=== PATIENT | male | born 1950 | race Caucasian/White ===

== ENCOUNTER 2023-01-31 15:19 | Outpatient (OUT) | payer MEDICARE, SELFPAY ==
--- NOTE | 2023-01-31 15:58 | XR_ITS ---
The [address] [address] Patient Name: AMEE LANCE MRN: [id number] date: 1950 Sex: M Assigned Patient Location: [facility] Current Patient Location: [facility] Accession/Order Number: [id number] Exam Date: 01/31/2023 15:44 Report Date: 01/31/2023 19:09 At the request of: RIK MURRAY Procedure: XR ankle RT min 3V EXAM: XR ankle RT min 3V, XR foot RT min 3V, XR femur LT 2V HISTORY: Contusion bilateral legs Right foot COMPARISON: None. TECHNIQUE/FINDINGS: Right ankle and right foot: There is soft tissue swelling at the ankle near circumferentially, worst at the lateral aspect. There is deformity of the distal fibula diaphysis. There appears to be an osteochondroma arising from the medial aspect of the distal fibular shaft. No acute fracture or subluxation is seen. There is moderate joint space narrowing with marginal spurring at the interphalangeal joints of the toes, tibiotalar joint and the tarsometatarsal joints. Well-defined bony ossicle distal to the tip of the medial malleolus may be related to old fracture/secondary ossification center. Bilateral knees: AP, oblique and lateral views of the bilateral knees were obtained. There is moderate bilateral medial compartment joint space narrowing. There is marginal tricompartmental spurring along with spurring of the tibial spines. Left femur: There is moderate joint space narrowing with marginal spurring at the left hip joint. There is a well-corticated sclerotic lesion at the proximal lateral left femur which has appearance of a bone island. XR/XR ankle RT min 3V IMPRESSION: RIGHT ANKLE AND RIGHT FOOT: 1. No acute fracture or subluxation. 2. Soft tissue swelling at the ankle extending to the dorsal aspect of the midfoot. 3. Polyarticular osteoarthritis. 4. Pedunculated bony outgrowth arising from the medial margin of the distal fibula suspicious for osteochondroma. BILATERAL KNEES AND LEFT FEMUR: 1. Moderate bilateral knee joint osteoarthritis. 2. Moderate left hip joint osteoarthritis. 3. No radiographic evidence of acute fracture or subluxation. Electronically authenticated by: GLENYS ANGELO Date: 01/31/2023 19:09
--- NOTE | 2023-01-31 15:58 | XR_ITS ---
The [address] [address] Patient Name: AMEE LANCE MRN: [id number] date: 1950 Sex: M Assigned Patient Location: [facility] Current Patient Location: [facility] Accession/Order Number: [id number] Exam Date: 01/31/2023 15:44 Report Date: 01/31/2023 19:09 At the request of: RIK MURRAY Procedure: XR foot RT min 3V EXAM: XR ankle RT min 3V, XR foot RT min 3V, XR femur LT 2V HISTORY: Contusion bilateral legs Right foot COMPARISON: None. TECHNIQUE/FINDINGS: Right ankle and right foot: There is soft tissue swelling at the ankle near circumferentially, worst at the lateral aspect. There is deformity of the distal fibula diaphysis. There appears to be an osteochondroma arising from the medial aspect of the distal fibular shaft. No acute fracture or subluxation is seen. There is moderate joint space narrowing with marginal spurring at the interphalangeal joints of the toes, tibiotalar joint and the tarsometatarsal joints. Well-defined bony ossicle distal to the tip of the medial malleolus may be related to old fracture/secondary ossification center. Bilateral knees: AP, oblique and lateral views of the bilateral knees were obtained. There is moderate bilateral medial compartment joint space narrowing. There is marginal tricompartmental spurring along with spurring of the tibial spines. Left femur: There is moderate joint space narrowing with marginal spurring at the left hip joint. There is a well-corticated sclerotic lesion at the proximal lateral left femur which has appearance of a bone island. XR/XR foot RT min 3V IMPRESSION: RIGHT ANKLE AND RIGHT FOOT: 1. No acute fracture or subluxation. 2. Soft tissue swelling at the ankle extending to the dorsal aspect of the midfoot. 3. Polyarticular osteoarthritis. 4. Pedunculated bony outgrowth arising from the medial margin of the distal fibula suspicious for osteochondroma. BILATERAL KNEES AND LEFT FEMUR: 1. Moderate bilateral knee joint osteoarthritis. 2. Moderate left hip joint osteoarthritis. 3. No radiographic evidence of acute fracture or subluxation. Electronically authenticated by: GLENYS ANGELO Date: 01/31/2023 19:09
--- NOTE | 2023-01-31 15:58 | XR_ITS ---
The [address] [address] Patient Name: AMEE LANCE MRN: [id number] date: 1950 Sex: M Assigned Patient Location: [facility] Current Patient Location: [facility] Accession/Order Number: [id number] Exam Date: 01/31/2023 15:44 Report Date: 01/31/2023 19:09 At the request of: RIK MURRAY Procedure: XR femur LT 2V EXAM: XR ankle RT min 3V, XR foot RT min 3V, XR femur LT 2V HISTORY: Contusion bilateral legs Right foot COMPARISON: None. TECHNIQUE/FINDINGS: Right ankle and right foot: There is soft tissue swelling at the ankle near circumferentially, worst at the lateral aspect. There is deformity of the distal fibula diaphysis. There appears to be an osteochondroma arising from the medial aspect of the distal fibular shaft. No acute fracture or subluxation is seen. There is moderate joint space narrowing with marginal spurring at the interphalangeal joints of the toes, tibiotalar joint and the tarsometatarsal joints. Well-defined bony ossicle distal to the tip of the medial malleolus may be related to old fracture/secondary ossification center. Bilateral knees: AP, oblique and lateral views of the bilateral knees were obtained. There is moderate bilateral medial compartment joint space narrowing. There is marginal tricompartmental spurring along with spurring of the tibial spines. Left femur: There is moderate joint space narrowing with marginal spurring at the left hip joint. There is a well-corticated sclerotic lesion at the proximal lateral left femur which has appearance of a bone island. XR/XR femur LT 2V IMPRESSION: RIGHT ANKLE AND RIGHT FOOT: 1. No acute fracture or subluxation. 2. Soft tissue swelling at the ankle extending to the dorsal aspect of the midfoot. 3. Polyarticular osteoarthritis. 4. Pedunculated bony outgrowth arising from the medial margin of the distal fibula suspicious for osteochondroma. BILATERAL KNEES AND LEFT FEMUR: 1. Moderate bilateral knee joint osteoarthritis. 2. Moderate left hip joint osteoarthritis. 3. No radiographic evidence of acute fracture or subluxation. Electronically authenticated by: GLENYS ANGELO Date: 01/31/2023 19:09
--- NOTE | 2023-01-31 15:58 | XR_ITS ---
The [place] [id number] Patient Name: AMEE LANCE MRN: [id number] date: 1950 Sex: M Assigned Patient Location: [facility] Current Patient Location: [facility] Accession/Order Number: [id number] Exam Date: 01/31/2023 15:44 Report Date: 01/31/2023 17:21 At the request of: RIK MURRAY Procedure: XR knee ADAM 3V EXAM: XR knee ADAM 3V HISTORY: Contusion bilateral legs Right foot COMPARISON: None. TECHNIQUE: 3 views of the right knee and 3 views of the left knee were obtained. FINDINGS/IMPRESSION: 1. There is no acute fracture or subluxation. 2. Moderate bilateral medial and patellofemoral compartment osteoarthritis as demonstrated by joint space narrowing and marginal spurring. Electronically authenticated by: GLENYS ANGELO Date: 01/31/2023 17:21
== END 2023-01-31 15:20 | disposition home or self-care (01) ==
LOC: RAD 15:23
PROVIDERS: PCP Nurse Practitioner; Visit Provider Nurse Practitioner
DX: S90.31XA Contusion of right foot, initial encounter (principal); S80.12XA Contusion of left lower leg, initial encounter; S80.11XA Contusion of right lower leg, initial encounter
CPT/HCPCS: 73552; 73562; 73610; 73630

== ENCOUNTER 2023-04-21 09:52 | Outpatient (OUT) | payer MEDICARE, SELFPAY ==
[2023-04-21 10:14] LABS: Basophils Percent Auto 0.3 % (0.2-2.0); Eosinophils Absolute Auto 0.1 10^3/uL (0.0-0.7); Eosinophils Percent Auto 0.8 % (0.9-7.0); Hematocrit 37.6 % (42.0-54.0); Immature Granulocytes Abs Auto 0.02 10^3/uL (0.00-0.03); Immature Granulocytes Pct Auto 0.3 % (0.0-0.5); Lymphocytes Absolute Auto 1.1 10^3/uL (1.2-3.8); Lymphocytes Percent Auto 18.1 % (20.5-60.0); Mean Corpuscular HGB Conc 31.9 g/dL (29.9-35.2); Mean Corpuscular Hemoglobin 28.4 pg (25.9-34.0); Mean Corpuscular Volume 89.1 fL (80.0-94.0); Mean Platelet Volume 9.7 fL (9.5-13.5); Monocytes Absolute Auto 0.6 10^3/uL (0.3-0.8); Monocytes Percent Auto 9.4 % (1.7-12.0); Neutrophils Absolute Auto 4.3 10^3/uL (1.4-6.5); Neutrophils Percent Auto 71.1 % (43.0-75.0); Platelet Count 183 10^3/uL (150-450); Red Blood Count 4.22 10^6/uL (4.70-6.10); Red Cell Distribution Width 14.5 % (11.0-15.0); White Blood Count 6.1 10^3/uL (4.0-11.0)
[2023-04-21 10:14] LABS: Bilirubin Urine NEGATIVE (NEGATIVE); Blood Urine NEGATIVE (NEGATIVE); Clarity Urine CLEAR (CLEAR); Color Urine DK. YELLOW (YELLOW); Glucose Urine UA NEGATIVE (NEGATIVE); Ketones Urine NEGATIVE (NEGATIVE); Leukocyte Esterase Urine NEGATIVE (NEGATIVE); Nitrite Urine NEGATIVE (NEGATIVE); Protein Urine NEGATIVE (NEG/TRACE); Specific Gravity Urine 1.025 (1.005-1.025); Urobilinogen Urine 0.2 EU/dL (0.2-1.0); pH Urine 5.5 (5.0-9.0)
[2023-04-21 10:25] LABS: Bacteria Urine TRACE #/HPF (NONE SEEN); Cast Seen? NONE SEEN #/LPF (NONE SEEN); Crystals Seen? None Seen #/HPF (None Seen); Mucus Urine NONE SEEN (NONE SEEN); RBC Urine 0-2 #/HPF (0-2); Squamous Epithelial Cell Urine FEW #/LPF (NONE/RARE); WBC Urine 0-2 #/HPF (NONE SEEN)
[2023-04-21 11:41] LABS: Microalbumin Urine Random 4.1 mg/dL (<=30.0)
[2023-04-21 11:48] LABS: Alanine Aminotransferase 33 U/L (16-63); Albumin Globulin Ratio 1.5; Albumin Level 3.9 g/dL (3.4-5.0); Alkaline Phosphatase 80 U/L (46-116); Anion Gap 14.2; Aspartate Amino Transferase 14 U/L (15-37); BUN Creatinine Ratio 13.7; Calcium 8.4 mg/dL (8.5-10.1); Chloride 108 mmol/L (98-107); Chol HDL Ratio 2.3; Cholesterol 102 mg/dL (<=200); Estimated GFR (African America 51 (>=60); Estimated GFR (Non-African Ame 42 (>=60); Globulin 2.6 g/dL; Glucose 116 mg/dL (74-106); HDL Cholesterol 45 mg/dL (40-60); LDL Cholesterol Calculated 42.8 mg/dL; Phosphorus 3.9 mg/dL (2.6-4.7); Potassium 4.2 mmol/L (3.5-5.1); Sodium 144 mmol/L (136-145); Total Protein 6.5 g/dL (6.4-8.2); Triglycerides 71 mg/dL (<=150); VLDL CHOLESTEROL 14.2 mg/dL
[2023-04-22 13:09] LABS: PTH, Intact 52 pg/mL (15-65)
== END 2023-04-21 09:53 | disposition home or self-care (01) ==
LOC: LAB 09:53
PROVIDERS: PCP Nurse Practitioner
DX: I25.10 Atherosclerotic heart disease of native coronary artery without angina pectoris (principal); N18.30 Chronic kidney disease, stage 3 unspecified; R73.09 Other abnormal glucose; D64.9 Anemia, unspecified; E83.51 Hypocalcemia
CPT/HCPCS: 36415; 80053; 80061; 81001; 82043; 82306; 83970; 84100; 85025

== ENCOUNTER 2023-04-25 08:20 | Outpatient (OUT) | payer MEDICARE, SELFPAY ==
[2023-04-25 09:14] LABS: Estimated Average Glucose 105 mg/dL; Glycohemoglobin A1C 5.3 % (4.5-6.2)
== END 2023-04-25 08:21 | disposition home or self-care (01) ==
LOC: LAB 08:21
PROVIDERS: PCP Nurse Practitioner; Visit Provider Nurse Practitioner
DX: R07.9 Chest pain, unspecified (principal); R73.09 Other abnormal glucose; D64.9 Anemia, unspecified; E83.51 Hypocalcemia
CPT/HCPCS: 36415; 82306; 82607; 82728; 83036; 83540

== ENCOUNTER 2023-07-09 12:44 | Emergency (ER) | payer MEDICARE, SELFPAY ==
[2023-07-09] VITALS (9 sets, daily range): BP systolic 163; BP diastolic 81–85; PULSE 61–66; RESP 12–25; TEMP 36.6; O2SAT 94–97; BMI 32.5
--- NOTE | 2023-07-09 12:59 | XR_ITS ---
The [address] [address] Patient Name: AMEE LANCE MRN: [id number] date: 1950 Sex: M Assigned Patient Location: [facility] Current Patient Location: [facility] Accession/Order Number: [id number] Exam Date: 07/09/2023 14:05 Report Date: 07/09/2023 14:51 At the request of: MARYANN RG Procedure: XR chest 2V EXAM: XR chest 2V INDICATION: SOB. COMPARISON: Chest radiograph 02/16/2021. TECHNIQUE: Two views of the chest FINDINGS: Stable enlargement of the cardiac silhouette. Clear lungs. No pleural effusion or pneumothorax. No acute osseous abnormality. XR/XR chest 2V IMPRESSION: No acute cardiopulmonary process. Electronically authenticated by: ISAI PATEL Date: 07/09/2023 14:51
--- OUTSIDE RECORDS SUMMARY | 2023-07-09 13:03 | XMS_ITS | CCD ---
Author Name Unknown Address [address] [place] [id number] Organization [facility] Care Team Providers Care Varitype Operator Name Role Phone Roslyn Barrosnathan Unavailable Unavailable Angehlraiza Dru Unavailable Unavailable Roslyn Barrosnathan Unavailable Unavailable DANI KAILEY Unavailable Unavailable PHYSICIAN, DEFAULT Admitting Unavailable PHYSICIAN, DEFAULT Attending Unavailable PHYSICIAN, DEFAULT Admitting Unavailable PHYSICIAN, DEFAULT Attending Unavailable PHYSICIAN, DEFAULT Admitting Unavailable PHYSICIAN, DEFAULT Attending Unavailable Kailey Louise Unavailable Unavailable Unavailable KAUH, SUSAN Y Referring Unavailable SELF, SELF Referring Unavailable KAUH, SUSAN Y Attending Unavailable SELF, SELF Referring Unavailable KAUH, SUSAN Y Attending Unavailable SELF, SELF Referring Unavailable KAUH, SUSAN Y Admitting Unavailable KAUH, SUSAN Y Attending Unavailable SELF, SELF Referring Unavailable OHR, MPO JUSTINA Attending Unavailable OHR, MPO JUSTINA Referring Unavailable KAUH, SUSAN Y Attending Unavailable Unavailable Primary Care Provider Unavailabl e Kailey Louise CNP Primary Care Provider Harriett Devries Unavailable Kailey Louise Primary Care Provider DO Kary Dutta Attending Provider Kailey Louise CNP Primary Care Provider [phone] JOSE DUTTA Attending Unavailab Mrs. Kailey Ortiz Primary Care Unavailab le OSKAR LOUISE KAILEY Admitting Unavailable AICHHOLSidney INDUSTRIAL MAINTENANCE MANAGER KAILEY Primary Care Unavailable AICHHOLSidney INDUSTRIAL MAINTENANCE MANAGER KAILEY Attending Unavailable AICHHOLSidney INDUSTRIAL MAINTENANCE MANAGER KAILEY Admitting Unavailable AICHHOLZ, INDUSTRIAL MAINTENANCE MANAGER KAILEY Primary Care Unavailable AICHHOLSidney INDUSTRIAL MAINTENANCE MANAGER KAILEY Consulting Unavailable AICHHOLZ, INDUSTRIAL MAINTENANCE MANAGER KAILEY Attending Unavailable SUSANA, HARRIETT Admitting Unavailable SUSANA, HARRIETT Attending Unavailable AICHHOLZ, INDUSTRIAL MAINTENANCE MANAGER KAILEY Primary Care Unavailable DR GREG POLLARD V Consulting Unavailable SUSANA, HARRIETT Consulting Unavailable AICHHOLZ, INDUSTRIAL MAINTENANCE MANAGER KAILEY Attending Unavailable AICHHOLZ, INDUSTRIAL MAINTENANCE MANAGER KAILEY Admitting Unavailable AICHHOLZ, INDUSTRIAL MAINTENANCE MANAGER KAILEY Primary Care Unavailable AICHHOLZ, INDUSTRIAL MAINTENANCE MANAGER KAILEY Consulting Unavailable AICHHOLZ, INDUSTRIAL MAINTENANCE MANAGER KAILEY Admitting Unavailable AICHHOLZ, INDUSTRIAL MAINTENANCE MANAGER KAILEY Primary Care Unavailable AICHHOLZ, INDUSTRIAL MAINTENANCE MANAGER KAILEY Consulting Unavailable AICHHOLZ, INDUSTRIAL MAINTENANCE MANAGER KAILEY Attending Unavailable DR JASSI WITT Consulting Unavailable JUAN RAMON, GALILEO Consulting Unavailable JUAN RAMON, GALILEO Attending Unavailable AICHHOLZ, INDUSTRIAL MAINTENANCE MANAGER KAILEY Primary Care Unavailable JUAN RAMON, GALILEO Admitting Unavailable AICHHOLZ, INDUSTRIAL MAINTENANCE MANAGER KAILEY Attending Unavailable AICHHOLZ, INDUSTRIAL MAINTENANCE MANAGER KAILEY Admitting Unavailable AICHHOLZ, INDUSTRIAL MAINTENANCE MANAGER KAILEY Primary Care Unavailable ATUL, DR GREG Cartwright Consulting Unavailable AICHHOLZ, INDUSTRIAL MAINTENANCE MANAGER KAILEY Consulting Unavailable Aichholz, Kailey J Primary Care Provider DO Kary Dutta Attending Provider [phone] Erin Jordan Unavailable Unavailable MD ISAIAS CAVAZOS Attending Unav ailable MD ISAIAS CAVAZOS Referring Unav ailable Aichholz, . Kailey Roslyn Primary Care Unavailab Marce Williamson Attending Unavailable Marce Juárez Referring Unavailable Aichholz, . Kailey Roslyn Primary Care Unavailab lashae Dutta, Dr. Jose Verma Attending Milton Dutta, Dr. Jose Verma Referring Unava ilable Aichholz, Mrs. Kailey Roslyn Primary Care Unavailab lashae Dutta, Dr. Jose Verma Attending Milton Dutta, Dr. Jose Verma Referring Unava ilable Aichholz, Mrs. Kailey Roslyn Primary Care Unavailab lashae Dutta, Dr. Jose Verma Attending Milton Dutta, Dr. Jose Verma Referring Unava ilable Aichholz, Mrs. Kailey Roslyn Primary Care Unavailab le AICHHOLZ, KAILEY ROSLYN Primary Care Unavailable JUAN RAMON, GALILEO Referring Unavailable AICHHOLZ, KAILEY ROSLYN Primary Care Unavailable FRANCISCO CLAIRE Attending Unavailable AICHHOLZ, KAILEY ROSLYN Primary Care Unavailable KAILEY LOUISE Primary Care Unavailable GALILEO DELATORRE Referring Unavailable GALILEO DELATORRE Attending Unavailable KAILEY LOUISE Primary Care Unavailable GALILEO DELATORRE Referring Unavailable GALILEO DELATORRE Attending Unavailable Kailey Louise Primary Care Provider [phone] MD Galileo Delatorre Attending Provider [phone] Kailey Louise Primary Care Provider [phone] DO Kary Dutta Attending Provider Galileo Delatorre Attending Unavailable Galileo Delatorre Admitting Unavailable Kailey Louise Primary Care Unavailable Kary Dutta Admitting Unavailable Kailey Louise Primary Care Unavailable Kary Dutta Attending Unavailable Kary Dutta Admitting Unavailable Kailey Louise Primary Care Unavailable Kary Dutta Attending Unavailable No Pcp, No Pcp Primary Care Provider Unavailsandrita Louise [facility] ATTENDANTKailey HEMPHILL Primary Care Provider KAILEY LOUISE Primary Care Unavailable JOSE DUTTA Attending Unavailable KAILEY LOUISE Primary Care Unavailable Allergies Allergy Classification Reported Allergen(s) Allergy Type Date of Onset Reaction(s) Facility (1 source) No Known Medication Allergies; Translations: [No Known Medication Allergies] Propensity to adverse reactions (disorder) [facility] Repository (2 sources) amLODIPine; Translations: [AMLODIPINE] Drug Allergy 3 Other [facility] Medications Current Medications Medication Drug Class(es) Dates Sig (Normalized) Sig (Original) acetaminophen 300 mg / codeine phosphate 30 mg oral tablet (1 source) Opioid Agonist take 1 tablet by mouth every four hours as needed acetaminophen-codeine 300-30 MG per tablet Take 1 tablet by mouth every 4 hours as needed. 0 Active acetaminophen 325 mg / HYDROcodone bitartrate 5 mg oral tablet (20 sources) Opioid Agonist Start: 11-11-2020 take 1 tablet by mouth every four hours as needed hydroCODone-acetamino phen 5-325 MG tablet Indications: Ptosis of both upper eyelids , Dermatochalasis of both upper eyelids Take 1 tablet by mouth every 4 hours as needed for up to 3 days. 18 tablet 0 11/11/2020 Active take 1 tablet by andrea th every six hours as needed HYDROcodone-acetaminophen ([place]) 5-325 mg tablet Take 1 tablet by mouth every 6 hours if needed (pain). 0 Active Albuterol Sulfate (2.5 MG/ 3 ML) 2.5 MG/3ML 0.083% Nebulization Solution (5 sources) Albuterol Sulfat e (2.5 MG/ 3 ML) 2.5 MG/3ML 0.083% Nebulization Solution 3ml Inhalation 4 times a day Active amiodarone hydrochloride 200 mg oral tablet (20 sources) Antiarrhythmic Start: 07-05-2023 End: 01-01-2024 take 2 tablets by mouth once daily amiodarone (Pacerone) 200 mg tablet Indications: Persistent atrial fibrillation (CMS/HCC) Take 2 tablets (400 mg) by mouth once daily. 180 tablet 1 07/05/2023 01/01/2024 Active Start: 09-30-2021 End: 07-05-2023 take 1 tablet by mouth in the morning amiodarone (PACERONE) 100 mg tablet Take 1 tablet (100 mg total) by mouth in the morning. 0 03/17/2022 Active Start: 08-26-2021 take 0.5 tablet by m outh once daily Amiodarone HCl - 200 MG Oral Tablet TAKE 0.5 TABLET Daily Quantity: 45 Refills: 3 Ordered: 27-Aug-2021 Marce Silverman Start : 26-Aug-2021 Active Start: 06-24-2021 Amiodarone (Pa cerone) 200 mg tablet Active 100 MG PO Daily June 24, 2021 12:00am Start: 04-22-2021 take 1 tablet by andrea th once daily amiodarone (PACERONE) 200 mg tablet Take 200 mg by mouth once daily. 0 04/22/2021 Active Comment on above: Take 200 mg by mouth once daily. apixaban 5 mg oral tablet (20 sources) Factor Xa Inhibitor Start: 02-25-2021 ELIQUIS 5 mg tablet take 1 tablet by andrea th every twelve hours Eliquis 5 MG Oral Tablet TAKE 1 TABLET Every twelve hours Quantity: 0 Refills: 0 Ordered: 08-Mar-2021 DO Active aspirin 81 mg chewable tablet (20 sources) Platelet Aggregation Inhibitor, Nonsteroidal Anti-inflammatory Drug Start: 06-18-2019 take 81 mg by mouth once daily Aspirin Active 81 MG PO Daily 0 June 18, 2019 12:00am take 1 tablet by mouth in the mo rning aspirin 81 mg Take 1 tablet (81 mg total) by mouth in the morning. 0 Active 60 actuat budesonide 0.16 mg/actuat / formoterol fumarate 0.0045 mg/actuat metered dose inhaler (20 sources) Corticosteroid, beta2-Adrenergic Agonist Start: 03-26-2022 take 2 puff(s) by mouth twice daily SYMBICORT 160-4.5 mcg/actuation inhaler TAKE 2 PUFFS BY MOUTH TWICE A DAY RINSE MOUTH AFTER USE 0 03/26/2022 Active Start: 06-16-2019 take 2 puff(s) by mo [facility] twice daily Budesonide-Formoterol (Symbicort) 160-4.5 mcg/actuation HFA aerosol inhaler Active 2 PUFF INHALATION Twice daily June 16, 2019 1:00am TAKE 2 PUFFS BY MOUTH TWICE A DAY RINSE MOUTH AFTER USE Start: 06-16-2019 take 2 puff(s) by mo ut twice daily Budesonide-Formoterol (Symbicort) 160-4.5 mcg/actuation HFA aerosol inhaler Active 2 PUFF INHALATION Twice daily June 16, 2019 12:00am TAKE 2 PUFFS BY MOUTH TWICE A DAY RINSE MOUTH AFTER USE Start: 05-14-2018 SYMBICORT 160- 4.5 mcg/actuation inhaler TAKE 2 PUFFS BY MOUTH TWICE A DAY*RINSE MOUTH AFTER USE* 5 05/14/2018 Active Start: 04-30-2018 End: 06-16-2019 Budesonide-Formoterol Discon tinued April 30, 2018 12:00am June 16, 2019 10:13pm Start: 10-24-2017 End: 06-16-2019 Budesonide-Formoterol Discon tinued 2 INH INHALATION Twice daily October 23, 2017 11:00pm June 16, 2019 10:13pm Start: 02-15-2017 take 2 puff(s) by in halation twice daily Symbicort 160-4.5 MCG/ACT 2 puffs Inhalation Twice a day Feb, Active take 2 puff(s) by mo ut twice daily budesonide-formoteroL (Symbicort) 160-4.5 mcg/actuation inhaler Inhale 2 puffs 2 times a day. RINSE MOUTH AFTER USE. 0 Active take 2 puff(s) by mo [facility] twice daily Symbicort 160-4.5 MCG/ACT Inhalation Aerosol INHALE 2 PUFFS TWICE DAILY. RINSE MOUTH AFTER USE. Quantity: 0 Refills: 0 Ordered: 08-Mar-2021 DO Active take 2 puff(s) by in halation every twelve hours budesonide-formoterol 160-4.5 mcg/puff Aerosol inhaler Inhale 2 puffs every 12 hours. 0 Active Comment on above: TAKE 2 PUFFS BY MOUT H TWICE A DAY*RINSE MOUTH AFTER USE* 24 hr buPROPion hydrochloride 150 mg extended release oral tablet (20 sources) Aminoketone Start: 1 End: 3 take 1 tablet by mouth once daily Bupropion Hcl (Wellbutrin Xl) 150 mg tablet extended release 24 hr Active 150 MG PO Daily June 24, 2021 12:00am take 1 tablet by andrea every twelve hours buPROPion SR (WELLBUTRIN SR) 150 mg 12 h r tablet Take 1 tablet (150 mg total) by mouth. 0 Active Comment on above: Take 150 mg by mouth once daily. carbidopa 25 mg / levodopa 100 mg oral tablet (3 sources) Aromatic Amino Acid Decarboxylation Inhibitor, Aromatic Amino Acid Start: 01-12-2022 take 1 tablet by mouth once carbidopa-levod opa (SINEMET) 25-100 mg per tablet TAKE 1 TABLET BY MOUTH AT 7AM,11AM,AND 4PM FOR 90 DAYS 0 01/12/2022 Active Start: 01-12-2022 take 1 tablet by andrea twice daily carbidopa-levodopa (Sinemet) 25-100 mg tablet Take 1 tablet by mouth 2 times a day. 0 01/12/2022 Active clopidogrel 75 mg oral tablet (1 source) P2Y12 Platelet Inhibitor take 1 tablet by mouth once daily clopidogrel 75 MG tablet Take 75 mg by mouth daily. 0 Active erythromycin 0.005 mg/mg ophthalmic ointment (1 source) Macrolide, Macrolide Antimicrobial Start: 11-12-19 apply 3.5 g into the eye(s) three times daily erythromycin 5 MG/GM Ointment ophthalmic ointment Indications: Ptosis of both upper eyelids , Dermatochalasis of both upper eyelids Use 3 times a day until postop appointment 3.5 g 1 11/11/2020 Active ferrous sulfate 325 mg oral tablet (2 sources) Start: 06-06-19 End: 09-04-19 take 1 tablet by mouth once daily ferrous sulfate, 325 mg ferrous sulfate, tablet Take 1 tablet by mouth once daily. 0 06/06/2023 09/04/2023 Active fluticasone propionate 0.05 mg/actuat metered dose nasal spray (2 sources) Corticosteroid take 1 spray(s) nasal route once daily Fluticasone Propionate 50 MCG/ACT 1 spray in each nostril Nasally Once a day Active take 1 spray(s) nasal route once daily Fluticasone Propionate 50 MCG/ACT 1 spray in each nostril Nasally Once a day Active 120 actuat fluticasone propionate 0.115 mg/actuat / salmeterol 0.021 mg/actuat metered dose inhaler (1 source) Corticosteroid, beta2-Adrenergic Agonist Start: 06-19-2023 take 2 puff(s) by inhalation twice daily Advair HFA 115-21 MCG/ACT 2 puffs Inhalation Twice a day for 90 days Symbicort not covered . Need Advair for the new year. Did not send yet due to supply of Symbicort at home. Jun, Active gabapentin 300 mg oral capsule (20 sources) Anti-epileptic Agent Start: 10-24-2017 take 1 capsule by mouth at bedtime Gabapentin (Neurontin) 300 mg capsule Active 300 MG PO Bedtime October 23, 2017 11:00pm take 1 capsule by [facility] three times daily gabapentin (NEURONTIN) 300 mg capsule Ta ke 1 capsule (300 mg total) by mouth 3 (three) times a day. 0 Active GABAPENTIN ORAL Take by mouth. 0 Active Comment on above: Take by mouth. hydroCHLOROthiazide 12.5 mg oral capsule (10 sources) Thiazide Diuretic Start: 2023 take 1 capsule by mouth once daily hydroCHLOROthiazide (Microzide) 12.5 mg capsule Indications: Essential hypertension, benign TAKE 1 CAPSULE BY MOUTH EVERY DAY 90 capsule 1 07/04/2023 Active Start: 10-24-2017 End: 06-24-2021 take 25 mg by mouth once daily Hydrochlorothiazide Discontinued 25 MG PO Daily October 23, 2017 11:00pm June 24, 2021 3:10am End: 07-05-2023 take 1 tablet by mouth once daily hydroCHLOROthiazide (HYDRODiuril) 12.5 mg tablet Take 1 tablet (12.5 mg) by mouth once daily. 0 07/05/2023 Discontinued (Duplicate order) 24 hr isosorbide mononitrate 30 mg extended release oral tablet (20 sources) Nitrate Vasodilator Start: 03-12-2022 take 1 tablet by mouth once daily isosorbide mononitrate (IMDUR) 30 mg 24 hr tablet Take 1 tablet (30 mg total) by mouth daily. 0 03/12/2022 Active Start: 06-25-2021 isosorbide mon onitrate ER (IMDUR) 60 mg 24 hr tablet Start: 06-25-2021 take 60 mg by mouth once daily Isosorbide Mononitrate Active 60 MG PO Daily June 25, 2021 12:00am Start: 06-23-2021 End: 06-25-2021 take 1 tablet by mouth once daily isosorbide mononitrate (IMDUR) 30 mg 24 hr tablet Take 1 tablet (30 mg total) by mouth daily. 0 03/12/2022 Active loratadine 10 mg oral tablet (18 sources) Start: 07-13-2021 take 1 tablet by mouth in the morning loratadine (CLARITIN) 10 mg tablet Take 1 tablet (10 mg total) by mouth in the morning. 0 07/13/2021 Active Comment on above: Take 10 mg by mouth once daily. 24 hr loratadine 10 mg / pseudoephedrine sulfate 240 mg extended release oral tablet (20 sources) alpha-Adrenerg ic Agonist take 1 tablet by mouth every twenty-four hours as needed loratadine-pseudo ephedrine (Claritin-D 24-hour) 10-240 mg 24 hr tablet Take 1 tablet by mouth once daily as needed. 0 Active take 10-240 mg by mo [facility] every twenty-four hours as needed Allergy Relief D 10-240 MG Oral Tablet Extended Release 24 Hour TAKE 1 TABLET DAILY NEEDED. Quantity: 0 Refills: 0 Ordered: 08-Mar-2021 DO Active take 10-240 mg by mo [facility] every twenty-four hours as needed Allergy Relief D 10-240 MG Oral Tablet Extended Release 24 Hour TAKE 1 TABLET DAILY NEEDED. Quantity: 0 Refills: 0 Ordered: 08-Mar-2021 DO Active Multiple Vitamin (multivitamin) capsule (1 source) take 1 capsule by mouth once daily Multiple Vitamin (multivitamin) capsule Take 1 capsule by mouth daily. 0 Active nitroglycerin 0.4 mg sublingual tablet (20 sources) Nitrate Vasodilator Start: 04-28-20 nitroglycerin (Nitrostat) 0.[address] under the tongue. PLACE 1 TABLET UNDER TONGUE EVRY 5 MINS X3 DOSES NEEDED FOR CHEST PAIN *CALL 911 IF PAIN PERSISTS 0 04/28/2021 Active Start: 09-23-2019 End: 03-31-2021 apply 0.4 mg transdermal route every hour, then apply 1 dose transdermal route every twenty-four hours Nitroglycerin (Nitro-Dur) 0.4 mg/hr patch 24 hour Discontinued 1 PATCH TRANSDERML Daily September 22, 2019 11:00pm March 31, 2021 8:46am allow nitrate-free interval of approx. 10-12 hrs per 24-hour period Start: 06-18-2019 nitroglycerin sublingual (NITROQUICK) 0.4 mg SL tablet Start: 06-18-2019 End: 09-23-2019 Nitroglycerin Active 0.4 MG SUBLINGUAL Every 5 minutes x 3 doses September 23, 2019 2:01pm nitroglycerin (N ITROSTAT) 0.[address] 1 tablet (0.3 mg total) under the tongue every 5 (five) minutes as needed. 0 Active polyethylene glycol 400 4 mg/ml / propylene glycol 3 mg/ml ophthalmic solution (1 source) Polyethyl Glycol -Propyl Glycol (Systane) 0.4-0.3 % Solution ophthalmic solution prednisoLONE acetate 10 mg/ml ophthalmic suspension (20 sources) Corticosteroid Start: 03-03-2023 End: 03-02-2024 prednisoLONE acetate (PRED FORTE) 1 % ophthalmic suspension Indications: Hypertensive retinopathy of both eyes Administer 1 drop to both eyes in the morning and 1 drop at noon and 1 drop in the evening and 1 drop before bedtime. 15 mL 3 03/03/2023 03/02/2024 Active Start: 09-27-2019 End: 06-24-2021 take 1 drop(s) into the eye(s) four times daily Prednisolone Acetate Discontinued 1 DROPS EYE-LEFT Four times daily September 26, 2019 11:00pm June 24, 2021 3:13am take 1 drop(s) into the eye(s) four times daily prednisoLONE Acetate 1 % Ophthalmic Suspension INSTILL 1 DROP INTO AFFECTED EYE(S) 4 TIMES DAILY. Quantity: 0 Refills: 0 Ordered: 08-Mar-2021 DO Active prednisoLONE lilliam lim 0.12 % Suspension 1 drop 4 times daily. 0 Active [id number] PO (1 source) PSEUDOEPH-BROMPH EN-COD PO Take by mouth. 0 Active roflumilast 0.5 mg oral tablet (20 sources) Phosphodiesterase 4 Inhibitor Sta rt: take 1 tablet by mouth in the morning DALIRESP 500 mcg tablet Take 1 tablet (500 mcg total) by mouth in the morning. 0 03/15/2022 Active Start: 04-30-2018 End: 06-16-2019 take 1 tablet by mouth once daily Roflumilast (Daliresp) 500 mcg tablet Active 500 MCG PO Daily June 16, 2019 12:00am TAKE 1 TABLET BY MOUTH EVERY DAY take 1 tablet by andrea th once daily Daliresp 500 MCG TAKE 1 TABLET BY MOUTH EVERY DAY Oral Active Comment on above: Take 500 mcg by mout h once daily. spironolactone 25 mg oral tablet (20 sources) Aldosterone Antagonist Start: 05-25-2021 End: 06-25-2021 spironolactone (ALDACTONE) 25 mg tablet Take by mouth daily. 0 05/25/2021 Active Start: 05-25-2021 spironolactone (ALDACTONE) 25 mg tablet Take by mouth q 24 HR. 0 05/25/2021 Active Comment on above: Take by mouth q 24 H R. valsartan 160 mg oral tablet (20 sources) Angiotensin 2 Receptor Fadumo Start: 10-24-2017 take 1 tablet by mouth in the morning, then take 1 tablet by mouth at bedtime valsartan (DIOVAN) 160 mg tablet Take 1 tablet (160 mg total) by mouth in the morning and 1 tablet (160 mg total) before bedtime. 0 12/15/2021 Active take 1 tablet by andrea th every twenty-four hours Valsartan 160 MG 1 tablet Orally Once a day Active Comment on above: Take 160 mg by mouth twice daily. Completed/Discontinued Medications Medication Drug Class(es) Dates Sig (Normalized) Sig (Original) acetaminophen 325 mg / oxyCODONE hydrochloride 5 mg oral tablet (15 sources) Opioid Agonist Start: 04-30-2018 End: 06-24-2021 take 5 mg by mouth every four hours Oxycodone-Acetamin ophen Discontinued 5 MG PO Q4H April 30, 2018 12:00am June 24, 2021 3:11am Comment on above: Acetaminophen / oxyC ODONE Oxycodone-Acetaminophen Active 5 MG Oral Q4H April 30, 2018 3:31pm 04-30-[address] [facility] ([id number]) albuterol 0.21 mg/ml inhalation solution (16 sources) beta2-Adrenergic Agonist Start: 10-24-2017 End: 06-18-2019 take 0.63 mg by inhalation every four hours Albuterol Sulfate Discontinued 0.63 MG INHALATION Q4H October 23, 2017 11:00pm June 18, 2019 11:21am albuterol 2.5 mg /3 mL (0.083 %) nebulizer solution 3 mL 4 times a day as needed. 0 Active take 2.5 mg by inhal ation every four hours as needed albuterol (PROVENTIL) 2.5 mg /3 mL (0.08 3 %) nebulizer solution Use 2.5 mg via nebulizer every 4 hours as needed. 0 Active Comment on above: Use 2.5 mg via nebul izer every 4 hours as needed. 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 0 06/18/2019 Active Comment on above: 81 mg. atorvastatin 40 mg oral tablet (20 sources) HMG-CoA Reductase Inhibitor Start: End: take 2 tablets by mouth once daily Atorvastatin (Lipitor) 40 mg tablet Discontinued 80 MG PO Daily June 24, 2021 2:57am June 24, 2021 10:50am Start: 06-30-2019 take 1 tablet by andrea th once daily Atorvastatin (Lipitor) 80 mg tablet Active 80 MG PO Daily June 24, 2021 12:00am Start: 06-30-2019 End: 06-24-2021 take 1 tablet by mouth once daily Atorvastatin (Lipitor) 40 mg tablet Discontinued 40 MG PO Daily June 30, 2019 12:00am June 24, 2021 2:57am Comment on above: 80 mg. baclofen 10 mg oral tablet (8 sources) gamma-Aminobutyric Acid-ergic Agonist Start: 10-25-19 End: 07-26-19 take 10 mg by mouth once daily at bedtime Baclofen Discontinued 10 MG PO Daily at bedtime October 23, 2017 11:00pm September 27, 2019 10:45am Comment on above: 10 mg. bromfenac 0.7 mg/ml ophthalmic solution (13 sources) Nonsteroidal Anti-inflammatory Drug Prolensa 0.07 % Ophthalmic Solution as directed Quantity: 0 Refills: 0 Ordered: 08-Mar-2021 DO Active carvedilol 6.25 mg oral tablet (11 sources) alpha-Adrenergic Fadumo, beta-Adrenergic Fadumo Start: 09-23-19 End: 06-24-19 take 6.25 mg by mouth twice daily at mealtime Carvedilol Discontinued 6.25 MG PO Twice daily with meals 60 September 22, 2019 11:00pm June 24, 2021 3:10am cephalexin 500 mg oral tablet (7 sources) Cephalosporin Antibacterial Start: 05-25-20 take 1 tablet by mouth every eight hours Cephalexin 500 MG Oral Tablet TAKE 1 TABLET EVERY 8 HOURS UNTIL ALL TAKEN. Quantity: 21 Refills: 0 Ordered: 25-May-2021 Marce Silverman Start : 25-May-2021 Active cetirizine hydrochloride 10 mg oral tablet (4 sources) Histamine-1 Receptor Antagonist Start: 10-25-19 End: 05-22-20 18 Cetirizine Discontinued TABLET October 23, 2017 11:00pm October 24, 2017 7:40pm furosemide 20 mg oral tablet (7 sources) Loop Diuretic Start: 06-24-19 End: 06-25-19 take 1 tablet by mouth once daily Furosemide (Lasix) 20 mg tablet Discontinued 20 MG PO Daily June 24, 2021 12:00am June 25, 2021 1:01pm Start: 04-22-2021 take 1 tablet by andrea th once daily Furosemide 20 MG Oral Tablet TAKE 1 TABLET DAILY DIRECTED. 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 0 06/18/2019 Active Start: 06-18-2019 take 1 tablet by andrea th every twelve hours Guaifenesin Active 1200 MG PO Q12H 0 June 18, 2019 11:20am TAKE 1 TABLET BY MOUTH EVERY 12 HOURS Start: 10-24-2017 End: 06-18-2019 take 1200 mg by mouth every twelve hours Guaifenesin Discontinued 1200 MG PO Q12H October 23, 2017 11:00pm June 18, 2019 11:21am Start: 02-28-2017 take 1 tablet by andrea th once daily guaiFENesin ER 1200 MG 1 tab daily Orally daily Feb, Active Start: 02-28-2017 take 1 tablet by andrea th once daily guaiFENesin ER 1200 MG 1 tab daily Orally daily Feb, Active take 1 tablet by andrea th every twelve hours guaiFENesin (MUCINEX) 600 mg tablet extended release 12hr Take 1 tablet (600 mg total) by mouth. 0 Active take 1 tablet by andera th twice daily, then take 1 tablet by mouth every twelve hours guaiFENesin (Mucinex) 600 MG Tab SR 12 HR tablet SR Take 600 mg by mouth 2 times daily. 0 Active Comment on above: 1,200 mg. ipratropium bromide 0.2 mg/ml inhalation solution (4 sources) Anticholinergic Start : 10-24 End: 10-24 Ipratropium [place] Discontinued SOLUTION October 23, 2017 11:00pm October 24, 2017 7:40pm levoFLOXacin 750 mg oral tablet (4 sources) Quinolone Antimicrobial Start : 10-25 End: 11-01 take 750 mg by mouth once daily Levofloxacin Discontinued 750 MG PO Daily 7 October 24, 2017 11:00pm October 31, 2017 11:01pm start tonight methylPREDNISolone 32 mg oral tablet (4 sources) Corticosteroid Start : 10-25 End: 06-18 take 1 tablet by mouth once daily Methylprednisolone (Medrol) 32 mg tablet Discontinued 32 MG PO Daily October 24, 2017 11:00pm June 18, 2019 11:21am montelukast 10 mg oral tablet (4 sources) Leukotriene Receptor Antagonist Start : 10-24 End: 06-16 take 10 mg by mouth once daily Montelukast Discontinued 10 MG PO Daily October 23, 2017 11:00pm June 16, 2019 10:19pm potassium chloride 10 meq extended release oral capsule (20 sources) Start : 04-22 take 3 capsules by mouth once daily Potassium Chloride ER 10 MEQ Oral Capsule Extended Release TAKE THREE CAPSULES DAILY Quantity: 90 Refills: 3 Ordered: 22-Apr-2021 Jose Dutta DO Start : 22-Apr-2021 Active note correction this is the correct dosing. Start: 09-27-2019 End: 06-24-2021 Potassium Chloride (Klor-Con M20) 20 mEq tablet,ER particles/crystals Discontinued 20 MEQ PO Daily September 27, 2019 10:45am June 24, 2021 3:11am Start: 06-18-2019 End: 09-23-2019 take 10 mEq by mouth once daily at mealtime Potassium Chloride Discontinued 10 MEQ PO Daily June 18, 2019 11:20am September 23, 2019 5:40pm give with food (meal/snack) Start: 10-25-2017 End: 06-18-2019 take 20 mEq by mouth once daily at mealtime Potassium Chloride Discontinued 20 MEQ PO Daily October 24, 2017 11:00pm June 18, 2019 11:21am give with food (meal/snack) Potassium Chlori de 10 MEQ TBCR TAKE 3 TABLET Daily Quantity: 0 Refills: 0 Ordered: 08-Mar-2021 DO Active POTASSIUM CHLORI DE ER PO Take 30 mEq by mouth. 0 Active Potassium Chloride (Klor-Con M20) 20 mEq Tablet,Er Particles/Crystals (4 sources) Start: 09-23-2019 End: 09-27-2019 Potassium Chloride (Klor-Con M20) 20 mEq Tablet,Er Particles/Crystals Discontinued 40 MEQ PO Daily 60 30 September 23, 2019 12:00am September 27, 2019 11:45am Start: 09-23-2019 End: 09-27-2019 Potassium Chloride (Klor-Con M20) 20 mEq Tablet,Er Particles/Crystals Discontinued 40 MEQ PO Daily 60 30 September 22, 2019 11:00pm September 27, 2019 10:45am sildenafil 100 mg oral tablet (20 sources) Phosphodiesterase 5 Inhibitor Start: 09-27-2019 End: 03-31-2021 take 100 mg by mouth once daily Sildenafil Discontinued 100 MG PO Daily September 26, 2019 11:00pm September 27, 2019 10:56am Sildenafil Citra te 100 MG Oral Tablet TAKE DIRECTED. Quantity: 0 Refills: 0 Ordered: 08-Mar-2021 DO Active tamsulosin hydrochloride 0.4 mg oral capsule (4 sources) alpha-Adrenergic Fadumo Start: 10-24-2017 End: 06-16-2019 take 0.4 mg by mouth every twelve hours Tamsulosin Discontinued 0.4 MG PO Q12H October 23, 2017 11:00pm June 16, 2019 10:18pm ticagrelor 90 mg oral tablet (4 sources) Start: 06-18-2019 End: 03-31-2021 take 1 tablet by mouth twice daily Ticagrelor (Brilinta) 90 mg Tablet Discontinued 90 MG PO Twice daily 180 90 June 18, 2019 12:00am March 31, 2021 8:45am torsemide 20 mg oral tablet (20 sources) Loop Diuretic Start: 06-21-2022 take 2 tablets by mouth two times weekly Torsemide 20 MG Oral Tablet Take 2 tablets twice weekly Quantity: 45 Refills: 3 Ordered: 17-Nov-2022 Jose Dutta DO Start : 21-Jun-2022 Active Start: 06-25-2021 take 40 mg by mouth once daily Torsemide Active 40 MG PO DAILY@0800 30 June 25, 2021 12:00am Start: 05-25-2021 End: 06-25-2021 torsemide (DEMADEX) 20 mg ta blet Take by mouth daily. 0 05/25/2021 Active Start: 05-25-2021 torsemide (DEM ADEX) 20 mg tablet Take by mouth q 24 HR. 0 05/25/2021 Active take 1 tablet by andrea th every twenty-four hours Torsemide 5 MG 1 tablet Orally Once a day Active Torsemide 20 MG Oral Tablet Quantity: 0 Refills: 0 Ordered: 29-Dec-2022 DO Active take 1 tablet by andrea th twice daily Torsemide 20 MG Oral Tablet 1 tablet twice daily Quantity: 0 Refills: 0 Ordered: 26-Aug-2021 DO Active Comment on above: Take by mouth q 24 H R. Problems Active Problems Problem Classification Problem Date Documented Date Episodic/Chronic Abdominal pain (1 source) Unspecified abdominal pain; Translations: [UNSPECIFIED ABDOMINAL PAIN] Onset: 07-22-2022 Episodic Acute bronchitis (2 sources) Acute bronchitis; Translations: [Acute bronchitis, unspecified] Episodic Acute cerebrovascular disease (20 sources) Cerebrovascular accident; Translations: [Cerebral artery occlusion, unspecified with cerebral infarction] Onset: 07-22-2022 Chronic Acute myocardial infarction (4 sources) Myocardial infarction; Translations: [Non-ST elevation (NSTEMI) myocardial infarction] 06-16-2019 Chronic Cancer of prostate (17 sources) Malignant tumor of prostate; Translations: [Malignant neoplasm of prostate] Onset: 06-25-2018 07-30-2018 Chronic Cardiac dysrhythmias (20 sources) Atrial fibrillation; Translations: [Atrial fibrillation] Onset: 03-30-2023 06-24-2021 Chronic Cardiac dysrhythmias (10 sources) Bradycardia; Translations: [Other specified cardiac dysrhythmias] Episodic Chronic kidney disease (4 sources) Chronic kidney disease, unspecified; Translations: [CHRONIC KIDNEY DISEASE UNSPECIFIED] Onset: 12-13-2021 Chronic Chronic obstructive pulmonary disease and bronchiectasis (20 sources) Chronic obstructive lung disease; Translations: [Chronic airway obstruction, not elsewhere classified] Onset: 11-18-2021 Resolved: 11-18-2021 Chronic Congestive heart failure; nonhypertensive (20 sources) Acute diastolic heart failure; Translations: [Acute diastolic heart failure] Resolved: 08-26-2021 06-24-2021 Chronic Coronary atherosclerosis and other heart disease (20 sources) History of myocardial infarction; Translations: [Old myocardial infarction] Onset: 03-30-2023 06-24-2021 Chronic Coronary atherosclerosis and other heart disease (6 sources) Past history of procedure; Translations: [Coronary angioplasty status] Onset: 03-30-2023 06-24-2021 Episodic Disorders of lipid metabolism (20 sources) Hyperlipidemia; Translations: [Other and unspecified hyperlipidemia] Onset: 03-30-2023 07-05-2023 Chronic Essential hypertension (20 sources) Benign essential hypertension; Translations: [Benign essential hypertension] Onset: 03-30-2023 06-24-2021 Chronic Fluid and electrolyte disorders (4 sources) Hypokalemia; Translations: [Hypokalemia] 06-24-2021 Episodic Genitourinary symptoms and ill-defined conditions (2 sources) Urinary incontinence; Translations: [Unspecified urinary incontinence] Onset: 02-01-2023 01-09-2023 Chronic Genitourinary symptoms and ill-defined conditions (4 sources) Decreased urine output; Translations: [Anuria and oliguria] 09-22-2019 Episodic Nonspecific chest pain (10 sources) Chest pain; Translations: [Chest pain, unspecified] 06-30-2019 Episodic Nutritional deficiencies (11 sources) Undernutrition; Translations: [Mild protein-calorie malnutrition] Onset: 07-27-2018 07-30-2018 Chronic Occlusion or stenosis of precerebral arteries (13 sources) Right carotid artery stenosis; Translations: [Occlusion and stenosis of carotid artery without mention of cerebral infarction] Chronic Other aftercare (20 sources) Drug therapy finding; Translations: [Long-term (current) use of anticoagulants] Episodic Other aftercare (2 sources) Taking high risk medication; Translations: [Other terminal gauger (current) drug therapy] Onset: 07-05-2023 07-05-2023 Episodic Other aftercare (2 sources) Other half-way (current) drug therapy; Translations: [Other terminal gauger (current) drug therapy] Onset: 07-05-2023 Episodic Other circulatory disease (20 sources) History of cerebrovascular accident; Translations: [Personal history of transient ischemic attack (TIA), and cerebral infarction without residual deficits] Episodic Other circulatory disease (1 source) Personal history of transient ischemic attack (TIA), and cerebral infarction without residual deficits; Translations: [Prsnl hx of TIA (TIA), and cereb infrc w/o resid deficits] Onset: 08-09-2022 Episodic Other eye disorders (2 sources) Ischemic optic neuropathy of right eye; Translations: [Ischemic optic neuropathy, right eye] 07-04-2023 Chronic Other injuries and conditions due to external causes (18 sources) Traumatic injury of right optic nerve; Translations: [Optic nerve injury] Episodic Other injuries and conditions due to external causes (1 source) Injury of optic nerve, right eye, initial encounter; Translations: [Injury of optic nerve, right eye, initial encounter] Onset: 08-09-2022 Episodic Other lower respiratory disease (5 sources) Solitary nodule of lung; Translations: [Solitary pulmonary nodule] Episodic Other lower respiratory disease (7 sources) Solitary pulmonary nodule; Translations: [SOLITARY PULMONARY NODULE] Onset: 11-18-2021 Resolved: 11-18-2021 Episodic Other lower respiratory disease (4 sources) Dyspnea on exertion; Translations: [Other forms of dyspnea] 06-24-2021 Episodic Other lower respiratory disease (4 sources) Nodule of lung; Translations: [Solitary pulmonary nodule] 06-16-2019 Episodic Other nutritional; endocrine; and metabolic disorders (20 sources) Obesity; Translations: [Obesity, unspecified] Chronic Other nutritional; endocrine; and metabolic disorders (7 sources) Severe obesity; Translations: [Morbid obesity] Chronic Other nutritional; endocrine; and metabolic disorders (1 source) Obese class I; Translations: [Obesity, unspecified] Onset: 11-17-2020 11-17-2020 Chronic Other nutritional; endocrine; and metabolic disorders (4 sources) Overweight in adulthood with body mass index of 25 or more but less than 30; Translations: [Overweight] Episodic Other upper respiratory disease (5 sources) Seasonal allergy; Translations: [Other seasonal allergic rhinitis] Chronic Other upper respiratory disease (4 sources) Other seasonal allergic rhinitis Onset: 11-18-2021 Resolved: 11-18-2021 Chronic Other upper respiratory infections (2 sources) Chronic sinusitis; Translations: [Chronic sinusitis, unspecified] Chronic Pneumonia (except that caused by tuberculosis or sexually transmitted disease) (2 sources) Pneumonia; Translations: [Pneumonia, unspecified organism] Episodic Residual codes; unclassified (2 sources) Sleep apnea; Translations: [Sleep apnea, unspecified] Chronic Residual codes; unclassified (4 sources) Obstructive sleep apnea (adult) (pediatric); Translations: [OBSTRUCTIVE SLEEP APNEA] Onset: 07-25-2022 Chronic Residual codes; unclassified (1 source) Obstructive sleep apnea syndrome; Translations: [Obstructive sleep apnea (adult) (pediatric)] 02-24-2023 Chronic Residual codes; unclassified (4 sources) Body mass index 20-24 - normal; Translations: [Body Mass Index between 19-24, adult] Episodic Retinal detachments; defects; vascular occlusion; and retinopathy (4 sources) Epiretinal membrane of left eye; Translations: [Puckering of macula, left eye] 07-04-2023 Chronic Retinal detachments; defects; vascular occlusion; and retinopathy (8 sources) Retinal detachment of left eye due to retinal tear of left eye; Translations: [Unspecified retinal detachment with retinal break, left eye] 06-16-2019 Episodic Screening and history of mental health and substance abuse codes (20 sources) Ex-smoker; Translations: [Personal history of tobacco use] Onset: 07-05-2023 07-05-2023 Episodic Comment on above: QUIT 1987 2PPD; Unclassified (3 sources) Other persistent atrial fibrillation; Translations: [Other persistent atrial fibrillation] Onset: 08-09-2022 Unclassified (1 source) Other persistent atrial fibrillation; Translations: [Other persistent atrial fibrillation] Onset: 11-07-2022 Past or Other Problems Problem Classification Problem Date Documented Date Episodic/Chronic Mood disorders (1 source) Mood disorders Onset: 12-29-2022 03-05-2023 Neoplasms of unspecified nature or uncertain behavior (11 sources) Neoplastic disease; Translations: [Neoplasm of unspecified behavior of unspecified site] Onset: 06-25-2018 07-30-2018 Episodic Other aftercare (1 source) Postoperative visit; Translations: [Encounter for other specified surgical aftercare] Episodic Other eye disorders (1 source) Bilateral ptosis of upper eyelids; Translations: [Unspecified ptosis of bilateral eyelids] Onset: 10-06-2020 10-06-2020 Episodic Other eye disorders (1 source) Excess skin of eyelid; Translations: [Dermatochalasis of right upper eyelid] Onset: 10-06-2020 10-06-2020 Episodic Other lower respiratory disease (20 sources) Dyspnea; Translations: [Other respiratory abnormalities] Onset: 03-30-2023 03-30-2023 Episodic Residual codes; unclassified (20 sources) Edema of lower extremity; Translations: [Edema] Onset: 03-30-2023 06-24-2021 Episodic Residual codes; unclassified (20 sources) History of bradycardia; Translations: [Personal history of other diseases of circulatory system] Resolved: 08-26-2021 Episodic Residual codes; unclassified (20 sources) History of chest pain; Translations: [Personal history of other specified diseases] Resolved: 08-26-2021 Episodic Results Test Name Value Interpretation Reference Range Facility ECG 12 Leadon 07-05-2023 Atrial flutter with 3-1 to 4-1 ventricular conduction [facility] Work Phone: No Panel Informationon 07-04 [facility] Aspartate Amino Transferaseo n 06-13-2023 AST [Catalytic activity/Vol] 13 U/L Normal [facility] Comment on above: Performed By: #### B CONSTANZA TSH3, AST #### [facility] [address] Aspartate aminotransferase [ Enzymatic activity/volume] in Serum or PlasmaOrdered By: Kary Dutta on 06-13-2023 AST [Catalytic activity/Vol] 13 U/L [address] Basic Metabolic Panelon Anion gap [Moles/Vol] 10.6 mmol/L Normal 6.0-15.0 [facility] Comment on above: Performed By: #### B CONSTANZA TSH3, AST #### [facility] [address] [place] [address] [place] Calcium [Mass/Vol] 8.9 mg/dL Normal 8.6-10.3 [facility] Comment on above: Performed By: #### B CONSTANZA TSH3, AST #### [facility] [address] [place] [address] [place] Chloride [Moles/Vol] 110 mmol/L High 98-107 [facility] Comment on above: Performed By: #### B CONSTANZA TSH3, AST #### [facility] [address] [place] [address] [place] CO2 [Moles/Vol] 25.9 mmol/L Normal 21.0-31.0 [facility] Comment on above: Performed By: #### B DAYNA APODACA3, AST #### [facility] [address] [place] [address] [place] Creatinine [Mass/Vol] 1.52 mg/dL High 0.70-1.30 [facility] Comment on above: Performed By: #### B DAYNA APODACA3, AST #### [facility] [address] [place] [address] [place] GFR/1.73 sq M.predicted MDRD (S/P/Bld) [Vol rate/Area] 48.084 mL/min/{1.73_m2} Normal [facility] Comment on above: Performed By: #### B DAYNA APODACA3, AST #### [place] [address] [place] Glucose [Mass/Vol] 102 mg/dL High 70-100 [facility] Comment on above: Result Comment: [facility] Glucose Reference Range is dependent on time and content of last meal. Glucose of more than 200 mg/dL in a nonstressed, ambulatory subject supports the diagnosis of Diabetes Mellitus. ADA recommended reference range Performed By: #### B DAYNA APODACA3, AST #### [place] [address] [place] Potassium [Moles/Vol] 4.5 mmol/L Normal 3.5-5.1 [facility] Comment on above: Performed By: #### B DAYNA APODACA3, AST #### [facility] [address] [place] [address] [place] Sodium [Moles/Vol] 142 mmol/L Normal 136-145 [facility] Comment on above: Performed By: #### B DAYNA APODACA3, AST #### [facility] [address] [place] [address] [place] Urea nitrogen [Mass/Vol] 17 mg/dL Normal 7-25 [facility] Comment on above: Performed By: #### B CONSTANZA TSH3, AST #### [facility] [address] [place] [id number] [facility] Calcium [Mass/volume] in Ser um or PlasmaOrdered By: Kary Dutta on 06-13-2023 Calcium [Mass/Vol] 8.9 mg/dL 8.6-10.3 [facility] Carbon dioxide, total [Moles /volume] in Serum or PlasmaOrdered By: Kary Dutta on 06-13-2023 CO2 [Moles/Vol] 25.9 mmol/L 21.0-31.0 [facility] Chloride [Moles/volume] in S tomas or PlasmaOrdered By: Kary Dutta on 06-13-2023 Chloride [Moles/Vol] 110 mmol/L 98-107 [facility] Creatinine [Mass/volume] in Serum or PlasmaOrdered By: Kary Dutta on 06-13-2023 Creatinine [Mass/Vol] 1.52 mg/dL 0.70-1.30 [facility] Glucose [Mass/volume] in Ser um or PlasmaOrdered By: Kary Dutta on 06-13-2023 Glucose [Mass/Vol] 102 mg/dL 70-100 [facility] Comment on above: ADA recommended refe rence rangeRandom Glucose Reference Range is dependent on time and content of last meal. Glucose of more than 200 mg/dL in a nonstressed, ambulatory subject supports the diagnosis of Diabetes Mellitus. No Panel InformationOrdered By: Kary Dutta on 06-13-2023 Estimated GFR (CKD-EPI) 48.084 mL/Min [facility] Creatinine Clearance (Chem N/A [facility] Potassium [Moles/volume] in Serum or PlasmaOrdered By: Kary Dutta on 06-13-2023 Potassium [Moles/Vol] 4.5 mmol/L 3.5-5.1 [facility] Serum or plasma anion gap de terminationOrdered By: Kary Dutta on 06-13-2023 Anion gap [Moles/Vol] 10.6 mmol/L 6.0-15.0 [facility] Sodium [Moles/volume] in Ser um or PlasmaOrdered By: Kary Dutta on 06-13-2023 Sodium [Moles/Vol] 142 mmol/L 136-145 [facility] Thyroid Stimulating Hormoneo n 06-13-2023 TSH Qn 1.02 m[IU]/L Normal 0.45-5.33 [facility] Comment on above: Result Comment: PERF ORMED BY: [place] [address] PATHOLOGIST HEALTH TE[employer]ER PRAVIN WILKERSON M.D. Performed By: #### B MP, TSH3, AST #### [address] Thyrotropin [Units/volume] i n Serum or PlasmaOrdered By: Kary Dutta on 06-13-2023 TSH Qn 1.02 m[IU]/L 0.45-5.33 [facility] Urea nitrogen [Mass/volume] in Serum or PlasmaOrdered By: Kary Dutta on 06-13-2023 Urea nitrogen [Mass/Vol] 17 mg/dL 7 [facility] XR chest 2V*on 06-13-2023 XR chest 2V* [facility] [place] [address] [place] [address] XRay Report Signed Patient: Amee Juárez MR#: [id number] [birth year] : 1950 Acct:[id number] Age/Sex: 72 / M ADM Date: 06/13/23 Loc: RT Room: Type: [facility] Attending Dr: Kary Dutta DO Copies to: Kary Dutta DO Ordering Provider: Kary Dutta DO Date of Service: 06/13/23 XR/XR chest 2V*: I48.92, I48.19 Z79.899 Chest 2 views CLINICAL HISTORY: High risk medication use for A. fib. Shortness of breath. COMPARISON: Chest 11/07/2022 FINDINGS: Cardiomegaly is unchanged. No consolidation pneumothorax pleural effusion or free air. XR/XR chest 2V* IMPRESSION: NO ACUTE CARDIOPULMONARY ABNORMALITY. Impression dictated by: Anthony Castelan Jr., D.O.06/13/2023 2:58 PM Dictation Location: [place] [address] Transcribed By: [facility] 06/13/23 1458 Dictated By: Anthony Castelan Jr, DO 06/13/23 1457 Signed By: 06/13/[address] [facility] CNOVon 02-24-2023 CNOV Office Visit (OTOLMN ) -- AMEE JUÁREZ ([id number]) 1950 M Date Time Provider Department 02/24/23 11:15 AM FRANCISCO CLAIRE OTOLMN During your visit today, we recorded the following information about you: Weight Height 111.3 kg 1.829 m Ravindraregineblas Lisa 02/24/2023 11:25 AM Signed Tobacco Use: Types: Cigarettes Was smoking cessation packet given? N/A - Patient is a non-smoker or quit >1 year ago. Was a referral initiated?N/A Patient is a non-smoker Francisco Claire MD 02/24/2023 11:15 AM Signed Francisco Claire MD 02/24/2023 11:25 AM Signed This note is formatted with the impression and plan first and the history and physical to follow. IMPRESSION Obstructive sleep apnea RECOMMENDATION/PLAN The patient notes that he has mild obstructive sleep apnea with an apnea-hypopnea index of 13. He was interested in finding out more about hypoglossal nerve stimulation. The patient was informed that he is in the mild range and is below the lower cut off for eligibility for hypoglossal nerve stimulation. We did discuss the possibility of using a dental device given his mild apnea. I have given him the name of a dentist in his home area who fabricates sleep devices. I will see him back as needed Chief Complaint Obstructive sleep apnea History of Present Illness Amee Juárez is a 72 year old gentleman who has been diagnosed with obstructive sleep apnea. He notes that he had difficulty with the sleep study and only slept 4 hours during the night. He was told he has a mild case of obstructive sleep apnea with an apnea-hypopnea index of 13. He cannot tolerate CPAP and is wondering whether he is a candidate for hypoglossal nerve stimulation PAST MEDICAL HISTORY Diagnosis Date Abnormal EKG COPD (chronic obstructive pulmonary disease) (HCC) Heart attack (HCC) 06/2019 Hypertension Pneumonia Prostate cancer (HCC) Retinal detachment, left 03/2019 PAST SURGICAL HISTORY Procedure Laterality Date CHOLECYSTECTOMY 1979's HIATAL HERNIA REPAIR HX 1980s INGUINAL HERNIA REPAIR HX 1960s LIPOMA (LARGE) PAST SURGICAL HISTORY OF 2019 REMOVAL CATARACT (PEM) PICC LINE INSERT/CONSULT 07/27/2018 PROSTATE BIOPSY PROSTATECTOMY FIRST STAGE 2018 PRQ CARDIAC STENT W/ANGIO 1 VSL 06/2019 SHX AORTIC STENT 2019 FAMILY HISTORY Problem Relation Age of Onset Cancer Mother Cancer Sister CURRENT OUTPATIENT MEDICATIONS Current Outpatient Medications on File Prior to Visit Medication Sig amiodarone (PACERONE) 200 mg tablet Take 200 mg by mouth once daily. isosorbide mononitrate ER (IMDUR) 60 mg 24 hr tablet loratadine (CLARITIN) 10 mg tablet Take 10 mg by mouth once daily. spironolactone (ALDACTONE) 25 mg tablet Take by mouth q 24 HR. torsemide (DEMADEX) 20 mg tablet Take by mouth q 24 HR. ELIQUIS 5 mg tab(s) aspirin-calcium carbonate 81 mg-300 mg calcium(777 mg) tab 81 mg. atorvastatin (LIPITOR) 80 mg tablet 80 mg. guaiFENesin 1,200 mg Ta12 1,200 mg. nitroglycerin sublingual (NITROQUICK) 0.4 mg SL tablet oxyCODONE-acetaminophen (PERCOCET) 5-325 mg tablet Acetaminophen / oxyCODONE Oxycodone-Acetaminophen Active 5 MG Oral Q4H April 30, 2018 3:31pm 04-30-[address] [facility] ([id number]) albuterol (PROVENTIL) 2.5 mg /3 mL (0.083 %) nebulizer solution Use 2.5 mg via nebulizer every 4 hours as needed. SYMBICORT 160-4.5 mcg/actuation inhaler TAKE 2 PUFFS BY MOUTH TWICE A DAY*RINSE MOUTH AFTER USE* FLUZONE HIGH-DOSE 2017-, PF, 180 mcg/0.5 mL injection TO BE ADMINISTERED BY PHARMACIST FOR IMMUNIZATION PREVNAR 13, PF, 0.5 mL syrg TO BE ADMINISTERED BY PHARMACIST FOR IMMUNIZATION DALIRESP 500 mcg tab Take 500 mcg by mouth once daily. valsartan (DIOVAN) 160 mg tablet Take 160 mg by mouth twice daily. GABAPENTIN ORAL Take by mouth. No current facility-administered medications on file prior to visit. ALLERGIES ALLERGIES No Known Allergies PHYSICAL EXAMINATION Appearance: General examination of the patient's external face, head and neck reveals no abnormalities. The patient is not retrognathic The patient's voice is strong and clear and they communicate easily. Ears: Exam of the ears revealed normal appearing external auditory canals, tympanic membranes, and middle ears. No signs of infection or fluid were seen. Nose: Anterior rhinoscopy revealed a left deviated septum. The turbinates were mildly congested. The mucosa was pink and moist without signs of infection. The airway was adequate. Throat: There were no lesions to visualization or palpation of the lips, cheeks, gums, floor of mouth, tongue, hard and soft palate, tonsillar pillars or posterior pharyngeal wall. The patient is a [place] Tongue Position 3 and has grade 1 tonsils. Neck: Palpation of the neck revealed no adenopathy, salivary gland masses or asymmetry, or thyroid masses or enlargement. Luis Fernando Martinez (more content not included)... Normal [facility] Office Visit (Cardiology)on 01-30-2023 Follow-up visit Diagnoses/Problems Assessed Essential hypertension, benign (401.1) (I10) Class 1 obesity with body mass index (BMI) of 33.0 to 33.9 in adult (278.00,V85.33) (E66.9,Z68.33) Orders Class 1 obesity with body mass index (BMI) of 33.0 to 33.9 in adult Healthy Weight Tips; Status:Complete; Done: [id number] Lower extremity edema Renew: Torsemide 20 MG Oral Tablet; take one tablet as needed daily Patient Instructions Please bring all medicines, vitamins, and herbal supplements with you when you come to the office. Prescriptions will not be filled unless you are compliant with your follow up appointments or have a follow up appointment scheduled as per instruction of your physician. Refills should be requested at the time of your visit. FALL PREVENTION EDUCATION GIVEN PLAN: Through informed decision making process incorporating patients unique circumstances, the following treatment plan will be initiated: 1. Prescription drug management of cardiovascular medication for efficacy, adherence to treatment, side effect assessment and polypharmacy. Current treatment clinically warranted and to continue without modifications. 2. Return for follow-up; in the interim, contact the office if new symptoms arise. 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 Patient presents to the office ambulatory. Last evaluated in clinic by Dr. Dutta December 2022. At that time blood pressure was slightly elevated and presents today for repeat blood pressure check. Unfortunately, patient presents today with significant sciatica pain and injury that occurred approximately 4 days ago. Apparently he attempted to move a table and it collapsed on his left thigh and right foot. He has a very small hematoma at the site of the injury of the left thigh with ecchymosis but no pain, pallor or significant edema. The right ankle and foot are swollen and bruised, remain painful -he will be contacting PCP when he leaves the facility today. He has remained compliant with anticoagulation. Does not report that ecchymosis is worsening and it does appear to be resolving. In the interim, we will continue anticoagulation. Otherwise I have reviewed concomitant medications. He is not taking torsemide. Also is not using sildenafil due to concomitant isosorbide. Continues to maintain sinus rhythm on low-dose amiodarone. Adhering to 2017 AHA/ACC Guideline for the Prevention, Detection, Evaluation, and Management of High Blood Pressure in Adults: - Encouraged primary lifestyle modifications including consumption of healthy diet, reduced sodium intake, moderation in alcohol intake, weight loss and increased physical activity. Elevated blood pressure in the office today is likely being driven by injury and significant discomfort. He has not followed his blood pressure at home. He will be seeking medical attention from his primary care physician due to injuries. I will have him return to the office in 1 month to reassess blood pressure. Otherwise, no palpitations or exertional chest pain/dyspnea on exertion or nitroglycerin usage. History of Present Illness The patient presents for follow-up of essential hypertension. The patient states he has been stable with his blood pressure control since the last visit. Comorbid Illnesses: a stroke and coronary artery disease. Symptoms: stable impaired vision, denies dyspnea, denies chest pain, denies intermittent leg claudication and denies lower extremity edema. Associated symptoms include no headache. Home monitoring: The patient is not checking blood pressure at home. Medications: the patient is adherent with his medication regimen. He denies medication side effects. Surgical History Problems History of Cardiac catheterization with stent placement History of Cataract surgery History of Cholecystectomy History of Complete colonoscopy History of Hernia repair History of Prostate surgery History of Retinal detachment repair History of Skin lesion excision Past Medical History Problems History of Acute diastolic congestive heart failure (428.31,428.0) (I50.31) Resolved Date: 26 Aug 2021 History of bradycardia (V12.59) (Z87.898) Resolved Date: 26 Aug 2021 History of chest pain (V13.89) (Z87.898) Resolved Date: 26 Aug 2021 Current Meds Medication NameInstruction Allergy Relief D 10-240 MG Oral Tablet Extended Release 24 HourTAKE 1 TABLET DAILY NEEDED. Amiodarone HCl - 100 MG Oral TabletTake 1 tablet daily Aspirin 81 MG Oral Tablet Delayed ReleaseTAKE 1 TABLET BY MOUTH DAILY Daliresp 500 MCG Oral TabletTAKE 1 TABLET DAILY. Diovan 160 MG Oral TabletTAKE 1 TABLET TWICE DAILY FOR BLOOD PRESSURE. HYDROcodone-Acetaminophen 5-325 MG Oral TabletTAKE 1 TABLET EVERY 6 HOURS NEEDED FOR PAIN. Isosorbide Mononitrate ER 30 MG Oral Tablet Extended Release 24 HourTake 1 tablet daily Lipitor 80 MG Oral TabletTAKE 1 TABLET AT BEDTIM (more content not included)... Normal [employer] Tobacco Screening.on 023 Adult depression screening assessment No [facility] [employer] 600 DO Work Phone: Fall risk assessment b) One or more fall s in the last year [facility] [employer] 600 DO Work Phone: Tobacco use status CP b) No [facility] [employer] DO Work Phone: CNPNasima 01-24-20[facility] -- AMEE JUÁREZ ([id number]) 1950 M Date Time Provider Department 01/24/23 ERIN VERMA During your visit today, we recorded the following information about you: Erin Verma LSW 01/24/2023 11:04 AM Signed SOCIAL WORK FOLLOW UP NOTE: [facility]CER CENTER Date of service:01/24/23 TOPICS ADDRESSED: community resources PLAN: Continue follow up as needed Assigned SW listed in Care Team tab: Yes SW received a call from Kailey at [facility] stating that the Patient's insurance is not accepted at their location ([facility] locations: [employer] AND [place]). RHONDA asked if the Patient can go to the [facility] for services and was told no . Patient must receive services within the critical access hospital that he resides. Kailey suggested that this SW refer the Patient to [facility]. RHONDA called [facility] and left a VM that a referral was being sent over for this Patient for counseling and Psychiatry. RHONDA will remain available and will follow up as appropriate. RABIA Donis-S Allergies As of Date: 01/24/2023 (No Known Allergies) Date Reviewed: 01/09/2023 Reviewed by: Riky Cope LPN - Fully Assessed Reason for Visit: Social Work Services [507] Prescriptions as of 01/24/2023 - amiodarone (PACERONE) 200 mg tablet Take 200 mg by mouth once daily. - isosorbide mononitrate ER (IMDUR) 60 mg 24 hr tablet - loratadine (CLARITIN) 10 mg tablet Take 10 mg by mouth once daily. - spironolactone (ALDACTONE) 25 mg tablet Take by mouth q 24 HR. - torsemide (DEMADEX) 20 mg tablet Take by mouth q 24 HR. - ELIQUIS 5 mg tab(s) - aspirin-calcium carbonate 81 mg-300 mg calcium(777 mg) tab 81 mg. - atorvastatin (LIPITOR) 80 mg tablet 80 mg. - guaiFENesin 1,200 mg Ta12 1,200 mg. - nitroglycerin sublingual (NITROQUICK) 0.4 mg SL tablet - oxyCODONE-acetaminophen (PERCOCET) 5-325 mg tablet Acetaminophen / oxyCODONE Oxycodone-Acetaminophen Active 5 MG Oral Q4H April 30, 2018 3:31pm 04-30-[address] [facility] ([id number]) - albuterol (PROVENTIL) 2.5 mg /3 mL (0.083 %) nebulizer solution Use 2.5 mg via nebulizer every 4 hours as needed. - SYMBICORT 160-4.5 mcg/actuation inhaler TAKE 2 PUFFS BY MOUTH TWICE A DAY*RINSE MOUTH AFTER USE* - FLUZONE HIGH-DOSE 2018-, PF, 180 mcg/0.5 mL injection TO BE ADMINISTERED BY PHARMACIST FOR IMMUNIZATION - PREVNAR 13, PF, 0.5 mL syrg TO BE ADMINISTERED BY PHARMACIST FOR IMMUNIZATION - DALIRESP 500 mcg tab Take 500 mcg by mouth once daily. - valsartan (DIOVAN) 160 mg tablet Take 160 mg by mouth twice daily. - GABAPENTIN ORAL Take by mouth. Problem List As Of Date 01/24/2023 Noted Resolved Prostate cancer (HCC) [C61] 06/25/2018 Neoplasm [D49.9] 06/25/2018 Malnutrition of mild degree (HCC) [E44.1] 07/27/2018 Encounter Status:Closed by ERIN VER[facility] Social Work (HEMASA) -- AMEE JUÁREZ ([id number]) 1950 M Date Time Provider Department 01/10/23 ERIN VERMA During your visit today, we recorded the following information about you: Erin Verma LSW 01/11/2023 9:06 AM Signed SOCIAL WORK FOLLOW UP NOTE: CANCER CENTER Date of service:01/10/23 TOPICS ADDRESSED: mental health needs, community resources, and referral to [facility] for Psychiatry and Behavioral Health needs. PLAN: Continue follow up as needed Assigned SW listed in Care Team tab: Yes SW faxed over a referral to [facility] for Psychiatry and Behavioral Health services. [facility] will reach out to this Patient to discuss services and to set up an appointment. RABIA Donis-S Allergies As of Date: 01/10/2023 (No Known Allergies) Date Reviewed: 01/09/2023 Reviewed by: Riky Cope LPN - Fully Assessed Prescriptions as of 01/11/2023 - amiodarone (PACERONE) 200 mg tablet Take 200 mg by mouth once daily. - isosorbide mononitrate ER (IMDUR) 60 mg 24 hr tablet - loratadine (CLARITIN) 10 mg tablet Take 10 mg by mouth once daily. - spironolactone (ALDACTONE) 25 mg tablet Take by mouth q 24 HR. - torsemide (DEMADEX) 20 mg tablet Take by mouth q 24 HR. - ELIQUIS 5 mg tab(s) - aspirin-calcium carbonate 81 mg-300 mg calcium(777 mg) tab 81 mg. - atorvastatin (LIPITOR) 80 mg tablet 80 mg. - guaiFENesin 1,200 mg Ta12 1,200 mg. - nitroglycerin sublingual (NITROQUICK) 0.4 mg SL tablet - oxyCODONE-acetaminophen (PERCOCET) 5-325 mg tablet Acetaminophen / oxyCODONE Oxycodone-Acetaminophen Active 5 MG Oral Q4H April 30, 2018 3:31pm 04-30-[address] [facility] ([id number]) - albuterol (PROVENTIL) 2.5 mg /3 mL (0.083 %) nebulizer solution Use 2.5 mg via nebulizer every 4 hours as needed. - SYMBICORT 160-4.5 mcg/actuation inhaler TAKE 2 PUFFS BY MOUTH TWICE A DAY*RINSE MOUTH AFTER USE* - FLUZONE HIGH-DOSE 2017-, PF, 180 mcg/0.5 mL injection TO BE ADMINISTERED BY PHARMACIST FOR IMMUNIZATION - PREVNAR 13, PF, 0.5 mL syrg TO BE ADMINISTERED BY PHARMACIST FOR IMMUNIZATION - DALIRESP 500 mcg tab Take 500 mcg by mouth once daily. - valsartan (DIOVAN) 160 mg tablet Take 160 mg by mouth twice daily. - GABAPENTIN ORAL Take by mouth. Problem List As Of Date 01/10/2023 Noted Resolved Prostate cancer (HCC) [C61] 06/25/2018 Neoplasm [D49.9] 06/25/2018 Malnutrition of mild degree (HCC) [E44.1] 07/27/2018 Encounter Status:Closed by ERIN VERMA on 01/11/23 [facility] CNOVon 01-09-2023 CNOV Office Visit (RADTSA ) -- MAEE JUÁREZ ([id number]) 1950 M Date Time Provider Department 01/09/23 10:00 AM GALILEO DELATORRE RADTSA During your visit today, we recorded the following information about you: Temperature Pulse Respiration Blood pressure 97.5 degrees 69/minute 18/minute 154/76 Weight 111.6 kg Galileo Delatorre MD 01/10/2023 1:59 PM Signed Radiation Oncology - Follow Up Note PATIENT NAME: Amee Juárez PATIENT DIAGNOSIS/PATIENT IDENTIFICATION: Mr. 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 He is s/p prostatectomy on 07/20/2018, with final pathology revealing Vira 4 + 4 = 8 (grade group 4), pathologic stage T3a N0 Mx III, margins negative, EPE present , SVI absent, 0 LNs positive out of 10 LNs removed, post-op PSA initially detectable (PSA 0.03) and currently detectable (PSA 0.13). He has met in consultation with my colleague Dr. Vu at [facility] on 07/30/2020 for consideration of salvage. His DECIPHER genomic risk assessment returned high risk and he received a 6 month Lupron shot on 10/30/2020 for concomitant ADT and completed a course of salvage radiation therapy to the prostate bed and pelvic lymph nodes on 01/14/2021 (7020 cGy in 39 fractions). INTERVAL HISTORY/ROS: Mr. Juárez returns to clinic today for routine follow-up approximately two years after the completion of his radiation treatments and six months since his last visit on 07/11/2022. In the interim, he reports new onset of urinary incontinence/leakage overnight in the past month. He does not experience this during the day but does note a sense of incomplete emptying. He denies any new medications in this timeframe and is not doing his pelvic floor therapy routinely. He reports some burning/discomfort with urination or hematuria. He reports regular bowel movements with occasional nausea with fatigue which he feels has worsened as well as occasional mild hot flashes. He endorses good appetite with stable weight and hydration. He does consume alcohol daily as well as soda with caffeine. His IPSS score today is 21/35 with QOL 5 ('unhappy') and ABHI score of NA/25. His surveillance PSA drawn today continues to remain undetectable at <0.02 ng/mL. 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 He does have difficulty with gait/balance on occasion and has sciatica. Screening questions from today's visit indicated that the patient was experiencing feelings of depression/worthlessness and spoke to our social service coordinator/counselor today about exploring further options to help address this. He denies any desire to harm himself or others. He otherwise denies any recent fevers, chills, difficulty with speech/swallowing, abdominal pain, nausea, vomiting, change in bowel habits, recent falls, etc. The remainder of the review of systems was performed and was otherwise noncontributory. ALLERGIES ALLERGIES No Known Allergies MEDICATIONS: Current Outpatient Medications: amiodarone (PACERONE) 200 mg tablet isosorbide mononitrate ER (IMDUR) 60 mg 24 hr tablet loratadine (CLARITIN) 10 mg tablet spironolactone (ALDACTONE) 25 mg tablet torsemide (DEMADEX) 20 mg tablet ELIQUIS 5 mg tab(s) aspirin-calcium carbonate 81 mg-300 mg calcium(777 mg) tab atorvastatin (LIPITOR) 80 mg tablet guaiFENesin 1,200 mg Ta12 nitroglycerin sublingual (NITROQUICK) 0.4 mg SL tablet oxyCODONE-acetaminophen (PERCOCET) 5-325 mg tablet albuterol (PROVENTIL) 2.5 mg /3 mL (0.083 %) nebulizer solution SYMBICORT 160-4.5 mcg/actuation inhaler FLUZONE HIGH-DOSE 2017-, PF, 180 mcg/0.5 mL injection PREVNAR 13, PF, 0.5 mL syrg DALIRESP 500 mcg tab valsartan (DIOVAN) 160 mg tablet GABAPENTIN ORAL PHYSICAL EXAM: GENERAL: elderly gentleman sitting in chair in no acute distress. VITALS: There were no vitals taken for this visit. KPS: 90 HEENT: NC/AT, anicteric sclera HEART: S1S2 LUNGS: non-labored breathing ABDOMEN: soft MUSCULOSKELETAL: no peripheral edema, moves all extremities. NEURO: no focal deficit; AANDO X3. ASSESSMENT AND PLAN: Mr. Juárez is a 72-year old gentleman with history of intermediate risk prostate adenocarcinoma in 2017 on with subsequent biopsy reve (more content not included)... Normal [facility] [place] 01-09-2023 [facility] Telephone (NCCAP) -- JUÁREZAMEE Lewis ([id number]) 1950 M Date Time Provider Department 01/09/23 GALILEO DELATORRE During your visit today, we recorded the following information about you: Clyde Mcmullen 01/09/2023 11:11 AM Signed [facility] to call patient to schedule PT. Allergies As of Date: 01/09/2023 (No Known Allergies) Date Reviewed: 01/09/2023 Reviewed by: Riky Cope LPN - Fully Assessed Reason for Visit: Appointment Confirmation [[id number]] Prescriptions as of 01/09/2023 - amiodarone (PACERONE) 200 mg tablet Take 200 mg by mouth once daily. - isosorbide mononitrate ER (IMDUR) 60 mg 24 hr tablet - loratadine (CLARITIN) 10 mg tablet Take 10 mg by mouth once daily. - spironolactone (ALDACTONE) 25 mg tablet Take by mouth q 24 HR. - torsemide (DEMADEX) 20 mg tablet Take by mouth q 24 HR. - ELIQUIS 5 mg tab(s) - aspirin-calcium carbonate 81 mg-300 mg calcium(777 mg) tab 81 mg. - atorvastatin (LIPITOR) 80 mg tablet 80 mg. - guaiFENesin 1,200 mg Ta12 1,200 mg. - nitroglycerin sublingual (NITROQUICK) 0.4 mg SL tablet - oxyCODONE-acetaminophen (PERCOCET) 5-325 mg tablet Acetaminophen / oxyCODONE Oxycodone-Acetaminophen Active 5 MG Oral Q4H April 30, 2018 3:31pm 04-30-[address] [facility] ([id number]) - albuterol (PROVENTIL) 2.5 mg /3 mL (0.083 %) nebulizer solution Use 2.5 mg via nebulizer every 4 hours as needed. - SYMBICORT 160-4.5 mcg/actuation inhaler TAKE 2 PUFFS BY MOUTH TWICE A DAY*RINSE MOUTH AFTER USE* - FLUZONE HIGH-DOSE 2017-, PF, 180 mcg/0.5 mL injection TO BE ADMINISTERED BY PHARMACIST FOR IMMUNIZATION - PREVNAR 13, PF, 0.5 mL syrg TO BE ADMINISTERED BY PHARMACIST FOR IMMUNIZATION - DALIRESP 500 mcg tab Take 500 mcg by mouth once daily. - valsartan (DIOVAN) 160 mg tablet Take 160 mg by mouth twice daily. - GABAPENTIN ORAL Take by mouth. Problem List As Of Date 01/09/2023 Noted Resolved Prostate cancer (HCC) [C61] 06/25/2018 Neoplasm [D49.9] 06/25/2018 Malnutrition of mild degree (HCC) [E44.1] 07/27/2018 Encounter Status:Closed by CLYDE MCMULLEN on 01/09/23 [facility] CNSWon 01-09-2023 [facility] Social Work (HEMASA) -- AMEE JUÁREZ ([id number]) 1950 M Date Time Provider Department 01/09/23 ERIN VERMA During your visit today, we recorded the following information about you: Erin Verma LSW 01/09/2023 1:50 PM Signed Assessment Completed SOCIAL WORK DISTRESS ASSESSMENT Referral made due to:High distress and Suicidal Ideation Contact was made: [place] Problems Addressed: Practical: Transportation and Treatment decisions/concerns Family: N/A Emotional: Depression Spiritual Concerns: N/A Physical Problems: Breathing and Sleep Exercising: No Stress Management: Yes Is the patient's distress related to a change in quality of life? Yes Patient with current Suicidal Ideation: No MENTAL HEALTH HISTORY: No Substance Use and Treatment History: denied History of Abuse: denied History of combat/trauma: No INTERVENTION/PLAN: Provide emotional support to patient/family Referral to community resource Provided education on distress and screening process Continue follow up as needed Resources and Referrals: Internal: NA External: Other Melony RN pended orders psychiatry and [facility]. Follow up appointment with RHONDA in: PRN Assigned SW listed in Care Team tab: Yes Patient appears on the [employer] SW Report for a PHQ-9 score of 18 with a positive response to question #9 (thoughts that you would be better off or of harming yourself in some way). SW met with Patient in exam room 12. SW reviewed the results of the PHQ-9 questionnaire. Patient shared that he is not suicidal nor homicidal. Patient talked about how his medical history and current symptoms are overwhelming to him. Patient feels depressed about his declining health. Patient has a limited support system (a daughter and grandchildren). Patient's eye sight is compromised which complicates matters. Patient is agreeable to a referral to a Psychiatrist and Behavioral Health Counselor (orders are pended). Patient prefers to seek mental health services RHONDA Jaeger offered to meet with Patient for a supportive session. Patient will let this SW know if he is interested. SW will remain available and will ffollow up as appropriate. RABIA Donis-S Allergies As of Date: 01/09/2023 (No Known Allergies) Date Reviewed: 01/09/2023 Reviewed by: Riky Cope LPN - Fully Assessed Prescriptions as of 01/09/2023 - amiodarone (PACERONE) 200 mg tablet Take 200 mg by mouth once daily. - isosorbide mononitrate ER (IMDUR) 60 mg 24 hr tablet - loratadine (CLARITIN) 10 mg tablet Take 10 mg by mouth once daily. - spironolactone (ALDACTONE) 25 mg tablet Take by mouth q 24 HR. - torsemide (DEMADEX) 20 mg tablet Take by mouth q 24 HR. - ELIQUIS 5 mg tab(s) - aspirin-calcium carbonate 81 mg-300 mg calcium(777 mg) tab 81 mg. - atorvastatin (LIPITOR) 80 mg tablet 80 mg. - guaiFENesin 1,200 mg Ta12 1,200 mg. - nitroglycerin sublingual (NITROQUICK) 0.4 mg SL tablet - oxyCODONE-acetaminophen (PERCOCET) 5-325 mg tablet Acetaminophen / oxyCODONE Oxycodone-Acetaminophen Active 5 MG Oral Q4H April 30, 2018 3:31pm 04-30-[address] [facility] ([id number]) - albuterol (PROVENTIL) 2.5 mg /3 mL (0.083 %) nebulizer solution Use 2.5 mg via nebulizer every 4 hours as needed. - SYMBICORT 160-4.5 mcg/actuation inhaler TAKE 2 PUFFS BY MOUTH TWICE A DAY*RINSE MOUTH AFTER USE* - FLUZONE HIGH-DOSE 2017-, PF, 180 mcg/0.5 mL injection TO BE ADMINISTERED BY PHARMACIST FOR IMMUNIZATION - PREVNAR 13, PF, 0.5 mL syrg TO BE ADMINISTERED BY PHARMACIST FOR IMMUNIZATION - DALIRESP 500 mcg tab Take 500 mcg by mouth once daily. - valsartan (DIOVAN) 160 mg tablet Take 160 mg by mouth twice daily. - GABAPENTIN ORAL Take by mouth. Problem List As Of Date 01/09/2023 Noted Resolved Prostate cancer (HCC) [C61] 06/25/2018 Neoplasm [D49.9] 06/25/2018 Malnutrition of mild degree (HCC) [E44.1] 07/27/2018 Encounter Status:Closed by ERIN VERMA on 01/09/23 Normal [facility] PSA SerPl-mCncon 01-09-2023 Prostate specific Ag [Mass/Vol] ng/mL Normal <2.60 [facility] Comment on above: Order Comment: Speci men Type: BLOOD SPECIMENOrdering Facility: [facility] Address: [address] [place] [address] Result Comment: Tota ivan PSA test methodology used is the Electrochemiluminescence Immunoassay by [employer]. Total PSA values by differing methodologies cannot be interchanged. Performed By: #### 2 [id number] ####[facility] LABCLIA [id number] [address] OF [facility] CNPNasima 01-06-2023 CNP[facility] Telephone (RADTSA) -- AMEE JUÁREZ ([id number]) 1950 M Date Time Provider Department 01/06/23 Chris URENA During your visit today, we recorded the following information about you: Riky Cope LPN 01/06/2023 11:35 AM Signed I left a message reminding Lenard that he needs to have a PSA drawn prior to his office visit on 01/09/23. Riky Cope LPN Allergies As of Date: 01/06/2023 (No Known Allergies) Date Reviewed: 01/10/2022 Reviewed by: Monse Robertson, RN - Fully Assessed Reason for Visit: Appointment [186] Prescriptions as of 01/09/2023 - amiodarone (PACERONE) 200 mg tablet Take 200 mg by mouth once daily. - isosorbide mononitrate ER (IMDUR) 60 mg 24 hr tablet - loratadine (CLARITIN) 10 mg tablet Take 10 mg by mouth once daily. - spironolactone (ALDACTONE) 25 mg tablet Take by mouth q 24 HR. - torsemide (DEMADEX) 20 mg tablet Take by mouth q 24 HR. - ELIQUIS 5 mg tab(s) - aspirin-calcium carbonate 81 mg-300 mg calcium(777 mg) tab 81 mg. - atorvastatin (LIPITOR) 80 mg tablet 80 mg. - guaiFENesin 1,200 mg Ta12 1,200 mg. - nitroglycerin sublingual (NITROQUICK) 0.4 mg SL tablet - oxyCODONE-acetaminophen (PERCOCET) 5-325 mg tablet Acetaminophen / oxyCODONE Oxycodone-Acetaminophen Active 5 MG Oral Q4H April 30, 2018 3:31pm 04-30-[address] [facility] ([id number]) - albuterol (PROVENTIL) 2.5 mg /3 mL (0.083 %) nebulizer solution Use 2.5 mg via nebulizer every 4 hours as needed. - SYMBICORT 160-4.5 mcg/actuation inhaler TAKE 2 PUFFS BY MOUTH TWICE A DAY*RINSE MOUTH AFTER USE* - FLUZONE HIGH-DOSE 2017-, PF, 180 mcg/0.5 mL injection TO BE ADMINISTERED BY PHARMACIST FOR IMMUNIZATION - PREVNAR 13, PF, 0.5 mL syrg TO BE ADMINISTERED BY PHARMACIST FOR IMMUNIZATION - DALIRESP 500 mcg tab Take 500 mcg by mouth once daily. - valsartan (DIOVAN) 160 mg tablet Take 160 mg by mouth twice daily. - GABAPENTIN ORAL Take by mouth. Problem List As Of Date 01/06/2023 Noted Resolved Prostate cancer (HCC) [C61] 06/25/2018 Neoplasm [D49.9] 06/25/2018 Malnutrition of mild degree (HCC) [E44.1] 07/27/2018 Encounter Status:Closed by RIKY COPE on 01/09/23 Normal [facility] Office Visit (Cardiology)on 12-29-2022 Follow-up visit Diagnoses/Problems Assessed ASHD (arteriosclerotic heart disease) (414.00) (I25.10) CVA (cerebral vascular accident) (434.91) (I63.9) Essential hypertension, benign (401.1) (I10) Hyperlipidemia (272.4) (E78.5) Paroxysmal atrial fibrillation (427.31) (I48.0) High risk medications (not anticoagulants) long-term use (V58.69) (Z79.899) Body mass index (BMI) of 21.0 to 21.9 in adult (V85.1) (Z68.21) Former smoker (V15.82) (Z87.891) QUIT 1986 2PPD Overweight with body mass index (BMI) of 28 to 28.9 in adult (278.02,V85.24) (E66.3,Z68.28) Orders ASHD (arteriosclerotic heart disease) Changed: From Aspirin EC 81 MG TBEC TAKE 1 TABLET DAILY To Aspirin 81 MG Oral Tablet Delayed Release TAKE 1 TABLET BY MOUTH DAILY Overweight with body mass index (BMI) of 28 to 28.9 in adult Healthy Weight Tips; Status:Complete - Retrospective Authorization; Done: [id number] Some eating tips that can help you lose weight.; Status:Complete - Retrospective Authorization; Done: [id number] Patient Instructions Please bring all medicines, vitamins, and herbal supplements with you when you come to the office. Prescriptions will not be filled unless you are compliant with your follow up appointments or have a follow up appointment scheduled as per instruction of your physician. Refills should be requested at the time of your visit. 4 week b/p o/v dks 6 month with wss Chief Complaint AMEE JUÁREZ is being seen for a 6 month follow-up of. 72-year-old gentleman returns for follow-up, he is doing well denies any cardiovascular events or recurrent neuro events. 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 He has a history of paroxysmal atrial fibrillation with cardioversion in 2021 and remains in sinus rhythm, as noted on today's ECG with a heart rate of 65 a QT corrected interval 443 ms maintained on amiodarone. He has a history of ASHD with remote two-vessel PCI's in 2019 involving the LAD and RCA with normal left ventricular function. 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 Left ventricular echocardiogram revealed normal left ventricular function, left atrial mild enlargement, mild diastolic dysfunction, and no reported evidence of atrial septal abnormalities by bubble echo imaging. He is somewhat hypertensive today and came down nicely at 146/80 on my exam Recommendations continue current therapies, reassess blood pressure in 6 weeks, follow-up in 8 months Surgical History Problems History of Cardiac catheterization with stent placement History of Cataract surgery History of Cholecystectomy History of Complete colonoscopy History of Hernia repair History of Prostate surgery History of Retinal detachment repair History of Skin lesion excision Past Medical History Problems History of Acute diastolic congestive heart failure (428.31,428.0) (I50.31) Resolved Date: 26 Aug 2021 History of bradycardia (V12.59) (Z87.898) Resolved Date: 26 Aug 2021 History of chest pain (V13.89) (Z87.898) Resolved Date: 26 Aug 2021 Current Meds Medication NameInstruction Allergy Relief D 10-240 MG Oral Tablet Extended Release 24 HourTAKE 1 TABLET DAILY NEEDED. Amiodarone HCl - 100 MG Oral TabletTake 1 tablet daily Aspirin EC 81 MG TBECTAKE 1 TABLET DAILY. Daliresp 500 MCG Oral TabletTAKE 1 TABLET DAILY. Diovan 160 MG Oral TabletTAKE 1 TABLET TWICE DAILY FOR BLOOD PRESSURE. Eliquis 5 MG Oral Tablettake 1 tablet by mouth twice a day HYDROcodone-Acetaminophen 5-325 MG Oral TabletTAKE 1 TABLET EVERY 6 HOURS NEEDED FOR PAIN. Isosorbide Mononitrate ER 30 MG Oral Tablet Extended Release 24 HourTake 1 tablet daily Lipitor 80 MG Oral TabletTAKE 1 TABLET AT BEDTIME. Nitroglycerin 0.4 MG Sublingual Tablet SublingualPLACE 1 TABLET UNDER TONGUE EVRY 5 MINS X3 DOSES NEEDED FOR CHEST PAIN *CALL 911 IF PAIN PERSISTS Sildenafil Citrate 100 MG Oral TabletTAKE DIRECTED. Spironolactone 25 MG Oral TabletTAKE 1 TABLET BY MOUTH EVERY DAY Symbicort 160-4.5 MCG/ACT Inhalation AerosolINHALE 2 PUFFS TWICE DAILY. RINSE MOUTH AFTER USE. Torsemide 20 MG Oral Tablet Allergies Medication No Known Drug Allergies Recorded By: Maame Arguelles; 03/08/2021 2:58:10 PM Social History Problems Consumes 1 to 2 servings of caffeine per day (V49.89) (Z78.9) Consumes alcohol (V49.89) (Z78.9) 2-3 DRINKS FIVE TIMES WEEKLY MAYBE MORE ON MONDAY Former smoker (V15.82) (Z87.891) QUIT 1986 2PPD No illicit drug use Review of Systems Constitutional: not feeling tired. Cardiovascular: chest pain, but no intermittent leg claudication and as noted in HPI. Respiratory: shortness of breath during exertion, but no cough and no shortness of breath. Gastrointestinal: no change (more content not included)... Normal [employer] Tobacco Screening.on 023 Adult depression screening assessment Yes inB[facility] [employer] 320 DO Work Phone: Adult depression screening assessment Moderately Severe (15-19) M [facility] [employer] a 320 DO Work Phone: Fall risk assessment a) No falls within the last year [facility] [employer] a 320 DO Work Phone: Tobacco use status CP b) No [facility] [employer] a 320 DO Work Phone: Tobacco Screening. 3-Nearly every day [facility] [employer] 320 DO Work Phone: Tobacco Screening. 0-Not at all [facility] [employer] a 320 DO Work Phone: Tobacco Screening. Somewhat Difficult [facility] [employer] a 320 DO Work Phone: Aspartate Amino Transferaseo n 11-07-2022 AST [Catalytic activity/Vol] 14 U/L Normal 13-39 [facility] Comment on above: Order Comment: PT NO T FASTING Performed By: #### A ST, BMP, TSH3 #### [address] Aspartate aminotransferase [ Enzymatic activity/volume] in Serum or PlasmaOrdered By: Kary Dutta on 11-07-2022 AST [Catalytic activity/Vol] 14 U/L 13-39 [facility] Basic Metabolic Panelon 06-0 Anion gap [Moles/Vol] 11.6 mmol/L Normal 6.0-15.0 [facility] Comment on above: Order Comment: PT NO T FASTING Performed By: #### A STBENJA, TSH3 #### [facility] [address] [place] [address] [place] Calcium [Mass/Vol] 8.9 mg/dL Normal 8.6-10.3 [facility] Comment on above: Order Comment: PT NO T FASTING Performed By: #### A STBENJA, TSH3 #### [facility] [address] [place] [address] [place] Chloride [Moles/Vol] 109 mmol/L High 98-107 [facility] Comment on above: Order Comment: PT NO T FASTING Performed By: #### A BENJA KONG, TSH3 #### [facility] [address] [place] [address] [place] CO2 [Moles/Vol] 26.3 mmol/L Normal 21.0-31.0 [facility] Comment on above: Order Comment: PT NO T FASTING Performed By: #### A BENJA KONG, TSH3 #### [facility] [address] [place] [id number] [place] Creatinine [Mass/Vol] 1.43 mg/dL High 0.70-1.30 [facility] Comment on above: Order Comment: PT NO T FASTING Performed By: #### A STBENJA, TSH3 #### [facility] [address] [place] [id number] [place] GFR/1.73 sq M.predicted MDRD (S/P/Bld) [Vol rate/Area] 51.737 mL/min/{1.73_m2} Normal [facility] Comment on above: Order Comment: PT NO T FASTING Performed By: #### A ST BMP, TSH3 #### [facility] [address] [place] [id number] [place] Glucose [Mass/Vol] 118 mg/dL High 70-100 [facility] Comment on above: Order Comment: PT NO T FASTING Result Comment: [place] Glucose Reference Range is dependent on time and content of last meal. Glucose of more than 200 mg/dL in a nonstressed, ambulatory subject supports the diagnosis of Diabetes Mellitus. ADA recommended reference range Performed By: #### A ST, BMP, TSH3 #### [facility] [address] [place] [id number] [facility] Potassium [Moles/Vol] 3.9 mmol/L Normal 3.5-5.1 [facility] Comment on above: Order Comment: PT NO T FASTING Performed By: #### A ST, BMP, TSH3 #### [facility] [address] [place] [id number] [place] Sodium [Moles/Vol] 143 mmol/L Normal 136-145 [facility] Comment on above: Order Comment: PT NO T FASTING Performed By: #### A ST, BMP, TSH3 #### [facility] [address] [place] [id number] [place] Urea nitrogen [Mass/Vol] 19 mg/dL Normal 7-25 [facility] Comment on above: Order Comment: PT NO T FASTING Performed By: #### A ST, BMP, TSH3 #### [facility] [address] [place] [id number] [place] Calcium [Mass/volume] in Ser um or PlasmaOrdered By: Kary Dutta on 11-07-2022 Calcium [Mass/Vol] 8.9 mg/dL 8.6-10.3 [facility] Carbon dioxide, total [Moles /volume] in Serum or PlasmaOrdered By: Kary Dutta on 11-07-2022 CO2 [Moles/Vol] 26.3 mmol/L 21.0-31.0 [facility] Chloride [Moles/volume] in S tomas or PlasmaOrdered By: Kary Dutta on 11-07-2022 Chloride [Moles/Vol] 109 mmol/L 98-107 [facility] Creatinine [Mass/volume] in Serum or PlasmaOrdered By: Kary Dutta on 11-07-2022 Creatinine [Mass/Vol] 1.43 mg/dL 0.70-1.30 [facility] Glucose [Mass/volume] in Ser um or PlasmaOrdered By: Kary Dutta on 11-07-2022 Glucose [Mass/Vol] 118 mg/dL 70-100 [facility] Comment on above: ADA recommended refe rence rangeRandom Glucose Reference Range is dependent on time and content of last meal. Glucose of more than 200 mg/dL in a nonstressed, ambulatory subject supports the diagnosis of Diabetes Mellitus. No Panel InformationOrdered By: Kary Dutta on 11-07-2022 Estimated GFR (CKD-EPI) 51.737 mL/Min [facility] Creatinine Clearance (Chem N/A [facility] No Panel Informationon 11-07 51.737\S\51.[address] [facility] [employer] 250 DO Work Phone: 11.6\S\11.6 Normal 6.0-15.0 [facility] [employer] 250 DO Work Phone: 8.9\S\8.9 Normal 8.6-10.3 [facility] [employer] 250 DO Work Phone: 26.3\S\26.3 Normal 21.0-31.0 [facility] [employer] 250 DO Work Phone: 109\S\109 above high threshold 98-107 [facility] [employer] 250 DO Work Phone: 3.9\S\3.9 Normal 3.5-5.1 [facility] [employer] 250 DO Work Phone: [phone] 143\S\143 Normal 136-145 [facility] [employer] 250 DO Work Phone: 1.43\S\1.43 above high threshold 0.70-1.30 -[facility] [employer] 250 DO Work Phone: 19\S\19 Normal 7-25 -[facility] [employer] 250 DO Work Phone: 118\S\118 above high threshold 70-100 [facility] [employer] 250 DO Work Phone: Comment on above: Random Glucose Refer ence Range is dependent on time and content of last meal. Glucose of more than 200 mg/dL in a nonstressed, ambulatory subject supports the diagnosis of Diabetes Mellitus. ADA recommended reference range 14\S\14 Normal 13-39 [facility] 250 DO Work Phone: 0.87\S\0.87 Normal 0.45-5.33 [facility] 250 DO Work Phone: Comment on above: PERFORMED BY:[facility] [place] [place], [place] [phone] MEDICAL DIRECTORPRAVIN WILKERSON M.D. Potassium [Moles/volume] in Serum or PlasmaOrdered By: Kary Dutta on 11-07-2022 Potassium [Moles/Vol] 3.9 mmol/L 3.5-5.1 [facility] Radiologyon 11-07-2022 XR Chest 2 Views Normal [facility] 250 DO Work Phone: Serum or plasma anion gap de terminationOrdered By: Kary Dutta on 11-07-2022 Anion gap [Moles/Vol] 11.6 mmol/L 6.0-15.0 [facility] Sodium [Moles/volume] in Ser um or PlasmaOrdered By: Kary Dutta on 11-07-2022 Sodium [Moles/Vol] 143 mmol/L 136-145 [facility] Thyroid Stimulating Hormoneo n 11-07-2022 TSH Qn 0.87 m[IU]/L Normal 0.45-5.33 [facility] Comment on above: Order Comment: PT NO T FASTING Result Comment: PERF ORMED BY: [facility] [address] [place] [address] PATHOLOGIST HEALTH TEACHER PRAVIN WILKERSON M.D. Performed By: #### A ST, BMP, TSH3 #### [facility] [address] [place] [address] [facility] Thyrotropin [Units/volume] i n Serum or PlasmaOrdered By: Kary Dutta on 11-07-2022 TSH Qn 0.87 m[IU]/L 0.45-5.33 [facility] Urea nitrogen [Mass/volume] in Serum or PlasmaOrdered By: Kary Dutta on 11-07-2022 Urea nitrogen [Mass/Vol] 19 mg/dL 7-25 [facility] XR chest 2V*on 11-07-2022 XR chest 2V* [facility] [place] [address] XRay Report Signed Patient: Amee Juárez MR#: [id number] [birth year] : 1950 Acct:[id number] Age/Sex: 72 / M ADM Date: 11/07/22 Loc: RT Room: Type: [facility] Attending Dr: Kary Dutta DO Copies to: Kary Dutta DO Ordering Provider: Kary Dutta DO Date of Service: 11/07/22 XR/XR chest 2V*: Z79.899 PA AND LATERAL CHEST: CLINICAL HISTORY: High risk medication for atrial fibrillation COMPARISON: 04/22/2022 There is slight hyperinflation. There is no developing consolidation, effusion or pneumothorax. The heart is borderline prominent. The hilar and mediastinal silhouettes are within normal limits. There is no vascular congestion. The visualized bony thorax is intact. End plate spurring is seen at the spine. XR/XR chest 2V* IMPRESSION: NO ACUTE CARDIOPULMONARY ABNORMALITY. Impression dictated by: Ashley Rick M.D.11/07/2022 9:42 AM Dictation Location: [place] [address] Transcribed By: [facility] 11/07/2242 Dictated By: Ashley Rick MD 11/07/22 0941 Signed By: 11/07/[address] [facility] Cardiovasc Arrhythmia Result son 08-09-2022 Cardiovasc Arrhythmia Results Reason For Visit Reason for Visit: Holter Monitor: AMEE is here for the application of a 48 hour Holter monitor. Ordering Physician: Dr. Jose Dutta DO Diagnosis: persistent atrial fibrillation Monitor number [id number] applied. Holter monitor returned and downloaded. Holter monitor printed and placed on Dr. Jose Dutta DO desk to dictate. Procedure Holter monitor printed and placed on Dr. Cavazos desk to dictate for Dr. Dutta. 1?the rhythm was sinus throughout the recording with an average heart rate of 67 bpm. The minimum heart rate was 34 bpm at 3:44 AM which was an event of 2-1 AV block while patient is asleep and the fastest heart rate was 115 bpm sinus tachycardia at 7:42 PM while patient was active 2?infrequent mostly isolated premature ventricular complexes, there was 473 beats in 48 hours with 6 events of ventricular couplets. No complex ventricular arrhythmias were seen 3?frequent premature atrial complexes were seen. There was 2446 beats in total representing 1.4% of total QRS complexes. Included was 46 events of atrial couplets. 3?no atrial fibrillation or flutter 4?events of Wenckebach type second-degree AV block and 2-1 AV conduction while patient was asleep indicating enhanced vagal tone 5?no pauses exceeding 2 seconds were seen 6?no symptoms on the patient's diary. Conclusion: 48-hour Holter monitor that demonstrated sinus rhythm mechanism throughout with an average heart rate of 67 bpm. Infrequent but mostly isolated PVCs were seen with rare ventricular couplets, frequent mostly isolated PACs were noted with a total number of 2646 beats in 48 hours including occasional couplets. No pauses exceeding 2 seconds were seen. Occasional events of 2-1 AV conduction and Wenckebach type second-degree atrioventricular block while patient was asleep indicating enhanced vagal tone. No atrial fibrillation or flutter was noted Diagnosis/Problems Assessed Persistent atrial fibrillation (427.31) (I48.19) Future Appointments Date/TimeProviderSpecialty Site 12/29/2022 10:00 Jose Trent DOCardiology703 [facility] [address] 250 DO Signatures Electronically signed by : Ivan Ricci.P.NRod; Aug 09 2022 10:36AM EST (Author) Electronically signed by : Nikki Kincaid L.P.N.; Aug 12 2022 1:10PM EST (Author) Electronically signed by : Jose Dutta DO; Aug 19 2022 5:02PM EST Electronically signed by : Isaias Cavazos MD; Mar 18 2023 6:03PM EST (Author) Normal [facility] Echocardiogramon 08-09-2022 [facility] [address], [address], [place] [address] TRANSTHORACIC ECHOCARDIOGRAM REPORT Patient Name: AMEE JUÁREZ Sherie Physician: [id number] Isaias Cavazos MD, [facility] Study Date: 08/09/2022 Referring JOSE DUTTA Physician: MRN/PID: [id number] PCP: Kailey Louise Accession/Order#: [id number] Department [facility] Location: Date of : 1950 Fellow: Gender: M Nurse: Sarah Burnette RN Admit Date: History Teacher: Lupe Vazquez [facility], T Height: 182.88 cm CC Report to: Weight: 110.22 kg Study Type: Echocardiogram BSA: 2.31 m2 Blood Pressure: 136 /70 mmHg Diagnosis/ICD: Z86.73-Personal history of transient ischemic attack (TIA), and cerebral infarction without residual deficits Indication: Atrial Fibrillation-s/p Cardioversion 09/2021, CAD, PTCA-2019, COPD, HTN, Hyperlipidemia, Former Smoker, Obesity, Right Eye Optic Nerve Trauma, Ischemic Right ICA CVA, Frequent ETOH Use Procedure/CPT: Echo Complete w Full Doppler-42871 Study Detail: The following Echo studies were performed: 2D, M-Mode, Doppler and color flow. Optison used as a contrast agent for endocardial border definition and agitated saline used as a contrast agent for intraseptal flow evaluation. Total contrast used for this procedure was 0.7 mL via IV push. PHYSICIAN INTERPRETATION: Left Ventricle: Left ventricular systolic function is normal, with an estimated ejection fraction of 65-70%. There are no regional wall motion abnormalities. The left ventricular cavity size is normal. Spectral Doppler shows a pseudonormal pattern of left ventricular diastolic filling. There is an elevated mean left atrial pressure. Mild concentric left ventricular hypertrophy. Left Atrium: The left atrium is mildly dilated. Right Ventricle: The right ventricle is normal in size. There is normal right ventricular global systolic function. Right Atrium: The right atrium is normal in size. Aortic Valve: The aortic valve appears structurally normal. There is trivial aortic valve regurgitation. The peak instantaneous gradient of the aortic valve is 6.9 mmHg. The mean gradient of the aortic valve is 4.0 mmHg. Mitral Valve: The mitral valve is normal in structure. There is no evidence of mitral valve regurgitation. Tricuspid Valve: The tricuspid valve is structurally normal. No evidence of tricuspid regurgitation. Pulmonic Valve: The pulmonic valve is structurally normal. There is no indication of pulmonic valve regurgitation. Pericardium: There is no pericardial effusion noted. Aorta: The aortic root is normal. Systemic Veins: The inferior vena cava appears to be of normal size. CONCLUSIONS: 1. Left ventricular systolic function is normal with a 65-70% estimated ejection fraction. 2. Mild concentric left ventricular hypertrophy. 3. Spectral Doppler shows a pseudonormal pattern of left ventricular diastolic filling. 4. There is an elevated mean left atrial pressure. QUANTITATIVE DATA SUMMARY: 2D MEASUREMENTS: Normal Ranges: Ao Root d: 3.30 cm (2.0-3.7cm) LAs: 4.50 cm (2.7-4.0cm) RVIDd: 2.90 cm (0.9-3.6cm) IVSd: 1.60 cm (0.6-1.1cm) LVPWd: 1.20 cm (0.6-1.1cm) LVIDd: 4.60 cm (3.9-5.9cm) LVIDs: 3.50 cm LV Mass Index: 110.9 g/m2 LV % FS 23.9 % LV SYSTOLIC FUNCTION BY 2D PLANIMETRY (MOD): Normal Ranges: EF-A4C View: 71.3 % (>=55%) LV DIASTOLIC FUNCTION: Normal Ranges: MV Peak E: 0.87 m/s (0.7-1.2 m/s) MV Peak A: 0.62 m/s (0.42-0.7 m/s) E/A Ratio: 1.40 (1.0-2.2) MV lateral e' 0.05 m/s MV medial e' 0.05 m/s E/e' Ratio: 17.40 (<8.0) MITRAL VALVE: Normal Ranges: MV Vmax: 1.13 m/s (<=1.3m/s) MV peak P.1 mmHg (<5mmHg) MV mean P.0 mmHg (<48mmHg) AORTIC VALVE: Normal Ranges: AoV Vmax: 1.31 m/s (<=1.7m/s) AoV Peak P.9 mmHg (<20mmHg) AoV Mean P.0 mmHg (1.7-11.5mmHg) LVOT Max Lorri: 1.11 m/s (<=1.1m/s) AoV VTI: 30.30 cm (18-25cm) LVOT VTI: 24.80 cm LVOT Diameter: 2.30 cm (1.8-2.4cm) AoV Area, VTI: 3.40 cm2 (2.5-5.5cm2) AoV Area,Vmax: 3.52 cm2 (2.5-4.5cm2) AoV Dimensionless Index: 0.82 AORTIC INSUFFICIENCY: AI Vmax: 2.20 m/s AI Half-time: 451 msec AI Decel Rate: 143.00 cm/s2 PULMONIC VALVE: Normal Ranges: PV Max Lorri: 0.8 m/s (0.6-0.9m/s) PV Max P.6 mmHg [id number] Isaias Cavazos MD, [facility] Electronically signed on 08/09/2022 at 6:33:14 PM Final Normal [facility] LAB Carotid Artery Dupl ex Ultrasounon 08-09-2022 [facility] Carotid Artery Duplex Ultrasoun [address], [address] [place] [address] Vascular Lab Report Carotid Artery Duplex Ultrasound Patient Name: AMEE Rehman Physician: [id number] Isaias Cavazos MD, [facility] Study Date: 08/09/2022 Referring JOSE DUTTA Physician: MRN/PID: [id number] PCP: Kailey Louise Accession/Order#: [id number] CC Report to: Date of : 1950 Technologist: Lupe Vazquez RDCS, RVT Gender: M Technologist 2: Admission Status: Outpatient Location Performed: [facility] Diagnosis/ICD: I63.9-Cerebral infarction, unspecified 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, Atrial Fibrillation-s/p Cardioversion 09/2019, HTN, Hyperlipidemia, Former Smoker, COPD, CAD, PTCA-2019, Obesity, Frequent ETOH Procedure/CPT: 65247 Cerebrovascular Carotid Duplex scan complete-[id number] CONCLUSIONS: Right Carotid: Findings are consistent with 50 to 69% stenosis of the right proximal ICA. Laminar flow seen by color Doppler. Right external carotid artery appears patent with no evidence of stenosis. No evidence of hemodynamically significant stenosis of the right common carotid artery. The right vertebral artery is patent with antegrade flow. Left Carotid: Findings are consistent with less than 50% stenosis of the left proximal ICA. Laminar flow seen by color Doppler. Left external carotid artery appears patent with no evidence of stenosis. No evidence of hemodynamically significant stenosis of the left common carotid artery. The left vertebral artery is patent with antegrade flow. Imaging AND Doppler Findings: Right Plaque Morph: The distal right common carotid artery demonstrates irregular and heterogenous plaque. Left Plaque Morph: The distal left common carotid artery demonstrates irregular and heterogenous plaque. Right Left PSV EDV PSV EDV 130 cm/s 13 cm/s CCA P 183 cm/s 16 cm/s 70 cm/s 12 cm/s CCA M 89 cm/s 16 cm/s 51 cm/s 12 cm/s CCA D 62 cm/s 13 cm/s 52 cm/s 14 cm/s ICA P 70 cm/s 21 cm/s 58 cm/s 17 cm/s ICA M 75 cm/s 27 cm/s 144 cm/s 35 cm/s ICA D 73 cm/s 23 cm/s 81 cm/s ECA 88 cm/s 24 cm/s Vertebral 37 cm/s Right Left ICA/CCA Ratio 1.0 1.1 [id number] Isaias Cavazos MD, FACC Final Normal [facility] LAB Carotid Artery Dupl ex Ultrasoundon 08-09-2022 US.doppler Carotid arteries -[facility] [employer] 250 DO Work Phone: MRI BRAIN WO CONon MRI BRAIN WO CON EXAMINATION: MRI BRA IN WO CON, 07/22/2022 9:22 AM EST HISTORY: Cerebral infarction , chronic headache COMPARISON: None. TECHNIQUE: MRI of the brain was performed without IV contrast. FINDINGS: CEREBRUM: No edema, hemorrhage, mass, acute infarction, or inappropriate atrophy. CEREBELLUM: No edema, hemorrhage, mass, acute infarction, or inappropriate atrophy. BRAINSTEM: No edema, hemorrhage, mass, acute infarction, or inappropriate atrophy. CSF SPACES: Ventricles, cisterns, and sulci are appropriate for age. No hydrocephalus, subarachnoid hemorrhage, or mass. SKULL: No mass or other significant visible lesion. SINUSES: Limited views demonstrate no significant mucosal thickening or fluid. ORBITS: Limited views are unremarkable. OTHER: Negative. IMPRESSION: 1. No acute or suspicious findings. 2. Mild age consistent chronic changes. Electronically authenticated by: JASSI WITT Date: 2022-07-22 15:19 [facility] US ABD AORTA SCREENINGon ABD AORTA SCREENING EXAMINATION: US A BD AORTA SCREENING HISTORY: Abdominal aortic aneurysm screening COMPARISON: No relevant comparison available. TECHNIQUE: Ultrasound examination of the retroperitoneal area was performed, with a focused evaluation of the abdominal aorta. FINDINGS: Proximal aorta: 2.3 x 2.3 cm Mid aorta: 1.8 x 2.1 cm Distal aorta: 1.8 x 2.1 cm Right common iliac artery: 1.6 x 1.6 cm Left common iliac artery: 1.5 x 2.0 cm Moderate diffuse atherosclerotic plaque. Normal color Doppler flow IMPRESSION: No abdominal aortic aneurysm observed Moderate atherosclerosis Electronically authenticated by: GERG POLLARD Date: 2022-07-18 16:13 [facility] (HEMASA) -- AMEE JUÁREZ ([id number]) 1950 M Date Time Provider Department 07/15/22 ERIN VERMA During your visit today, we recorded the following information about you: SLOANE Donis 07/15/2022 4:02 PM Signed Unable To Reach Patient Second attempt to reach Patient to follow up on the [employer] RHONDA Report. SW will remain available and will follow up as appropriate. RABIA Donis-Douglas Allergies As of Date: 07/15/2022 (No Known Allergies) Date Reviewed: 01/10/2022 Reviewed by: Monse Robertson RN - Fully Assessed Reason for Visit: Social Work Services [507] Prescriptions as of 07/15/2022 - amiodarone (PACERONE) 200 mg tablet Take 200 mg by mouth once daily. - isosorbide mononitrate ER (IMDUR) 60 mg 24 hr tablet - loratadine (CLARITIN) 10 mg tablet Take 10 mg by mouth once daily. - spironolactone (ALDACTONE) 25 mg tablet Take by mouth q 24 HR. - torsemide (DEMADEX) 20 mg tablet Take by mouth q 24 HR. - ELIQUIS 5 mg tab(s) - buPROPion XL (WELLBUTRIN XL) 150 mg 24 hr tablet Take 150 mg by mouth once daily. - aspirin-calcium carbonate 81 mg-300 mg calcium(777 mg) tab 81 mg. - atorvastatin (LIPITOR) 80 mg tablet 80 mg. - baclofen (LIORESAL) 10 mg tablet 10 mg. - guaiFENesin 1,200 mg Ta12 1,200 mg. - nitroglycerin sublingual (NITROQUICK) 0.4 mg SL tablet - oxyCODONE-acetaminophen (PERCOCET) 5-325 mg tablet Acetaminophen / oxyCODONE Oxycodone-Acetaminophen Active 5 MG Oral Q4H April 30, 2018 3:31pm 04-30-2018 [facility] ([id number]) - albuterol (PROVENTIL) 2.5 mg /3 mL (0.083 %) nebulizer solution Use 2.5 mg via nebulizer every 4 hours as needed. - SYMBICORT 160-4.5 mcg/actuation inhaler TAKE 2 PUFFS BY MOUTH TWICE A DAY*RINSE MOUTH AFTER USE* - FLUZONE HIGH-DOSE 2017-19, PF, 180 mcg/0.5 mL injection TO BE ADMINISTERED BY PHARMACIST FOR IMMUNIZATION - PREVNAR 13, PF, 0.5 mL syrg TO BE ADMINISTERED BY PHARMACIST FOR IMMUNIZATION - DALIRESP 500 mcg tab Take 500 mcg by mouth once daily. - valsartan (DIOVAN) 160 mg tablet Take 160 mg by mouth twice daily. - GABAPENTIN ORAL Take by mouth. Problem List As Of Date 07/15/2022 Noted Resolved Prostate cancer (HCC) [C61] 06/25/2018 Neoplasm [D49.9] 06/25/2018 Malnutrition of mild degree (HCC) [E44.1] 07/27/2018 Encounter Status:Closed by ERIN VERMA on 07/15/22 Normal [facility] CNPNasima 07-13-2022 CNPN Telephone (HEMASA) -- AMEE JUÁREZ ([id number]) 1950 M Date Time Provider Department 07/13/22 ERIN VERMA During your visit today, we recorded the following information about you: SLOANE Donis 07/13/2022 3:29 PM Signed Unable To Reach Patient SOCIAL WORK FOLLOW UP NOTE: [facility] Date of service:07/13/22 PLAN: Continue follow up as needed Assigned SW listed in Care Team tab: No Patient appears on the [employer] RHONDA report for a NCCN score of 9 and a PHQ-9 score of 19 with a positive response to question #9 (thoughts that you would be better off , or of hurting yourself in some way. Sw called Patient and left a VM asking for a return call. Patient Data Patient Health Questionnaire (PHQ-9) PHQ-9 04/13/2021 04/13/2021 07/08/2022 Score 8 8 19 (0-4) minimal depression, (5-9) mild depression, (10-14) moderate depression, (15-19) moderately severe depression, (20-27) severe depression RABIA Donis-Douglas Allergies As of Date: 07/13/2022 (No Known Allergies) Date Reviewed: 01/10/2022 Reviewed by: Monse Robertson RN - Fully Assessed Reason for Visit: Social Work Services [507] Cmt: PRO Glenn ELLIS Report follow up. Prescriptions as of 07/13/2022 - amiodarone (PACERONE) 200 mg tablet Take 200 mg by mouth once daily. - isosorbide mononitrate ER (IMDUR) 60 mg 24 hr tablet - loratadine (CLARITIN) 10 mg tablet Take 10 mg by mouth once daily. - spironolactone (ALDACTONE) 25 mg tablet Take by mouth q 24 HR. - torsemide (DEMADEX) 20 mg tablet Take by mouth q 24 HR. - ELIQUIS 5 mg tab(s) - buPROPion XL (WELLBUTRIN XL) 150 mg 24 hr tablet Take 150 mg by mouth once daily. - aspirin-calcium carbonate 81 mg-300 mg calcium(777 mg) tab 81 mg. - atorvastatin (LIPITOR) 80 mg tablet 80 mg. - baclofen (LIORESAL) 10 mg tablet 10 mg. - guaiFENesin 1,200 mg Ta12 1,200 mg. - nitroglycerin sublingual (NITROQUICK) 0.4 mg SL tablet - oxyCODONE-acetaminophen (PERCOCET) 5-325 mg tablet Acetaminophen / oxyCODONE Oxycodone-Acetaminophen Active 5 MG Oral Q4H April 30, 2018 3:31pm 04-30-[address] [facility] ([id number]) - albuterol (PROVENTIL) 2.5 mg /3 mL (0.083 %) nebulizer solution Use 2.5 mg via nebulizer every 4 hours as needed. - SYMBICORT 160-4.5 mcg/actuation inhaler TAKE 2 PUFFS BY MOUTH TWICE A DAY*RINSE MOUTH AFTER USE* - FLUZONE HIGH-DOSE , PF, 180 mcg/0.5 mL injection TO BE ADMINISTERED BY PHARMACIST FOR IMMUNIZATION - PREVNAR 13, PF, 0.5 mL syrg TO BE ADMINISTERED BY PHARMACIST FOR IMMUNIZATION - DALIRESP 500 mcg tab Take 500 mcg by mouth once daily. - valsartan (DIOVAN) 160 mg tablet Take 160 mg by mouth twice daily. - GABAPENTIN ORAL Take by mouth. Problem List As Of Date 07/13/2022 Noted Resolved Prostate cancer (HCC) [C61] 06/25/2018 Neoplasm [D49.9] 06/25/2018 Malnutrition of mild degree (HCC) [E44.1] 07/27/2018 Encounter Status:Closed by ERIN VERMA on 07/13/22 [facility] CNOVon 07-11-2022 CNOV Office Visit (RADTSA ) -- AMEE JUÁREZ ([id number]) 1950 M Date Time Provider Department 07/11/22 10:00 AM GALILEO DELATORRE During your visit today, we recorded the following information about you: Temperature Pulse Respiration Blood pressure 97.8 degrees 71/minute 18/minute 174/93 Weight 112 kg Galileo Delatorre MD 07/27/2022 3:50 AM Addendum Radiation Oncology - Follow Up Note PATIENT NAME: Amee Juárez PATIENT DIAGNOSIS/PATIENT IDENTIFICATION: Mr. 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 He is s/p prostatectomy on 07/20/2018, with final pathology revealing Vira 4 + 4 = 8 (grade group 4), pathologic stage T3a N0 Mx III, margins negative, EPE present , SVI absent, 0 LNs positive out of 10 LNs removed, post-op PSA initially detectable (PSA 0.03) and currently detectable (PSA 0.13). He has met in consultation with my colleague Dr. Vu at [facility] on 07/30/2020 for consideration of salvage. His DECIPHER genomic risk assessment returned high risk and he received a 6 month Leupron shot on 10/30/2020 for concomitant ADT and completed a course of salvage radiation therapy to the prostate bed and pelvic lymph nodes on 01/14/2021 (7020 cGy in 39 fractions). INTERVAL HISTORY/ROS: Mr. Juárez returns to clinic today for routine follow-up approximately a year and a half after the completion of his radiation treatments and 6 months since his last visit on 01/10/2022. In the interim, he does note increased urinary frequency without burning or discomfort with urination and nocturia 0-1 times and no change in incontinence/leakage issues. He reports regular bowel movements without diarrhea or pain or blood in his stool and denies any nausea and has very rare hot flashes. 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 This has affected his activity day-to-day and has led to some depression. His IPSS score today is 18/35 with QOL 3 ('mixed') and ABHI score of 1/25. His repeat PSA from 07/04/2022 continues to remain undetectable at <0.02 ng/mL. Date PSA (ng/mL) 11/16/2016 4.16 01/17/2017 Bx (GS 3+4) 05/05/2017 4.58 10/04/2017 3.9 05/18/2018 Bx (GS 4+5) 07/20/2018 RP (GS 4+4,T3a,-SM,-SVI,+EPE) 08/30/2018 0.04 12/26/2018 0.03 08/15/2019 0.05 07/13/2020 0.13 10/30/2020 0.22; testosterone 341 01/14/2021 Completed salvage XRT 04/08/2021 <0.03; testosterone <7 07/09/2021 <0.02; testosterone 11 01/10/2022 <0.02; testosterone 251 07/04/2022 <0.02; testosterone 315 In addition to the vision issues mentioned above, he also notes occasional shortness of breath as well as palpitations but otherwise denies any recent fevers, chills, headaches, difficulty with speech/swallowing, abdominal pain, nausea, vomiting, change in bowel/urinary habits, difficulty with gait/balance, recent falls, etc. The remainder of the review of systems was performed and was otherwise noncontributory. ALLERGIES ALLERGIES No Known Allergies MEDICATIONS: Current Outpatient Medications: amiodarone (PACERONE) 200 mg tablet isosorbide mononitrate ER (IMDUR) 60 mg 24 hr tablet loratadine (CLARITIN) 10 mg tablet spironolactone (ALDACTONE) 25 mg tablet torsemide (DEMADEX) 20 mg tablet ELIQUIS 5 mg tab(s) aspirin-calcium carbonate 81 mg-300 mg calcium(777 mg) tab atorvastatin (LIPITOR) 80 mg tablet guaiFENesin 1,200 mg Ta12 nitroglycerin sublingual (NITROQUICK) 0.4 mg SL tablet oxyCODONE-acetaminophen (PERCOCET) 5-325 mg tablet albuterol (PROVENTIL) 2.5 mg /3 mL (0.083 %) nebulizer solution SYMBICORT 160-4.5 mcg/actuation inhaler FLUZONE HIGH-DOSE 2018-, PF, 180 mcg/0.5 mL injection PREVNAR 13, PF, 0.5 mL syrg DALIRESP 500 mcg tab valsartan (DIOVAN) 160 mg tablet GABAPENTIN ORAL PHYSICAL EXAM: GENERAL: middle-aged gentleman sitting in chair in no acute distress. VITALS: BP 174/93 Pulse 71 Temp 97.8 Resp 18 Wt 247 lb (112.0kg) SpO2 96% KPS: 90 HEENT: NC/AT, anicteric sclera HEART: S1S2 LUNGS: non-labored breathing ABDOMEN: soft MUSCULOSKELETAL: no peripheral edema, moves all extremities. NEURO: no focal deficit; AANDO X3. ASSESSMENT AND PLAN: Mr. 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 He is s/p prostatectomy on 07/20/2018, with final pathology revealing Vira 4 + 4 = 8 (grade group 4), pathologic stage T3a N0 Mx III, margins negative, EPE present , SVI absent, 0 LNs positive out of 10 LNs removed, post-op PSA initially detectable (PSA 0.03) and currently detectable (PSA 0.13). He has met in consultation with my colleag (more content not included)... Normal [facility] Prostate specific Ag [Mass/Vol] ng/mL Normal <2.60 [facility] Comment on above: Order Comment: Speci men Type: BLOOD SPECIMENOrdering Facility: [facility] Address: [address] [place] [id number] Result Comment: Aron love PSA test methodology used is the Electrochemiluminescence Immunoassay by [employer]. Total PSA values by differing methodologies cannot be interchanged. Performed By: #### 2 857-1 ####[facility] LABCLIA [id number] [place] [address] [place] TESTOSTERONE, FREE AND TOTAL on 07-04-2022 TESTOSTERONE, FREE, S 8.09 ng/dL Normal 3.28-12.2 [facility] Comment on above: Order Comment: Speci men Type: BLOOD SPECIMENOrdering Facility: [facility] Address: [place] [address] Result Comment: ADDITIONAL INFORMATION This test was developed and its performance characteristics determined by [facility] in a manner consistent with CLIA requirements. This test has not been cleared or approved by the U.S. Food and Drug Administration. Performed By: #### T FTEST ####[facility] REFERENCE LABCLIA [id number] [place] [address] TESTOSTERONE, TOTAL, S 315 ng/dL Normal 240-950 [facility] Comment on above: Order Comment: Speci men Type: BLOOD SPECIMENOrdering Facility: [facility] Address: [place] [address] Result Comment: ADDITIONAL INFORMATION Testing performed by Liquid Chromatography-Tandem Mass Spectrometry (LC-MS/MS). This test was developed and its performance characteristics determined by [facility] in a manner consistent with CLIA requirements. This test has not been cleared or approved by the U.S. Food and Drug Administration. Test Performed by: [address] [address] Clothing Supervisor: Jose Horton M.D. Ph.D.; CLIA# [id number] Performed By: #### T FTEST ####[facility] LABCLIA [id number] [place] [address] Office Visit (Cardiology)on 06-21-2022 Follow-up visit Diagnoses/Problems Assessed Persistent atrial fibrillation (427.31) (I48.19) High risk medications (not anticoagulants) long-term use (V58.69) (Z79.899) History of PTCA (V45.82) (Z98.61) Class 1 obesity with body mass index (BMI) of 32.0 to 32.9 in adult (278.00,V85.32) (E66.9,Z68.32) Hyperlipidemia (272.4) (E78.5) Essential hypertension, benign (401.1) (I10) COPD (chronic obstructive pulmonary disease) (496) (J44.9) Former smoker (V15.82) (Z87.891) QUIT 1986 2PPD 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) CVA (cerebral vascular accident) (434.91) (I63.9) Orders Acute ischemic right ICA stroke [facility]ASC LAB TCD Bubble Study; Status:Hold For - Scheduling,Retrospective Authorization; Requested for:21Jun2022; Laterality : Bilateral Class 1 obesity with body mass index (BMI) of 32.0 to 32.9 in adult Healthy Weight Tips; Status:Complete - Retrospective Authorization; Done: 21Jun2022 Some eating tips that can help you lose weight.; Status:Complete - Retrospective Authorization; Done: 21Jun2022 Optic nerve trauma of right eye, Persistent atrial fibrillation, Stroke Ultrasound Duplex Carotid Bilateral; Status:Hold For - Scheduling,Retrospective Authorization; Requested for:21Jun2022; Radiologist to Determine Optimal Study : Y What are the patient's signs and symptoms? : stroke optic nerve Persistent atrial fibrillation Start: Torsemide 20 MG Oral Tablet; take 2 tablet twice weekly IO EKG Electrocardiogram- 12 Lead; Status:Complete; Done: 21Jun2022 IO Holter Monitor up to 48 Hrs; Status:Active - Perform Order,Retrospective Authorization; Requested for:21Jun2022; SocHx: Former smoker Tobacco Use Screening; Status:Complete; Done: 21Jun2022 Patient Instructions Please bring all medicines, vitamins, and herbal supplements with you when you come to the office. Prescriptions will not be filled unless you are compliant with your follow up appointments or have a follow up appointment scheduled as per instruction of your physician. Refills should be requested at the time of your visit. Amiodarone follow up as directed patient to take torsemide 20 mg twice weekly. Follow up in 6 months Chief Complaint AMEE JUÁREZ is being seen for a 6 month follow-up of. 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 He has a history of paroxysmal A. fib this past year in 2021 with successful cardioversion and remains in sinus rhythm as noted on today's ECG with a QT corrected interval 451 ms and a sinus rate of 73. He has no chest discomfort. He has known coronary disease but is stable, with remote two-vessel PCI's in 2019 Involving the LAD and RCA with normal left ventricular function. Last year he was hospitalized for shortness of breath new onset atrial fibrillation, underwent successful cardioversion on September 03, 2021. He otherwise has underlying hypertension that is well controlled on current therapies remains on high risk medical therapies Is already seen neurology and neuro-ophthalmology. Confirmed his right optic nerve stroke. They have subsequently sent him back to me for further testing and evaluation Recommendations: Proceed with carotid duplex imaging, echocardiogram with bubble study, Holter monitoring x48 hours, continue with current appropriate therapies otherwise we will follow-up in 6 months Surgical History Problems History of Cardiac catheterization with stent placement History of Cataract surgery History of Cholecystectomy History of Complete colonoscopy History of Hernia repair History of Prostate surgery History of Retinal detachment repair History of Skin lesion excision Past Medical History Problems History of Acute diastolic congestive heart failure (428.31,428.0) (I50.31) Resolved Date: 26 Aug 2021 History of bradycardia (V12.59) (Z87.898) Resolved Date: 26 Aug 2021 History of chest pain (V13.89) (Z87.898) Resolved Date: 26 Aug 2021 Current Meds Medication NameInstruction Allergy Relief D 10-240 MG Oral Tablet Extended Release 24 HourTAKE 1 TABLET DAILY NEEDED. Amiodarone HCl - 100 MG Oral TabletTAKE 1 TABLET BY MOUTH EVERY DAY Aspirin EC 81 MG Oral Tablet Delayed ReleaseTAKE 1 TABLET DAILY. Daliresp 500 MCG Oral TabletTAKE 1 TABLET DAILY. Diovan 160 MG Oral TabletTAKE 1 TABLET TWICE DAILY FOR BLOOD PRESSURE. Eliquis 5 MG Oral Tablettake 1 tablet by mouth twice a day Gabapentin 300 MG Oral CapsuleTAKE 1 CAPSULE AT BEDTIME. HYDROcodone-Acetaminophen 5-325 MG Oral TabletTAKE 1 TABLET EVERY 6 HOURS NEEDED FOR PAIN. Isosorbide Mononitrate ER 30 MG Oral Tablet Extended Release 24 HourTAKE 1 TABLET DAILY. Lipitor 80 MG Oral TabletTAKE 1 TABLET AT BEDTIME. Nitroglycerin 0.4 MG Sublingual Tablet SublingualPLACE 1 TABLET UNDER TONGUE EVRY 5 MINS X3 DOSES NEEDED FOR CHEST PAIN *CALL 911 IF PAIN PERSISTS Sildenafil Citrate 100 MG Oral TabletTAKE D (more content not included)... Normal [employer] Tobacco Screening.on 023 Adult depression screening assessment Yes -[facility] [place] [employer] holger 250 DO Work Phone: Adult depression screening assessment Moderate (10-14) -[facility] [employer] holger 250 DO Work Phone: Fall risk assessment a) No falls within the last year inB[facility]Sam[facility] Medigram-BannerView.comy 250 DO Work Phone: Tobacco use status [facility] b) No Unified Color-[facility]-Hemoteq holger 250 DO Work Phone: Tobacco Screening. 3-Nearly every day [facility] Medigram-Electro-LuminX 250 DO Work Phone: Tobacco Screening. 0-Not at all [facility]Sandu hogler 250 DO Work Phone: Tobacco Screening. 1-Several days -[facility] Medigram-[employer]anner[employer].comy 250 DO Work Phone: Tobacco Screening. Very Difficult inB[facility]Sam[facility] Medigram-BannerView.comy 250 DO Work Phone: Creatinine and Glomerular fi ltration rate.predicted panel (S/P/Bld)Ordered By: Kary Dutta on 04-22-2022 Creatinine [Mass/Vol] 1.34 mg/dL 0.64-1.27 [facility] Estimated glomerular filtrat ion rate (GFR) non- AmericanOrdered By: Kary Dutta on 04-22-2022 GFR/1.73 sq M.predicted among non-blacks MDRD (S/P/Bld) [Vol rate/Area] 52 mL/Min [facility] No Panel InformationOrdered By: Kary Dutta on 04-22-2022 Estimated GFR () > 60 mL/Min [facility] Comment on above: GFR estimated refere nce range: According to KDOQI guidelines, <60 ml/min/1.73m2 is sufficient to diagnose a patient with chronic kidney disease. Pharmacy Creatinine Clearance (Chem N/A [facility] No Panel Informationon 04-22 11.3\S\11.3 Normal 6.0-15.0 [facility] [employer] SoftwareCamille holger 250 DO Work Phone: 9.0\S\9.0 Normal 8.2-10.2 [facility] [employer] SoftwareCamille holger 250 DO Work Phone: 27.6\S\27.6 Normal 22.0-30.0 [facility] [employer] SoftwareCamille holger 250 DO Work Phone: 109\S\109 Normal 95-114 [facility] [employer] SoftwareCamille holger 250 DO Work Phone: 3.9\S\3.9 Normal 3.5-5.1 [facility] [employer]Camille holger 250 DO Work Phone: 144\S\144 Normal 136-146 [facility] [employer] SoftwareCamille holger 250 DO Work Phone: > [address] [facility] [employer] SoftwareCamille hajiy 250 DO Work Phone: Comment on above: GFR estimated refere nce range: According to KDOQI guidelines, <60 ml/min/1.73m2 is sufficient to diagnose a patient with chronic kidney disease. 52\S\[address] [facility] [employer] SoftwareCamille holger 250 DO Work Phone: 1.34\S\1.34 above high threshold 0.64-1.27 [facility] [employer]Camille holger 250 DO Work Phone: 12\S\12 Normal 9-23 [facility] [employer]ille holger 250 DO Work Phone: 97\S\97 Normal 70-100 [facility] [employer]Camille holger 250 DO Work Phone: Comment on above: Random Glucose Refer ence Range is dependent on time and content of last meal. Glucose of more than 200 mg/dL in a nonstressed, ambulatory subject supports the diagnosis of Diabetes Mellitus. ADA recommended reference range 19\S\19 Normal 10-42 [facility]Sandu holger 250 DO Work Phone: 0.92\S\0.92 Normal 0.45-5.33 [facility]u holger 250 DO Work Phone: Comment on above: PERFORMED BY:[facility] [place], [place] [id number] MEDICAL DIRECTORPRAVIN WILKERSON M.D. Radiologyon 04-22-2022 XR Chest 2 Views Normal [facility]-Sand holger 250 DO Work Phone: Serum or plasma anion gap de terminationOrdered By: Kary Dutta on 04-22-2022 Anion gap [Moles/Vol] 11.3 mmol/L 6.0-15.0 [facility] Serum or plasma aspartate am inotransferase measurement (enzymatic activity/volume)Ordered By: Kary Dutta on 04-22-2022 AST [Catalytic activity/Vol] 19 U/L 10-42 [facility] Serum or plasma calcium levon urement (mass/volume)Ordered By: Kary Dutta on 04-22-2022 Calcium [Mass/Vol] 9.0 mg/dL 8.2-10.2 [facility] Serum or plasma chloride kathleen surement (moles/volume)Ordered By: Kary Dutta on 04-22-2022 Chloride [Moles/Vol] 109 mmol/L 95-114 [facility] Serum or plasma glucose levon urement (mass/volume)Ordered By: Kary Dutta on 04-22-2022 Glucose [Mass/Vol] 97 mg/dL 70-100 [facility] Comment on above: ADA recommended refe rence rangeRandom Glucose Reference Range is dependent on time and content of last meal. Glucose of more than 200 mg/dL in a nonstressed, ambulatory subject supports the diagnosis of Diabetes Mellitus. Serum or plasma potassium me asurement (moles/volume)Ordered By: Kary Dutta on 04-22-2022 Potassium [Moles/Vol] 3.9 mmol/L 3.5-5.1 [facility] Serum or plasma sodium measu rement (moles/volume)Ordered By: Kary Dutta on 04-22-2022 Sodium [Moles/Vol] 144 mmol/L 136-146 [facility] Serum or plasma total carbon dioxide measurement (moles/volume)Ordered By: Kary Dutta on 04-22-2022 CO2 [Moles/Vol] 27.6 mmol/L 22.0-30.0 [facility] Serum or plasma urea nitroge n measurement (mass/volume)Ordered By: Kary Dutta on 04-22-2022 Urea nitrogen [Mass/Vol] 12 mg/dL 9- [facility] TSH DL <= 0.005 mIU/L QnOrde red By: Kary Dutta on 04-22-2022 TSH Qn 0.92 m[IU]/L 0.45-5.33 [facility] CT CHEST WO CONon 12-17-2021 CT CHEST WO CON EXAMINATION: CT CHES T WO CON HISTORY: Solitary nodule of lung COMPARISON: 02/18/2019 TECHNIQUE: Multi-planar CT images were created with IV contrast. Axial, Coronal, and Sagittal images. Dose reduction techniques were achieved by using automated exposure control and/or adjustment of mA and/or kV according to patient size and/or use of iterative reconstruction technique. FINDINGS: LUNGS: Soft tissue posterior trachea, retained mucus. Mild peribronchial thickening. Stable scattered pulmonary nodules the largest is semisolid smooth nodule in the anterior basilar segment of the right lower lobe measuring 6 mm in diameter, axial image #87. No new pulmonary nodule or mass PLEURA: No mass, effusion, or pneumothorax. VASCULATURE: No abnormality. REYES: No mass or adenopathy. MEDIASTINUM: No mass or adenopathy. CARDIAC: No enlargement. Pericardial effusion measuring up to 1.8 cm, stable. Heavy coronary atherosclerosis. AORTA: No aneurysm or dissection. CHEST WALL: No mass or axillary adenopathy. BONES: No bone lesion or fracture. LIMITED ABDOMEN: Scattered lymph nodes. OTHER: Negative. IMPRESSION: Stable scattered pulmonary nodules measuring up to 6 mm Stable pericardial effusion Electronically authenticated by: GREG POLLARD Date: 2021-12-17 07:58 Normal [facility] No Panel Informationon 12-16 9.4\S\9.4 Normal 8.2-10.2 [facility]-Sandu holger 250 DO Work Phone: 26.1\S\26.1 Normal 22.0-30.0 [facility] Vinicius wren 250 DO Work Phone: 108\S\108 Normal 95-114 [facility] Vinicius wren 250 DO Work Phone: 3.8\S\3.8 Normal 3.5-5.1 [facility] Vinicius wren 250 DO Work Phone: 143\S\143 Normal 136-146 [facility] Vinicius wren 250 DO Work Phone: 55\S\[address] [facility] Vinicius wren 250 DO Work Phone: [phone] Comment on above: GFR estimated refere nce range: According to KDOQI guidelines, <60 ml/min/1.73m2 is sufficient to diagnose a patient with chronic kidney disease. 46\S\[address] [facility] Vinicius wren 250 DO Work Phone: 1.51\S\1.51 above high threshold 0.64-1.27 [facility] Vinicius wren 250 DO Work Phone: [phone] 19\S\19 Normal 9-23 [facility] Vinicius wren 250 DO Work Phone: 126\S\126 above high threshold 70-100 [facility] Vinicius wren 250 DO Work Phone: Comment on above: Random Glucose Refer ence Range is dependent on time and content of last meal. Glucose of more than 200 mg/dL in a nonstressed, ambulatory subject supports the diagnosis of Diabetes Mellitus. ADA recommended reference range 21\S\21 Normal 10-42 [facility] Vinicius wren 250 DO Work Phone: 1.04\S\1.04 Normal 0.45-5.33 [facility] Vinicius wren 250 DO Work Phone: Comment on above: PERFORMED BY:[facility] [place], [place] [id number] MEDICAL DIRECTORPRAVIN WILKERSON M.D. Radiologyon 12-16-2021 XR Chest 2 Views Normal -[facility]Sandu holger 250 DO Work Phone: PTH INTACTon 12-14-2021 PTH, Intact 23 pg/mL Normal 15-65 [facility] Comment on above: Performed By: #### P THINT #### [facility] [address] [place] [address] Dr. Enedelia Uriostegui CBC AUTO DIFFon 12-13-2021 BASO # 0.0 103/ul Normal 0.0-0.1 [facility] Comment on above: Performed By: #### C BC #### [facility] [address] [place] [address] Dr. Enedelia Uriostegui Basophils/100 WBC (Bld) 0.2 % Normal 0.2-2.0 [facility] Comment on above: Performed By: #### C BC #### [facility] [address] [place] [address] Dr. Enedelia Uriostegui EO # 0.1 103/ul Normal 0.0-0.7 [facility] Comment on above: Performed By: #### C BC #### [facility] [address] [place] [address] Dr. Enedelia Uriostegui Eosinophils/100 WBC (Bld) 1.8 % Normal 0.9-7.0 [facility] Comment on above: Performed By: #### C BC #### [facility] [address] [place] [address] Dr. Enedelia Uriostegui Erythrocyte distribution width (RBC) [Ratio] 14.6 % Normal 11.0-15.0 [facility] Comment on above: Performed By: #### C BC #### [facility] [address] [place] [address] Dr. Enedelia Uriostegui Hematocrit (Bld) [Volume fraction] 34.9 % Critically low 42.0-54.0 [facility] Comment on above: Performed By: #### C BC #### [facility] [address] [address] [address] Enedelia Uriostegui Hemoglobin (Bld) [Mass/Vol] 13.1 g/dL Critically low 14.0-18.0 [facility] Comment on above: Performed By: #### C BC #### [facility] [address] [address] [address] Enedelia Uriostegui IG # 0.00 10e3/ul Normal 0.00-0.03 [facility] Comment on above: Performed By: #### C BC #### [facility] [address] [place] [address] Dr. Enedelia Uriostegui IG % 0.0 % Normal 0.0-0.5 [facility] Comment on above: Performed By: #### C BC #### [facility] [address] [place] [address] Dr. Enedelia Uriostegui LYMPH # 0.7 103/ul Critically low 1.2-3.8 [facility] Comment on above: Performed By: #### C BC #### [facility] [address] [place] [address] Dr. Enedelia Uriostegui Lymphocytes/100 WBC (Bld) 14.3 % Critically low 20.5-60.0 [facility] Comment on above: Performed By: #### C BC #### [facility] [address] [place] [address] Dr. Enedelia Uriostegui MANUAL DIFF REQ NO Normal [facility] Comment on above: Performed By: #### C BC #### [facility] [address] [place] [address] Dr. Enedelia Uriostegui MCH (RBC) [Entitic mass] 35.1 pg Critically high 25.9-34.0 [facility] Comment on above: Performed By: #### C BC #### [facility] [address] [place] [address] Dr. Enedelia Uriostegui MCHC (RBC) [Mass/Vol] 37.5 g/dL Critically high 29.9-35.2 [facility] Comment on above: Performed By: #### C BC #### [facility] [address] [place] [address] Dr. Enedelia Uriostegui MCV (RBC) [Entitic vol] 93.6 fL Normal 80.0-94.0 [facility] Comment on above: Performed By: #### C BC #### [facility] [address] [place] [address] Dr. Enedelia Uriostegui MONO # 0.4 103/ul Normal 0.3-0.8 [facility] Comment on above: Performed By: #### C BC #### [facility] [address] [place] [address] Dr. Enedelia Uriostegui Monocytes/100 WBC (Bld) 7.3 % Normal 1.7-12.0 [facility] Comment on above: Performed By: #### C BC #### [facility] [address] [place] [address] Dr. Enedelia Uriostegui NEUT # 3.8 103/ul Normal 1.4-6.5 [facility] Comment on above: Performed By: #### C BC #### [facility] [address] [place] [address] Dr. Enedelia Uriostegui Neutrophils/100 WBC (Bld) 76.4 % Critically high 43.0-75.0 [facility] Comment on above: Performed By: #### C BC #### [facility] [address] [place] [address] Dr. Enedelia Uriostegui Platelet mean volume (Bld) [Entitic vol] 10.1 fL Normal 9.5-13.5 [facility] Comment on above: Performed By: #### C BC #### [facility] [address] [place] [address] Dr. Enedelia Uriostegui PLT 154 103/ul Normal 150-450 [facility] Comment on above: Performed By: #### C BC #### [facility] [address] [place] [address] Dr. Enedelia Uriostegui RBC 3.73 106/ul Critically low 4.70-6.10 [facility] Comment on above: Performed By: #### C BC #### [facility] [address] [place] [address] Dr. Enedelia Uriostegui WBC 5.0 103/ul Normal 4.0-11.0 [facility] Comment on above: Performed By: #### C BC #### [facility] [address] [place] [address] Dr. Enedelia Uriostegui PHOSPHORUSon 12-13-2021 Phosphate [Mass/Vol] 3.3 mg/dL Normal 2.6-4.7 [facility] Comment on above: Performed By: #### B MP, PHOS #### [facility] [address] [place] [address] Dr. Enedelia Uriostegui PROF CHEM 8 (BAS METB)on Anion gap [Moles/Vol] 11.6 mmol/L Normal [facility] Comment on above: Performed By: #### B MP, PHOS #### [facility] [address] [place] [address] Dr. Enedelia Uriostegui Calcium [Mass/Vol] 8.6 mg/dL Normal 8.5-10.1 [facility] Comment on above: Performed By: #### B MP, PHOS #### [facility] [address] [place] [address] Dr. Enedelia Uriostegui Chloride [Moles/Vol] 109 mmol/L Critically high 98-107 [facility] Comment on above: Performed By: #### B MP, PHOS #### [facility] [address] [place] [address] Dr. Enedelia Uriostegui CO2 [Moles/Vol] 28.0 mmol/L Normal 21.0-32.0 [facility] Comment on above: Performed By: #### B MP, PHOS #### [facility] [address] [place] [address] Dr. Enedelia Uriostegui Creatinine [Mass/Vol] 1.60 mg/dL Critically high 0.70-1.30 [facility] Comment on above: Performed By: #### B MP, PHOS #### [facility] [address] [place] [address] Dr. Enedelia Uriostegui EGFR-AF GREENLANDIC 52 mL/min/1.73m2 Critically low >=60 [facility] Comment on above: Performed By: #### B MP, PHOS #### [facility] [address] [address] [address] Enedelia Uriostegui EGFR-NON AF GREENLANDIC 43 mL/min/1.73m2 Critically low >=60 [facility] Comment on above: Performed By: #### B MP, PHOS #### [facility] [address] [address] [address] Enedelia Uriostegui Glucose [Mass/Vol] 130 mg/dL Critically high 74-106 [facility] Comment on above: Performed By: #### B MP, PHOS #### [facility] [address] [address] [address] Enedelia Uriostegui Potassium [Moles/Vol] 3.6 mmol/L Normal 3.5-5.1 [facility] Comment on above: Performed By: #### B CONSTANZA, PHOS #### [facility] [address] [address] [address] Enedelia Uriostegui Sodium [Moles/Vol] 145 mmol/L Normal 136-145 [facility] Comment on above: Performed By: #### B MP, PHOS #### [facility] [address] [address] [address] Enedelia Uriostegui Urea nitrogen [Mass/Vol] 18.0 mg/dL Normal 7.0-18.0 [facility] Comment on above: Performed By: #### B CONSTANZA, PHOS #### [facility] [address] [place] [address] Dr. Enedelia Uriostegui Urea nitrogen/Creatinine [Mass ratio] 11.2 mg/mg Normal [facility] Comment on above: Performed By: #### B MP, PHOS #### [facility] [address] [place] [address] Dr. Enedelia Uriostegui UA RANDOM W/MICROSCOPICon BACTERIA NONE SEEN Normal NONE SEEN [facility] Comment on above: Performed By: #### U AMIC #### [facility] [address] [address] [address] Enedelia Uriostegui Bilirubin Ql (U) Negative Normal NEGATIVE [facility] Comment on above: Performed By: #### U AMIC #### [facility] [address] [address] [address] Enedelia Uriostegui CAST NONE SEEN Normal NONE SEEN [facility] Comment on above: Performed By: #### U AMIC #### [facility] [address] [address] [address] Enedelia Uriostegui Clarity (U) CLEAR Normal CLEAR [facility] Comment on above: Performed By: #### U AMIC #### [facility] [address] [address] [address] Enedelia Uriostegui Color (U) LT. YELLOW Normal YELLOW [facility] Comment on above: Performed By: #### U AMIC #### [facility] [address] [place] [address] Dr. Enedelia Uriostegui Crystals LM Nom (Urine sed) NONE SEEN Normal NONE SEEN [facility] Comment on above: Performed By: #### U AMIC #### [facility] [address] [place] [address] Dr. Enedelia Uriostegui Epithelial cells LM Ql (Urine sed) NONE SEEN Normal NONE SEEN /RARE [facility] Comment on above: Performed By: #### U AMIC #### [facility] [address] [place] [address] Dr. Enedelia Uriostegui Glucose Ql (U) Negative Normal NEGATIVE [facility] Comment on above: Performed By: #### U AMIC #### [facility] [address] [place] [address] Dr. Enedelia Uriostegui Hemoglobin Ql (U) Negative Normal NEGATIVE [facility] Comment on above: Performed By: #### U AMIC #### [facility] [address] [place] [address] Dr. Enedelia Uriostegui Ketones Ql (U) Negative Normal NEGATIVE [facility] Comment on above: Performed By: #### U AMIC #### [facility] [address] [place] [address] Dr. Enedelia Uriostegui LEUKOCYTES Negative Normal NEGATIVE [facility] Comment on above: Performed By: #### U AMIC #### [facility] [address] [place] [address] Dr. Enedelia Uriostegui MUCOUS NONE SEEN Normal NONE SEEN [facility] Comment on above: Performed By: #### U AMIC #### [facility] [address] [address] [address] Enedelia Uriostegui Nitrite Ql (U) Negative Normal NEGATIVE [facility] Comment on above: Performed By: #### U AMIC #### [facility] [address] [address] [address] Enedelia Uriostegui pH (U) 5.5 [pH] Normal 5-9 [facility] Comment on above: Performed By: #### U AMIC #### [facility] [address] [address] [address] Enedelia Uriostegui RBC 0-2 Normal 0-2 [facility] Comment on above: Performed By: #### U AMIC #### [facility] [address] [place] [address] Dr. Enedelia Uriostegui SPEC GRAVITY 1.010 Normal 1.005-<=1. 025 [facility] Comment on above: Performed By: #### U AMIC #### [facility] [address] [place] [address] Dr. Enedelia Uriostegui UA PROTEIN Negative Normal NEGATIVE/ TRACE [facility] Comment on above: Performed By: #### U AMIC #### [facility] [address] [place] [address] Dr. Enedelia Uriostegui Urobilinogen Qn (U) 0.2 {Albert'U}/dL Normal 0.2 - 1. 0 [facility] Comment on above: Performed By: #### U AMIC #### [facility] [address] [place] [address] Dr. Enedelia Uriostegui WBC NONE SEEN Normal NONE SEEN [facility] Comment on above: Performed By: #### U AMIC #### [facility] [address] [place] [address] Dr. Enedelia Uriostegui Tobacco Screening.on 022 Adult depression screening assessment No [facility] holger 250 DO Work Phone: Fall risk assessment a) No falls within the last year [facility]Catyu holger 250 DO Work Phone: Tobacco use status CP b) No -[facility] holger 250 DO Work Phone: [phone] Falls Risk Screeningon 09-20 Fall risk assessment a) No falls within the last year -[facility] holger 250 DO Work Phone: [phone] Tobacco use status CP b) No -[facility] holger 250 DO Work Phone: [phone] No Panel Informationon 09-14 9.9\S\9.9 Normal 8.2-10.2 -[facility]Cat[facility] holger 250 DO Work Phone: [phone] 25.3\S\25.3 Normal 22.0-30.0 -[facility]Cat[facility] holger 250 DO Work Phone: 106\S\106 Normal 95-114 -[facility]Cam[facility] hajiy 250 DO Work Phone: 4.1\S\4.1 Normal 3.5-5.1 -[facility] hajiy 250 DO Work Phone: 142\S\142 Normal 136-146 -[facility]Cat[facility] holger 250 DO Work Phone: 55\S\[address] [facility] hajiy 250 DO Work Phone: Comment on above: GFR estimated refere nce range: According to KDOQI guidelines, <60 ml/min/1.73m2 is sufficient to diagnose a patient with chronic kidney disease. 45\S\45 Normal [facility] 250 DO Work Phone: [phone] 1.53\S\1.53 above high threshold 0.64-1.27 -[facility] holger 250 DO Work Phone: [phone] 20\S\20 Normal 9-23 -[facility]Cat[facility] holger 250 DO Work Phone: [phone] 101\S\101 above high threshold 70-100 [facility] 250 DO Work Phone: Comment on above: Random Glucose Refer ence Range is dependent on time and content of last meal. Glucose of more than 200 mg/dL in a nonstressed, ambulatory subject supports the diagnosis of Diabetes Mellitus. ADA recommended reference range 35\S\35 Normal 10-42 [facility] 250 DO Work Phone: 0.80\S\0.80 Normal 0.45-5.33 [facility] 250 DO Work Phone: Comment on above: PERFORMED BY:[address] [address] [address] [place], [place] [id number] MEDICAL DIRECTORPRAVIN WILKERSON M.D. Radiologyon 09-14-2021 XR Chest 2 Views Normal [address] [address] DO Work Phone: No Panel Informationon 09-03 24.6\S\24.6 Normal 22.0-30.0 [address] [address] DO Work Phone: Comment on above: PERFORMED BY:[address] [address] [place] [place], [place] [id number] MEDICAL DIRECTORPRAVIN WILKERSON M.D. 108\S\108 Normal 95-114 [facility] 250 DO Work Phone: 3.5\S\3.5 Normal 3.5-5.1 [facility] 250 DO Work Phone: 142\S\142 Normal 136-146 [facility] 250 DO Work Phone: Laboratory - Microbiology an d Antimicrobial susceptibilityon 09-01-2021 SARS-CoV-2 (COVID-19) RNA CORNELIO+probe Ql (Unsp spec) [facility] 250 DO Work Phone: No Panel Informationon 09-[address] [facility] holger 250 DO Work Phone: Comment on above: This is a duplicate Jessi SARS Antigen (LITTLE) result to be used for statistical tracking purpose only.PERFORMED BY:[facility] [place], [place] [id number] MEDICAL DIRECTORPRAVIN WILKEROSN M.D. Tobacco Screening.on 022 Adult depression screening assessment Yes -[facility] holger 250 DO Work Phone: Fall risk assessment a) No falls within the last year [facility] hajiy 250 DO Work Phone: Tobacco use status CPHS b) No -[facility]Cat[facility] holger 250 DO Work Phone: Tobacco Screening. 3-Nearly every day [facility] hajiy 250 DO Work Phone: Tobacco Screening. 2-More than half the days [facility] hajiy 250 DO Work Phone: Tobacco Screening. 0-Not at all [facility]Sandu holger 250 DO Work Phone: Tobacco Screening. Somewhat Difficult [facility] holger 250 DO Work Phone: No Panel Informationon 07-[address] [facility] hajiy 250 DO Work Phone: Tobacco Screening.on 021 Fall risk assessment a) No falls within the last year [facility] hloger 250 DO Work Phone: [phone] Tobacco use status CPHS b) No [facility]Cat[facility] holger 250 DO Work Phone: No Panel Informationon 05-06 9.1\S\9.1 Normal 8.2-10.2 [facility] holger 250 DO Work Phone: Comment on above: PERFORMED BY:[facility] [place], [place] [id number] MEDICAL DIRECTORPRAVIN WILKERSON M.D. 24.0\S\24.0 Normal 22.0-30.0 [facility] [employer] SoftwareCamille holger 250 DO Work Phone: 111\S\111 Normal 95-114 [facility] MedigramRene wren 250 DO Work Phone: 3.7\S\3.7 Normal 3.5-5.1 [facility] MedigramRene holger 250 DO Work Phone: 145\S\145 Normal 136-146 [facility] MedigramRene wren 250 DO Work Phone: > [address] [facility] Vinicius wren 250 DO Work Phone: Comment on above: GFR estimated refere nce range: According to KDOQI guidelines, <60 ml/min/1.73m2 is sufficient to diagnose a patient with chronic kidney disease. 59\S\[address] [facility] Vinicius wren Reverbeo DO Work Phone: 1.21\S\1.21 Normal 0.64-1.27 [facility] MedigramRene wren 250 DO Work Phone: 13\S\13 Normal 9-23 [facility] MedigramRene [address] DO Work Phone: 98\S\98 Normal 70-100 [facility] MedigramRene wren 250 DO Work Phone: Comment on above: Random Glucose Refer ence Range is dependent on time and content of last meal. Glucose of more than 200 mg/dL in a nonstressed, ambulatory subject supports the diagnosis of Diabetes Mellitus. ADA recommended reference range Tobacco Screening.on Fall risk assessment a) No falls within the last year [facility] [employer]Camille [employer] DO Work Phone: Tobacco use status CPHS b) No [facility] [employer] SoftwareCamille holger 250 DO Work Phone: No Panel Informationon 03-31 24.4\S\24.4 Normal 22.0-30.0 [facility] [address] [place] Work Phone: Comment on above: PERFORMED BY:[facility] [place] [id number] MEDICAL DIRECTORPRAVIN WILKERSON M.D. 108\S\108 Normal 95-114 [facility] [address] [place] Work Phone: 3.3\S\3.3 below low threshold 3.5-5.1 [facility] [address] [place] Work Phone: 144\S\144 Normal 136-146 [facility] [address] [place] Work Phone: [facility] [address] [place] Work Phone: GOLDMANN - OUon 10-06-2020 GOLDMANN - OU STUDIES: Ptosis visu al sauceda demonstrated improvement of the superior visual field of the right eye from 12 degrees to 40 degrees with upper lid taping and improvement of the left eye from 19 to 39 degrees with upper lid taping. Normal [facility] Operative Reporton 9 Operative Report Date of Surgery: 05/22/2018SURGEON: Dru Barros D.O.PREOPERATIVE DIAGNOSES:1. Nuclear sclerotic cataract, left eye2. Intraoperative floppy iris syndrome, left eyePOSTOPERATIVE DIAGNOSIS:1. Nuclear sclerotic cataract, left eye2. Intraoperative floppy iris syndrome, left eyeOPERATION: Complex cataract extraction with intraocular lens placement forthe left eyeANESTHESIA: TopicalESTIMATED BLOOD LOSS: ZeroCOMPLICATIONS: NonePROCEDURE: The patient was brought to the Operating Room in the supineposition. After proper identification, the left eye was prepped and drapedin a sterile ophthalmic fashion. A paracentesis was created at the 5oclock position. Approximately 0.1 cc of unpreserved Xylocaine wasinjected into the anterior chamber followed by Amvisc Plus. Using a 2.6 mmkeratome blade, a clear corneal incision was created at the 3 oclocklimbus. Healon 5 was injected under the iris plane to the 9, 6 and 12o'clock location. A Malyugin ring measuring 7.0 mm was then insertedthrough the temporal wound with an telegraph repeater installer engaging the islets of the ringwith the iris at the 9, 6 and 12 o'clock location. The trailing islet wasengaged with the iris at the 3 o'clock location with the assistance of amanipulating hook. Healon 5 was then injected over the iris Malyugin ringcomplex to push it posteriorly and stabilize it. A cystotome was thenfashioned out of a 25 gauge needle and a curvilinear capsulorrhexis wasbegun and continued for 360 degrees with Utrata forceps. Balanced saltsolution on a 26 gauge cannula was injected beneath the anterior capsule tohydrodissect as well as hydrodelineate the lens. After ensuring mobility,phacoemulsificati on was performed in a conquer and divide type fashion.After all nuclear material had been removed from the eye, IA was introducedand all residual cortical material was cleaned up. Additional Amvisc Pluswas injected into the posterior bag and a lens Model MX60 16.5 diopters wasinjected and dialed into position. After ensuring centration, a secondhandpiece instrument was utilized to disengage the islets of the Malyuginring at the 3 and 9 o'clock location. This was then removed from the eyewithout difficulty with the Malyugin ring telegraph repeater installer. IA was reintroducedinto the anterior chamber and all residual Amvisc Plus and Healon 5 wasremoved from the eye without difficulty. Balanced salt solution on a 30gauge cannula was then injected into the stroma of both the clear cornealincision as well as the paracentesis to hydrate the wounds. Additionalbalanced salt solution was injected into the anterior chamber to pressurizethe eye to approximately 20-22 mmHg by finger tension. 0.3 cc ofantibiotic was injected into the anterior chamber and Weck-Sandrine sponges wereused to check the wounds to be watertight. One drop of Iopidine, one dropof prednisolone acetate, one drop of Ocuflox were placed into the eye and ashield was placed overtop. The patient was sent to the Postoperative Areain satisfactory condition to follow up the following day for postoperativecare.Drunakita Barros D.O.glsDictated: 05/22/2018 #[id number]: 05/23/2018 #[id number]: Dru Barros D.O. Normal [facility] Comment on above: Result Comment: Elec tronically Signed By: Dru Barros DO\.br\Date and Time Signed: 06/08/18 11:28 EST Coding Summary.on 05-23-2018 Coding Summary. 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 I10 Essential (primary) hypertension J44.9 Chronic obstructive pulmonary disease, unspecified Z85.828 Personal history of other malignant neoplasm of skin PYMT PROC APC STAT DESCRIPTION DOCTOR NAME DATE [id number] J1 Extracapsular cataract Dru Barros DO 05/22/2018 removal with insertion of intraocular lens prosthesis (1-stage procedure), manual or mechanical technique (eg, irrigation and aspiration or phacoemulsification), complex, requiring devices or techniques not generally used in routine LT Left side (used to identify procedures performed on the left side of the body) NOTE: The code number assigned matches the documented diagnosis and / or procedure in the patient's chart. However, the narrative phrase printed from the coding software may appear abbreviated, or result in slightly different terminology. Coded By: Amanda Potts Date Saved: 05/23/2018 11:27 am Normal [facility] History and Physicalon 05-22 History and Physical HOSPITAL REGULATION S: ALL Positive Important Negative Findings Shall BeRecordedDATE ADMITTED: 05/22/2018The patient is a 67 year old white male presenting complaining of steadydecline of visual acuity of his left eye. The onset of this has beengradual over the last year. He states it has been constant and worseningover that time frame. Notably, he states having difficulty watchingtelevision and is bothered by glare at nighttime because of oncomingheadlights creating halos.PAST OCULAR HISTORY:1. Status post cataract extraction with intraocular lens placement for theright eye.2. Branch vein occlusion, left eye.PAST MEDICAL HISTORY:1. Melanoma on the right arm in 2015. Hiatal hernia and gallbladder removedat same time.2. Hernia repair.3. Hypercholesterolemia.4. RLS.5. Hypertension.6. Chronic obstructive pulmonary disease.PSYCHOSOCIAL HISTORY: Drinks occasionally. Denies recreational drug abuseor tobacco.SYSTEMIC MEDICATIONS:1. Albuterol.2. Amlodipine.3. Prevnar.4. Fluzone.5. Klor-Con.6. Tamsulosin.7. Daliresp.8. Hydrochlorothiazide.9. Valsartan.10. Gabapentin.11. Montelukast.ALLERGIES: Denies.REVIEW OF SYSTEMS: No pertinent positives.PHYSICAL EXAMINATION:VITAL SIGNS: Blood pressure measured at 149/92 with a respiration rate of12 and pulse of 71.GENERAL: He is awake, alert and oriented x3, well developed, wellnourished. No acute distress.HEART: Regular rate and rhythm.LUNGS: Clear bilaterally.ABDOMEN: Soft, nontender, nondistended.EXTREMITIES: No pitting edema.EYES: Ophthalmic examination revealed a visual acuity of 20/50 in theright that glared to 20/100 and 20/30 in the left that glared to 20/80.Pupils, motility, muscle balance, confrontation to visual sauceda are withinnormal limits bilaterally. Pressures are measured at 15 and 17 right andleft eye respectively. Slit-lamp examination revealed blepharitis with asevere decrease in tear film bilaterally. Conjunctivae, cornea, anteriorchamber and iris are within normal limits bilaterally. Lens statusdemonstrated 2+ nuclear sclerosis with multiple vacuoles in the right eyeand 2+ nuclear sclerosis with 1+ PSC centrally in the left eye. Fundusexamination revealed a good view with good dilation bilaterally. Opticdiscs, macula, vessels, periphery and vitreous were within normal limitsbilaterally.ASSESSME NT AND PLAN: Visually significant cataract, left eye. After risks,benefits, alternatives as well as expectations were delivered to thepatient he elected to go forward with cataract removal. He understandsthose risks include but are not limited to infection, bleeding, loss ofvision or loss of the eye itself. Secondly, he understands thatpostoperatively he will likely require spectacle correction for best visualacuity. He has a history of Tamsulosin usage and that this can instigate afloppy iris syndrome during the procedure. Steps will be taken to avoidthis, however, increase the complexity of the case. Finally, completeophthalmic examination is performed and there is not determined any othersource of vision decline other than that of the cataract. Afterunderstanding all risks as well as expectations he elected to go forwardwith the procedure as listed above and will be doing so in the near future.Dru Barros D.O.lkrDictated: 05/21/2018 #[id number] 05/22/2018 #[id number]: Dru Barros D.O. [facility] Comment on above: Result Comment: Elec tronically Signed By: Dru Barros DO\.br\Date and Time Signed: 05/22/18 12:05 EST Inpatient Patient Summaryon 05-22-2018 [facility] InstructionsPERSON INFORMATION Name: AMEE JUÁREZ PHYSICIANS Admitting Physician: Dru Barros DOAttending Physician: Dru Barros DO PCP: KAILEY LOUISE CNP Diagnosis: Cataract; Floppy iris syndrome Comment: PATIENT EDUCATION INFORMATIONInstructions:Me dication Leaflets:Follow up:With: Address: When: Dru Barros [facility], [address] [id number] Business (1) Within 1 to 2 days MEDICATION LISTComment: [facility] Main OR Intraoperative Recor don 05-22-2018 Main OR Intraoperative Record IntraOp Document Type FT Summary Primary Physician: Dru Barros DO Finalized Date/Time: 05/22/18 15:01:11 Pt. Name: AMEE JUÁREZ D.O.B./Sex: 1950 Male Med Rec #: [id number] Physician: Dru Barros DO Financial #: [id number] Pt. Type: A Room/Bed: AS Admit/Disch: 05/22/18 08:54:41 - Institution: Case Times FT Entry 1 Patient Times In Room 05/22/18 11:16:00 Out Room 05/22/18 11:36:00 Procedure Times Start 05/22/18 11:21:00 Stop 05/22/18 11:35:00 Anesthesia Times Last Modified By: Siva MCKEON, Nikki Lewis 05/22/18 11:36:31 Case Attendance FT Entry 1 Entry 2 Entry 3 Case Attendee Papo WAGNER, Dru Dong RN, Pillo Paniagua RN, Nikki Lewis Role Performed Surgeon - Primary Shroudman - Primary Shroudman - Primary Time In 05/22/18 11:16:00 05/22/18 11:16:00 05/22/18 11:16:00 Time Out 05/22/18 11:36:00 05/22/18 11:36:00 05/22/18 11:36:00 Procedure CATARACT EXTRACTION W/ CATARACT EXTRACTION W/ CATARACT EXTRACTION W/ INTRAOCULAR LENS(Left) INTRAOCULAR LENS(Left) INTRAOCULAR LENS(Left) Comments Last Modified By: Siva RN, Nikki Paniagua RN, Nikki Paniagua RN, Nikki Lewis 05/22/18 11:36:33 05/22/18 11:36:33 05/22/18 11:36:33 Entry 4 Entry 5 Case Attendee Ac ANIMAL HUSBANDRY MANAGER, Yary Colón ANIMAL HUSBANDRY MANAGER, Lyndsay Hernandez Role Performed Scrub - Primary Scrub - Other Time In 05/22/18 11:16:00 05/22/18 11:16:00 Time Out 05/22/18 11:36:00 05/22/18 11:36:00 Procedure CATARACT EXTRACTION W/ CATARACT EXTRACTION W/ INTRAOCULAR LENS(Left) INTRAOCULAR LENS(Left) Comments Last Modified By: Siva RN, Nikki Paniagua RN, Nikki Lewis 05/22/18 11:36:33 05/22/18 11:36:33 Perioperative Protocols FT Pre-Care Text: Implements protective measures prior to operative or invasive procedure, confirms identity before the operative or invasive procedure, verifies operative procedure, surgical site, and laterality Entry 1 Procedure(s) CATARACT EXTRACTION W/ Patient Identity Birthday, ID Band INTRAOCULAR LENS(Left) Verified (select at Check, Patient least 2): Participation Consents / H and P HandP, Surgery/Procedure Operative Site Present Verified Consent Marking Verified Surgical Site Yes Laterality Verified Yes Verified Procedure Verified Yes Correct Patient Yes Position Verified Availability Equipment, Implant, Prep Dry n/a Verified (If Medication Applicable) PreOp Antibiotic No Time Out Dru Barros DO, Given Participants Iker MCKEON, Pillo Love, Siva MCKEON, Nikki Lewis, Ac ANIMAL HUSBANDRY MANAGER, Katarzyna Pringle ANIMAL HUSBANDRY MANAGER, Lyndsay Hernandez Time Out Complete 05/22/18 11:18:00 Outcomes Met? Yes Last Modified By: Nikki Paniagua RN 05/22/18 11:19:29 Post-Care Text: The patient is free from signs and symptoms of injury caused by extraneous objects Allergy Information FT Pre-Care Text: Verifies allergies Entry 1 Allergies Reviewed? Yes Allergies Reviewed Self/Patient With Outcomes Met? Yes Last Modified By: Nikki Paniagua RN 05/22/18 11:05:12 Post-Care Text: The patient received appropriate medication(s) safely administered during the perioperative period Surgical Procedures FT Entry 1 Procedure Description Procedure CATARACT EXTRACTION W/ Modifiers Left INTRAOCULAR LENS IMPLANTATION Surgeon Description COMPLEX CATARACT EXTRACTION LEFT EYE WITH INTRAOCULAR LENS IMPLANT Primary Procedure Yes Primary Surgeon Dru Barros DO Start 05/22/18 11:21:00 Stop 05/22/18 11:35:00 Anesthesia Type Local Surgical Service Ophthalmology Wound Class 1 - Clean Last Modified By: Nikki Paniagua RN 05/22/18 11:36:36 General Case Data FT Pre-Care Text: Classifies surgical wound, implements aseptic technique, initiates traffic control Entry 1 Case Information OR OR 3 FT Case Level Level 2 Wound Class 1 - Clean Specialty Ophthalmology Preop Diagnosis CATARACT LEFT EYE Postop Same As Preop Yes Postop Diagnosis CATARACT LEFT EYE Outcomes Met? Yes Last Modified By: Nikki Paniagua RN 05/22/18 11:31:01 Post-Care Text: The patient is free from signs and symptoms of infection Skin Assessment (Pre Procedure) FT Pre-Care Text: Implements protective measures to prevent skin/ tissue injury due to thermal or mechanical sources Evaluates for signs and symptoms of physical injury to skin and tissue Entry 1 Skin Integrity Other/See Comments Skin Abnormality No Outcomes Met? Yes Last Modified By: Nikki Paniagua RN 05/22/18 11:20:03 Post-Care Text: The patient is free from signs and symptoms of injury caused by extraneous objects General Comments: UNABLE TO ASSESS SKIN INTEGRITY DUE TO CLOTHING. MIKE RAUSCH Patient Positioning FT Pre-Care Text: Identifies physical alterations that require additional precautions for procedure-specific positioning, verifies presence of prosthetics or corrective devices, positions the patient, evaluates the patient for signs and symptoms of injury as a result of positioning Entry 1 Procedure CATARACT EXTRACTION W/ Additional folded towel under head INTRAOCULAR LENS(Left) Information Body Position Supine Feet Uncrossed? Yes Left Arm Position Resting at Side Right Arm Position Resting at Side Left Leg Position Extended Right Leg Position Extended Press Points Checked Yes By Nikki Paniagua RN Outcomes Met? Yes Last Modified By: Nikki Paniagua RN 05/22/18 11:20:19 Post-Care Text: The patient is free from signs and symptoms of injury related to positioning Patient Care Devices FT Pre-Care Text: Implements protective measures to prevent skin/ tissue injury due to thermal or mechanical sources Entry 1 Entry 2 Entry 3 Equipment Type MICROSCOPE EYE[F] MONITOR CHARGE SURGERY PHACO UNIT[F] [F] Equipment Number Equipment Setting Outcomes Met? Yes Yes Yes Last Modified By: Nikki Paniagua RN, RN, Amy J Crosby RN, Amy J 05/22/18 11:05:47 05/22/18 11:05:47 05/22/18 11:05:47 Post-Care Text: The patient is free from signs and symptoms of injury caused by extraneous objects Transport To OR FT Pre-Care Text: Transports according to individual needs. Evaluates for signs and symptoms of skin and tissue injury as a result of transfer or transport Entry 1 Via Cart By Nikki Paniagua RN Safety Precautions Side Rails Up Outcomes Met? Yes Last Modified By: Nikki Paniagua RN 05/22/18 11:20:27 Post-Care Text: The patient is free from signs and symptoms of injury related to transfer/transport Counts Verification FT Pre-Care Text: Performs required counts Entry 1 Entry 2 Procedure(s) CATARACT EXTRACTION W/ CATARACT EXTRACTION W/ INTRAOCULAR LENS(Left) INTRAOCULAR LENS(Left) Type Initial Final Items Instruments Instruments Status Correct Correct Time By Shen ANIMAL HUSBANDRY MANAGER, Yary Shen ANIMAL HUSBANDRY MANAGER, Yary Outcomes Met? Yes Yes Last Modified By: Nikki Paniagua RN, RN, Amy J 05/22/18 11:20:48 05/22/18 11:33:29 Post-Care Text: The patient is free from signs and symptoms of injury caused by extraneous objects Skin Prep FT Pre-Care Text: Performs skin preparations Entry 1 Procedure CATARACT EXTRACTION W/ Prep Area operative site LEFT EYE INTRAOCULAR LENS(Left) Prep Agents Saline Rinse, Betadine Scrub and Solution Hair Removal Methods Not Indicated By Pillo Dong RN Outcomes Met? Yes Last Modified By: Nikki Paniagua RN 05/22/18 11:21:01 Post-Care Text: The patient is free from signs and symptoms of infection Departure From OR FT Pre-Care Text: Transports according to individual needs. Evaluates for signs and symptoms of skin and tissue injury as a result of transfer or transport. Entry 1 Via Cart Safety Precautions Side Rails Up PostOp Destination Pre Surgery/ASU Transported By Nikki Paniagua RN Patient Status Stable Skin. Condition Other/See Comments Description UNABLE TO FULLY ASSESS DUE TO CLOTHING Airway Maintenance Oxygen in Use? No Outcomes Met? Yes Last Modified By: Nikki Paniagua RN 05/22/18 11:21:45 Post-Care Text: The patient is free from signs and symptoms of injury related to transfer/transport General Comments: PATIENT TAKEN BACK TO [facility] VIA TRANSPORTER FOR DISCHARGE. MIKE RAUSCH Dressing/Packing FT Pre-Care Text: Administers care to wound sites Entry 1 Type Dressing Site and Details EYE SHIELD AND PAPER TAPE TO LEFT EYE Outcomes Met? Yes Last Modified By: Nikki Paniagua RN 05/22/18 11:22:02 Post-Care Text: The patient is free from signs and symptoms of infection Medication Administration FT Pre-Care Text: Verifies allergies, administers prescribed medications and solutions, administers prescribed antibiotic therapy and immunizing agents as ordered, evaluates response to medications Administers prescribed medications and solutions Entry 1 Route of Admin Field Outcomes Met? Yes Last Modified By: Nikki Paniagua RN 05/22/18 11:22:10 Post-Care Text: The patient received appropriate medication(s) safely administered during the perioperative period For Reese-Catrachito please see scanned medication reconcilliation form for medications used at the field during the procedure. Implant Log FT Pre-Care Text: Records devices implanted during the operative or invasive procedure Entry 1 Implant/Explant Implant Implant Identification Description AMADO [id number] 12.50MM Serial Number [id number] 16.50 [[id number]] Lot Number [id number] [employer] Catalog ?# [id number] [F] Size 16.5 Expiration Date 05/04/20 Usage Data Implant Site LEFT EYE Quantity 1 Outcomes Met? Yes Last Modified By: Nikki Paniagua RN 05/22/18 11:23:01 Post-Care Text: The patient is free from signs and symptoms of injury caused by extraneous objects Case Comments Finalized By: Madelin Delvalle CST Document Signatures Signed By: Nikki Paniagua RN 05/22/18 11:36 Madelin Delvalle CST 05/22/18 15:01 Normal [facility] Main OR PACU II Recordon Main OR PACU II Record PACU Phase II Doc ument Type FT Summary Primary Physician: Dru Barros DO Finalized Date/Time: 05/22/18 14:52:44 Pt. Name: AMEE JUÁREZ/Sex: 1950 Male Med Rec #: [id number] Physician: Dru Barros DO Financial #: [id number] Pt. Type: A Room/Bed: [facility]/ Admit/Disch: 05/22/18 08:54:41 - Institution: Case Times PACU II FT Pre-Care Text: Identifies barriers to communication and implements measures to provide psychological support and determines knowledge level Develops individualized plan of care, and ensures continuity of care Maintains patient's dignity and privacy, and maintains patient confidentiality Identifies and reports philosophical, cultural, and spiritual beliefs and values Identifies individual values and wishes concerning care administers prescribed antibiotic therapy and immunizing agents as ordered, Evaluates postoperative tissue perfusion Implements thermoregulation measures, and monitors body temperature Evaluates postoperative respiratory status Evaluates postoperative cardiac status Evaluates postoperative neurological status Assesses pain control, collaborated in initiating patient-controlled analgesia and implements alternative methods of pain control Verifies allergies, administers prescribed medications and solutions, evaluates response to medications Entry 1 In PACU II 05/22/18 11:40:00 Discharge from PACU 05/22/18 12:10:00 II Outcomes Met? Yes Last Modified By: Poornima Hdez RN 05/22/18 14:52:42 Post-Care Text: The patient demonstrates knowledge of the expected response to the operative or invasive procedure The patient's care is consistent with the individualized perioperative plan of care The patient's right to privacy is maintained The patient's value system, lifestyle, ethnicity, and culture are considered, respected, and incorporated into the perioperative plan of care The patient participates in decisions affecting his or her perioperative plan of care. The patient is free from signs and symptoms of infection The patient has wound/tissue perfusion consistent with or improved from baseline levels established preoperatively The patient is at or returning to normothermia at the conclusion of the immediate postoperative period The patient's respiratory function is consistent with or improved from baseline levels established preoperatively The patient's cardiovascular status is consistent with or improved from baseline levels established preoperatively The patient's neurological status is consistent with or improved from baseline levels established preoperatively The patient demonstrates and/or reports adequate pain control throughout the perioperative period The patient received appropriate medication(s), safely administered during the perioperative period Finalized By: Poornima Hdez RN Document Signatures Signed By: Poornima Hdez RN 05/22/18 14:52 Normal [facility] Main OR Preoperative Recordo n 05-22-2018 Main OR Preoperative Record PreOp Document Type FT Summary Primary Physician: Dru Barros DO Finalized Date/Time: 05/22/18 11:24:14 Pt. Name: AMEE JUÁREZ/Sex: 1950 Male Med Rec #: [id number] Physician: Dru Barros DO Financial #: [id number] Pt. Type: A Room/Bed: [place] [address] Admit/Disch: 05/22/18 08:54:41 - Institution: Case Times PreOp FT Pre-Care Text: Verifies consent for planned procedure, identifies individual values and wishes concerning care, includes family members in perioperative teaching Entry 1 Patient Times. In Pre Surgery 05/22/18 09:00:00 Out Pre Surgery 05/22/18 11:14:00 Outcomes Met? Yes Last Modified By: Nikki Paniagua RN 05/22/18 11:24:12 Post-Care Text: The patient participates in decisions affecting his or her perioperative plan of care Finalized By: Nikki Paniagua RN Document Signatures Signed By: Nikki Paniagua RN 05/22/18 11:24 Normal [facility] Main OR Preoperative Record Holding Area Document Type FT Summary Primary Physician: Dru Barros DO Finalized Date/Time: 05/22/18 09:21:39 Pt. Name: AMEE JUÁREZ /Sex: 1950 Male Med Rec #: [id number] Physician: Dru Barros DO Financial #: [id number] Pt. Type: A Room/Bed: [place] [address] Admit/Disch: 05/22/18 08:54:41 - Institution: Case Times Holding FT Pre-Care Text: Verifies consent for planned procedure, identifies individual values and wishes concerning care, includes family members in perioperative teaching Secures patient's records' belongings, and valuables, maintains patient's dignity and privacy, and maintains patient confidentiality Entry 1 In Holding 05/22/18 09:00:00 Outcomes Met? Yes Last Modified By: Poornima Hdez RN 05/22/18 09:19:42 Post-Care Text: The patient participates in decisions affecting his or her perioperative plan of care The patient's right to privacy is maintained Surgery Checklist FT Entry 1 Patient Birthday, ID Band Procedure Surgical Consent, With Identification: Check, Patient Verification: Patient Participation NPO after Midnight: No Date/Time: 05/22/18 07:45:00 Personal Items: Cataract Lens Implant Personal Items right cataract Comment: Complaints of Pain: Yes Pain Comment: has neck pain Operative Site Yes Marked By: sgray Marking: Location: left eye Does Patient Smoke No Patient states No Comment - Adult family readily available postop adult Supervision supervision available Case Cancelled in No Holding Area see comments below for reason Last Modified By: Poornima Hdez RN 05/22/18 09:21:36 Finalized By: Poornima Hdez RN Document Signatures Signed By: Poornima Hdez RN 05/22/18 09:21 Normal [facility] Patient Education - Texton 1 07-23-2017 Patient Education - Text Normal [facility] Progress Note-Physicianon Protein mass conc Patient: FLACO JUÁREZ Age: 67 years Sex: Male : 1950 Associated Diagnoses: None Author: Dru Barros DO Postoperative Information Date/ Time: 05/22/18 11:35:00 Preoperative Diagnosis: Senile Cataract - OS. Postoperative Diagnosis: same . Procedure: Cataract Extraction with IOL placement - OS. Anesthesia Method: Local. Performed by: Dru Barros DO. Specimens Removed: none . Estimated Blood Loss: 0 ml. Complications: None. Normal [facility] Comment on above: Result Comment: Elec tronically Signed By: Dru Barros DO\.br\Date and Time Signed: 05/22/18 11:36 EST Vital Signs Date Time Vital Sign Value Performing Clinician Facility 07-05-2023 10:39-0500 Diastolic blood pressure 84 mm[Hg] Jose Dutta DO Work Phone: [facility] 07-05-2023 10:39-0500 Heart rate 60 /min Jose Dutta DO Work Phone: [facility] 07-05-2023 10:39-0500 Systolic blood pressure 144 mm[Hg] Jose Dutta DO Work Phone: [facility] 07-05-2023 10:35-0500 Body height 182.9 cm Jose Dutta DO Work Phone: [facility] 07-05-2023 10:35-0500 Body mass index (BMI) [Ratio] 33.09 kg/m2 Jose Dutta DO Work Phone: [facility] 07-05-2023 10:35-0500 Body weight 110.68 kg Jose Dutta DO Work Phone: [facility] 06-19-2023 11:30-0500 Body height 185.42 cm Harriett Susana Other [employer] Other 06-19-2023 11:30-0500 Body mass index (BMI) [Ratio] 32.32 kg/m2 Harriett Susana Other [facility] Other 06-19-2023 11:30-0500 Body weight 111.13 kg Harriett Susana Other [facility] Other 06-19-2023 11:30-0500 Diastolic blood pressure 78 mm[Hg] Harriett Susana Other [facility] Other 06-19-2023 11:30-0500 Respiratory rate 20 /min Harriett Susana Other [facility] Other 06-19-2023 11:30-0500 SaO2% (BldA) [Mass fraction] 97 % Harriett Susana Other [facility] Other 06-19-2023 11:30-0500 Systolic blood pressure 146 mm[Hg] Harriett Susana Other [employer] Other 02-24-2023 10:35-0400 Body height 182.9 cm Francisco Claire MD Work Phone: [facility] 02-24-2023 10:35-0400 Body weight 111.27 kg Francisco Claire MD Work Phone: [facility] 01-30-2023 08:23-0400 Diastolic blood pressure 80 mm[Hg] Kailey Louise Work Phone: [facility] [employer] 600 DO Work Phone: 01-30-2023 08:23-0400 Systolic blood pressure 176 mm[Hg] Kailey Louise Work Phone: [employer] [facility] [employer] 600 DO Work Phone: 01-30-2023 08:18-0400 Body height 182.88 cm Kailey Louise Work Phone: [facility] [employer] 600 DO Work Phone: 01-30-2023 08:18-0400 Body mass index (BMI) [Ratio] 33.77 kg/m2 Kailey Nolascoholsidney Work Phone: [facility] [employer] 600 DO Work Phone: 01-30-2023 08:18-0400 Body surface area Derived from formula 2.34 m2 Kailey Louise Work Phone: [facility] [employer] 600 DO Work Phone: 01-30-2023 08:18-0400 Body weight 112.95 kg Kailey Louise Work Phone: [facility] [employer] 600 DO Work Phone: 01-30-2023 08:18-0400 Diastolic blood pressure 86 mm[Hg] Kailey Louise Work Phone: [facility] [facility] 600 DO Work Phone: 01-30-2023 08:18-0400 Heart rate 60 /min Kailey Louise Work Phone: [facility] [employer] 600 DO Work Phone: 01-30-2023 08:18-0400 Systolic blood pressure 182 mm[Hg] Kailey Nolascobrynisdney Work Phone: [facility] [employer] 600 DO Work Phone: 01-09-2023 10:04-0400 Body temperature 97.5 [degF] Galielo Delatorre MD Work Phone: [facility] 01-09-2023 10:04-0400 Body weight 111.58 kg Galileo Delatorre MD Work Phone: [facility] 01-09-2023 10:04-0400 Diastolic blood pressure 76 mm[Hg] Galileo Delatorre MD Work Phone: [facility] 01-09-2023 10:04-0400 Heart rate 69 /min Galileo Delatorre MD Work Phone: [facility] 01-09-2023 10:04-0400 Respiratory rate 18 /min Galileo Delatorre MD Work Phone: [facility] 01-09-2023 10:04-0400 SaO2% (BldA) [Mass fraction] 97 % Galileo Delatorre MD Work Phone: [facility] 01-09-2023 10:04-0400 Systolic blood pressure 154 mm[Hg] Galileo Delatorre MD Work Phone: [facility] 12-29-2022 10:41-0400 Body height 195.58 cm Kailey Roslyn Antonyhholz Work Phone: [facility] 320 DO Work Phone: 12-29-2022 10:41-0400 Body mass index (BMI) [Ratio] 28.84 kg/m2 Kailey Roslyn Antonyhholz Work Phone: [facility] 320 DO Work Phone: 12-29-2022 10:41-0400 Body surface area Derived from formula 2.43 m2 Kailey Roslyn Antonyhholz Work Phone: [facility] 320 DO Work Phone: 12-29-2022 10:41-0400 Diastolic blood pressure 80 mm[Hg] Kailey Roslyn Antonyhholz Work Phone: [facility] 320 DO Work Phone: 12-29-2022 10:41-0400 Systolic blood pressure 146 mm[Hg] Kailey Roslyn Aichholz Work Phone: [facility] 320 DO Work Phone: 12-29-2022 10:16-0400 Body height 226.06 cm Kailey oRslyn Antonyhholz Work Phone: [facility] 320 DO Work Phone: 12-29-2022 10:16-0400 Body mass index (BMI) [Ratio] 21.59 kg/m2 Kailey Antonyhholz Work Phone: [facility] 320 DO Work Phone: 12-29-2022 10:16-0400 Body surface area Derived from formula 2.7 m2 Kailey Antonyhholz Work Phone: [facility] 320 DO Work Phone: 12-29-2022 10:16-0400 Body weight 110.32 kg Kailey Antonyhholz Work Phone: [facility] 320 DO Work Phone: 12-29-2022 10:16-0400 Diastolic blood pressure 94 mm[Hg] Kailey Antonyhholz Work Phone: [facility] 320 DO Work Phone: 12-29-2022 10:16-0400 Heart rate 65 /min Kailey Antonyhholz Work Phone: [facility] 320 DO Work Phone: 12-29-2022 10:16-0400 Systolic blood pressure 152 mm[Hg] Kailey Antonyhholz Work Phone: [facility] 320 DO Work Phone: 12-29-2022 10:16-0400 18 1 Kailey Mcgowan Aichholz Work Phone: [facility] 320 DO Work Phone: Comment on above: PHQ-9 TS 12-01-2022 08:30-0400 Body height 185.42 cm Harriett Susana Other [employer] Other 12-01-2022 08:30-0400 Body mass index (BMI) [Ratio] 32.06 kg/m2 Harriett Susana Other [employer] Other 12-01-2022 08:30-0400 Body temperature 97.6 [degF] Harriett Susana Other [employer] Other 12-01-2022 08:30-0400 Body weight 110.22 kg Harriett Susana Other [employer] Other 12-01-2022 08:30-0400 Diastolic blood pressure 82 mm[Hg] Harriett Susana Other [employer] Other 12-01-2022 08:30-0400 Respiratory rate 20 /min Harriett Susana Other [employer] Other 12-01-2022 08:30-0400 SaO2% (BldA) [Mass fraction] 96 % Harriett Susana Other [employer] Other 12-01-2022 08:30-0400 Systolic blood pressure 160 mm[Hg] Harriett Susana Other [employer] Other 08-09-2022 07:45-0500 70 1 Kailey Louise Work Phone: [facility] [address] [place] Work Phone: Comment on above: [id number] 07-11-2022 09:52-0500 Body temperature 97.81 [degF] Galileo Delatorre MD Work Phone: [facility] 07-11-2022 09:52-0500 Body weight 112.04 kg Galileo Delatorre MD Work Phone: [facility] 07-11-2022 09:52-0500 Diastolic blood pressure 93 mm[Hg] Galileo Delatorre MD Work Phone: [facility] 07-11-2022 09:52-0500 Heart rate 71 /min Galileo Delatorre MD Work Phone: [facility] 07-11-2022 09:52-0500 Respiratory rate 18 /min Galileo Delatorre MD Work Phone: [facility] 07-11-2022 09:52-0500 SaO2% (BldA) [Mass fraction] 96 % Galileo Delatorre MD Work Phone: [facility] 07-11-2022 09:52-0500 Systolic blood pressure 174 mm[Hg] Galileo Delatorre MD Work Phone: [facility] 06-21-2022 11:29-0500 Body height 182.88 cm Kailey Mcgowan Arpanjanetjuan Work Phone: [facility] 250 DO Work Phone: 06-21-2022 11:29-0500 Body mass index (BMI) [Ratio] 32.96 kg/m2 Kailey Mcgowan Arpanjanetholz Work Phone: [facility] 250 DO Work Phone: 06-21-2022 11:29-0500 Body surface area Derived from formula 2.31 m2 Kailey Mcgowan Arpanjanetholsidney Work Phone: [facility] 250 DO Work Phone: 06-21-2022 11:29-0500 Body weight 110.22 kg Kailey Mcgowan Arpanjanetholsidney Work Phone: [facility] 250 DO Work Phone: 06-21-2022 11:29-0500 Diastolic blood pressure 74 mm[Hg] Kailey Roslyn Antonyhholsidney Work Phone: [facility] 250 DO Work Phone: 06-21-2022 11:29-0500 Heart rate 73 /min Kailey Roslyn Dani Work Phone: [facility] [employer] 250 DO Work Phone: 06-21-2022 11:29-0500 Systolic blood pressure 132 mm[Hg] Kailey Louise Work Phone: [facility] 250 DO Work Phone: 06-21-2022 11:29-0500 13 1 Kailey Louise Work Phone: [facility] [employer] 250 DO Work Phone: Comment on above: PHQ-9 TS 05-19-2022 09:30-0500 Body height 185.42 cm Harriett Susana Other [employer] Other 05-19-2022 09:30-0500 Body mass index (BMI) [Ratio] 32.45 kg/m2 Harriett Susana Other [employer] Other 05-19-2022 09:30-0500 Body temperature 96.6 [degF] Harriett Susana Other [employer] Other 05-19-2022 09:30-0500 Body weight 111.59 kg Harriett Susana Other [employer] Other 05-19-2022 09:30-0500 Diastolic blood pressure 79 mm[Hg] Harriett Susana Other [employer] Other 05-19-2022 09:30-0500 Respiratory rate 20 /min Harriett Susana Other [employer] Other 05-19-2022 09:30-0500 SaO2% (BldA) [Mass fraction] 97 % Harriett Susana Other [employer] Other 05-19-2022 09:30-0500 Systolic blood pressure 145 mm[Hg] Harriett Susana Other [employer] Other 11-18-2021 09:30-0400 Body height 185.42 cm Harriett Susana Other [employer] Other 11-18-2021 09:30-0400 Body mass index (BMI) [Ratio] 31.92 kg/m2 Harriett Susana Other [employer] Other 11-18-2021 09:30-0400 Body temperature 96.4 [degF] Harriett Susana Other [employer] Other 11-18-2021 09:30-0400 Body weight 109.77 kg Harriett Susana Other [employer] Other 11-18-2021 09:30-0400 Diastolic blood pressure 79 mm[Hg] Harriett Susana Other [employer] Other 11-18-2021 09:30-0400 Respiratory rate 20 /min Harriett Susana Other [employer] Other 11-18-2021 09:30-0400 SaO2% (BldA) [Mass fraction] 97 % Harriett Susana Other [employer] Other 11-18-2021 09:30-0400 Systolic blood pressure 145 mm[Hg] Harriett Susana Other [employer] Other 11-11-2021 13:54-0400 Body height 182.88 cm Kailey Antonybryn Work Phone: [place] [address] DO Work Phone: 11-11-2021 13:54-0400 Body mass index (BMI) [Ratio] 32.82 kg/m2 Kailey Nolascoholsidney Work Phone: [facility] 250 DO Work Phone: 11-11-2021 13:54-0400 Body surface area Derived from formula 2.31 m2 Kailey Nolascoholz Work Phone: [facility] 250 DO Work Phone: 11-11-2021 13:54-0400 Body weight 109.77 kg Kailey Nolascoholz Work Phone: [facility] 250 DO Work Phone: 11-11-2021 13:54-0400 Diastolic blood pressure 80 mm[Hg] Kailey Nolascoholz Work Phone: [facility] 250 DO Work Phone: 11-11-2021 13:54-0400 Heart rate 64 /min Kailey Nolascoholsidney Work Phone: [facility] 250 DO Work Phone: 11-11-2021 13:54-0400 Systolic blood pressure 150 mm[Hg] Kailey Nolascoholsidney Work Phone: [facility] 250 DO Work Phone: 09-20-2021 10:11-0400 Body height 182.88 cm Kailey Nolascoholz Work Phone: [facility] 250 DO Work Phone: 09-20-2021 10:11-0400 Body mass index (BMI) [Ratio] 32.82 kg/m2 Kailey Nolascoholz Work Phone: [facility] 250 DO Work Phone: 09-20-2021 10:11-0400 Body surface area Derived from formula 2.31 m2 Kailey Nolascoholz Work Phone: [facility] 250 DO Work Phone: 09-20-2021 10:11-0400 Body weight 109.77 kg Kailey Nolascoholz Work Phone: [facility] 250 DO Work Phone: 09-20-2021 10:11-0400 Diastolic blood pressure 80 mm[Hg] Kailey Nolascoholz Work Phone: [facility] 250 DO Work Phone: 09-20-2021 10:11-0400 Heart rate 68 /min Kailey Nolascoholz Work Phone: [facility] 250 DO Work Phone: 09-20-2021 10:11-0400 Systolic blood pressure 132 mm[Hg] Kailey Nolascoholz Work Phone: [facility] 250 DO Work Phone: 08-26-2021 11:00-0400 Body height 182.88 cm Kailey Nolascoholz Work Phone: [facility] 250 DO Work Phone: 08-26-2021 11:00-0400 Body mass index (BMI) [Ratio] 33.77 kg/m2 Kailey Antonyhholz Work Phone: [facility] 250 DO Work Phone: 08-26-2021 11:00-0400 Body surface area Derived from formula 2.34 m2 Kailey Antonyhholz Work Phone: [facility] 250 DO Work Phone: 08-26-2021 11:00-0400 Body weight 112.95 kg Kailey Mcgowan Aichholz Work Phone: [facility] 250 DO Work Phone: 08-26-2021 11:00-0400 Diastolic blood pressure 94 mm[Hg] Kailey Mcgowan Aichholz Work Phone: [facility] 250 DO Work Phone: 08-26-2021 11:00-0400 Heart rate 60 /min Kailey Mcgowan Aichholz Work Phone: [facility] 250 DO Work Phone: 08-26-2021 11:00-0400 Systolic blood pressure 152 mm[Hg] Kailey Mcgowan Aichholz Work Phone: [facility] 250 DO Work Phone: 08-26-2021 11:00-0400 14 1 Kailey Mcgowan Aichholz Work Phone: [facility] 250 DO Work Phone: Comment on above: PHQ-9 07-27-2021 12:30-0500 69 1 Kailey Mcgowan Aichholz Work Phone: [facility] 250 DO Work Phone: Comment on above: [id number] 06-15-2021 14:30-0500 65 1 Kailey Mcgowan Aichholz Work Phone: [facility] [address] [place] Work Phone: Comment on above: [id number] 05-25-2021 09:06-0500 Body height 182.88 cm Kailey Mcgowan Aichholz Work Phone: [facility] 250 DO Work Phone: 05-25-2021 09:06-0500 Body mass index (BMI) [Ratio] 35.53 kg/m2 Kailey Mcgowan Aichholz Work Phone: [facility] 250 DO Work Phone: 05-25-2021 09:06-0500 Body surface area Derived from formula 2.39 m2 Kailey Mcgowan Aichholz Work Phone: [facility] 250 DO Work Phone: 05-25-2021 09:06-0500 Body weight 118.84 kg Kailey Mcgowan Aichholz Work Phone: [facility] 250 DO Work Phone: 05-25-2021 09:06-0500 Diastolic blood pressure 82 mm[Hg] Kailey Mcgowan Aichholz Work Phone: [facility] 250 DO Work Phone: 05-25-2021 09:06-0500 Heart rate 60 /min Kailey Mcgowan Aichholz Work Phone: [facility] 250 DO Work Phone: 05-25-2021 09:06-0500 Systolic blood pressure 160 mm[Hg] Kailey Mcgowan Aichholz Work Phone: [facility] 250 DO Work Phone: 04-22-2021 12:08-0500 Body height 182.88 cm Kailey Mcgowan Aichholz Work Phone: [facility] 250 DO Work Phone: 04-22-2021 12:08-0500 Body mass index (BMI) [Ratio] 33.91 kg/m2 Kailey Mcgowan Aichholz Work Phone: [facility] 250 DO Work Phone: 04-22-2021 12:08-0500 Body surface area Derived from formula 2.34 m2 Kailey Nolascoholsidney Work Phone: [facility] 250 DO Work Phone: 04-22-2021 12:08-0500 Body weight 113.4 kg Kailey Nolascoholsidney Work Phone: [facility] 250 DO Work Phone: 04-22-2021 12:08-0500 Diastolic blood pressure 70 mm[Hg] Kailey Nolascoholsidney Work Phone: [facility] 250 DO Work Phone: 04-22-2021 12:08-0500 Heart rate 56 /min Kailey Nolascoholsidney Work Phone: [facility] 250 DO Work Phone: 04-22-2021 12:08-0500 Systolic blood pressure 142 mm[Hg] Kailey Nolascoholsidney Work Phone: [facility] 250 DO Work Phone: Encounters Encounter Date Encounter Type Care Provider Facility Start: 07-05-2023 End: 07-05-2023 ambulatory [facility] Ambulatory Start: 07-05-2023 End: 07-05-2023 Office outpatient visit 40 minutes [facility] DO Work Phone: [facility] Comment on above: ASHD (arteriosclerot ic heart disease); History of PTCA; Persistent atrial fibrillation (CMS/HCC); Essential hypertension, benign; History of myocardial infarction; Hyperlipidemia, unspecified hyperlipidemia type; Former smoker; High risk medication use Start: 07-04-2023 End: 07-04-2023 ambulatory [facility] Comment on above: 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 Start: 06-13-2023 End: 06-13-2023 ambulatory Kailey Louise Work Phone: [facility] Work Phone: Start: 06-13-2023 End: 06-13-2023 Patient encounter procedure Kailey Louise Work Phone: [facility]-Respiratory Therapy Work Phone: Start: 03-31-2023 End: 03-31-2023 ambulatory [facility] Start: 02-24-2023 End: 02-24-2023 ambulatory [facility] Facility:[facility] Start: 02-24-2023 End: 02-24-2023 Patient encounter procedure Francisco Claire MD Work Phone: Otolaryngology Comment on above: SHUKRI (obstructive sle ep apnea) (Primary Dx) Start: 02-01-2023 End: 02-01-2023 ambulatory Galileo Delatorre Facility:[facility] Start: 02-01-2023 End: 02-01-2023 ambulatory Kailey Louise Work Phone: [facility] Work Phone: Start: 02-01-2023 End: 02-01-2023 Discharged Recurring Kailey Louise Work Phone: [facility]-Physical Therapy [facility] Start: 01-30-2023 ambulatory Marce Juárez Facility:[id number] Start: 01-30-2023 Office outpatient vi sit 15 minutes Kailey Roslyn Louise Work Phone: [facility] 250 DO Work Phone: Start: 01-30-2023 Patient encounter procedure Kailey Roslyn Manriquezz Work Phone: [facility] 600 DO Work Phone: Start: 01-24-2023 Telephone encounter Erin ANTON H ematology/Oncology Comment on above: Social Work Services Start: 01-10-2023 Social Work Erin ANTON Hematolo gy/Oncology Start: 01-09-2023 Telephone encounter Galileo Delatorre MD Work Phone: [facility] Comment on above: Appointment Confirma tion Start: 01-09-2023 End: 01-09-2023 ambulatory KAILEY LOUISE Facility:[facility] Start: 01-09-2023 End: 01-09-2023 Patient encounter procedure Galileo Delatorre MD Work Phone: Radiation Oncology Comment on above: Prostate cancer (HCC ) (Primary Dx); Urinary incontinence, unspecified type Start: 01-06-2023 Telephone encounter Chris Urena MD Work Phone: Radiation Oncology Comment on above: Appointment Start: 12-29-2022 Office outpatient vi sit 25 minutes Kialey Roslyn Louise Work Phone: [facility] 320 DO Work Phone: Start: 12-29-[address] Jose Dutta Facility: Start: 12-14-2022 Rx Renewal Kailey Roslyn Briggs lz Work Phone: [facility] 250 DO Work Phone: Start: 12-01-2022 End: 12-01-2022 ambulatory Harriett Devries Other [employer] [facility] [employer] Other Start: 12-01-2022 Office outpatient vi sit 25 minutes Harriett Susana [facility] Start: 11-17-2022 Chart Update Kailey Roslyn Antonyhho lz Work Phone: [facility] 250 DO Work Phone: Start: 11-09-2022 Rx Renewal Kailey Roslyn Antonyhho lz Work Phone: [facility] 250 DO Work Phone: Start: 11-07-2022 End: 11-07-2022 ambulatory Kary Dutta Facility:[facility] Start: 11-07-2022 End: 11-07-2022 ambulatory Kailey Louise Work Phone: [facility] Work Phone: Start: 11-07-2022 End: 11-07-2022 Patient encounter procedure Kailey Louise Work Phone: [facility]-Respiratory Therapy Work Phone: Start: 09-12-2022 Rx Renewal Kailey Roslyn Antonyhho lz Work Phone: [facility] 250 DO Work Phone: Start: 09-09-2022 Rx Renewal Kailey Roslyn Antonyhho lz Work Phone: [facility] 250 DO Work Phone: Start: 08-31-2022 Patient encounter procedure Kailey Roslyn Antonyhholsidney Work Phone: [facility] 250 DO Work Phone: Start: 08-24-2022 End: 09-19-2022 ambulatory OSKAR LOUISE Facility: Start: 08-20-2022 ambulatory MD ISAIAS FRANK MMAD CAVAZOS Facility: Start: 08-16-2022 Chart Update Kailey Antonyhho lz Work Phone: [facility] 250 DO Work Phone: Start: 08-09-2022 Patient encounter procedure Kailey Mcgowan Declanz Work Phone: [facility] 250 DO Work Phone: Start: 08-09-[address] Jose Dutta Facility:[id number] Start: 08-09-2022 Patient encounter procedure Kailey Roslyn Manriquezz Work Phone: [facility] [address] [place] Work Phone: Start: 08-09-2022 ambulatory JOSE DUTTA Facility:[id number] Start: 07-25-2022 End: 07-26-2022 ambulatory OSKAR NAMA DANI Facility:[facility] Start: 07-22-2022 End: 07-23-2022 ambulatory OSKAR LOUISE Facility:[facility] Start: 07-18-2022 End: 07-19-2022 ambulatory GALILEO DELATORRE Facility:[facility] Start: 07-15-2022 Telephone encounter Erin REYNOLDSW H ematology/Oncology Comment on above: Social Work Services Start: 07-13-2022 Telephone encounter Erin REYNOLDSW Janet ematology/Oncology Comment on above: Social Work Services ([employer] SW Report follow up.) Start: 07-11-2022 End: 07-11-2022 ambulatory KAILEY LOUISE Facility:[facility] Start: 07-11-2022 End: 07-11-2022 Patient encounter procedure Galileo Delatorre MD Work Phone: Radiation Oncology Comment on above: Prostate cancer (HCC ) (Primary Dx) Start: 07-06-2022 AUDIT Kailey Briggs lz Work Phone: [facility] 250 DO Work Phone: Start: 07-04-2022 End: 07-04-2022 ambulatory KAILEY LOUISE Facility:[facility] Start: 06-21-2022 Office outpatient vi sit 40 minutes Kailey Louise Work Phone: [facility] 250 DO Work Phone: Start: 06-21-[address] Jose Dutta Facility: Start: 06-13-2022 Rx Renewal Kailey Antonyhho lz Work Phone: [facility] 250 DO Work Phone: Start: 05-19-2022 End: 05-19-2022 ambulatory Harriett Susana Other [facility] [employer] Other Start: 05-19-2022 Office outpatient vi sit 25 minutes Harriett Susana [facility] Start: 04-25-2022 Chart Update Kailey calixto Work Phone: [facility] 250 DO Work Phone: Start: 04-22-2022 End: 04-22-2022 ambulatory Kailey Louise Work Phone: [facility] Work Phone: Start: 04-22-2022 End: 04-22-2022 Patient encounter procedure Kailey Louise Work Phone: [facility]-Respiratory Therapy Start: 03-08-2022 Rx Renewal Kailey Roslyn Aichho lz Work Phone: [facility] 250 DO Work Phone: Start: 03-04-2022 Rx Renewal Kailey Roslyn Arpanhho lz Work Phone: [facility] 250 DO Work Phone: Start: 12-16-2021 End: 12-17-2021 ambulatory HARRIETT SUSANA Facility: Start: 12-16-2021 Chart Update Kailey Antonyhho lz Work Phone: [facility] 250 DO Work Phone: Start: 12-13-2021 End: 12-14-2021 ambulatory [employer]TE[employer] MANA[employer] KAILEY AICHHOLZ Facility:[facility]1 Start: 11-24-2021 End: 11-24-2021 ambulatory Harriett Susana Other [employer] [facility] [employer] Other Start: 11-24-2021 Telephone encounter Harriett Susana [facility] Start: 11-19-2021 Patient encounter procedure Kailey Mcgowan Arpanjanetjuan Work Phone: [facility] 250 DO Work Phone: Start: 11-18-2021 End: 11-18-2021 ambulatory Harriett Susana Other [facility] [employer] Other Start: 11-18-2021 Office outpatient vi sit 25 minutes Harriett Susana [facility] Start: 11-11-2021 Patient encounter procedure Kailey Mcgowan Arpanjanetjuan Work Phone: [facility] 250 DO Work Phone: Start: 10-18-2021 Telephone encounter No Pcp (Historic al) Referring Physician Comment on above: External Referrals/r esources (CAD) Start: 09-30-2021 Rx Renewal Kailey Briggs durga Work Phone: [facility] 250 DO Work Phone: Start: 09-15-2021 Chart Update Kailey Roslyn Chester lz Work Phone: [facility] 250 DO Work Phone: Start: 09-14-2021 Chart Update Kailey Briggs lz Work Phone: [facility] 250 DO Work Phone: Start: 09-08-2021 Chart Update Kailey Roslyn Antonydestiney lz Work Phone: [facility] 250 DO Work Phone: Start: 09-03-2021 [facility], Provider: Jose Simmons, Status: Pen, Time: 9:00 AM Kailey Mcgowan Arpanhholz Work Phone: [facility] 250 DO Work Phone: Start: 09-01-2021 Chart Update Kailey Mcgowan Arpanjanetho lz Work Phone: [facility] 250 DO Work Phone: Start: 08-26-2021 Office outpatient vi sit 25 minutes Kailey Mcgowan Arpanhholz Work Phone: -[facility] 250 DO Work Phone: Start: 07-28-2021 Telephone encounter Kailey Mcgowan Rhoda chholz Work Phone: [facility] 250 DO Work Phone: Start: 07-14-2021 Telephone encounter Kailey Mcgowan Rhoda pinedaholz Work Phone: [facility] 250 DO Work Phone: Start: 06-24-2021 [facility], Provider: Jose Dutta, Status: Handy, Time: 10:10 AM Kailey Roslyn Antonyhholsidney Work Phone: -[facility] 250 DO Work Phone: Start: 06-23-2021 Telephone encounter Kailey Roslyn Duong chholsidney Work Phone: [facility] DO Work Phone: Start: 06-15-2021 Patient encounter procedure Kailey Roslyn Antonyhholsidney Work Phone: [facility] [facility] [address] [place] Work Phone: Start: 05-31-2021 Patient encounter procedure Kailey Roslyn Antonyhholz Work Phone: [facility] 250 DO Work Phone: Start: 05-25-2021 Office outpatient vi sit 25 minutes Kailey Nolascoholz Work Phone: [facility] 250 DO Work Phone: Start: 05-07-2021 Chart Update Kailey Briggs lz Work Phone: [facility] 250 DO Work Phone: Start: 04-28-2021 Rx Renewal Kailey Nolascoho lz Work Phone: [facility] 250 DO Work Phone: Start: 04-22-2021 Office outpatient vi sit 40 minutes Kailey Nolascoholz Work Phone: [facility] 250 DO Work Phone: Start: 04-03-2021 Chart Update Kailey Briggs lz Work Phone: [facility] [address] [place] Work Phone: Start: 04-01-2021 Chart Update Kailey Briggs lz Work Phone: [facility] [address] [place] Work Phone: Start: 03-08-2021 Patient encounter procedure Kailey Nolascoholz Work Phone: [facility] 250 DO Work Phone: Start: 01-19-2021 ambulatory SELF SELF Facility:[facility] Start: 01-19-2021 End: 01-19-2021 Postop follow up visit related to original px Susan Espitia MD Work Phone: [facility] [place] Comment on above: Postoperative visit (Primary Dx) Start: 11-17-2020 ambulatory SELF SELF Facility:[facility] Start: 11-11-2020 End: 11-11-2020 ambulatory SELF SELF Facility:[facility] Start: 10-20-2020 ambulatory SUSAN ESPITIA Facilit y:[facility] Start: 10-06-2020 ambulatory MPO JUSTINA OHR Facilit y:[facility] Start: 08-28-2020 ambulatory SELF SELF Facility:[facility] Start: 10-04-2018 End: 10-05-2018 Patient encounter procedure DEFAULT PHYSICIAN Facility:[facility] Start: 09-13-2018 End: 09-14-2018 Patient encounter procedure DEFAULT PHYSICIAN Facility:[facility] Start: 05-22-2018 End: 05-22-2018 Patient encounter procedure Dru Cassidyjustinaraiza Facility:[facility] Start: 01-11-2018 End: 01-12-2018 Patient encounter procedure DEFAULT PHYSICIAN Facility:[facility] Echocardiogram normal Kailey Roslyn cronin Work Phone: [facility] 250 DO Work Phone: Procedures Date Procedure Procedure Detail Performing Clinician Start: 07-05-2023 ECG 12-LEAD KAILEY VASQUEZ Start: 07-05-2023 Ecg routine ecg w/le ast 12 lds w/i&r Jose Dutta DO Work Phone: Start: 07-04-2023 Computerized ophthal robin imaging retina Jesus Greenfield MD Work Phone: Start: 06-13-2023 Plain chest X-ray Kailey Louise Work Phone: Start: 03-30-2023 History of percutane ous transluminal coronary angioplasty History of PTCA Jose Dutta DO Work Phone: Start: 11-07-2022 Plain chest X-ray Kailey Louise Work Phone: Start: 08-09-2022 Echocardiography Kailey Louise Work Phone: Start: 07-18-2022 PSA screening 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 Enedelia Uriostegui Start: 04-22-2022 Plain chest X-ray Kailey Louise Work Phone: Start: 06-15-2021 Echocardiography Kailey J o Aichholz Work Phone: Start: 04-13-2021 Adult depression screening assessment No (Historical) Start: 06-05-1999 Total colonoscopy Kailey Mcgowan Aicholz Work Phone: Cardiac catheterization Kailey Mcgowan Aichholz Work Phone: Cataract surgery Kailey Mcgowan Aic hholz Work Phone: Cholecystectomy Kailey Mcgowan Aic juan Work Phone: Excision of lesion o f skin Kailey Mcgowan Aichholz Work Phone: History of cholecystectomy History of cholecystectomy Kailey Aichholz Work Phone: History of percutane ous transluminal coronary angioplasty History of PTCA Kailey Mcgowan Aichholz Work Phone: History of percutane ous transluminal coronary angioplasty History of PTCA Jose Dutta DO Work Phone: Procedure on prostate Kailey Antonyhholz Work Phone: Repair of retina for retinal detachment Kailey Antonyhholz Work Phone: Plan of Treatment Date Care Activity Detail Author Start: 07-04-2024 Tobacco Screening Tobacco Screening [facility] Start: 03-03-2024 Tobacco Screening Tobacco Screening [facility] Start: 10-19-2023 End: 10-19-2023 Patient encounter procedure 10/19/2023 10:00 AM EDT Office Visit [facility] [address] [place] [address] Jesus Greenfield MD [address] [place], [place] [id number] [facility] Start: 08-10-2023 Echocardiography Echocardiogram [facility] Start: 07-19-2023 End: 07-05-2025 Cardioversion External Cardioversion External Cardiac Services Routine Persistent atrial fibrillation (CMS/HCC) Expected: 07/19/2023 (Approximate), Expires: 07/05/2025 [facility] Service Area Work Phone: Comment on above: Expected: 07/19/2023 (Approximate), Expires: 07/05/2025 Start: 07-12-2023 End: 09-11-2023 Prostate specific Ag [Mass/volume] in Serum or Plasma PSA/PROSTSPECAG DIAG Lab Routine Prostate cancer (HCC) Expected: 07/12/2023, Expires: 09/11/2023 [facility] Work Phone: Comment on above: Expected: 07/12/2023 , Expires: 09/11/2023 Start: 07-05-2023 FUV, Provider: Jose Dutta, Status: Pen, Time: 10:10 AM FUV, Provider: Jose Dutta, Status: Pen, Time: 10:[address] [facility] 320 DO Work Phone: Start: 03-11-2023 Adult BMI Screening Adult BMI Screen ing [facility] Start: 03-01-2023 FUV, Provider: Marce Yeh, Status: Pen, Time: 8:30 AM FUV, Provider: Marce Yeh, Status: Pen, Time: 8:[address] [facility] 600 DO Work Phone: Start: 02-03-2023 COVID-19 Vaccine ( season) COVID-19 Vaccine ( season) [facility] Start: 02-03-2023 Influenza vaccination C [facility] Start: 01-30-2023 FUV, Provider: Marce Yeh, Status: Pen, Time: 8:00 AM FUV, Provider: Marce Yeh, Status: Pen, Time: 8:00 AM [facility] 320 DO Work Phone: Start: 01-08-2023 End: 03-10-2023 Prostate specific Ag [Mass/volume] in Serum or Plasma PSA/PROSTSPECAG DIAG Lab Routine Prostate cancer (HCC) Expected: 01/08/2023, Expires: 03/10/2023 [facility] Work Phone: Comment on above: Expected: 01/08/2023 , Expires: 03/10/2023 Start: 12-29-2022 FUV, Provider: Jose Dutta, Status: Pen, Time: 10:00 AM FUV, Provider: Jose Dutta, Status: Pen, Time: 10:00 AM -[facility] 250 DO Work Phone: Start: 09-22-2022 COVID-19 VACCINE (5 - Pfizer series) COVID-19 VACCINE (5 - Pfizer series) [facility] Start: 08-09-2022 HOLTER 48, Provider: LEANNE PARK CRIMINAL INVESTIGATOR 1,[id number], Status: Pen, Time: 9:30 AM HOLTER 48, Provider: LEANNE PARK CRIMINAL INVESTIGATOR 1,[id number], Status: Pen, Time: 9:30 AM -[facility] 250 DO Work Phone: Start: 08-09-2022 CAROTID, Provider: [place] [facility] ULTRASOUND 01,[id number], Status: Pen, Time: 8:45 AM CAROTID, Provider: [place] [facility] ULTRASOUND 01,[id number], Status: Pen, Time: 8:45 AM -[facility] 250 DO Work Phone: Start: 08-09-2022 ECHO, Provider: CATY LOMELI [facility] ULTRASOUND 01,[id number], Status: Pen, Time: 7:45 AM ECHO, Provider: [place] [facility] ULTRASOUND 01,[id number], Status: Pen, Time: 7:45 AM -[facility] 250 DO Work Phone: Start: 06-21-2022 FUV, Provider: Jose Dutta, Status: Pen, Time: 11:10 AM FUV, Provider: Jose Dutta, Status: Pen, Time: 11:10 AM -[facility] 250 DO Work Phone: Start: 06-05-2022 ADVANCE DIRECTIVE DISCUSSION ADVANCE DIRECTIVE DISCUSSION [facility] Start: 06-05-2022 DEPRESSION ASSESSMENT DEPRESSION ASS ESSMENT [facility] Start: 04-13-2022 Adult depression scr eening assessment DEPRESSION SCREENING [facility] Start: 03-15-2022 FUV, Provider: Jose Dutta, Status: Pen, Time: 10:10 AM FUV, Provider: Jose Dutta, Status: Pen, Time: 10:10 AM [facility] 250 DO Work Phone: Start: 02-03-2022 Influenza vaccination INFLUENZA (#1) [facility] Start: 09-20-2021 FUV, Provider: Marce Yeh, Status: Pen, Time: 10:00 AM FUV, Provider: Marce Yeh, Status: Pen, Time: 10:00 AM -[facility] 250 DO Work Phone: Start: 09-03-2021 SURGNONUH, Provider: Jose Simmons, Status: Pen, Time: 9:00 AM SURGNONUH, Provider: Jose Simmons, Status: Pen, Time: 9:00 AM [facility] 250 DO Work Phone: Start: 08-26-2021 FUV, Provider: Jose Dutta, Status: Pen, Time: 10:20 AM FUV, Provider: Jose Dutta, Status: Pen, Time: 10:20 AM -[facility] 250 DO Work Phone: Start: 07-31-2021 COVID-19 VACCINE (4 - Booster for Pfizer series) COVID-19 VACCINE (4 - Booster for Pfizer series) [facility] Start: 07-30-2021 DIABETES SCREEN DIABETES SCREEN [facility] Start: 07-30-2021 Diabetes Screening Diabetes Screenin g [facility] Start: 07-27-2021 REST ONLY, Provider: [place] BASURTOI NUCLEAR 01,[id number], Status: Pen, Time: 12:30 PM REST ONLY, Provider: [place] BASURTOI NUCLEAR 01,[id number], Status: Pen, Time: 12:30 PM -[facility] 250 DO Work Phone: Start: 07-26-2021 STRESSNUC2, Provider : [place] [facility] NUCLEAR 01,[id number], Status: Pen, Time: 10:00 AM STRESSNUC2, Provider: [place] [facility] NUCLEAR 01,[id number], Status: Pen, Time: 10:00 AM [facility] 250 DO Work Phone: Start: 07-21-2021 FUV, Provider: Jose Dutta, Status: Pen, Time: 9:40 AM FUV, Provider: Jose Dutta, Status: Pen, Time: 9:40 AM [facility] 250 DO Work Phone: Start: 07-02-2021 FUV, Provider: Marce Yeh, Status: Pen, Time: 9:00 AM FUV, Provider: Marce Yeh, Status: Pen, Time: 9:00 AM [facility] Work Phone: Start: 06-15-2021 ECHO, Provider: CATY BENÍTEZKY [facility] ULTRASOUND 01,[id number], Status: Pen, Time: 2:30 PM ECHO, Provider: [place] [facility] ULTRASOUND 01,[id number], Status: Pen, Time: 2:30 PM [facility] Work Phone: Start: 06-15-2021 FUV, Provider: Marce Yeh, Status: Pen, Time: 9:30 AM FUV, Provider: Marce Yeh, Status: Pen, Time: 9:30 AM [facility] 250 DO Work Phone: Start: 06-10-2021 ECHO, Provider: CATY LOMELI [facility] ULTR[facility]OUND 01,[id number], Status: Pen, Time: 9:45 AM ECHO, Provider: [place] [facility] ULTRASOUND 01,[id number], Status: Pen, Time: 9:45 AM [facility] 250 DO Work Phone: Start: 06-05-2021 ADVANCE DIRECTIVE DISCUSSION ADVANCE DIRECTIVE DISCUSSION [facility] Start: 05-25-2021 FUV, Provider: Marce Yeh, Status: Pen, Time: 9:00 AM FUV, Provider: Marce Yeh, Status: Pen, Time: 9:[address] [facility] 250 DO Work Phone: Start: 05-13-2021 FUV, Provider: Jose Dutta, Status: Pen, Time: 10:00 AM FUV, Provider: Jose Dutta, Status: Pen, Time: 10:[address] [facility] 250 DO Work Phone: Start: 03-31-2021 SURGNONUH, Provider: Alice Pascual, Status: Pen, Time: 10:00 AM SURGNONUH, Provider: Alice Pascual, Status: Pen, Time: 10:00 AM -[facility] 250 DO Work Phone: Start: 02-03-2021 Influenza vaccination INFLUENZA VACC INE (#1) [facility] Start: 06-07-2020 Administration of varicella zoster vaccine Zoster (Shingles) Vaccine (2 of 2) [facility] Start: 06-07-2020 Zoster Vaccines (2 of 2) Zoste r Vaccines (2 of 2) [facility] Start: 03-19-2019 Pneumococcal Vaccine : 65+ (2 - PPSV23 or PCV20) Pneumococcal Vaccine: 65+ (2 - PPSV23 or PCV20) [facility] Start: 03-19-2019 PNEUMOCOCCAL: 65+ (2 - PPSV23 if available, else PCV20) PNEUMOCOCCAL: 65+ (2 - PPSV23 if available, else PCV20) [facility] Start: 03-19-2019 PNEUMOCOCCAL: 65+ (2 - PPSV23 or PCV20) PNEUMOCOCCAL: 65+ (2 - PPSV23 or PCV20) [facility] Start: 2014 Abdominal aortic ane urysm screening [facility] Start: 2014 Fall Risk Screening Fall Risk Screen [facility] Start: 2014 Pneumococcal vaccination PNEUM OCOCCAL VACCINE SERIES (1 of 2 - PCV13) [facility] Start: 2014 PNEUMOVAX AGE 65 AND OVER WITH 5YR LOOKBACK (#1) PNEUMOVAX AGE 65 AND OVER WITH 5YR LOOKBACK (#1) [facility] Start: 10-14-1999 Prostate specific an tigen measurement PROSTATE CANCER SCREENING DISCUSSION [facility] Start: 10-14-1999 SHINGRIX VACCINE (1 of 2) BUENO GRIX VACCINE (1 of 2) [facility] Start: 10-14-1999 Zoster vaccine hzv l shannon for subcutaneous use ZOSTER (SHINGLES) VACCINE (1 of 2) [facility] Start: 1994 COLOGUARD (FIT-DNA) COLOGUARD (FIT-D NA) [facility] Start: 1994 Colonoscopy [facility] Start: 1994 COLORECTAL CANCER SCREENING COLORECTAL CANCER SCREENING [facility] Start: [address] COLONOGRAPHY [facility] Start: 1994 FECAL OCCULT BLOOD FECAL OCCULT BLOO D [facility] Start: [address] [facility] Start: 1989 Fasting lipid profile LIPID SCREENIN G [facility] Start: 1984 Lipid 1996 panel - S tomas or Plasma Lipid Screening [facility] Start: 1984 LIPID SCREEN LIPID SCREEN [facility] Start: 10-14-1971 DTaP/Tdap/Td Vaccine s (1 - Tdap) DTaP/Tdap/Td Vaccines (1 - Tdap) [facility] Start: 1968 DTaP,Tdap and Td Vac cines (1 - Tdap) DTaP,Tdap and Td Vaccines (1 - Tdap) [facility] Start: 1968 Third diphtheria, te tanus and acellular pertussis (DTaP) vaccination TDAP (ADULT) [facility] Start: 1968 Urine microalbumin profile [facility] Start: 10-14-1967 Diabetes mellitus screening Diabetes Screening [facility] Start: 10-14-1967 HEPATITIS C SCREENING HEPATITIS C [facility] Start: 10-14-1967 Hepatitis C screening Hepatitis C [facility] Start: 10-14-1967 Tetanus vaccination TETANUS [facility] Start: 1961 Depression Screening Depression Scre ening [facility] Start: 1949 ABDOMINAL AORTIC ANE URYSM SCREENING ABDOMINAL AORTIC ANEURYSM SCREENING [facility] Start: 1949 Creatinine measurement Creatinine Le lorri [facility] Start: 1949 Hepatitis C antibody , confirmatory test HEPATITIS C VIRUS SCREENING [facility] Start: 1949 Lipid panel Lipid Panel [facility] Start: 1949 Medicare Annual Well ness Visit [facility] Start: 1949 Potassium [Moles/vol ume] in Serum or Plasma POTASSIUM [facility] Start: 1949 Potassium measurement Potassium Leve l [facility] Start: 1949 Screening for malign ant neoplasm of colon [facility] Start: 1949 Thyroid stimulating hormone measurement TSH Level [facility] [place] [facility] Immunizations Immunization Date Immunization Notes Care Provider Uche mcdonald 05-24-2022 Pfizer COVID-19 Vac Bivalent 30 MCG/0.3ML Intramuscular Suspension Kailey Louise Work Phone: [facility] 250 DO Work Phone: 03-30-2021 Flu Vaccine - Adult Kailey solares Work Phone: [facility] 03-30-2021 Fluad Quadrivalent 0 .5 ML Intramuscular Prefilled Syringe Kailey Louise Work Phone: [facility] 250 DO Work Phone: 03-30-2021 influenza, seasonal, injectable Kailey Louise Work Phone: [facility] 03-30-2021 Pfizer-BioNTech COVI D-19 Vacc 30 MCG/0.3ML Intramuscular Suspension Kailey Louise Work Phone: [facility] 03-30-2021 influenza virus vacc ine, unspecified formulation Francisco Claire MD Work Phone: [facility] 07-31-2020 SARS-COV-2 (COVID-19 ), Mrna, Lnp-s, Pf, 30 Mcg/0.3 Ml Dose MAXIMO Espitia MD Work Phone: [facility] 07-10-2020 SARS-COV-2 (COVID-19 ), Mrna, Lnp-s, Pf, 30 Mcg/0.3 Ml Dose MAXIMO Espitia MD Work Phone: [facility] 04-12-2020 zoster vaccine recombinant Kailey Roslyn AntonyWidow Gamessidney Work Phone: [facility] 250 DO Work Phone: 04-12-2020 zoster vaccine, unspecified formulation Jesus Greenfield MD Work Phone: [facility] 03-05-2020 influenza, seasonal, injectable Kailey Roslyn AntonyThe [address] Floor Work Phone: [facility] 250 DO Work Phone: 03-26-2019 influenza, high dose seasonal, preservative-free Kailey Rsolyn [employer] Work Phone: [facility] 250 DO Work Phone: 03-26-2019 pneumococcal polysaccharide vaccine, 23 valent Kailey Roslyn [employer] Work Phone: [facility] 250 DO Work Phone: 03-05-2019 pneumococcal conjuga te vaccine, 13 valent Kailey Jo [employer] Work Phone: [facility] 250 DO Work Phone: 03-19-2018 influenza, high dose seasonal, preservative-free Kailey Roslyn Anton[employer] Work Phone: [facility] 03-19-2018 pneumococcal conjuga te vaccine, 13 valent Kailey Roslyn AntonyWidow [employer] Work Phone: [facility] 03-19-2018 pneumococcal vaccine , unspecified formulation No (Historical) [facility] Comment on above: TO BE ADMINISTERED B Y PHARMACIST FOR IMMUNIZATION 03-19-2018 FLUZONE HIGH-DOSE 2017-19, PF, 180 mcg/0.5 mL injection No (Historical) [facility] Comment on above: TO BE ADMINISTERED B Y PHARMACIST FOR IMMUNIZATION 10-25-2017 pneumococcal conjuga te vaccine, 13 valent Kailey Louise Work Phone: [facility] Payers Date Payer Category Payer Self-pay [id number] 2019 Private Health Insurance [id number] 2019 Unknown [id number] 2018 Medicare [id number] 2018 Unknown [id number] 2014 Medicare [id number] 2014 Medicare [id number] 1959 Medicare [id number] 1959 Private Health Insurance CLI [id number] 1949 Unknown [id number] 2.16.84 0.1.147580.3.579.2.727 1949 Unknown [id number] 2.16.8 40.1.044847.3.579.2.647 1949 Unknown [id number] 2.16.8 40.1.533087.3.579.2.647 1949 Unknown [id number] 2.16.8 40.1.568500.3.579.2.647 1949 Unknown [id number] 2.16. 840.1.672914.3.579.2.594 1949 Unknown [id number] 2.16. 840.1.461506.3.579.2.594 1949 Unknown [id number] 2.16. 840.1.141811.3.579.2.594 1949 Unknown [id number] 2.16. 840.1.161752.3.579.2.594 1949 Unknown [id number] 2.16. 840.1.778128.3.579.2.594 1949 Unknown [id number] 2.16. 840.1.858223.3.579.2.594 1949 Unknown [id number] 2.16.8 40.1.934341.3.579.2.1068 1949 Unknown [id number] 2.16.84 0.1.188160.3.579.2.593 1949 Unknown [id number] 2.16.84 0.1.668233.3.579.2.593 1949 Unknown [id number] 2.16.84 0.1.491171.3.579.2.593 1949 Unknown [id number] 2.16.84 0.1.094846.3.579.2.593 1949 Unknown [id number] 2.16.84 0.1.789442.3.579.2.593 1949 Unknown [id number] 2.16.84 0.1.742896.3.579.2.593 1949 Unknown [id number] 2.16.84 0.1.968536.3.579.2.593 1949 Unknown [id number] 2.16. 840.1.837338.3.579.2.356 1949 Unknown [id number] 2.16. 840.1.607155.3.579.2.356 1949 Unknown [id number] 2.16. 840.1.675357.3.579.2.356 1949 Unknown [id number] 2.16. 840.1.018356.3.579.2.356 1949 Unknown [id number] 2.16. 840.1.542667.3.579.2.356 1949 Unknown [id number] 2.16.8 40.1.752216.3.579.2.1244 1949 Unknown [id number] 2.16.8 40.1.559108.3.579.2.1244 Unknown Unknown [id number] 2.16.8 40.1.009631.3.579.2.531 Unknown [id number] 2.16.8 40.1.148178.3.579.2.531 Unknown [id number] 2.16.8 40.1.584473.3.579.2.531 Social History Date Type Detail Facility Start: 01-09-2023 End: 07-04-2023 Consumes alcohol Consumes alcohol [facility] Comment on above: 2-3 DRINKS FIVE TIME S WEEKLY MAYBE MORE ON MONDAY; QUIT 1986 2PPD; Start: 07-17-2020 End: 07-05-2023 Tobacco smoking status NHIS Former smoker [facility] Start: 06-05-1974 End: 06-05-1992 History of tobacco use Current smoker [facility] Start: 07-17-2020 End: 03-21-2022 Tobacco use and exposure Never used [facility] Start: 01-19-2021 End: 07-04-2023 Alcohol intake Current drinker of alcohol (finding) [facility] Start: 07-17-2020 Alcohol Comment 2-10 beers weekly [facility] Start: 1950 Sex Assigned At Not on file [facility] Start: 06-25-2023 End: 07-05-2023 Exposure to SARS-CoV-2 (event) Not sure [facility] End: 06-05-1992 History of tobacco use Cigarette Smoker [facility] Start: 06-19-2018 End: 01-09-2023 Tobacco Comment stopped 30 years ago [facility] Start: 1950 Sex Assigned At Male [facility] Start: 01-09-2023 End: 07-04-2023 Sex Assigned At [facility] Start: 06-24-2021 End: 06-24-2021 Tobacco smoking status NHIS Current some day smoker [facility] Adult Depression Screening Assessment 6 [facility] Start: 10-18-2020 Gender identity Identifies as male gender (finding) [facility] Start: 10-18-2020 Sexual orientation Heterosexual (anaya de jesus) [facility] Start: 03-21-2022 Tobacco smoking stat us NHIS Never smoked tobacco [employer] Equipment Procedure Code Equipment Code Equipment Original Text Equipment Identifier Dates [id number] FDA Start: 06-17-2019 Drug-eluting cor onary artery stent, tee-onmmsdmkahisc-ibsof er-coated ()[id number] FDA Start: 06-17-2019 Drug-eluting cor onary artery stent, kdv-fryxymrwyszmg-dseuk er-coated ()[id number] FDA Start: 06-17-2019 Drug-eluting cor onary artery stent, xfy-klselqpjybsae-hkwje er-coated ()[id number] FDA Start: 09-27-2019 Drug-eluting cor onary artery stent, hvf-qspkzynglossh-hmlsy er-coated ()[id number]( [id number] FDA Start: 09-27-2019 [id number] FDA Start: 06-17-2019 [id number] FDA Start: 06-17-2019 [id number] FDA Start: 06-17-2019 Functional Status Date Assessment Result Facility 08-26-2021 PHQ-9 [id number] Moderate (10-14) -[facility] 250 DO Work Phone: Clinical Notes 07-17-2020 to 07-05-2023 Jose Dutta DO - 07/05/2023 10:10 AM ESTPatient Jake Greenfield MD - 07/04/2023 10:00 AM EST Note Date & Type Note Facility 07-05-2023 History of Present illness Narrative Subjective Amee Juárez is a 72 y.o. male Chief Complaint Follow-up 72-year-old gentleman returns for follow-up he is doing well other than 6 weeks episode of significant shortness of breath with 1 visit to the emergency room without any admissions or cardiovascular events. His shortness of breath is otherwise resolved. Today ECG reveals atrial flutter at a controlled ventricular response at a rate of 60 with a QT corrected interval 468 ms, with variable a-V conduction between 3-1 to 4-1. 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 He has a history of paroxysmal atrial fibrillation with cardioversion in 2021 and as of today has recurrence of atrial flutter. He has a history of ASHD with remote two-vessel PCI's in 2019 involving the LAD and RCA with normal left ventricular function. 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 At this time we will escalate his amiodarone to 400 daily, proceed with cardioversion in the next 2 weeks and follow-up thereafterwards if in fact cardioversion does not work or fails to work in the future with recurrent A-fib/flutter then we will consider referral for ablation. Review of Systems Constitutional: Positive for malaise/fatigue. Cardiovascular: Positive for chest pain. Respiratory: Positive for shortness of breath. Neurological: Positive for dizziness and light-headedness. Visit Vitals BP 144/84 (BP Location: Left arm, Patient Position: Standing) Pulse 60 Ht 1.829 m (6') Wt 111 kg (244 lb) BMI 33.09 kg/m Smoking Status Former BSA 2.37 m EKG done in office today Objective Physical Exam Constitutional: Appearance: Normal appearance. He is normal weight. HENT: Nose: Nose normal. Neck: Vascular: No carotid bruit. Cardiovascular: Rate and Rhythm: Normal rate. Rhythm irregular. Pulses: Normal pulses. Heart sounds: Normal heart sounds. Pulmonary: Effort: Pulmonary effort is normal. Abdominal: General: Bowel sounds are normal. Palpations: Abdomen is soft. Genitourinary: Rectum: Normal. Musculoskeletal: General: Normal range of motion. Cervical back: Normal range of motion. Right lower leg: No edema. Left lower leg: No edema. Skin: General: Skin is warm and dry. Neurological: General: No focal deficit present. Mental Status: He is alert. Psychiatric: Mood and Affect: Mood normal. Behavior: Behavior normal. Thought Content: Thought content normal. Judgment: Judgment normal. Current Medications Current Outpatient Medications: albuterol 2.5 mg /3 mL (0.083 %) nebulizer solution, 3 mL 4 times a day as needed., Disp: , Rfl: apixaban (Eliquis) 5 mg tablet, Take 1 tablet (5 mg) by mouth 2 times a day., Disp: , Rfl: aspirin 81 mg EC tablet, Take 1 tablet (81 mg) by mouth once daily., Disp: , Rfl: atorvastatin (Lipitor) 80 mg tablet, Take 1 tablet (80 mg) by mouth once daily at bedtime., Disp: , Rfl: budesonide-formoteroL (Symbicort) 160-4.5 mcg/actuation inhaler, Inhale 2 puffs 2 times a day. RINSE MOUTH AFTER USE., Disp: , Rfl: buPROPion SR (Wellbutrin SR) 150 mg 12 hr tablet, Take 1 tablet (150 mg) by mouth if needed., Disp: , Rfl: carbidopa-levodopa (Sinemet) 25-100 mg tablet, Take 1 tablet by mouth 2 times a day., Disp: , Rfl: carvedilol (Coreg) 6.25 mg tablet, Take 1 tablet (6.25 mg) by mouth 2 times a day., Disp: , Rfl: ferrous sulfate, 325 mg ferrous sulfate, tablet, Take 1 tablet by mouth once daily., Disp: , Rfl: hydroCHLOROthiazide (Microzide) 12.5 mg capsule, TAKE 1 CAPSULE BY MOUTH EVERY DAY, Disp: 90 capsule, Rfl: 1 HYDROcodone-acetaminophen ([place]vine) 5-325 mg tablet, Take 1 tablet by mouth every 6 hours if needed (pain)., Disp: , Rfl: isosorbide mononitrate ER (Imdur) 30 mg 24 hr tablet, Take 1 tablet (30 mg) by mouth once daily., Disp: , Rfl: loratadine-pseudoephedrine (Claritin-D 24-hour) 10-240 mg 24 hr tablet, Take 1 tablet by mouth once daily as needed., Disp: , Rfl: nitroglycerin (Nitrostat) 0.4 mg SL tablet, Place under the tongue. PLACE 1 TABLET UNDER TONGUE EVRY 5 MINS X3 DOSES NEEDED FOR CHEST PAIN *CALL 911 IF PAIN PERSISTS, Disp: , Rfl: roflumilast (Daliresp) 500 mcg tablet, Take 1 tablet (500 mcg) by mouth once daily., Disp: , Rfl: sildenafil (Viagra) 100 mg tablet, TAKE DIRECTED., Disp: , Rfl: spironolactone (Aldactone) 25 mg tablet, Take 1 tablet (25 mg) by mouth once daily., Disp: , Rfl: valsartan (Diovan) 160 mg tablet, Take 1 tablet (160 mg) by mouth twice a day. FOR BLOOD PRESSURE., Disp: , Rfl: Assessment/Plan 1. ASHD (arteriosclerotic heart disease) 2. History of PTCA 3. Persistent atrial fibrillation (CMS/HCC) 4. Essential hypertension, benign 5. History of myocardial infarction 6. Hyperlipidemia, unspecified hyperlipidemia type 7. Former smoker 8. High risk medication use Scribe Attestation By signing my name below, I, Conchis Hernandez LPN , Scribe attest that this documentation has been prepared under the direction and in the presence of Jose Dutta DO. b documented in this encounter [facility] Work Phone: 07-05-2023 Instructions Conchis Sanders LPN - 07/05/2023 10:10 AM EST Please bring all medicines, vitamins, and herbal supplements with you when you come to the office. Prescriptions will not be filled unless you are compliant with your follow up appointments or have a follow up appointment scheduled as per instruction of your physician. Refills should be requested at the time of your visit. Amiodarone follow up per routine documented in this encounter [facility] Work Phone: 07-04-2023 Note Right Eye Quality was good. Scan locations included subfoveal. Progression has worsened. Findings include abnormal foveal contour, cystoid macular edema, epiretinal membrane, intraretinal fluid, macular pucker, perifoveal thickening. Plan: Reviewed testing with the patient. Did not discuss intraocular antivegf. Discussed intraocular steroid implant. Follow up actions include continue present management. Left Eye Quality was good. Scan locations included subfoveal. Progression has worsened. Findings include abnormal foveal contour, cystoid macular edema, epiretinal membrane, intraretinal fluid, perifoveal thinning. Plan: Observe & monitor, Reviewed testing with the patient. Did not discuss intraocular antivegf. Discussed intraocular steroid implant. Follow up actions include continue present management. MANUALLY TRANSCRIBED RESULTS 07-04-2023 Note Right Eye Quality was good. Scan locations included subfoveal. Progression has worsened. Findings include abnormal foveal contour, cystoid macular edema, epiretinal membrane, intraretinal fluid, macular pucker, perifoveal thickening. Plan: Reviewed testing with the patient. Did not discuss intraocular antivegf. Discussed intraocular steroid implant. Follow up actions include continue present management. Left Eye Quality was good. Scan locations included subfoveal. Progression has worsened. Findings include abnormal foveal contour, cystoid macular edema, epiretinal membrane, intraretinal fluid, perifoveal thinning. Plan: Observe & monitor, Reviewed testing with the patient. Did not discuss intraocular antivegf. Discussed intraocular steroid implant. Follow up actions include continue present management. MANUALLY TRANSCRIBED RESULTS 07-04-2023 History of Present illness Narrative Chronic Cystoid Macular Edema BOTH EYES - diffuse CME - chronic in nature - components of AION in the right eye and CRVO in the LEFT EYE - has had STK OS - with little improvement - - d/w patient at length options to treat with STK or topical steroids - wishes to continue with topical steroids in BOTH EYES 03/03/23 - improved VA and edema - continue treatment with topical drops - PF OU QID - poorly compliant with drops - stressed improtance of drops - will try to be more compliant with medication Anterior Ischemic Optic Neuropathy RIGHT EYE - had normal CRP and ESR(seen by Dr. Infante on 06/09/22) - was seen by Neuro-ophthalmology (Dr. Trinidad) - risk mitigation - recommend follow-up with cardiology s/p Vitrectomy for RRD - Macula OFF - Retina attached - worsening CME Increase PF QID OD - follow-up 1 month 2. Macula-Off Rhegmatogenous Retinal Detachment Left Eye - s/[place]EL[place]AFx/C3F8 [place]04[place]02/2019[place] [facility] [place] [facility] - s/p PPV/MP (04/21/2019[place] [facility] [place] History of Branch Retinal Vein Occlusion - (08/07/2019-appointment at [facility] with Dr Tere Samuels MD) OCT shows attached retina, but chronic changes, EZ disruption and IRF; Notes has been receiving STK injections; discussed guarded prognosis and reasonable to continue STK injections for persistent edema - Had been receiving STK injections [place] [facility]last treatment was 2 years ago) - Discussed findings with patient and guarded visual prognosis with patient, consider complicated course - (07/17/2020) Observe Left Eye, Retina attached; Discussed OCT shows edema, Could consider Anti-VEGF treatment however appears chronic and cannot guarantee he will gain any improvement, He notes no changes when he received STK. He is currently taking PF Four times a day. Also has Posterior Capsular Opacity Left Eye and could consider Yag Left Eye. - (08/28/2020) Observe Left Eye, Retina attached, OCT overall stable, With visually significant Posterior Capsular Opacity, recommended proceeding with Yag with Dr Deondre Barlow MD. 3. 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 Epiretinal Membrane both eyes -Discussed with the patient the criteria for surgical intervention including decreased visual acuity, membrane size and growth rate; and noticed visual change. -Patient is not noticing any activity limitations. -Patient is instructed to contact the office and return sooner if any visual change is noted. OD>>>OS - options for TPPV/MP - wishes to monitor for now 5. PCIOL BOTH EYES - stable, s/p recent yag Cap OD Posterior Vitreous Detachment RIGHT EYE and Syneresis BOTH EYES The patient has a PVD in the right eye - no holes or tears noted. Patient instructed to return sooner if any visual changes are noted. The patient was made aware of visual changes such as flashes, floaters, or a dark curtain/veil draping over vision. The floaters are stable. The patient was cautioned to call immediately if they experience a substantial change in their symptoms such as an increase in floaters, persistent flashes, or a shadow or curtain, or decrease in visual acuity as these may indicate a retinal tear or detachment. 8. Ptosis - s/p Ptosis repair with Dr. Carreon Follow-up 3-4 months DFE/OCT OU PF OU 4x/day MDM - Complex vision threatening issues that can cause irreversible and permanent vision loss Emergent Surgery requiring emergent surgery Letter to Dr. Marina 11/22/22 Scribe for and in the presence of Jesus Greenfield MD by Kailey Hawthorne 07/04/23 I, Jesus Greenfield MD, personally performed the services described in the documentation, as scribed by BOBBI Carter in my presence, and it is both accurate and complete. 07/04/23 documented in this encounter [facility] 06-19-2023 Evaluation note Encounter Date Diagnosis Assessment Notes Jun, Asthma with COPD (ICD-10 - J44.9) Call office when you are on your last symbicort...W ill send script in for Advair at that time. Jun, Seasonal allergies (ICD-10 - J30.2) [facility] Other 09-22-2023 NoteHNO ID: [id number] Author: Francisco Claire MD Service: ? Author Type: Physician Type: Progress Notes Filed: 02/24/2023 11:25 AM Note Text: This note is formatted with the impression and plan first and the history and physical to follow. IMPRESSION Obstructive sleep apnea RECOMMENDATION/PLAN The patient notes that he has mild obstructive sleep apnea with an apnea-hypopnea index of 13. He was interested in finding out more about hypoglossal nerve stimulation. The patient was informed that he is in the mild range and is below the lower cut off for eligibility for hypoglossal nerve stimulation. We did discuss the possibility of using a dental device given his mild apnea. I have given him the name of a dentist in his home area who fabricates sleep devices. I will see him back as needed Chief Complaint Obstructive sleep apnea History of Present Illness Amee Juárez is a 72 year old gentleman who has been diagnosed with obstructive sleep apnea. He notes that he had difficulty with the sleep study and only slept 4 hours during the night. He was told he has a mild case of obstructive sleep apnea with an apnea-hypopnea index of 13. He cannot tolerate CPAP and is wondering whether he is a candidate for hypoglossal nerve stimulation PAST MEDICAL HISTORY Diagnosis Date Abnormal EKG COPD (chronic obstructive pulmonary disease) (HCC) Heart attack (HCC) 06/2019 Hypertension Pneumonia Prostate cancer (HCC) Retinal detachment, left 03/2019 PAST SURGICAL HISTORY Procedure Laterality Date CHOLECYSTECTOMY 1979's HIATAL HERNIA REPAIR HX 1980s INGUINAL HERNIA REPAIR HX 1960s LIPOMA (LARGE) PAST SURGICAL HISTORY OF 2019 REMOVAL CATARACT (PEM) PICC LINE INSERT/CONSULT 07/27/2018 PROSTATE BIOPSY PROSTATECTOMY FIRST STAGE 2018 PRQ CARDIAC STENT W/ANGIO 1 VSL 06/2019 SHX AORTIC STENT 2019 FAMILY HISTORY Problem Relation Age of Onset Cancer Mother Cancer Sister CURRENT OUTPATIENT MEDICATIONS Current Outpatient Medications on File Prior to Visit Medication Sig amiodarone (PACERONE) 200 mg tablet Take 200 mg by mouth once daily. isosorbide mononitrate ER (IMDUR) 60 mg 24 hr tablet loratadine (CLARITIN) 10 mg tablet Take 10 mg by mouth once daily. spironolactone (ALDACTONE) 25 mg tablet Take by mouth q 24 HR. torsemide (DEMADEX) 20 mg tablet Take by mouth q 24 HR. ELIQUIS 5 mg tab(s) aspirin-calcium carbonate 81 mg-300 mg calcium(777 mg) tab 81 mg. atorvastatin (LIPITOR) 80 mg tablet 80 mg. guaiFENesin 1,200 mg Ta12 1,200 mg. nitroglycerin sublingual (NITROQUICK) 0.4 mg SL tablet oxyCODONE-acetaminophen (PERCOCET) 5-325 mg tablet Acetaminophen / oxyCODONE Oxycodone-Acetaminophen Active 5 MG Oral Q4H April 30, 2018 3:31pm 04-30-[address] [facility] ([id number]) albuterol (PROVENTIL) 2.5 mg /3 mL (0.083 %) nebulizer solution Use 2.5 mg via nebulizer every 4 hours as needed. SYMBICORT 160-4.5 mcg/actuation inhaler TAKE 2 PUFFS BY MOUTH TWICE A DAY*RINSE MOUTH AFTER USE* FLUZONE HIGH-DOSE 2017-, PF, 180 mcg/0.5 mL injection TO BE ADMINISTERED BY PHARMACIST FOR IMMUNIZATION PREVNAR 13, PF, 0.5 mL syrg TO BE ADMINISTERED BY PHARMACIST FOR IMMUNIZATION DALIRESP 500 mcg tab Take 500 mcg by mouth once daily. valsartan (DIOVAN) 160 mg tablet Take 160 mg by mouth twice daily. GABAPENTIN ORAL Take by mouth. No current facility-administered medications on file prior to visit. ALLERGIES ALLERGIES No Known Allergies PHYSICAL EXAMINATION Appearance: General examination of the patient's external face, head and neck reveals no abnormalities. The patient is not retrognathic The patient's voice is strong and clear and they communicate easily. Ears: Exam of the ears revealed normal appearing external auditory canals, tympanic membranes, and middle ears. No signs of infection or fluid were seen. Nose: Anterior rhinoscopy revealed a left deviated septum. The turbinates were mildly congested. The mucosa was pink and moist without signs of infection. The airway was adequate. Throat: There were no lesions to visualization or palpation of the lips, cheeks, gums, floor of mouth, tongue, hard and soft palate, tonsillar pillars or posterior pharyngeal wall. The patient is a Palmer Tongue Position 3 and has grade 1 tonsils. Neck: Palpation of the neck revealed no adenopathy, salivary gland masses or asymmetry, or thyroid masses or enlargement. Francisco Claire [facility]09-22-2023 NoteHNO ID: [id number] Author: Lisa Falcon Service: ? Author Type: ? Type: Progress Notes Filed: 02/24/2023 11:25 AM Note Text: Tobacco Use: Types: Cigarettes Was smoking cessation packet given? N/A - Patient is a non-smoker or quit >1 year ago. Was a referral initiated?N/A [facility] History of Present illness Narrative* Francisco Claire MD - 02/24/2023 11:21 AM EDT This note is formatted with the impression and plan first and the history and physical to follow. IMPRESSION Obstructive sleep apnea RECOMMENDATION/PLAN The patient notes that he has mild obstructive sleep apnea with an apnea- hypopnea index of 13. He was interested in finding out more about hypoglossal nerve stimulation. The patient was informed thathe is in the mild range and is below the lower cut off for eligibility for hypoglossal nerve stimulation. We did discuss the possibility of using a dental device given his mild apnea. I have given him the name of a dentist in his home area who fabricates sleep devices. I will see him back as needed Chief Complaint Obstructive sleep apnea History of Present Illness Amee Juárez is a 72 year old gentleman who has been diagnosed with obstructive sleep apnea. He notes that he had difficulty with the sleep study and only slept 4 hours during the night. He was told he has a mild case of obstructive sleep apnea with an apnea-hypopnea index of 13. He cannot tolerate CPAP and is wondering whether he is a candidate for hypoglossal nerve stimulation PAST MEDICAL HISTORY Diagnosis Date Abnormal EKG COPD (chronic obstructive pulmonary disease) (HCC) Heart attack (HCC) 06/2019 Hypertension Pneumonia Prostate cancer (HCC) Retinal detachment, left 03/2019 PAST SURGICAL HISTORY Procedure Laterality Date CHOLECYSTECTOMY HIATAL HERNIA REPAIR HX 1980s INGUINAL HERNIA REPAIR HX 1960s LIPOMA (LARGE) PAST SURGICAL HISTORY OF 2018 REMOVAL CATARACT (PEM) PICC LINE INSERT/CONSULT 07/27/2018 PROSTATE BIOPSY PROSTATECTOMY FIRST STAGE 2018 PRQ CARDIAC STENT W/ANGIO 1 VSL 06/2019 SHX AORTIC STENT 2019 FAMILY HISTORY Problem Relation Age of Onset Cancer Mother Cancer Sister CURRENT OUTPATIENT MEDICATIONS Current Outpatient Medications on File Prior to Visit Medication Sig amiodarone (PACERONE) 200 mg tablet Take 200 mg by mouth once daily. isosorbide mononitrate ER (IMDUR) 60 mg 24 hr tablet loratadine (CLARITIN) 10 mg tablet Take 10 mg by mouth once daily. spironolactone (ALDACTONE) 25 mg tablet Take by mouth q 24 HR. torsemide (DEMADEX) 20 mg tablet Take by mouth q 24 HR. ELIQUIS 5 mg tab(s) aspirin-calcium carbonate 81 mg-300 mg calcium(777 mg) tab 81 mg. atorvastatin (LIPITOR) 80 mg tablet 80 mg. guaiFENesin 1,200 mg Ta12 1,200 mg. nitroglycerin sublingual (NITROQUICK) 0.4 mg SL tablet oxyCODONE-acetaminophen (PERCOCET) 5-325 mg tablet Acetaminophen / oxyCODONE Oxycodone-Acetaminophen Active 5 MG Oral Q4H April 30, 2018 3:31pm 04-30-2018 [facility] ([id number]) albuterol (PROVENTIL) 2.5 mg /3 mL (0.083 %) nebulizer solution Use 2.5 mg via nebulizer every 4 hours as needed. SYMBICORT 160-4.5 mcg/actuation inhaler TAKE 2 PUFFS BY MOUTH TWICE A DAY*RINSE MOUTH AFTER USE* FLUZONE HIGH-DOSE 2018-19, PF, 180 mcg/0.5 mL injection TO BE ADMINISTERED BY PHARMACIST FOR IMMUNIZATION PREVNAR 13, PF, 0.5 mL syrg TO BE ADMINISTERED BY PHARMACIST FOR IMMUNIZATION DALIRESP 500 mcg tab Take 500 mcg by mouth once daily. valsartan (DIOVAN) 160 mg tablet Take 160 mg by mouth twice daily. GABAPENTIN ORAL Take by mouth. No current facility-administered medications on file prior to visit. ALLERGIES ALLERGIES No Known Allergies PHYSICAL EXAMINATION Appearance: General examination of the patient's external face, head and neck reveals no abnormalities. The patient is not retrognathic The patient's voice is strong and clear and they communicate easily. Ears: Exam of the ears revealed normal appearing external auditory canals, tympanic membranes, and middle ears. No signs of infection or fluid were seen. Nose: Anterior rhinoscopy revealed a left deviated septum. The turbinates were mildly congested. The mucosa was pink and moist without signs of infection. The airway was adequate. Throat: There were no lesions to visualization or palpation of the lips, cheeks, gums, floor of mouth, tongue, hard and soft palate, tonsillar pillars or posterior pharyngeal wall. The patient is a Palmer Tongue Position 3 and has grade 1 tonsils. Neck: Palpation of the neck revealed no adenopathy, salivary gland masses or asymmetry, or thyroid masses or enlargement. Francisco Claire MD * Lisa Falcon - 02/24/2023 10:34 AM EDT Tobacco Use: Types: Cigarettes Was smoking cessation packet given? N/A - Patient is a non-smoker or quit >1 year ago. Was a referral initiated?N/A Patient is a non-smoker [facility]* Patient Instructions* Francisco Claire MD - 02/24/2023 11:15 AM EDT Images from the original note were not included. documented [facility] Miscellaneous Notes* Telephone Encounter - Erin Verma LSW - 01/24/2023 10:18 AM EDT SOCIAL WORK FOLLOW UP NOTE: [facility] Date of service:01/24/23 TOPICS ADDRESSED: community resources PLAN: Continue follow up as needed Assigned SW listed in Care Team tab: Yes SW received a call from Kailey at [facility] stating that the Patient's insurance is not accepted at their location ([place] locations: [employer] [place]). SWasked if the Patient can go to the [facility] for services and was told no . Patient must receive services within the critical access hospital that he resides. Kailey suggested that this SW refer the Patient to [facility]. SW called [facility] and left a VM that a referralwas being sent over for this Patient for counseling and Psychiatry. SW will remain available and will follow up as appropriate. RABIA Donis-Douglas documented in [facility]-2023 NoteHNO ID: [id number] Author: Erin Verma LSW Service: ? Author Type: Boarding Kennel Or Cattery Operator Type: Progress Notes Filed: 01/11/2023 9:06 AM Note Text: SOCIAL WORK FOLLOW UP NOTE: [facility] Date of service:01/10/23 TOPICS ADDRESSED: mental health needs, community resources, and referral to [facility] for Psychiatry and Behavioral Health needs. PLAN: Continue follow up as needed Assigned SW listed in Care Team tab: Yes SW faxed over a referral to [facility] for Psychiatry and Behavioral Health services. [facility] will reach out to this Patient to discuss services and to set up an appointment. RABIA Donis-[facility]08-09-2023 History of Present illness Narrative* Erin Verma LSW - 01/11/2023 9:02 AM EDT SOCIAL WORK FOLLOW UP NOTE[facility] Date of service:01/10/23 TOPICS ADDRESSED: mental health needs, community resources, and referral to [facility] for Psychiatry and Behavioral Health needs. PLAN: Continue follow up as needed Assigned SW listed in Care Team tab: Yes SW faxed over a referral to [facility] for Psychiatry and Behavioral Health services. [facility] will reach out to this Patient to discuss services and to set up an appointment. VANESSA Donis documented in [facility]23 NoteHNO ID: [id number] Author: Erin Verma LSW Service: ? Author Type: Boarding Kennel Or Cattery Operator Type: Progress Notes Filed: 01/09/2023 1:50 PM Note Text: Assessment Completed SOCIAL WORK DISTRESS ASSESSMENT Referral made due to:High distress and Suicidal Ideation Contact was made: [id number] Problems Addressed: Practical: Transportation and Treatment decisions/concerns Family: N/A Emotional: Depression Spiritual Concerns: N/A Physical Problems: Breathing and Sleep Exercising: No Stress Management: Yes Is the patient's distress related to a change in quality of life? Yes Patient with current Suicidal Ideation: No MENTAL HEALTH HISTORY: No Substance Use and Treatment History: denied History of Abuse: denied History of combat/trauma: No INTERVENTION/PLAN: Provide emotional support to patient/family Referral to community resource Provided education on distress and screening process Continue follow up as needed Resources and Referrals: Internal: NA External: Other Melony, RN pended orders psychiatry and behavorial health. Follow up appointment with SW in: PRN Assigned SW listed in Care Team tab: Yes Patient appears on the [employer] [place] SW Report for a PHQ-9 score of 18 with a positive response to question #9 (thoughts that you would be better off or of harming yourself in some way). SW met with Patient in exam room 12. SW reviewed the results of the PHQ-9 questionnaire. Patient shared that he is not suicidal nor homicidal. Patient talked about how his medical history and current symptoms are overwhelming to him. Patient feels depressed about his declining health. Patient has a limited support system (a daughter and grandchildren). Patient's eye sight is compromised which complicates matters. Patient is agreeable to a referral to a Psychiatrist and Behavioral Health Counselor (orders are pended). Patient prefers to seek mental health services RHONDA Jaeger offered to meet with Patient for a supportive session. Patient will let this SW know if he is interested. SW will remain available and will ffollow up as appropriate. RABIA Donis-[facility]08-07-2023 History of Present illness Narrative* Erin Verma LSW - 01/09/2023 1:34 PM EDT Assessment Completed SOCIAL WORK DISTRESS ASSESSMENT Referral made due to:High distress and Suicidal Ideation Contact was made: [facility] Problems Addressed: Practical: Transportation and Treatment decisions/concerns Family: N/A Emotional: Depression Spiritual Concerns: N/A Physical Problems: Breathing and Sleep Exercising: No Stress Management: Yes Is the patient's distress related to a change in quality of life? Yes Patient with current Suicidal Ideation: No MENTAL HEALTH HISTORY: No Substance Use and Treatment History: denied History of Abuse: denied History of combat/trauma: No INTERVENTION/PLAN: Provide emotional support to patient/family Referral to community resource Provided education on distress and screening process Continue follow up as needed Resources and Referrals: Internal: NA External: Other MIKE Ty pended [facility] Follow up appointment with RHONDA in: PRN Assigned SW listed in Care Team tab: Yes Patient appears on the [facility] RHONDA Report for a PHQ-9 score of 18 with a positive response to question #9 (thoughts that you would be better off or of harming yourself in some way). RHONDA met with Patient in exam room 12. SW reviewed the results of the PHQ-9 questionnaire. Patient shared that he is not suicidal nor homicidal. Patient talked about how his medical history and current symptoms are overwhelming to him. Patient feels depressed about his declining health. Patient has a limited support system (a daughter and grandchildren). Patient's eye sight is compromised which complicates matters. Patient is agreeable to a referral to a Psychiatrist and Behavioral Health Counselor (ordersare pended). Patient prefers to seek mental health services RHONDA Jaeger offered to meet with Patient for a supportive session. Patient will let this SW know if he is interested. SW will remain available and will ffollow up as appropriate. VANESSA Donis documented in this encounterWvumed[facility]23 NoteHNO ID: [id number] Author: Galileo Delatorre MD Service: ? Author Type: Physician Type: Progress Notes Filed: 01/10/2023 1:59 PM Note Text: Radiation Oncology - Follow Up Note PATIENT NAME: Amee Juárez PATIENT DIAGNOSIS/PATIENT IDENTIFICATION: Mr. 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 He is s/p prostatectomy on 07/20/2018, with final pathology revealing Vira 4 + 4 = 8 (grade group 4), pathologic stage T3a N0 Mx III, margins negative, EPE present , SVI absent, 0 LNs positive out of 10 LNs removed, post-op PSA initially detectable (PSA 0.03) and currently detectable (PSA 0.13). He has met in consultation with my colleague Dr. Vu at [facility] on 07/30/2020 for consideration of salvage. His DECIPHER genomic risk assessment returned high risk and he received a 6 month Lupron shot on 10/30/2020 for concomitant ADT and completed a course of salvage radiation therapy to the prostate bed and pelvic lymph nodes on 01/14/2021 (7020 cGy in 39 fractions). INTERVAL HISTORY/ROS: Mr. Juárez returns to clinic today for routine follow-up approximately two years after the completion of his radiation treatments and six months since his last visit on 07/11/2022. In the interim, he reports new onset of urinary incontinence/leakage overnight in the past month. He does not experience this during the day but does note a sense of incomplete emptying. He denies any new medications in this timeframe and is not doing his pelvic floor therapy routinely. He reports some burning/discomfort with urination or hematuria. He reports regular bowel movements with occasional nausea with fatigue which he feels has worsened as well as occasional mild hot flashes. He endorses good appetite with stable weight and hydration. He does consume alcohol daily as well as soda with caffeine. His IPSS score today is 21/35 with QOL 5 ('unhappy') and ABHI score of NA/25. His surveillance PSA drawn today continues to remain undetectable at <0.02 ng/mL. 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 He does have difficulty with gait/balance on occasion and has sciatica. Screening questions from today's visit indicated that the patient was experiencing feelings of depression/worthlessness and spoke to our social service coordinator/counselor today about exploring further options to help address this. He denies any desire to harm himself or others. He otherwise denies any recent fevers, chills, difficulty with speech/swallowing, abdominal pain, nausea, vomiting, change in bowel habits, recent falls, etc. The remainder of the review of systems was performed and was otherwise noncontributory. ALLERGIES ALLERGIES No Known Allergies MEDICATIONS: Current Outpatient Medications: amiodarone (PACERONE) 200 mg tablet isosorbide mononitrate ER (IMDUR) 60 mg 24 hr tablet loratadine (CLARITIN) 10 mg tablet spironolactone (ALDACTONE) 25 mg tablet torsemide (DEMADEX) 20 mg tablet ELIQUIS 5 mg tab(s) aspirin-calcium carbonate 81 mg-300 mg calcium(777 mg) tab atorvastatin (LIPITOR) 80 mg tablet guaiFENesin 1,200 mg Ta12 nitroglycerin sublingual (NITROQUICK) 0.4 mg SL tablet oxyCODONE-acetaminophen (PERCOCET) 5-325 mg tablet albuterol (PROVENTIL) 2.5 mg /3 mL (0.083 %) nebulizer solution SYMBICORT 160-4.5 mcg/actuation inhaler FLUZONE HIGH-DOSE 2018-19, PF, 180 mcg/0.5 mL injection PREVNAR 13, PF, 0.5 mL syrg DALIRESP 500 mcg tab valsartan (DIOVAN) 160 mg tablet GABAPENTIN ORAL PHYSICAL EXAM: GENERAL: elderly gentleman sitting in chair in no acute distress. VITALS: There were no vitals taken for this visit. KPS: 90 HEENT: NC/AT, anicteric sclera HEART: S1S2 LUNGS: non-labored breathing ABDOMEN: soft MUSCULOSKELETAL: no peripheral edema, moves all extremities. NEURO: no focal deficit; AANDO X3. ASSESSMENT AND PLAN: Mr. 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 He is s/p prostatectomy on 07/20/2018, with final pathology revealing [place] 4 + 4 = 8 (grade group 4), pathologic stage T3a N0 Mx III, margins negative, EPE present , SVI absent, 0 LNs positive out of 10 LNs removed, post-op PSA in (more content not included)...[facility]08-07-2023 Miscellaneous Notes* Telephone Encounter - Clyde Mcmullen - 01/09/2023 11:11 AM EDT [facility] to call patient to schedule PT. documented in this encounterWvumed[facility]08-07-2023 History of Present illness Narrative* Galileo Delatorre MD - 01/09/2023 10:00 AM EDT Radiation Oncology - Follow Up Note PATIENT NAME: Amee Juárez PATIENT DIAGNOSIS/PATIENT IDENTIFICATION: Mr. Juárez is a 72-year old gentleman with history of intermediaterisk prostate adenocarcinoma in 2017 on with subsequent biopsy revealing GG5, +12/19 cores, 90% on repeat bx in 2018. He is s/p prostatectomy on 07/20/2018, with final pathology revealing Vira 4 + 4 = 8 (grade group 4), pathologic stage T3a N0 Mx III, margins negative, EPE present , SVI absent, 0 LNs positive out of 10 LNs removed, post-op PSA initially detectable (PSA 0.03) and currently detectable (PSA 0.13). He has met in consultation with my colleague Dr. Vu at [facility] on 07/30/2020 for consideration of salvage. His [employer] genomic risk assessment returned high risk and he received a 6 month Lupron shot on 10/30/2020 for concomitant ADT and completed a course of salvageradiation therapy to the prostate bed and pelvic lymph nodes on 01/14/2021 (7020 cGy in 39 fractions). INTERVAL HISTORY/ROS: Mr. Juárez returns to clinic today for routine follow-up approximately two years after the completion of his radiation treatments and six months since his last visit on 07/11/2022. In the interim, he reports new onset of urinary incontinence/leakage overnight in the past month.He does not experience this during the day but does note a sense of incomplete emptying. He denies any new medications in this timeframe and is not doing his pelvic floor therapy routinely. He reports some burning/discomfort with urination or hematuria. He reports regular bowel movements with occasional nausea with fatigue which he feels has worsened as well as occasional mild hot flashes. He endorses good appetite with stable weight and hydration. He does consume alcohol daily as well as soda with caffeine. His IPSS score today is 21/35 with QOL 5 ('unhappy') and ABHI score of NA/25. His surveillance PSA drawn today continues to remain undetectable at <0.02 ng/mL. 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 He does have difficulty with gait/balance on occasion and has sciatica. Screening questions from today's visit indicated that the patient was experiencing feelings of depression/worthlessness and spoke to our social service coordinator/counselor today about exploring further options to help address this. He denies any desire to harm himself or others. He otherwise denies any recent fevers, chills, difficulty with speech/swallowing, abdominal pain, nausea, vomiting, change in bowel habits, recent falls, etc. The remainder of the review of systems was performed and was otherwise noncontributory. ALLERGIES ALLERGIES No Known Allergies MEDICATIONS: Current Outpatient Medications: amiodarone (PACERONE) 200 mg tablet isosorbide mononitrate ER (IMDUR) 60 mg 24 hr tablet loratadine (CLARITIN) 10 mg tablet spironolactone (ALDACTONE) 25 mg tablet torsemide (DEMADEX) 20 mg tablet ELIQUIS 5 mg tab(s) aspirin-calcium carbonate 81 mg-300 mg calcium(777 mg) tab atorvastatin (LIPITOR) 80 mg tablet guaiFENesin 1,200 mg Ta12 nitroglycerin sublingual (NITROQUICK) 0.4 mg SL tablet oxyCODONE-acetaminophen (PERCOCET) 5-325 mg tablet albuterol (PROVENTIL) 2.5 mg /3 mL (0.083 %) nebulizer solution SYMBICORT 160-4.5 mcg/actuation inhaler FLUZONE HIGH-DOSE 2018-, PF, 180 mcg/0.5 mL injection PREVNAR 13, PF, 0.5 mL syrg DALIRESP 500 mcg tab valsartan (DIOVAN) 160 mg tablet GABAPENTIN ORAL PHYSICAL EXAM: GENERAL: elderly gentleman sitting in chair in no acute distress. VITALS: There were no vitals taken for this visit. KPS: 90 HEENT: NC/AT, anicteric sclera HEART: S1S2 LUNGS: non-labored breathing ABDOMEN: soft MUSCULOSKELETAL: no peripheral edema, moves all extremities. NEURO: no focal deficit; A&O X3. ASSESSMENT AND PLAN: Mr. 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 He is s/p prostatectomy on 07/20/2018, with final pathology revealing Vira 4 + 4 = 8 (grade group 4), pathologic stage T3a N0 Mx III, margins negative, EPE present , SVI absent, 0 LNs positive out of 10 LNs removed, post-op PSA initially detectable (PSA 0.03) and currently detectable (PSA 0.13). He has met in consultation with my colleague Dr. Vu at [facility] on 07/30/2020 for consideration of salvage. His DECIPHER genomic risk assessment returned high risk and he received a 6 month Lupron shot on 10/30/2020 for concomitant ADT and completed a course of salvage radiation therapy to the prostate bed and pelvic lymph nodes on 01/14/2021 (7020 cGy in 39 fractions). Mr. Juárez is now approximately two years out from the completion of his salvage radiation treatments to the prostate bed/pelvis and notes some recent worsening of his urinary function with incontinence/leakage specifically at night over the past month. He continues to show excellent biochemical control as his PSA drawn today remains undetectable at <0.02 ng/mL. We discussed conservative measures including reducing alcohol and caffeine intake to help with his incontinence/leakage and we we will also refer Mr. Juárez for formal pelvic floor therapy to help strengthen his urinary sphincter. I will plan to see him back in 1 year with repeat PSA. During the screening for today's visit, the patient was noted for symptoms of depression and feeling worthless which he confirmed during discussion today. He denied any intention to harm himself or others. He spoke in detail with our social service coordinator/counselor Erin and indicated interest in following up with additional resources to help address these issues. Signed by: Galileo Delatorre MD I spent a total of 20 minutes on the date of the service which included preparing to see the patient, [id number] patient care, and counseling and educating the patient/family/caregiver. This document has been created with the use of voice recognition technology. It may contain inaccuracies, misspellings, inaccurate syntax or inappropriate word context that are a result of the inadequacies/shortcomings of said technology/software. documented in this encounterWvumedicine [facility]08-04-2023 Miscellaneous Notes* Telephone Encounter - Riky Cope LPN - 01/06/2023 11:35 AM EDT I left a message reminding Lenard that he needs to have a PSA drawn prior to his office visit on 01/09/23. Riky Cope LPN documented in this encounterWvumedicine [facility]06-29-2023 Evaluation note* Encounter Date Diagnosis Assessment Notes Treatment Notes Treatment Clinical Notes Nov, Asthma with COPD (ICD-10 - J44.9) Nov, Seasonal allergies (ICD-10 - J30.2) Nov, Lung nodule < 6cm on CT (ICD-10 - R91.1) [facility] Other 02-10-2023 Miscellaneous Notes* Telephone Encounter - SLOANE Donis - 07/15/2022 4:00 PM EST Unable To Reach Patient Second attempt to reach Patient to follow up on the [facility] SW Report. SW will remain availableand will follow up as appropriate. VANESSA Donis documented in this encounterWvumedicine [facility] Hospital02-08-2023 Miscellaneous Notes* Telephone Encounter - SLOANE Donis - 07/13/2022 3:24 PM EST Unable To Reach Patient SOCIAL WORK FOLLOW UP NOTE: [facility] Date of service:07/13/22 PLAN: Continue follow up as needed Assigned SW listed in Care Team tab: No Patient appears on the [facility] SW report for a NCCN score of 9 and a PHQ-9 score of 19 with a positive response to question #9 (thoughts that you would be better off , or of hurting yourself in some way. Sw called Patient and left a VM asking for a return call. Patient Data Patient Health Questionnaire (PHQ-9) PHQ-9 04/13/2021 04/13/2021 07/08/2022 Score 8 8 19 (0-4) minimal depression, (5-9) mild depression, (10-14) moderate depression, (15-19) moderately severe depression, (20-27) severe depression VANESSA Donis documented in this encounterWvumedicine [facility]02-07-2023 NoteHNO ID: [id number] Author: Galileo Delatorre MD Service: ? Author Type: Physician Type: Progress Notes Filed: 07/27/2022 3:50 AM Note Text: Radiation Oncology - Follow Up Note PATIENT NAME: Amee Juárez PATIENT DIAGNOSIS/PATIENT IDENTIFICATION: Mr. 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 He is s/p prostatectomy on 07/20/2018, with final pathology revealing [place] 4 + 4 = 8 (grade group 4), pathologic stage T3a N0 Mx III, margins negative, EPE present , SVI absent, 0 LNs positive out of 10 LNs removed, post-op PSA initially detectable (PSA 0.03) and currently detectable (PSA 0.13). He has met in consultation with my colleague Dr. Vu at [facility] on 07/30/2020 for consideration of salvage. His DECIPHER genomic risk assessment returned high risk and he received a 6 month Leupron shot on 10/30/2020 for concomitant ADT and completed a course of salvage radiation therapy to the prostate bed and pelvic lymph nodes on 01/14/2021 (7020 cGy in 39 fractions). INTERVAL HISTORY/ROS: Mr. Juárez returns to clinic today for routine follow-up approximately a year and a half after the completion of his radiation treatments and 6 months since his last visit on 01/10/2022. In the interim, he does note increased urinary frequency without burning or discomfort with urination and nocturia 0-1 times and no change in incontinence/leakage issues. He reports regular bowel movements without diarrhea or pain or blood in his stool and denies any nausea and has very rare hot flashes. 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 This has affected his activity day-to-day and has led to some depression. His IPSS score today is 18/35 with QOL 3 ('mixed') and ABHI score of 1/25. His repeat PSA from 07/04/2022 continues to remain undetectable at <0.02 ng/mL. Date PSA (ng/mL) 11/16/2016 4.16 01/17/2017 Bx (GS 3+4) 05/05/2017 4.58 10/04/2017 3.9 05/18/2018 Bx (GS 4+5) 07/20/2018 RP (GS 4+4,T3a,-SM,-SVI,+EPE) 08/30/2018 0.04 12/26/2018 0.03 08/15/2019 0.05 07/13/2020 0.13 10/30/2020 0.22; testosterone 341 01/14/2021 Completed salvage XRT 04/08/2021 <0.03; testosterone <7 07/09/2021 <0.02; testosterone 11 01/10/2022 <0.02; testosterone 251 07/04/2022 <0.02; testosterone 315 In addition to the vision issues mentioned above, he also notes occasional shortness of breath as well as palpitations but otherwise denies any recent fevers, chills, headaches, difficulty with speech/swallowing, abdominal pain, nausea, vomiting, change in bowel/urinary habits, difficulty with gait/balance, recent falls, etc. The remainder of the review of systems was performed and was otherwise noncontributory. ALLERGIES ALLERGIES No Known Allergies MEDICATIONS: Current Outpatient Medications: amiodarone (PACERONE) 200 mg tablet isosorbide mononitrate ER (IMDUR) 60 mg 24 hr tablet loratadine (CLARITIN) 10 mg tablet spironolactone (ALDACTONE) 25 mg tablet torsemide (DEMADEX) 20 mg tablet ELIQUIS 5 mg tab(s) aspirin-calcium carbonate 81 mg-300 mg calcium(777 mg) tab atorvastatin (LIPITOR) 80 mg tablet guaiFENesin 1,200 mg Ta12 nitroglycerin sublingual (NITROQUICK) 0.4 mg SL tablet oxyCODONE-acetaminophen (PERCOCET) 5-325 mg tablet albuterol (PROVENTIL) 2.5 mg /3 mL (0.083 %) nebulizer solution SYMBICORT 160-4.5 mcg/actuation inhaler FLUZONE HIGH-DOSE 2018-19, PF, 180 mcg/0.5 mL injection PREVNAR 13, PF, 0.5 mL syrg DALIRESP 500 mcg tab valsartan (DIOVAN) 160 mg tablet GABAPENTIN ORAL PHYSICAL EXAM: GENERAL: middle-aged gentleman sitting in chair in no acute distress. VITALS: BP 174/93 Pulse 71 Temp 97.8 Resp 18 Wt 247 lb (112.0kg) SpO2 96% KPS: 90 HEENT: NC/AT, anicteric sclera HEART: S1S2 LUNGS: non-labored breathing ABDOMEN: soft MUSCULOSKELETAL: no peripheral edema, moves all extremities. NEURO: no focal deficit; AANDO X3. ASSESSMENT AND PLAN: Mr. 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 He is s/p prostatectomy on 07/20/2018, with final pathology revealing [place] 4 + 4 = 8 (grade group 4), pathologic stage T3a N0 Mx III, margins negative, EPE present , SVI absent, 0 LNs positive out of 10 LNs removed, post-op PSA initially detectable (PSA 0.03) and currently detectable (PSA 0.13). He has met in consultation with my colleague Dr. Vu at [facility] on 07/30/2020 for consideration of salvage. His DECIPHER genomic risk assessment returned high risk and he received a 6 month Leupron shot on 10/30/2020 for concomitant ADT and completed a course of salvage radiation therapy to the prostate bed and pelvic (more content not included)...[facility]02-06-2023 History of Present illness Narrative* Galileo Delatorre MD - 07/11/2022 11:24 PM EST Radiation Oncology - Follow Up Note PATIENT NAME: Amee Juárez PATIENT Signed by: Galileo Delatorre MD I spent a total of 20 minutes on the date of the service which included preparing to see the patient, [id number] patient care, and counseling and educating the patient/family/caregiver. This document has been created with the use of voice recognition technology. It may contain inaccuracies, misspellings, inaccurate syntax or inappropriate word context that are a result of the inadequacies/shortcomings of said technology/software. documented in this encounterWvumedicine [facility] Hospital12-15-2022 Evaluation note* Encounter Date Diagnosis Assessment Notes Treatment Notes Treatment Clinical Notes May, Asthma with COPD (ICD-10 - J44.9) May, Seasonal allergies (ICD-10 - J30.2) May, Lung nodule < 6cm on CT (ICD-10 - R91.1) RLL nodule has been stable since 2017. No further chest CT needed at this time. [facility] Other 06-16-2022 Evaluation note* Encounter Date Diagnosis Assessment Notes Treatment Notes Treatment Clinical Notes Nov, Asthma with COPD (ICD-10 - J44.9) Nov, Seasonal allergies (ICD-10 - J30.2) Nov, Lung nodule < 6cm on CT (ICD-10 - R91.1) [facility] Other 05-16-2022 Miscellaneous Notes* Telephone Encounter - Debby [facility] - 10/18/2021 11:03 AM EDT Patient: Amee Juárez Date of : 1950 Patient phone number: [phone] Referring Provider for the encounter: Kailey Louise CNP Requesting Provider: anyone Reason for requesting visit (RFV/signs and symptoms/diagnosis): CAD Person calling: self Return call to: self Medical Records/Insurance Card scanned into Epic: No Comments: documented in this encounterWvumedicine Harrison [facility] Hospital10-27-2021 [id number] [facility] [address] [place] Work Phone: 1(692) 465-979710-27-2021 [id number] ECG Post Procedure [facility] [address] [place] Work Phone: 1(949) 547-615510-27-2021 [id number] ECG Post Procedure [facility] [address] Work Phone: 1(351) 316-547110-25-2021 NoteMED[facility] COVID-19 FRMCNegative (Normal) Range:Negative Comments:Testing for SARS-CoV-2 by RT-PCR This test was developed and its performance characteristics determined by [employer] ([employer]) and validated at the [facility]. This test has not been FDA cleared or approved. This test has been authorized by FDA under an Emergency Use Authorization (EUA). This test has been validated in accordance with the FDA's Guidance Document (Policy for Diagnostics Testing in Laboratories Certified to Perform High Complexity Testing under CLIA prior to Emergency Use Authorization for Coronavirus Disease-2019 during the Public Health Emergency) issued on September 05, 2019. This test is only authorized for the duration of time the declaration that circumstances exist justifying the authorization of the emergency use of in vitro diagnostic tests for detection of SARS-CoV-2 virus and/or diagnosis of COVID-19 infection under section 564(b)(1) of the Act, 21 U.S.C. 360bbb-3(b)(1), unless the authorization is terminated or revoked sooner.PERFORMED BY:[facility] [place], [place] [phone] MEDICAL DIRECTORPRAVIN WILKERSON M.D. -[facility] [address] [place] Work Phone: Comment on above:Testing for SARS-CoV-2 by RT-PCR This test was developed and its performance characteristics determined by [employer] ([place]) and validated at the [facility]. This test has not been FDA cleared or approved. This test has been authorized by FDA under an Emergency Use Authorization (EUA). This test has been validated in accordance with the FDA's Guidance Document (Policy for Diagnostics Testing in Laboratories Certified to Perform High Complexity Testing under CLIA prior to Emergency Use Authorization for Coronavirus Disease-2019 during the Public Health Emergency) issued on September 05, 2019. This test is only authorized for the duration of time the declarationthat circumstances exist justifying the authorization of the emergency use of in vitro diagnostic tests for detection of SARS-CoV-2 virus and/or diagnosis of COVID-19 infection under section 564(b)(1) of the Act, 21 U.S.C. 360bbb-3(b)(1), unless the authorization is terminated or revoked sooner.PERFORMED BY:[facility] [address] [place], [place] [phone] MEDICAL DIRECTORPRAVIN WILKERSON M.D. 03-29-2021 NoteFR COVID-19 FRNegative (Normal)Range:Negative Comments:Testing for SARS-CoV-2 by RT-PCR This test was developed and its performance characteristics determined by [employer] ([place]) and validated at the [facility]. This test has not been FDA cleared or approved. This test has been authorized by FDA under an Emergency Use Authorization (EUA). This test has been validated in accordance with the FDA's Guidance Document (Policy for Diagnostics Testing in Laboratories Certified to Perform High Complexity Testing under CLIA prior to Emergency Use Authorization for Coronavirus Disease-2019 during the Public Health Emergency) issued on September 05, 2019. This test is only authorized for the duration of time the declaration that circumstances exist justifying the authorization of the emergency use of in vitro diagnostic tests for detection of SARS-CoV-2 virus and/or diagnosis of COVID-19 infection under section 564(b)(1) of the Act, 21 U.S.C. 360bbb-3(b)(1), unless the authorization is terminated or revoked sooner.PERFORMED BY:[facility] [address] [place] [id number] MEDICAL DIRECTORPRAVIN WILKERSON M.D. [facility] [place] DO Work Phone: Comment on above:Testing for SARS-CoV-2 by RT-PCR This test was developed and its performance characteristics determined by [employer] ([place]) and validated at the [facility]. This test has not been FDA cleared or approved. This test has been authorized by FDA under an Emergency Use Authorization (EUA). This test has been validated in accordance with the FDA's Guidance Document (Policy for Diagnostics Testing in Laboratories Certified to Perform High Complexity Testing under CLIA prior to Emergency Use Authorization for Coronavirus Disease-2019 during the Public Health Emergency) issued on September 05, 2019. This test is only authorized for the duration of time the declarationthat circumstances exist justifying the authorization of the emergency use of in vitro diagnostic tests for detection of SARS-CoV-2 virus and/or diagnosis of COVID-19 infection under section 564(b)(1) of the Act, 21 U.S.C. 360bbb-3(b)(1), unless the authorization is terminated or revoked sooner.PERFORMED BY:[address] [address] [place] [id number] MEDICAL DIRECTORPRAVIN WILKERSON M.D. 03-29-2021 NoteFR COVID-19 FRMCNegative (Normal)Range:Negative Comments:Testing for SARS-CoV-2 by RT-PCR This test was developed and its performance characteristics determined by [employer] ([place]) and validated at the [facility]. This test has not been FDA cleared or approved. This test has been authorized by FDA under an Emergency Use Authorization (EUA). This test has been validated in accordance with the FDA's Guidance Document (Policy for Diagnostics Testing in Laboratories Certified to Perform High Complexity Testing under CLIA prior to Emergency Use Authorization for Coronavirus Disease-2019 during the Public Health Emergency) issued on September 05, 2019. This test is only authorized for the duration of time the declaration that circumstances exist justifying the authorization of the emergency use of in vitro diagnostic tests for detection of SARS-CoV-2 virus and/or diagnosis of COVID-19 infection under section 564(b)(1) of the Act, 21 U.S.C. 360bbb-3(b)(1), unless the authorization is terminated or revoked sooner.PERFORMED BY:[address] [address] [place] [id number] MEDICAL DIRECTORPRAVIN WILKERSON M.D. -[facility] DO Work Phone: Comment on above:Testing for SARS-CoV-2 by RT-PCR This test was developed and its performance characteristics determined by [employer] ([employer]) and validated at the [facility]. This test has not been FDA cleared or approved. This test has been authorized by FDA under an Emergency Use Authorization (EUA). This test has been validated in accordance with the FDA's Guidance Document (Policy for Diagnostics Testing in Laboratories Certified to Perform High Complexity Testing under CLIA prior to Emergency Use Authorization for Coronavirus Disease-2019 during the Public Health Emergency) issued on September 05, 2019. This test is only authorized for the duration of time the declarationthat circumstances exist justifying the authorization of the emergency use of in vitro diagnostic tests for detection of SARS-CoV-2 virus and/or diagnosis of COVID-19 infection under section 564(b)(1) of the Act, 21 U.S.C. 360bbb-3(b)(1), unless the authorization is terminated or revoked sooner.PERFORMED BY:[address] [place], [place] [phone] MEDICAL DIRECTORPRAVIN WILKERSON M.D. 01-19-2021 History of Present illness Narrative* Wendy Bryant - 01/19/2021 9:15 AM EDT REASON FOR VISIT Amee Juárez presents to clinic today for a Post-Op Patient visit. HISTORY OF PRESENT ILLNESS HPI A 70 year old male presents for a 2-3 month post-op s/p 1. Bilateral upper eyelid blepharoplasty 2. Bilateral external levator repair The patient states that he currently has no complaints or issues. Occasionally, he feels as though the healing area becomes dry. He uses erythromycin sidra to help relieve the itching. The patient states that he only uses it when he needs to. Current gtts/sidra: Erythromycin sidra Last edited by Wendy Bryant on 01/19/2021 9:26 AM. (History) Allergies, medications & history reviewed & updated by Wendy Bryant REVIEW OF SYSTEMS Review of Systems 10 minutes of face to face time was spent with patient performing the chemical research technician work of this visit. Referring Physician: * Susan Espitia MD - 01/19/2021 9:15 AM EDT HISTORY: Amee Juárez returned to the [facility] in follow up status post the following surgery: 1. Bilateral upper eyelid blepharoplasty 2. Bilateral external levator repair. On 11/11/20 The patient states that he currently has no complaints or issues. Occasionally, he feels as though the healing area becomes dry. He uses erythromycin sidra to help relieve the itching. The patient states that he only uses it when he needs to. The nursing notes, vital signs, medications, and allergies were reviewed and documented in the electronic medical record. OBJECTIVE: GENERAL: On examination today, the patient was alert and oriented, in no acute distress. Uncorrected distance visual acuity was 20/50 -2 in the right eye and 20/400 in the left eye. Comments: Patient has a detatched retina OS. Slit lamp exam was benign bilaterally. LIDS: Margin reflex distance was 4 mm on the right and 3.5 mm on the left Incisions were well healed. Lagophthalmos 0 mm 0mm Small clogged oil gland adjacent to lash follicle on central ANSLEY with mild erythema Likely Seborrheic keratosis on RUL--unable to address intraop given proximity to incision ASSESSMENT In summary, Mr. Juárez has done well after the above surgery PLAN Final post-op photos today Patient defers further treatment of RUL benign appearing lesion. Will reach out if he opts to have it excised Follow-up in the [facility] will be on an as needed basis. Susan Espitia MD Cosmetic Counselor of Oculoplastic Surgery [facility] [place] . [facility] NoteProcedure date: 08/28/2020. Right Eye Quality was good. Findings include normal foveal contour. Interval change is same. Recommendation for management is to observe. Left Eye Quality was good. Findings include cystoid macular edema, epiretinal membrane, inner retinal layer disruption, outer retinal layer disruption. Interval change is same. Recommendation for management is to observe.[facility]03-26-2021 NoteProcedure date: 08/28/2020. Right Eye Garrison ring. Disc findings include normal observations. Vessel findings include normal. Macula findings include RPE mottling. Retinal Tear. Interval change is baseline. Recommendation for management is to schedule surgery. Left Eye Hazy. Disc findings include pallor. Vessel findings include sclerotic. Macula findings include atrophy. Laser. Interval change is baseline. Recommendation for management is to observe.[facility]02-13-2021 NoteProcedure date: 07/17/2020. Right Eye Garrison ring. Disc findings include normal observations. Vessel findings include normal. Macula findings include RPE mottling. Normal. Interval change is baseline. Recommendation for management is to schedule surgery. Left Eye Hazy. Disc findings include pallor. Vessel findings include normal. Macula findings include atrophy. Laser. Interval change is baseline. Recommendation for management is to observe.[facility]02-13-2021 NoteProcedure date: 07/17/2020. Right Eye Quality was good. Findings include normal observations. Interval change is baseline. Recommendation for management is to observe. Left Eye Quality was good. Findings include cystoid macular edema, epiretinal membrane, inner retinal layer disruption, outer retinal layer disruption. Interval change is baseline. Recommendation for management is to observe.[facility]02-12-2021 NoteRetinopexy Laser Right Eye (OD)- OPHTHALMOLOGY PROCEDURE NOTE PROCEDURE PERFORMED BY: Justina Marie MD/ Justina Alcazar MD PEST MANAGEMENT SUPERVISOR(S): None ATTENDING: Justina Marie MD PROCEDURE DATE: 07/17/2020 INDICATIONS: Prophylactic treatment of Retinal Tear Right Eye PROCEDURE GOALS: To prevent retinal detachment CONSENT: Informed consent was obtained prior to the procedure after discussion of the risks, benefits, and alternatives and expected outcomes were discussed with the patient; consent placed in chart. The possibilities of retinal detachment, failure of laser to improve vision, loss of vision, and the need for additional procedures was discussed with the patient. The patient concurred with the proposed plan, giving informed consent. DOES THIS PROCEDURE REQUIRE A UNIVERSAL PROTOCOL? Yes. [place] Protocol is required Preprocedure verification is complete patient verified and consents confirmed, procedure sites are identified and marked, timeout was called before the start of the procedure. ANESTHESIA: topical proparacaine/tetracaine, lidocaine pledget 4% and subconjunctival lidocaine 2% with epinephrine 1:200,000 PROCEDURE DETAILS: Right Eye was marked. Spot Size: 200 Time: 0.1 s Power: 200 444 spots The patient tolerated the procedure well, there were no complications. Justina Marie [facility]DC[facility]Evaluation [facility]* Diagnosis Postoperative visit- Primary [facility] InformationNort TXCOM Other Evaluation noteNo assessment information available [facility] Work Phone: Evaluation note* Diagnosis Prostate cancer (HCC)- Primary Malignant neoplasm of prostate [facility] Diagnosis Prostate cancer (HCC)- Primary Malignant neoplasm of prostate Urinary incontinence, unspecified type [facility]* Diagnosis SHUKRI (obstructive sleep apnea)- Primary Obstructive sleep apnea (adult) (pediatric) [facility]* Diagnosis 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 Epiretinal membrane (ERM) of left eye 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 Epiretinal membrane (ERM) of left eye 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 [facility]* Diagnosis ASHD (arteriosclerotic heart disease) Coronary atherosclerosis of unspecified type of vessel, [place] or graft History of PTCA Postsurgical percutaneous transluminal coronary angioplasty status Persistent atrial fibrillation (CMS/HCC) Atrial fibrillation Essential hypertension, benign History of myocardial infarction Hyperlipidemia, unspecified hyperlipidemia type Former smoker Personal history of tobacco use, presenting hazards to health High risk medication use documented in this encounter [facility] Work Phone: Evaluation note* Diagnosis 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 Epiretinal membrane (ERM) of left eye 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 [facility] Narrative - Reported* Type Description Date Medical History malignant melanoma (left arm) Medical History hypertension Medical History Asthma Medical History COPD Medical History Lung nodule Medical History Prostate cancer Medical History post op pneumonia 07/2018 post pr ostatectomy Medical History AR 06/2019 Medical History AR 09/2019 Medical History seasonal allergies Surgical History melanoma resection Surgical History cholecystectomy Surgical History inguinal hernia repair Surgical History prostatectomy at [facility] 07/20/2018 Surgical History Heart stents 06/2019 Surgical History heart conversions Hospitalization History see above Hospitalization History pneumonia [facility] 2017 Hospitalization History see above 2019 Hospitalization History [facility] 06/2019 Hospitalization History [facility] 09/2019 Hospitalization History AFIB couple times [facility] Other History general Narrative - Reported* Type Description Date Medical History malignant melanoma (left arm) Medical History hypertension Medical History Asthma Medical History COPD Medical History Lung nodule - RLL stable since 2 017 Medical History Prostate cancer Medical History post op pneumonia 07/2018 post pr ostatectomy Medical History AR 06/2019 Medical History AR 09/2019 Medical History seasonal allergies Medical History Detached retina rt eye Medical History Atrial fibrillation - Dr. Jt prajapati Surgical History melanoma resection Surgical History cholecystectomy Surgical History inguinal hernia repair Surgical History prostatectomy at [facility] 07/20/2018 Surgical History Heart stents 06/2019 Surgical History heart conversions Surgical History rt detached retina Hospitalization History see above Hospitalization History pneumonia [facility] 2018 Hospitalization History see above 2019 Hospitalization History [facility] 06/2019 Hospitalization History [facility] 09/2019 Hospitalization History AFIB couple times [facility] Other History of Present illness Narrative* The patient states he has been generally doing poorly since the last visit. Comorbid Illnesses: hypertension and hyperlipidemia. * Symptoms: denies chest pain at rest, denies exertional chest pain, worsened dyspnea, worsened fatigue, worsened exercise intolerance, denies palpitations, worsened edema, worsened orthopnea, denies claudication, denies dizziness and denies orthostatic dizziness. * Disease Monitoring: -[facility] [address] DO Work Phone: History of Present illness Narrative* The patient states he has been generally doing poorly since the last visit. Comorbid Illnesses: hypertension and hyperlipidemia. * Symptoms: denies chest pain at rest, denies exertional chest pain, worsened dyspnea, worsened fatigue, worsened exercise intolerance, denies palpitations, worsened edema, worsened orthopnea, denies claudication, denies dizziness and denies orthostatic dizziness. * Disease Monitoring: [facility] Work Phone: History of Present illness Narrative* The patient presents for follow-up of essential hypertension. The patient states he has been stablewith his blood pressure control since the last visit. Comorbid Illnesses: a stroke and coronary artery disease. * Symptoms: stable impaired vision, denies dyspnea, denies chest pain, denies intermittent leg claudication and denies lower extremity edema. Associated symptoms include no headache. * Home monitoring: The patient is not checking blood pressure at home. * Medications: the patient is adherent with his medication regimen. He denies medication side effects. [facility] [address] DO Work Phone: History of Present illness Narrative* The patient presents for follow-up of essential hypertension. The patient states he has been stablewith his blood pressure control since the last visit. Comorbid Illnesses: a stroke and coronary artery disease. * Symptoms: stable impaired vision, denies dyspnea, denies chest pain, denies intermittent leg claudication and denies lower extremity edema. Associated symptoms include no headache. * Home monitoring: The patient is not checking blood pressure at home. * Medications: the patient is adherent with his medication regimen. He denies medication side effects. [facility] [address] DO Work Phone: Instructions* Attachments The following attachments cannot be sent through Care Everywhere. * How to Care for Your Eyes (Yakut) [facility] this [facility] SystemInstructionsNot on file documented in this [facility] Summary Purpose Family History No Family History Records FoundUnknown Family Member Name Dates Details Family history of myocardial infarction: Father(V17.3, Z82.49) Status:Active Family history of malignant melanoma: Mother(V16.8, Z80.8) Status:Active Mesothelioma: Sister Status:Active Unknown Family Member Name Dates Details Family history of myocardial infarction: Father(V17.3, Z82.49) Status:Active Family history of malignant melanoma: Mother(V16.8, Z80.8) Status:Active Mesothelioma: Sister Status:Active Unknown Family Member Name Dates Details Family history of myocardial infarction: Father(V17.3, Z82.49) Status:Active Family history of malignant melanoma: Mother(V16.8, Z80.8) Status:Active Mesothelioma: Sister Status:Active Unknown Family Member Name Dates Details Family history of myocardial infarction: Father(V17.3, Z82.49) Status:Active Family history of malignant melanoma: Mother(V16.8, Z80.8) Status:Active Mesothelioma: Sister Status:Active Unknown Family Member Name Dates Details Family history of myocardial infarction: Father(V17.3, Z82.49) Status:Active Family history of malignant melanoma: Mother(V16.8, Z80.8) Status:Active Mesothelioma: Sister Status:Active Unknown Family Member Name Dates Details Family history of myocardial infarction: Father(V17.3, Z82.49) Status:Active Family history of malignant melanoma: Mother(V16.8, Z80.8) Status:Active Mesothelioma: Sister Status:Active Unknown Family Member Name Dates Details Family history of myocardial infarction: Father(V17.3, Z82.49) Status:Active Family history of malignant melanoma: Mother(V16.8, Z80.8) Status:Active Mesothelioma: Sister Status:Active Unknown Family Member Name Dates Details Family history of myocardial infarction: Father(V17.3, Z82.49) Status:Active Family history of malignant melanoma: Mother(V16.8, Z80.8) Status:Active Mesothelioma: Sister Status:Active Unknown Family Member Name Dates Details Family history of myocardial infarction: Father(V17.3, Z82.49) Status:Active Family history of malignant melanoma: Mother(V16.8, Z80.8) Status:Active Mesothelioma: Sister Status:Active Unknown Family Member Name Dates Details Family history of myocardial infarction: Father(V17.3, Z82.49) Status:Active Family history of malignant melanoma: Mother(V16.8, Z80.8) Status:Active Mesothelioma: Sister Status:Active Unknown Family Member Name Dates Details Mesothelioma: Sister Status:Active Family history of malignant melanoma: Mother(V16.8, Z80.8) Status:Active Family history of myocardial infarction: Father(V17.3, Z82.49) Status:Active Unknown Family Member Name Dates Details Mesothelioma: Sister Status:Active Family history of malignant melanoma: Mother(V16.8, Z80.8) Status:Active Family history of myocardial infarction: Father(V17.3, Z82.49) Status:Active Unknown Family Member Name Dates Details Family history of myocardial infarction: Father(V17.3, Z82.49) Status:Active Family history of malignant melanoma: Mother(V16.8, Z80.8) Status:Active Mesothelioma: Sister Status:Active Unknown Family Member Name Dates Details Family history of myocardial infarction: Father(V17.3, Z82.49) Status:Active Family history of malignant melanoma: Mother(V16.8, Z80.8) Status:Active Mesothelioma: Sister Status:Active Unknown Family Member Name Dates Details Family history of myocardial infarction: Father(V17.3, Z82.49) Status:Active Family history of malignant melanoma: Mother(V16.8, Z80.8) Status:Active Mesothelioma: Sister Status:Active Unknown Family Member Name Dates Details Mesothelioma: Sister Status:Active Family history of malignant melanoma: Mother(V16.8, Z80.8) Status:Active Family history of myocardial infarction: Father(V17.3, Z82.49) Status:Active Unknown Family Member Name Dates Details Family history of myocardial infarction: Father(V17.3, Z82.49) Status:Active Family history of malignant melanoma: Mother(V16.8, Z80.8) Status:Active Mesothelioma: Sister Status:Active Unknown Family Member Name Dates Details Family history of myocardial infarction: Father(V17.3, Z82.49) Status:Active Family history of malignant melanoma: Mother(V16.8, Z80.8) Status:Active Mesothelioma: Sister Status:Active Unknown Family Member Name Dates Details Mesothelioma: Sister Status:Active Family history of malignant melanoma: Mother(V16.8, Z80.8) Status:Active Family history of myocardial infarction: Father(V17.3, Z82.49) Status:Active Unknown Family Member Name Dates Details Family history of myocardial infarction: Father(V17.3, Z82.49) Status:Active Family history of malignant melanoma: Mother(V16.8, Z80.8) Status:Active Mesothelioma: Sister Status:Active Unknown Family Member Name Dates Details Family history of myocardial infarction: Father(V17.3, Z82.49) Status:Active Family history of malignant melanoma: Mother(V16.8, Z80.8) Status:Active Mesothelioma: Sister Status:Active Unknown Family Member Name Dates Details Family history of myocardial infarction: Father(V17.3, Z82.49) Status:Active Family history of malignant melanoma: Mother(V16.8, Z80.8) Status:Active Mesothelioma: Sister Status:Active Unknown Family Member Name Dates Details Family history of myocardial infarction: Father(V17.3, Z82.49) Status:Active Family history of malignant melanoma: Mother(V16.8, Z80.8) Status:Active Mesothelioma: Sister Status:Active Unknown Family Member Name Dates Details Mesothelioma: Sister Status:Active Family history of malignant melanoma: Mother(V16.8, Z80.8) Status:Active Family history of myocardial infarction: Father(V17.3, Z82.49) Status:Active Unknown Family Member Name Dates Details Family history of myocardial infarction: Father(V17.3, Z82.49) Status:Active Family history of malignant melanoma: Mother(V16.8, Z80.8) Status:Active Mesothelioma: Sister Status:Active Unknown Family Member Name Dates Details Family history of myocardial infarction: Father(V17.3, Z82.49) Status:Active Family history of malignant melanoma: Mother(V16.8, Z80.8) Status:Active Mesothelioma: Sister Status:Active Relationship Condition Age at Onset Recorded Date/T izabela sister Mesothelioma Unknown Not Specified Malignant melanoma Unknown Unknown Family Member Name Dates Details Family history of myocardial infarction: Father(V17.3, Z82.49) Status:Active Family history of malignant melanoma: Mother(V16.8, Z80.8) Status:Active Mesothelioma: Sister Status:Active Unknown Family Member Name Dates Details Family history of myocardial infarction: Father(V17.3, Z82.49) Status:Active Family history of malignant melanoma: Mother(V16.8, Z80.8) Status:Active Mesothelioma: Sister Status:Active Unknown Family Member Name Dates Details Family history of myocardial infarction: Father(V17.3, Z82.49) Status:Active Family history of malignant melanoma: Mother(V16.8, Z80.8) Status:Active Mesothelioma: Sister Status:Active Unknown Family Member Name Dates Details Family history of myocardial infarction: Father(V17.3, Z82.49) Status:Active Family history of malignant melanoma: Mother(V16.8, Z80.8) Status:Active Mesothelioma: Sister Status:Active Unknown Family Member Name Dates Details Family history of myocardial infarction: Father(V17.3, Z82.49) Status:Active Family history of malignant melanoma: Mother(V16.8, Z80.8) Status:Active Mesothelioma: Sister Status:Active Unknown Family Member Name Dates Details Family history of myocardial infarction: Father(V17.3, Z82.49) Status:Active Family history of malignant melanoma: Mother(V16.8, Z80.8) Status:Active Mesothelioma: Sister Status:Active Unknown Family Member Name Dates Details Family history of myocardial infarction: Father(V17.3, Z82.49) Status:Active Family history of malignant melanoma: Mother(V16.8, Z80.8) Status:Active Mesothelioma: Sister Status:Active Unknown Family Member Name Dates Details Mesothelioma: Sister Status:Active Family history of malignant melanoma: Mother(V16.8, Z80.8) Status:Active Family history of myocardial infarction: Father(V17.3, Z82.49) Status:Active Unknown Family Member Name Dates Details Family history of myocardial infarction: Father(V17.3, Z82.49) Status:Active Family history of malignant melanoma: Mother(V16.8, Z80.8) Status:Active Mesothelioma: Sister Status:Active Unknown Family Member Name Dates Details Family history of myocardial infarction: Father(V17.3, Z82.49) Status:Active Family history of malignant melanoma: Mother(V16.8, Z80.8) Status:Active Mesothelioma: Sister Status:Active Unknown Family Member Name Dates Details Family history of myocardial infarction: Father(V17.3, Z82.49) Status:Active Family history of malignant melanoma: Mother(V16.8, Z80.8) Status:Active Mesothelioma: Sister Status:Active Unknown Family Member Name Dates Details Family history of myocardial infarction: Father(V17.3, Z82.49) Status:Active Family history of malignant melanoma: Mother(V16.8, Z80.8) Status:Active Mesothelioma: Sister Status:Active Unknown Family Member Name Dates Details Family history of myocardial infarction: Father(V17.3, Z82.49) Status:Active Family history of malignant melanoma: Mother(V16.8, Z80.8) Status:Active Mesothelioma: Sister Status:Active Unknown Family Member Name Dates Details Family history of myocardial infarction: Father(V17.3, Z82.49) Status:Active Family history of malignant melanoma: Mother(V16.8, Z80.8) Status:Active Mesothelioma: Sister Status:Active Unknown Family Member Name Dates Details Family history of myocardial infarction: Father(V17.3, Z82.49) Status:Active Family history of malignant melanoma: Mother(V16.8, Z80.8) Status:Active Mesothelioma: Sister Status:Active Unknown Family Member Name Dates Details Family history of myocardial infarction: Father(V17.3, Z82.49) Status:Active Family history of malignant melanoma: Mother(V16.8, Z80.8) Status:Active Mesothelioma: Sister Status:Active Unknown Family Member Name Dates Details Family history of myocardial infarction: Father(V17.3, Z82.49) Status:Active Family history of malignant melanoma: Mother(V16.8, Z80.8) Status:Active Mesothelioma: Sister Status:Active Unknown Family Member Name Dates Details Family history of myocardial infarction: Father(V17.3, Z82.49) Status:Active Family history of malignant melanoma: Mother(V16.8, Z80.8) Status:Active Mesothelioma: Sister Status:Active Advance Directives No Advanced Directives Records FoundDocuments on File Type Date Recorded Patient Safe Expert Expl anation Advance Directive(s) 07/22/2018 8:38 PM Advance Directive(s) 07/09/2018 12:35 PM Advance Directive Response Recorded Date/ Time Advance Directives No October 24 9:12pm Advance Directive Response Recorded Date/ Time Advance Directives No October 24 10:12pm Chief Complaint * AMEE JUÁREZ is being seen for dyspnea. * 70-year-old gentleman returns following recent cardioversion with persistent exertional dyspnea andprofound fatigue. Today he has an irregular heart rhythm, ECG confirms rate controlled atrial flutter with variable AV block at a rate of 54 beats a minute. * He has 2-3+ lower extremity edema that is somewhat painful. Historically he has normal left ventricular function. * This past February we had seen him he was in A. fib and initiated appropriate antithrombotic therapies sent for cardioversion that was successful recently however now in atrial flutter that symptomatic up. He has rare episodes of angina. He has a history of 2 separate non-ST elevation AR events and September 2019 involving the LAD and RCA respectively with revascularization. * Recommendations: Initiate furosemide 20 potassium 10 mEq daily for edema and shortness of breath, discontinue carvedilol, initiate amiodarone 200 daily for his a flutter with repeat cardioversion within the next 4 weeks follow-up with nurse practitioner and then myself thereafterwards * I am doing lousy * AMEE JUÁREZ is being seen for a 4 week follow-up of atrial flutter and edema. * Patient is ambulatory with steady gait. * Last evaluated in clinic by Dr. Dutta Apr 22, 2021. * At that time started lasix (repeat K3.7 and cr 1.2). No benefit, has 12 pound weight gain. Increasing LE edema 'in misery * Progressive worsening WEBER over the last year * Getting weaker since prostate treatment * Difficulty with one flight of steps * Increasing adjustable bed due to orthopnea * Early satiety, loss of appetite * Compared to last cardiovascular evaluation, patient reports doing worse * Prior ACS 'happen sudden' * Amiodarone started Apr 22, 2021 * Apr 2020 LA moderate, mild MR Order sent to [facility] for testing due in May* I am doing lousy * AMEE JUÁREZ is being seen for a 4 week follow-up of atrial flutter and edema. * Patient is ambulatory with steady gait. * Last evaluated in clinic by Dr. Dutta Apr 22, 2021. * At that time started lasix (repeat K3.7 and cr 1.2). No benefit, has 12 pound weight gain. Increasing LE edema 'in misery * Progressive worsening WEBER over the last year * Getting weaker since prostate treatment * Difficulty with one flight of steps * Increasing adjustable bed due to orthopnea * Early satiety, loss of appetite * Compared to last cardiovascular evaluation, patient reports doing worse * Prior ACS 'happen sudden' * Amiodarone started Apr 22, 2021 * Apr 2020 LA moderate, mild MR * AMEE JUÁREZ is being seen for a 3 month follow-up of. * Patient is a 70-year-old gentleman who returns with continued resting and exertional shortness of breath. He was hospitalized both in June and July for the same. He was diagnosed with new onset A. fib in June he was initiated on amiodarone and Eliquis. Left ventricular function is normal, recent stress perfusion imaging is normal * He has a history of prior PCI's of the LAD and right coronary in June 2019 in August 2019 respectively. Today's ECG reveals atrial fibrillation at a rate of 60 with a QT corrected interval estimated at 478 ms. * As he has been on Eliquis since June now for over 8 weeks, with persistent dyspnea and remains in A. fib I recommend proceeding with cardioversion in attempt to restore sinus rhythm and normalize diastolic function and follow-up thereafterwards. Risk benefits alternatives of discussed with patient he is willing to proceed * Pt is here for an EKG as he called on 2021 stating that he feels out of rhythm. Per Marce Naranjo NP bring pt in for an EKG. Meds were reviewed and updated. Pt has complaints of SOB at times. Pt has no other cardiac complaints at time of visit. Pt also stated that his HR has gone as low as 48 at home and is feeling tired and fatigued. EKG discussed with Pancho Delacruz RN * To Dr. Jose Dutta DO for review * To Marce Naranjo NP for signature. Amiodarone Order sent to [facility] for testing due in December* AMEE JUÁREZ is being seen for a 6 month follow-up of. 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 He has a history of paroxysmal A. fib this past year in 2021 with successful cardioversion and remains in sinus rhythm as noted on today's ECG with a QT corrected interval 451 ms and a sinus rate of 73. He has no chest discomfort. He has known coronary disease but is stable, with remote two-vessel PCI's in 2019 Involving the LAD and RCA with normal left ventricular function. Last year he was hospitalized for shortness of breath new onset atrialfibrillation, underwent successful cardioversion on September 03, 2021. * He otherwise has underlying hypertension that is well controlled on current therapies remains on high risk medical therapies * Is already seen neurology and neuro-ophthalmology. Confirmed his right optic nerve stroke. * They have subsequently sent him back to me for further testing and evaluation * Recommendations: Proceed with carotid duplex imaging, echocardiogram with bubble study, Holter monitoring x48 hours, continue with current appropriate therapies otherwise we will follow-up in 6 months * AMEE JUÁREZ is being seen for a 6 month follow-up of. 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 He has a history of paroxysmal A. fib this past year in 2021 with successful cardioversion and remains in sinus rhythm as noted on today's ECG with a QT corrected interval 451 ms and a sinus rate of 73. He has no chest discomfort. He has known coronary disease but is stable, with remote two-vessel PCI's in 2019 Involving the LAD and RCA with normal left ventricular function. Last year he was hospitalized for shortness of breath new onset atrialfibrillation, underwent successful cardioversion on September 03, 2021. * He otherwise has underlying hypertension that is well controlled on current therapies remains on high risk medical therapies * Is already seen neurology and neuro-ophthalmology. Confirmed his right optic nerve stroke. * They have subsequently sent him back to me for further testing and evaluation * Recommendations: Proceed with carotid duplex imaging, echocardiogram with bubble study, Holter monitoring x48 hours, continue with current appropriate therapies otherwise we will follow-up in 6 months Amiodarone Order sent to [facility] for testing due in October* AMEE JUÁREZ is being seen for a 6 month follow-up of. * 72-year-old gentleman returns for follow-up, he is doing well denies any cardiovascular events or recurrent neuro events. 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 Hehas a history of paroxysmal atrial fibrillation with cardioversion in 2021 and remains in sinus rhythm, as noted on today's ECG with a heart rate of 65 a QT corrected interval 443 ms maintained on amiodarone. He has a history of ASHD with remote two-vessel PCI's in 2019 involving the LAD and RCA with normal left ventricular function. His right optic nerve stroke was June 2022 while on Eliquis therapy * Review of his carotid duplex ultrasound revealed mild to moderate right proximal ICA disease on theorder of 50 to 69% with peak distal ICA velocities of 144 over 35 cm/s, and less than 50% disease on the left carotid. Left ventricular echocardiogram revealed normal left ventricular function, left a trial mild enlargement, mild diastolic dysfunction, and no reported evidence of atrial septal abnormalities by bubble echo imaging. * He is somewhat hypertensive today and came down nicely at 146/80 on my exam * Recommendations continue current therapies, reassess blood pressure in 6 weeks, follow-up in 8 months * AMEE JUÁREZ is being seen for a 6 month follow-up of. * 72-year-old gentleman returns for follow-up, he is doing well denies any cardiovascular events or recurrent neuro events. 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 Hehas a history of paroxysmal atrial fibrillation with cardioversion in 2021 and remains in sinus rhythm, as noted on today's ECG with a heart rate of 65 a QT corrected interval 443 ms maintained on amiodarone. He has a history of ASHD with remote two-vessel PCI's in 2019 involving the LAD and RCA with normal left ventricular function. His right optic nerve stroke was June 2022 while on Eliquis therapy * Review of his carotid duplex ultrasound revealed mild to moderate right proximal ICA disease on theorder of 50 to 69% with peak distal ICA velocities of 144 over 35 cm/s, and less than 50% disease on the left carotid. Left ventricular echocardiogram revealed normal left ventricular function, left a trial mild enlargement, mild diastolic dysfunction, and no reported evidence of atrial septal abnormalities by bubble echo imaging. * He is somewhat hypertensive today and came down nicely at 146/80 on my exam * Recommendations continue current therapies, reassess blood pressure in 6 weeks, follow-up in 8 months * Blood pressure check: 'increased pain due to injury' * AMEE JUÁREZ is being seen for hypertension. * Blood pressure check: 'increased pain due to injury' * AMEE JUÁREZ is being seen for hypertension. * Patient presents to the office ambulatory. Last evaluated in clinic by Dr. Dutta December 2022. At that time blood pressure was slightly elevated and presents today for repeat blood pressure check. * Unfortunately, patient presents today with significant sciatica pain and injury that occurred approximately 4 days ago. Apparently he attempted to move a table and it collapsed on his left thigh and right foot. He has a very small hematoma at the site of the injury of the left thigh with ecchymosisbut no pain, pallor or significant edema. The right ankle and foot are swollen and bruised, remain painful -he will be contacting PCP when he leaves the facility today. He has remained compliant withanticoagulation. Does not report that ecchymosis is worsening and it does appear to be resolving. In the interim, we will continue anticoagulation. * Otherwise I have reviewed concomitant medications. He is not taking torsemide. Also is not using sildenafil due to concomitant isosorbide. * Continues to maintain sinus rhythm on low-dose amiodarone. * Adhering to 2017 AHA/ACC Guideline for the Prevention, Detection, Evaluation, and Management of High Blood Pressure in Adults: * - Encouraged primary lifestyle modifications including consumption of healthy diet, reduced sodium intake, moderation in alcohol intake, weight loss and increased physical activity. * Elevated blood pressure in the office today is likely being driven by injury and significant discomfort. He has not followed his blood pressure at home. He will be seeking medical attention from his primary care physician due to injuries. I will have him return to the office in 1 month to reassess blood pressure. * Otherwise, no palpitations or exertional chest pain/dyspnea on exertion or nitroglycerin usage. Chief Complaint and Reason for Visit Chief Complaint z79.899 i48.19 Chief Complaint pelvic floor therapy Reason for Referral Specialty Diagnoses / Procedures Referred By Contac t Referred To Contact Cardiology Diagnoses Persistent atrial fibrillation (CMS/HCC) Procedures Cardioversion External Jose Dutta DO [address] [place] [address] [address], [address] [address] Referral ID Status Reason Start Date Expiration Date V isits Requested Visits Authorized [id number] Pending Review 07/05/2023 07/04/2024 1 1 Specialty Diagnoses / Procedures Referred By Contac t Referred To Contact Diagnoses Persistent atrial fibrillation (CMS/HCC) Procedures ECG 12 Lead Jose Dutta DO [address] [facility] 2, [address] [place] [id number] Referral ID Status Reason Start Date Expiration Date V isits Requested Visits Authorized [id number] Authorized 07/05/2023 07/04/2024 1 1 Specialty Diagnoses / Procedures Referred By Contac t Referred To Contact Cardiology Diagnoses ASHD (arteriosclerotic heart disease) Procedures Follow Up In Cardiology Jose Dutta DO [address] [facility] 2, [address] [place] [address] Jose Dutta, DO [address] [facility] [address], [address] [address] Referral ID Status Reason Start Date Expiration Date V isits Requested Visits Authorized [id number] Authorized 07/05/2023 07/04/2024 1 1 Specialty Diagnoses / Procedures Referred By Contac t Referred To Contact [facility] Diagnoses Urinary incontinence, unspecified type Procedures CONSULT TO PHYSICAL THERAPY [facility] 45 MINS Galileo Delatorre MD [address] [place] [address] [place] [address] [facility] [place] [address] [place] [address] Referral ID Status Reason Start Date Expiration Date Visits Requested Visits Authorized [id number] Authorized PCP Requested Referral Auto-Generate d Referral 01/10/2023 01/09/2024 99 99 Specialty Diagnoses / Procedures Referred By Contac t Referred To Contact Diagnoses Prostate cancer (HCC) Procedures CONSULT [facility] Galileo Delatorre MD [address] [place] [address] [place] [address] Referral ID Status Reason Start Date Expiration Date Visits Requested Visits Authorized [id number] Ref Not Required PCP Requested Referral 01/10/2023 04/09/2023 1 1 Specialty Diagnoses / Procedures Referred By Contac t Referred To Contact Diagnoses Prostate cancer (HCC) Procedures CONSULT TO PSYCHIATRY OFFICE/OUTPATIENT [facility] MDM 60-74 MINUTES Galileo Delatorre MD [address] [place] [address] [place] [address] Referral ID Status Reason Start Date Expiration Date Visits Requested Visits Authorized [id number] Pending Review PCP Requested Referral 01/10/2023 01/09/2024 1 1 Additional Source Comments (unrecognized sect ion and content) No Status Records FoundNo Status Records FoundNo Status Records FoundNo Status Records FoundNo Status Records FoundNo Status Records FoundNo Status Records FoundNo Status Records FoundNo Status Records FoundNo Status Records Found INFORMATION SOURCE (unrecogn ized section and content) DATE CREATED AUTHOR 06/09/[address] [facility] DATE CREATED AUTHOR AUTHOR'S ORGANIZ ATION 10/12/2018 [facility] DATE CREATED AUTHOR AUTHOR'S ORGANIZ ATION 07/04/2021 [facility] DATE CREATED AUTHOR AUTHOR'S ORGANIZ ATION [facility]/2022 [facility] DATE CREATED AUTHOR AUTHOR'S ORGANIZ ATION 10/03/2022 [facility] DATE CREATED AUTHOR AUTHOR'S ORGANIZ ATION 02/01/2023 [facility] DATE CREATED AUTHOR AUTHOR'S ORGANIZ ATION 02/24/2023 [facility] DATE CREATED AUTHOR AUTHOR'S ORGANIZ ATION 02/26/2023 [facility] DATE CREATED AUTHOR AUTHOR'S ORGANIZ ATION 06/17/2023 [facility] DATE CREATED AUTHOR AUTHOR'S ORGANIZ ATION 07/09/2023 [facility] Ambulatory Reason for Visit (unrecogniz ed section and content) Reason Comments Post Op Visit Reason Comments External Referrals/resources CAD Reason Comments Social Work Services [facility] [employer] SW Repo rt follow up. Reason Comments Social Work Services Reason Comments Prostate Cancer Reason Comments Appointment Reason Comments Appointment Confirmation Reason Comments New Patient Pt states he like to know how does the inspire works and is there limited activity after the surgery for it. Reason Comments AION OD, CME OU and CRVO OS Reason Comments Follow-up 6 months Specialty Diagnoses / Procedures Referred By Contac t Referred To Contact Diagnoses Persistent atrial fibrillation (CMS/HCC) Procedures ECG 12 Lead Jose Dutta, [address] [facility] [address], [address] [place] [address] Referral ID Status Reason Start Date Expiration Date V isits Requested Visits Authorized [id number] Authorized 07/05/2023 07/04/2024 1 1 Source Comments (unrecognize d section and content) In the event this informatio n is protected by the Federal Confidentiality of Alcohol and Drug Abuse Patient Records regulations: The Federal rules restrict any use of the information to criminally investigate or prosecute any alcohol or drug abuse patient.[facility] the event this information is protected by the Federal Confidentiality of Alcohol and Drug Abuse Patient Records regulations: The Federal rules restrict any use of the information to criminally investigate or prosecute any alcohol or drug abuse patient.[facility] the event this information is protected by the Federal Confidentiality of Alcohol and Drug Abuse Patient Records regulations: The Federal rules restrict any use of the information to criminally investigate or prosecute any alcohol or drug abuse patient.[facility] the event this information is protected by the Federal Confidentiality of Alcohol and Drug Abuse Patient Records regulations: The Federal rules restrict any use of the information to criminally investigate or prosecute any alcohol or drug abuse patient.[facility] the event this information is protected by the Federal Confidentiality of Alcohol and Drug Abuse Patient Records regulations: The Federal rules restrict any use of the information to criminally investigate or prosecute any alcohol or drug abuse patient.[facility] the event this information is protected by the Federal Confidentiality of Alcohol and Drug Abuse Patient Records regulations: The Federal rules restrict any use of the information to criminally investigate or prosecute any alcohol or drug abuse patient.[facility] the event this information is protected by the Federal Confidentiality of Alcohol and Drug Abuse Patient Records regulations: The Federal rules restrict any use of the information to criminally investigate or prosecute any alcohol or drug abuse patient.[facility] the event this information is protected by the Federal Confidentiality of Alcohol and Drug Abuse Patient Records regulations: The Federal rules restrict any use of the information to criminally investigate or prosecute any alcohol or drug abuse patient.[facility] the event this information is protected by the Federal Confidentiality of Alcohol and Drug Abuse Patient Records regulations: The Federal rules restrict any use of the information to criminally investigate or prosecute any alcohol or drug abuse patient.[facility] the event this information is protected by the Federal Confidentiality of Alcohol and Drug Abuse Patient Records regulations: The Federal rules restrict any use of the information to criminally investigate or prosecute any alcohol or drug abuse patient.[facility] the event this information is protected by the Federal Confidentiality of Alcohol and Drug Abuse Patient Records regulations: The Federal rules restrict any use of the information to criminally investigate or prosecute any alcohol or drug abuse patient.[facility] Care Teams (unrecognized sec tion and content) Team Status: Active Member Role Status Dates Kailey Louise Primary Care Provider Active Team Status: Inactive Member Role Status Dates Kailey Louise Primary Care Provider Active W Bayron Dutta DO Attending Provider Active Varitype Operator Relationship Specialty Start Date End Date Kailey Louise, INDUSTRIAL MAINTENANCE MANAGER [address] [place] [address] PCP - General Family Practice 06/26/18 Varitype Operator Relationship Specialty Start Date End Date Kailey Louise, INDUSTRIAL MAINTENANCE MANAGER [address] [place] [address] PCP - General Family Medicine 06/26/18 Varitype Operator Relationship Specialty Start Date End Date Kailey Louise INDUSTRIAL MAINTENANCE MANAGER [address] [place] [address] PCP - General Family Medicine 06/26/18 Varitype Operator Relationship Specialty Start Date End Date Kailey Louise, INDUSTRIAL MAINTENANCE MANAGER [address] [place] [address] PCP - General Family Medicine 06/26/18 Erin Verma, DECK ENGINEER Boarding Kennel Or Cattery Operator 01/09/23 Varitype Operator Relationship Specialty Start Date End Date Kailey Louise CNP [address] [place] [address] PCP - General Family Medicine 06/26/18 Erin Verma LSW Boarding [employer] Cattery Operator 01/09/23 Varitype Operator Relationship Specialty Start Date End Date Kailey Louise CNP [address] [place] [address] PCP - General Family Medicine 06/26/18 Erin Verma, DECK ENGINEER Boarding [employer] Cattery Operator 01/09/23 Varitype Operator Relationship Specialty Start Date End Date Kailey Louise INDUSTRIAL MAINTENANCE MANAGER [address] [place] [address] PCP - General Family Medicine 06/26/18 Erin Verma, DECK ENGINEER Boarding Kennel [employer] Cattery Operator 01/09/23 Team Status: Inactive Member Role Status Dates Kailey Louise Primary Care Provider Active Galileo Delatorre MD Attending Provider Active Varitype Operator Relationship Specialty Start Date End Date No Pcp, [place] [address] PCP - General Family Medicine 08/18/22 Varitype Operator Relationship Specialty Start Date End Date Kailey Louise, [address] ATTENDANT-INDUSTRIAL MAINTENANCE MANAGER [address] [place] [address] PCP - General 09/25/19 Varitype Operator Relationship Specialty Start Date End Date No Pcp, [place] [address] PCP - General Family Medicine 08/18/22 Goals (unrecognized section and content) Goals may be documented in a n alternate section FOR RECORDS PERTAINING TO PATIENTS WHO ARE OR HAVE BEEN ENROLLED IN A CHEMICAL DEPENDENCY/SUBSTANCEABUSE PROGRAM, SOME INFORMATION MAY BE OMITTED. This clinical summary was aggregated from multiple sources. Caution should be exercised in using it in the provision of clinical care. This summary normalizes information from multiple sources, and as a consequence, information in this document may materially change the coding, format and clinical context of patient data. In addition, data may be omitted in some cases. CLINICAL DECISIONS SHOULD BE BASED ON THE PRIMARY CLINICAL RECORDS. [facility] [employer] [facility]. provides no warranty or guarantee of the accuracy or completeness of information in this document.
[2023-07-09 13:20] LABS: Influenza Virus A Antigen Negative; Influenza Virus B Antigen Negative; Internal Control Within Normal Limits; SARS-CoV-2 Ag NEGATIVE (NEGATIVE)
--- NOTE | 2023-07-09 15:08 | ED_ITS ---
HPI - URI/Sore Throat General Chief Complaint: Upper Respiratory Infection Stated Complaint: URTI Time Seen by Provider: 07/09/23 14:25 Source: patient Limitations: no limitations History of Present Illness HPI Narrative: 72-year-old male presents for a 2-week history of cough. He has been coughing up yellow phlegm. No hemoptysis or fever. He was worried he might have pneumonia which she has had previously. No vomiting or diarrhea. Related Data Previous Rx's Medication Instructions Recorded benzonatate 100 mg capsule 100 mg PO TID PRN cough #20 caps 07/09/23 doxycycline hyclate 100 mg capsule 100 mg PO BID 10 days #20 caps 07/09/23 Allergies Allergy/AdvReac Type Severity Reaction Status Date / Time No Known Drug Allergies Allergy Verified 07/09/23 12:49 Review of Systems ROS Narrative A ten point review of systems is negative except as noted above. PFSH PFSH Social History Smoking status: Former smoker Exam Narrative Exam Narrative: Nurses note and vital signs reviewed and patient is not hypoxic. General: The patient appears well and in no apparent distress. Patient is resting comfortably on cart. Skin: Warm, dry, no pallor noted. There is no rash noted. Head: Normocephalic, atraumatic Eye: Normal conjunctiva, no drainage Ears, Nose, Mouth, and Throat: oral mucosa is moist. Nares patent. Cardiovascular: Not tachycardic Respiratory: Patient is in no distress, no accessory muscle use, lungs are clear to auscultation, no wheezing, rales or rhonchi Back: non-tender GI: Soft and nontender Musculoskeletal: The patient has no evidence of calf tenderness, no pitting padilla ma, symmetrical pulses noted bilaterally Neurological: A&O, normal speech Psychiatric: Cooperative Constitutional Vital Signs, click to edit/add: Last Vital Signs Temp 98 F 07/09/23 12:49 Pulse 65 07/09/23 15:00 Resp 12 07/09/23 15:00 BP 163/85 H 07/09/23 15:00 Pulse Ox 95 07/09/23 15:00 O2 Del Method Room Air 07/09/23 14:19 Course Vital Signs Vital signs: Vital Signs Temperature 98 F 07/09/23 12:49 Pulse Rate 61 07/09/23 12:49 Respiratory Rate 18 07/09/23 12:49 Blood Pressure 163/81 H 07/09/23 12:49 Pulse Oximetry 97 07/09/23 12:49 Oxygen Delivery Method Room Air 07/09/23 12:49 Temperature 98 F 07/09/23 12:49 Pulse Rate 65 07/09/23 15:00 Respiratory Rate 12 07/09/23 15:00 Blood Pressure 163/85 H 07/09/23 15:00 Pulse Oximetry 95 07/09/23 15:00 Oxygen Delivery Method Room Air 07/09/23 14:19 MDM - URI/Sore Throat MDM Narrative Medical decision making narrative: Influenza and COVID testing is negative. Chest x-ray shows no infiltrate. Treatment diagnosis and follow-up were discussed with the patient. Differential Diagnosis Differential diagnosis: Likely upper respiratory infection, viral infection, bronchitis, influenza and other (COVID, pneumonia) Lab Data Attestation: I reviewed the patient's lab results. Labs: Lab Results 07/09/23 Range/Units 12:44 Influenza Type A Ag Negative Influenza Type B Ag Negative SARS-CoV-2 Ag (CV2AG) Negative (NEGATIVE) Imaging Data Chest x-ray: Radiologist's impression: ITS Impressions Chest X-Ray 07/09/23 12:59 IMPRESSION: No acute cardiopulmonary process. Electronically authenticated by: ISAI PATEL Date: 07/09/2023 14:51 ECG Data Attestation: I personally reviewed and interpreted this ECG as follows: (EKG on my interpretation shows what appears to be atrial fibrillation, rate is 65.) Discharge Plan Discharge Chief Complaint: Upper Respiratory Infection Clinical Impression: Upper respiratory infection Patient Disposition: Home, Self-Care Time of Disposition Decision: 15:07 Condition: Good Mode of Transportation: Private Vehicle Prescriptions / Home Meds: New doxycycline hyclate 100 mg capsule 100 mg PO BID 10 Days Qty: 20 0RF benzonatate 100 mg capsule 100 mg PO TID PRN (Reason: cough) Qty: 20 0RF Instructions: Upper Respiratory Infection (ED) Stand Alone Forms: Portal Instructions Referrals: Kailey Louise SEAMER PANTY HOSE [Primary Care Provider] - 1 week
--- NOTE | 2023-07-09 15:44 | ECG_ITS ---
The [facility] Test Date: 2023-07-09 Pat Name: AMEE LANCE Department: Room: - Gender: Male Alignment Technician: : 1950 Requested By: RIK MURRAY Order Number: [id number] Reading MD: LINUS MCNEILL Measurements Intervals [place] Rate: 65 P: -54479 MA: -92390 QRS: -28 QRSD: 94 T: 44 QT: 432 QTc: 444 Interpretive Statements 1210 Atrial fibrillation 7202 Moderate left axis deviation 9140 abnormal rhythm ECG Compared to ECG 02/03/2021 14:32:40 Left-axis deviation now present Electronically Signed On 07-13-2023 5:27:36 EST by LINUS MCNEILL
== END 2023-07-09 15:18 | disposition home or self-care (01) ==
PROVIDERS: Emergency Provider Emergency Medicine; PCP Nurse Practitioner
DX: J06.9 Acute upper respiratory infection, unspecified (principal); Z20.822 Contact with and (suspected) exposure to COVID-19; Z87.891 Personal history of nicotine dependence
CPT/HCPCS: 71046; 87804; 87811; 93005; 99285

== ENCOUNTER 2023-07-31 10:55 | Emergency (ER) | payer MEDICARE, SELFPAY ==
[2023-07-31 11:06] VITALS: BP 167/84; PULSE 61; RESP 18; TEMP 36.6; O2SAT 99; BMI 32.5
--- NOTE | 2023-07-31 11:14 | XR_ITS ---
The [address] [address] Patient Name: AMEE LANCE MRN: [id number] date: 1950 Sex: M Assigned Patient Location: ER Current Patient Location: ER Accession/Order Number: [id number] Exam Date: 07/31/2023 11:25 Report Date: 07/31/2023 11:46 At the request of: FIDE JARQUIN Procedure: XR chest 2V EXAM: Chest x-ray HISTORY: . pain . COMPARISON: 07/09/2023 TECHNIQUE: Frontal and lateral chest FINDINGS: Heart is upper limits of normal in size with a left ventricular contour. There is slight prominence of the bronchovascular markings. Lungs are free of focal infiltrates. No effusions are noted. Early spondylosis of the spine is noted. XR/XR chest 2V IMPRESSION: 1. Borderline cardiac enlargement. 2. Prominence of the bronchovascular markings. Findings could be chronic. Bronchitis or less likely an interstitial pneumonitis cannot entirely be excluded. Electronically authenticated by: GREG AZAR Date: 07/31/2023 11:46
--- NOTE | 2023-07-31 11:45 | CT_ITS ---
The [address] [address] Patient Name: AMEE LANCE MRN: [id number] date: 1950 Sex: M Assigned Patient Location: ER Current Patient Location: ER Accession/Order Number: [id number] Exam Date: 07/31/2023 11:40 Report Date: 07/31/2023 12:09 At the request of: FIDE JARQUIN Procedure: CT cervical spine wo con EXAM: CT cervical spine wo con HISTORY: Cervical spine pain. COMPARISON: None. TECHNIQUE: Noncontrast CT of the cervical spine. Coronal and sagittal reformations were performed. FINDINGS: There is no prevertebral soft tissue swelling or acute cervical spine fracture. There is multilevel degenerative disc disease of the cervical spine that is most pronounced from C3-C4 through C5-C6. There are associated small posterior disc-osteophyte complexes at these levels that contribute to central canal narrowing. There is multilevel and bilateral uncovertebral joint osteoarthritis from C3-C4 through C5-C6. There is also multilevel and bilateral facet joint osteoarthritis. Uncovertebral and facet joint osteoarthritis contribute to neural foraminal narrowing that is most pronounced from C3-C4 through C5-C6. There is also mild left C7-T1, T1-T2, and T2-T3 neural foraminal narrowing. There is atlantodental articulation osteoarthritis. There is bilateral carotid artery atherosclerosis. CT/CT cervical spine wo con IMPRESSION: 1. Multilevel degenerative disc disease of the cervical spine that is most pronounced from C3-C4 through C5-C6. 2. Uncovertebral and facet joint osteoarthritis contribute to neural foraminal narrowing that is most pronounced from C3-C4 through C5-C6. 3. Bilateral carotid artery atherosclerosis. Electronically authenticated by: DEMETRIUS RANGEL Date: 07/31/2023 12:09
--- NOTE | 2023-07-31 12:34 | ECG_ITS ---
The [facility] Test Date: 2023-07-31 Pat Name: AMEE LANCE Department: Room: - Gender: Male Blackjack Dealer: : 1950 Requested By: RIK MURRAY Order Number: [id number] Reading MD: ALEXIA JOSE Measurements Intervals [place] Rate: 59 P: 270 ME: 284 QRS: -19 QRSD: 90 T: 19 QT: 440 QTc: 439 Interpretive Statements 1200 Atrial rhythm 2231 First degree AV block 9150 abnormal ECG Compared to ECG 07/09/2023 14:16:44 First degree AV block now present Atrial fibrillation no longer present Left-axis deviation no longer present Electronically Signed On 07-31-2023 23:30:01 EST by ALEXIA JOSE
[2023-07-31 12:39] VITALS: PULSE 60; RESP 18
--- NOTE | 2023-07-31 12:46 | ED.GENADUL1 ---
HPI - General Adult General Chief complaint: Extremity Problem, Nontraumatic Stated complaint: UPPER EXTREMITY PAIN R ARM Time Seen by Provider: 07/31/23 11:14 Source: patient Mode of arrival: walk-in Limitations: no limitations History of Present Illness HPI narrative: The patient presenting to us with a right shoulder pain that radiated down his arm that started yesterday. He mentioned that there was no history of fall or trauma he was just sitting when this pain started. He does have some neck pain sometimes but he feels that this pain is coming from his shoulder. No hand numbness tingling or any other complaint he also mentioned that he had cardioversion for A-fib almost 4 days ago. No other complaints Related Data Home Medications Medication Instructions Recorded Confirmed amiodarone 100 mg tablet 200 mg PO DAILY 07/31/23 07/31/23 apixaban 5 mg tablet (Eliquis) 5 mg PO BID 07/31/23 07/31/23 atorvastatin 80 mg tablet 80 mg PO DAILY 07/31/23 07/31/23 carbidopa 25 mg-levodopa 100 mg 1 tab PO BID 07/31/23 07/31/23 tablet ferrous sulfate 325 mg (65 mg 325 mg PO DAILY 07/31/23 07/31/23 iron) tablet hydrochlorothiazide 12.5 mg capsule 12.5 mg PO DAILY 07/31/23 07/31/23 hydrocodone 5 mg-acetaminophen 325 1 tab PO Q8H PRN pain 07/31/23 07/31/23 mg tablet isosorbide mononitrate 30 mg 30 mg PO DAILY 07/31/23 07/31/23 tablet,extended release 24 hr roflumilast 500 mcg tablet 500 mcg PO DAILY 07/31/23 07/31/23 spironolactone 25 mg tablet 25 mg PO DAILY 07/31/23 07/31/23 temazepam 15 mg capsule 15 mg PO PRN 07/31/23 07/31/23 valsartan 160 mg tablet 160 mg PO BID 07/31/23 07/31/23 Previous Rx's Medication Instructions Recorded orphenadrine citrate 100 mg 100 mg PO DAILY PRN muscle spasm 07/31/23 tablet,extended release #10 tabs oxycodone-acetaminophen 5 mg-325 1 tab PO Q12H PRN pain 3 days #6 07/31/23 mg tablet (Percocet) tabs prednisone 20 mg tablet 40 mg (2 x 20 mg) PO DAILY 5 days 07/31/23 #10 tabs Allergies Allergy/AdvReac Type Severity Reaction Status Date / Time No Known Drug Allergies Allergy Verified 07/09/23 12:49 Review of Systems ROS Status of ROS 10 or more systems reviewed and unremarkable except as noted in history and [facility] Social History Smoking status: Former smoker Exam Narrative Exam Narrative: Nurses notes and vital signs reviewed and patient is not hypoxic. General: Well-appearing and in no apparent distress. Skin: Warm, dry, no pallor noted. No rash. Head: Normocephalic, atraumatic. Neck: Supple, bilateral mild mostly right-sided paraspinal muscle tenderness no intervertebral line tenderness Eye: Pupils are equal, round and EOMI. No scleral icterus. Ears, Nose, Mouth, and Throat: TM are clear, no nasal mucosal hypertrophy. Oral mucosa is moist, no posterior oropharynx erythema, uvula is mid-line Cardiovascular: Regular Rate and Rhythm without murmur, gallop or rub. Respiratory: No accessory muscle use or respiratory distress. Lungs are clear to auscultation, no wheezing, rales or rhonchi Chest Wall: no tenderness Back: No midline thoracic or lumbar vertebral tenderness. No CVA tenderness Musculoskeletal: normal ROM, no calf or popliteal tenderness, no lower extremity edema/swelling and there is localized tenderness on palpation of the right shoulder mostly anteriorly but the patient have no limitation of movement and the patient have a good radial pulse on the right side with no vascular injury detected GI: Abdomen is soft, non-distended. Normal bowel sounds. No masses appreciated. No tenderness to palpation. No rebound, guarding, or rigidity noted. Neurological: A&O x4. No cranial nerve dysfunction observed. No truncal ataxia. Moves all extremities. Sensation intact. Psychiatric: Cooperative and interactive. Normal mood and affect. Constitutional Vital Signs, click to edit/add: Last Vital Signs Temp 97.8 F 07/31/23 11:06 Pulse 55 L 07/31/23 13:40 Resp 19 07/31/23 13:40 BP 136/84 07/31/23 12:55 Pulse Ox 95 07/31/23 13:40 O2 Del Method Room Air 07/31/23 11:06 Course Vital Signs Vital signs: Vital Signs Temperature 97.8 F 07/31/23 11:06 Pulse Rate 61 07/31/23 11:06 Respiratory Rate 18 07/31/23 11:06 Blood Pressure 167/84 H 07/31/23 11:06 Pulse Oximetry 99 07/31/23 11:06 Oxygen Delivery Method Room Air 07/31/23 11:06 Temperature 97.8 F 07/31/23 11:06 Pulse Rate 55 L 07/31/23 13:40 Respiratory Rate 19 07/31/23 13:40 Blood Pressure 136/84 07/31/23 12:55 Pulse Oximetry 95 07/31/23 13:40 Oxygen Delivery Method Room Air 07/31/23 11:06 Medical Decision Making MDM Narrative Medical decision making narrative: The patient EKG showing sinus rhythm with a heart rate of [address] elevation or depression The patient chest x-ray showed no acute significant pathology as well as CT cervical that shows multiple disc disease with no acute significant cervical stenosis The patient also had a CBC and chemistry with repeated troponin twice that was negative showing no acute significant pathology the patient right now will be treated with prednisone as well as Norflex and Percocet The patient right now differential is mostly secondary to possible impingement syndrome although less likely the cervical disc disease could be causing him to have some pain The patient was instructed about the proper monitoring at home and the patient is to follow up with primary care physician in next 2-3 days or to return to the emergency department should any of the signs or symptoms worsen or new symptoms develop. The patient agrees with the following Diagnosis and Treatment plan and the patient will be discharged home. Lab Data Labs: Lab Results 07/31/23 07/31/23 Range/Units 12:56 14:07 WBC 5.8 (4.0-11.0) 10^3/uL RBC 4.58 L (4.70-6.10) 10^6/uL Hgb 13.5 L (14.0-18.0) g/dL Hct 42.1 (42.0-54.0) % MCV 91.9 (80.0-94.0) fL MCH 29.5 (25.9-34.0) pg MCHC 32.1 (29.9-35.2) g/dL RDW 16.3 H (11.0-15.0) % Plt Count 168 (150-450) 10^3/uL MPV 9.7 (9.5-13.5) fL Neut % (Auto) 74.0 (43.0-75.0) % Lymph % (Auto) 14.5 L (20.5-60.0) % Williamson % (Auto) 10.3 (1.7-12.0) % Eos % (Auto) 0.7 L (0.9-7.0) % Baso % (Auto) 0.3 (0.2-2.0) % Neut # (Auto) 4.3 (1.4-6.5) 10^3/uL Lymph # (Auto) 0.8 L (1.2-3.8) 10^3/uL Williamson # (Auto) 0.6 (0.3-0.8) 10^3/uL Eos # (Auto) 0.0 (0.0-0.7) 10^3/uL Baso # (Auto) 0.0 (0.0-0.1) 10^3/uL Abs Immat Gran (auto) 0.01 (0.00-0.03) 10^3/uL Imm/Tot Granulo (auto) 0.2 (0.0-0.5) % Sodium 141 (136-145) mmol/L Potassium 4.1 (3.5-5.1) mmol/L Chloride 107 (98-107) mmol/L Carbon Dioxide 25.1 (21.0-32.0) mmol/L Anion Gap 13.0 BUN 23.0 H (7.0-18.0) mg/dL Creatinine 1.71 H (0.70-1.30) mg/dL Est GFR ( Amer) 48 L (>=60) Est GFR (Non-Af Amer) 39 L (>=60) BUN/Creatinine Ratio 13.5 Glucose 106 (74-106) mg/dL Calcium 8.6 (8.5-10.1) mg/dL Total Bilirubin 0.7 (0.2-1.0) mg/dL AST 17 (15-37) U/L ALT 25 (16-63) U/L Alkaline Phosphatase 85 (46-116) U/L Troponin I High Sens 11.1 10.9 (4.0-76.1) pg/mL Total Protein 6.4 (6.4-8.2) g/dL Albumin 3.7 (3.4-5.0) g/dL Globulin 2.7 g/dL Albumin/Globulin Ratio 1.4 Discharge Plan Discharge Chief Complaint: Extremity Problem, Nontraumatic Clinical Impression: Impingement of right shoulder, Cervical disc disease Patient Disposition: Home, Self-Care Time of Disposition Decision: 14:47 Condition: Good Prescriptions / Home Meds: New prednisone 20 mg tablet 40 mg PO DAILY 5 Days Qty: 10 0RF orphenadrine citrate 100 mg tablet extended release 100 mg PO DAILY PRN (Reason: muscle spasm) Qty: 10 0RF oxycodone-acetaminophen [Percocet] 5-325 mg tablet 1 tab PO Q12H PRN (Reason: pain) 3 Days Qty: 6 0RF No Action amiodarone 100 mg tablet 200 mg PO DAILY Eliquis 5 mg tablet 5 mg PO BID atorvastatin 80 mg tablet 80 mg PO DAILY carbidopa-levodopa 25-100 mg tablet 1 tab PO BID ferrous sulfate 325 mg (65 mg iron) tablet 325 mg PO DAILY hydrochlorothiazide 12.5 mg capsule 12.5 mg PO DAILY hydrocodone-acetaminophen 5-325 mg tablet 1 tab PO Q8H PRN (Reason: pain) isosorbide mononitrate 30 mg tablet extended release 24 hr 30 mg PO DAILY roflumilast 500 mcg tablet 500 mcg PO DAILY temazepam 15 mg capsule 15 mg PO PRN spironolactone 25 mg tablet 25 mg PO DAILY valsartan 160 mg tablet 160 mg PO BID Instructions: Cervical Disc Herniation (ED), Shoulder Impingement Syndrome (ED) Stand Alone Forms: Portal Instructions Referrals: Kailey Louise NP [Primary Care Provider] - 1 week
[2023-07-31] MEDS: KETOROLAC TROMETHAMINE 30 MG/ML VIAL 15 MG IVP (12:51)
[2023-07-31] MEDS: ORPHENADRINE 60 MG/ 2 ML VIAL 30 MG IV (12:51)
[2023-07-31 12:55] VITALS: BP 136/84; PULSE 58; RESP 17; O2SAT 97
[2023-07-31 13:07] LABS: Basophils Percent Auto 0.3 % (0.2-2.0); Eosinophils Percent Auto 0.7 % (0.9-7.0); Hematocrit 42.1 % (42.0-54.0); Hemoglobin 13.5 g/dL (14.0-18.0); Immature Granulocytes Abs Auto 0.01 10^3/uL (0.00-0.03); Immature Granulocytes Pct Auto 0.2 % (0.0-0.5); Lymphocytes Absolute Auto 0.8 10^3/uL (1.2-3.8); Lymphocytes Percent Auto 14.5 % (20.5-60.0); Mean Corpuscular HGB Conc 32.1 g/dL (29.9-35.2); Mean Corpuscular Hemoglobin 29.5 pg (25.9-34.0); Mean Corpuscular Volume 91.9 fL (80.0-94.0); Mean Platelet Volume 9.7 fL (9.5-13.5); Monocytes Absolute Auto 0.6 10^3/uL (0.3-0.8); Monocytes Percent Auto 10.3 % (1.7-12.0); Neutrophils Absolute Auto 4.3 10^3/uL (1.4-6.5); Platelet Count 168 10^3/uL (150-450); Red Blood Count 4.58 10^6/uL (4.70-6.10); Red Cell Distribution Width 16.3 % (11.0-15.0); White Blood Count 5.8 10^3/uL (4.0-11.0)
[2023-07-31 13:10] VITALS: PULSE 55; RESP 18; O2SAT 96
[2023-07-31 13:20] VITALS: PULSE 56; RESP 18; O2SAT 96
[2023-07-31] MEDS: MORPHINE SULFATE 2 MG/ML SYRINGE IV (13:26)
[2023-07-31 13:29] LABS: Alanine Aminotransferase 25 U/L (16-63); Albumin Globulin Ratio 1.4; Albumin Level 3.7 g/dL (3.4-5.0); Alkaline Phosphatase 85 U/L (46-116); Aspartate Amino Transferase 17 U/L (15-37); BUN Creatinine Ratio 13.5; Bilirubin Total 0.7 mg/dL (0.2-1.0); Calcium 8.6 mg/dL (8.5-10.1); Carbon Dioxide 25.1 mmol/L (21.0-32.0); Chloride 107 mmol/L (98-107); Estimated GFR (African America 48 (>=60); Estimated GFR (Non-African Ame 39 (>=60); Globulin 2.7 g/dL; Glucose 106 mg/dL (74-106); Potassium 4.1 mmol/L (3.5-5.1); Sodium 141 mmol/L (136-145); Total Protein 6.4 g/dL (6.4-8.2); Troponin I High Sensitivity 11.1 pg/mL (4.0-76.1)
[2023-07-31 13:40] VITALS: PULSE 55; RESP 19; O2SAT 95
[2023-07-31 14:29] LABS: Troponin I High Sensitivity 10.9 pg/mL (4.0-76.1)
== END 2023-07-31 15:08 | disposition home or self-care (01) ==
PROVIDERS: Emergency Provider Emergency Medicine; PCP Nurse Practitioner
DX: M75.41 Impingement syndrome of right shoulder (principal); M50.322 Other cervical disc degeneration at C5-C6 level; M50.31 Other cervical disc degeneration, high cervical region; Z79.899 Other long term (current) drug therapy; Z87.891 Personal history of nicotine dependence
CPT/HCPCS: 36415; 71046; 72125; 80053; 84484; 85025; 93005; 96374; 96375; 99285; J1885; J2270; J2360

== ENCOUNTER 2024-07-04 21:09 | Emergency (ER) | payer MEDICARE, SELFPAY ==
[2024-07-04 21:12] VITALS: BP 126/74; PULSE 68; TEMP 36.8; O2SAT 95; BMI 29.8
--- OUTSIDE RECORDS SUMMARY | 2024-07-04 21:15 | XMS_ITS | CCD ---
Author Organization [facility] Care Team Providers Care Drop Machine Operator Name Role Phone Dru Barros Unavailable Unavailable Dru Barros Unavailable Unavailable Roslyn Brarosnathan Unavailable Unavailable DANI KAILEY Unavailable Unavailable PHYSICIAN, [...] e Kailey Louise CNP Primary Care Provider Susana, Harriett Unavailable Kailey Louise Primary Care Provider [phone] DO Kary Dutta Attending Provider Kailey Louise CNP Primary Care Provider [phone] JOSE DUTTA Attending Unavailab le Dani, Mrs. Kailey Mcgowan Primary Care Unavailab le OSKAR LOUISE Admitting Unavailable AICHHOLOSKAR LittleA Primary Care Unavailable AICOSKAR CURRYA Attending Unavailable AICHHOLOSKAR Little KAILEY Admitting Unavailable AICHHOLSidney SERVICE COUNTER CASHIER KAILEY Primary Care Unavailable AICOSKAR CURRY KAILEY Consulting Unavailable OSKAR LOUISEA Attending Unavailable SUSANA, HARRIETT Admitting Unavailable SUSANA, HARRIETT Attending Unavailable AICOSKAR CURRYA Primary Care Unavailable DR GREG POLLARD V Consulting Unavailable SUSANA, HARRIETT Consulting Unavailable AICHHOLZ, SERVICE COUNTER CASHIER KAILEY Attending Unavailable AICHHOLZ, SERVICE COUNTER CASHIER KAILEY Admitting Unavailable AICHHOLZ, SERVICE COUNTER CASHIER KAILEY Primary Care Unavailable AICHHOLZ, SERVICE COUNTER CASHIER KAILEY Consulting Unavailable AICHHOLZ, SERVICE COUNTER CASHIER KAILEY Admitting Unavailable AICHHOLZ, SERVICE COUNTER CASHIER KAILEY Primary Care Unavailable AICHHOLZ, SERVICE COUNTER CASHIER KAILEY Consulting Unavailable AICHHOLZ, SERVICE COUNTER CASHIER KAILEY Attending Unavailable DR JASSI WITT Consulting Unavailable JUAN RAMON, GALILEO Consulting Unavailable JUAN RAMON, GALILEO Attending Unavailable AICHHOLZ, SERVICE COUNTER CASHIER KAILEY Primary Care Unavailable JUAN RAMON, GALILEO Admitting Unavailable AICHHOLZ, SERVICE COUNTER CASHIER KAILEY Attending Unavailable AICHHOLZ, SERVICE COUNTER CASHIER KAILEY Admitting Unavailable AICHHOLZ, SERVICE COUNTER CASHIER KAILEY Primary Care Unavailable ATUL, DR GREG Cartwright Consulting Unavailable AICHHOLZ, SERVICE COUNTER CASHIER KAILEY Consulting Unavailable Aichholz, Kailey J Primary Care Provider DO Kary Dutta Attending Provider Erin Jordan Unavailable Unavailable MD ISAIAS CAVAZOS Attending Unav ailable MD ISAIAS CAVAZOS Referring Unav ailable Aichholz, Mrs. Bonner Roslyn Primary Care Unavailab Vinicius Williamson Attending Unavailable Vinicius Juárez Referring Unavailable Aichholz, . Kailey Roslyn Primary Care Unavailab le Tra, Dr. Jose Verma Attending Unava ilnicho Dutta, Dr. Jose Verma Referring Unava ilable Aichholz, . Kailey Roslyn Primary Care Unavailab lashae Dutta, Dr. Jose Verma Attending Unava ilnicho Dutta, Dr. Jose Verma Referring Unava ilable Aichholz, . Kailey Roslyn Primary Care Unavailab lashae Dutta, Dr. Jose Verma Attending Unava ilnicho Dutta, Dr. Jose Verma Referring Unava ilable Aichholz, . Kailey Roslyn Primary Care Unavailab le Aichholz, Kailey J Primary Care Provider MD Galileo Delatorre Attending Provider Aichholz, Kailey J Primary Care Provider DO Kary Dutta Attending Provider No Pcp, No Pcp Primary Care Provider Unavailabl e Arpanhjeromy INSPECTOR AND CLIPPER-SERVICE COUNTER CASHIER, Kailey Roslyn Primary Care Provider Lior Georges MD Primary Care Provider [phone] MD Isaias Cavazos Referring Provider Aichjeromy SERVICE COUNTER CASHIER, Kailey Roslyn Primary Care Provider AICHHOLZ, KAILEY ROSLYN Primary Care Unavailable GALILEO DELATORRE Attending Unavailable AICHHOLZ, KAILEY ROSLYN Primary Care Unavailable GALILEO DELATORRE Attending Unavailable AICHHOLZ, KAILEY ROSLYN Primary Care Unavailable FRANCISCO CLAIRE Attending Unavailable AICHHOLZ, KAILEY ROSLYN Primary Care Unavailable AICHHOLZ, KAILEY ROSLYN Primary Care Unavailable JOSE DUTTA Attending Unavailable AICHHOLZ, KAILEY ROSLYN Primary Care Unavailable JOSE DUTTA Referring Unavailable AICHHOLZ, KAILEY ROSLYN Primary Care Unavailable VINICIUS JUÁREZ Attending Unavailable AICHHOLZ, KAILEY ROSLYN Primary Care Unavailable JOSE DUTTA Attending Unavailable VINICIUS JUÁREZ Referring Unavailable AICHHOLZ, KAILEY ROSLYN Primary Care Unavailable Destini SULLIVAN, Lior Primary Care Provider Dani PASS WORKER, Kailey Unavailable Brandt Mckenzie DO Unavailable [facility] Un[facility] [phone] Kailey Louise Primary Care Provider Amee Herrera MD Emergency Provider DANI KAILEY Attending Unavailable ANABELLE MORALES Attending Unavailable BRANDT MCKENZIE Referring Unavailable KAILEY LOUIES Attending Unavailable KAILEY LOUISE Attending Unavailable DANI, KAILEY Attending Unavailable Dani, Kailey J Other Provider Kary Dutta DO Attending Provider [phone] Amee Herrera Jr Attending Unavailable Kailey Louise Primary Care Unavailable Amee Herrera Jr Admitting Unavailable Kary Dutta Admitting Unavailable Kary Dutta Attending Unavailable Arpanhholz, Kailey J Primary Care Unavailable Isaias Cavazos Referring Unavailable Kary Dutta Admitting Unavailable Kary Dutta Attending Unavailable Kailey Louise Primary Care Unavailable Kailey Louise Consulting Unavailable Allergies Allergy Classification Reported Allergen(s) Allergy Type Date of Onset Reaction(s) Facility (1 source) No Known Medication Allergies; Translations: [No Known Medication Allergies] Propensity to adverse reactions (disorder) [facility] Repository (20 sources) amLODIPine; Translations: [AMLODIPINE] Drug Allergy 3 Other [facility] Medications Current Medications Medication Drug Class(es) Dates Sig (Normalized) Sig (Original) acetaminophen 300 mg / codeine phosphate 30 mg oral tablet (1 source) Opioid Agonist take 1 tablet by mouth every four hours as needed acetaminophen-cod eine 300-30 MG per tablet Take 1 tablet by mouth every 4 hours as needed. 0 Active acetaminophen 325 mg / HYDROcodone bitartrate 5 mg oral tablet (20 sources) Opioid Agonist Start: 07-25-2023 take 1 tablet by mouth every four to six hours as needed for pain Hydrocodone-Aceta minophen 5-325 mg tablet Active 1 TAB PO EVERY 4-6 HOURS as needed for pain July 25, 2023 12:00am Start: 01-30-2023 End: 02-22-2024 take 1 tablet by mouth every eight hours as needed for pain HYDROcodone-acetaminophen ([place]) 5-325 MG tablet Take 1 tablet by mouth every 8 (eight) hours if needed for severe pain 01/30/2023 02/22/2024 Discontinued (Therapy completed) Start: 11-11-2020 take 1 tablet by andrea th every four hours as needed hydroCODone-acetaminophen 5-325 MG table t Indications: Ptosis of both upper eyelids , Dermatochalasis of both upper eyelids Take 1 tablet by mouth every 4 hours as needed for up to 3 days. 18 tablet 0 11/11/2020 Active take 1 tablet by andrea th every six hours as needed HYDROcodone-acetaminophen ([place]) 5-325 mg tablet Take 1 tablet by mouth every 6 hours if needed (pain). Active albuterol 0.83 mg/ml inhalation solution (20 sources) beta2-Adrenergic Agonist Start: 04-17-2024 albut alessandra (2.5 MG/3ML) 0.083% nebulizer solution Indications: COPD mixed type (CMS/HCC) Take 3 mL by nebulization every 6 (six) hours if needed for wheezing or shortness of breath 75 mL 1 04/17/2024 Active Start: 07-25-2023 take 1.25 mg by inha lation every four to six hours as needed for wheezing Albuterol Sulfate 2.5 mg /3 mL (0.083 %) solution for nebulization Active 1.25 MG INHALATION EVERY 4-6 HOURS as needed for shortness of breath or wheezing July 25, 2023 12:00am Start: 10-24-2017 End: 06-18-2019 take 0.63 mg by inhalation every four hours as needed for wheezing Albuterol Sulfate 0.63 mg/3 mL Solution For Nebulization Discontinued 0.63 MG INHALATION Q4H as needed for Shortness Of Breath Or Wheezing October 23, 2017 11:00pm June 18, 2019 11:21am End: 04-17-2024 albuterol (2.5 MG/3ML) 0.083 % nebulizer solution Take 3 mL by nebulization 4 (four) times a day as needed 04/17/2024 Discontinued (Reorder) take 2.5 mg by inhal ation every four hours as needed albuterol (PROVENTIL) 2.5 mg /3 mL (0.083 %) nebulizer solution Use 2.5 mg via nebulizer every 4 hours as needed. Active Comment on above: Use 2.5 mg via nebul izer every 4 hours as needed. 120 actuat albuterol 0.1 mg/actuat / ipratropium bromide 0.02 mg/actuat inhalation spray (20 sources) Anticholinergic, beta2-Adrenergic Agonist ipratropium-alb uterol (Combivent Respimat) 20-100 MCG/ACT inhaler Inhale 1 puff in the morning and 1 puff at noon and 1 puff in the evening and 1 puff before bedtime. Active ipratropium-albu terol (Duo-Neb) 0.5-2.5 mg/3 mL nebulizer solution Take 3 mL by nebulization in the morning and 3 mL at noon and 3 mL in the evening and 3 mL before bedtime. Active Albuterol Sulfate (2.5 MG/ 3 ML) 2.5 MG/3ML 0.083% Nebulization Solution (5 sources) Albuterol Sulfat e (2.5 MG/ 3 ML) 2.5 MG/3ML 0.083% Nebulization Solution 3ml Inhalation 4 times a day Active amiodarone hydrochloride 100 mg oral tablet (20 sources) Antiarrhythmic Start: 09-30-2021 End: 07-05-2023 take 1 tablet by mouth in the morning amiodarone (PACERONE) 100 mg tablet Take 1 tablet (100 mg total) by mouth in the morning. 03/17/2022 Active Start: 08-26-2021 take 0.5 tablet by m outh once daily Amiodarone HCl - 200 MG Oral Tablet TAKE 0.5 TABLET Daily Quantity: 45 Refills: 3 Ordered: 27-Aug-2021 Vinicius Silverman Start : 26-Aug-2021 Active Start: 06-24-2021 End: 01-01-2024 take 2 tablets by mouth once daily Amiodarone (Pacerone) 200 mg tablet Active 400 MG PO Daily June 24, 2021 12:00am Start: 06-24-2021 Amiodarone (Pa cerone) 200 mg tablet Active 100 MG PO Daily June 24, 2021 12:00am Start: 04-22-2021 End: 03-11-2024 take 1 tablet by mouth once daily amiodarone (Pacerone) 200 mg tablet Indications: Paroxysmal atrial flutter (Multi) Take 1 tablet (200 mg) by mouth once daily. 30 tablet 5 09/13/2023 Active Comment on above: Take 200 mg by mouth once daily. amoxicillin 875 mg / clavulanate 125 mg oral tablet (3 sources) Penicillin-class Antibacterial Start: 4 End: 4 take 1 tablet by mouth in the morning amoxicillin-clav ulanate (Augmentin) 875-125 MG tablet Indications: Acute URI Take 1 tablet (875 mg) by mouth in the morning and 1 tablet (875 mg) before bedtime. Do all this for 10 days. 20 tablet 03/11/2024 03/21/2024 Active apixaban 5 mg oral tablet (20 sources) Factor Xa Inhibitor Start: 1 take 1 tablet by mouth in the morning Eliquis 5 MG tablet Take 1 tablet by mouth in the morning and 1 tablet before bedtime. 04/21/2023 Active take 1 tablet by andrea th every twelve hours Eliquis 5 MG Oral Tablet TAKE 1 TABLET Every twelve hours Quantity: 0 Refills: 0 Ordered: 08-Mar-2021 DO Active aspirin 81 mg chewable tablet (20 sources) Platelet Aggregation Inhibitor, Nonsteroidal Anti-inflammatory Drug Start: 06-18-2019 take 1 tablet by mouth once daily Aspirin 81 mg Tablet,Chewable Active 81 MG PO Daily June 18, 2019 12:00am take 1 tablet by mouth in the mo rning aspirin 81 MG EC tablet Take 1 tablet by mouth in the morning. 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 06/18/2019 Active Comment on above: 81 mg. 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 benzonatate 200 mg oral capsule (5 sources) Non-narcotic Antitussive Start: End: take 1 capsule by mouth three times daily as needed for cough benzonatate (Tessalon) 200 MG capsule Indications: Acute cough Take 1 capsule (200 mg) by mouth 3 (three) times a day as needed for cough for up to 10 days Do not crush or chew. 30 capsule 07/03/2024 07/13/2024 Active Start: 03-11-2024 End: 03-18-2024 take 1 capsule by mouth every eight hours for cough benzonatate (Tessalon) 200 MG capsule Indications: Acute URI Take 1 capsule (200 mg) by mouth every 8 (eight) hours if needed for cough for up to 7 days Take with full glass of water. Do not crush or chew. 21 capsule 03/11/2024 03/18/2024 Active 60 actuat budesonide 0.16 mg/actuat / formoterol fumarate 0.0045 mg/actuat metered dose inhaler (20 sources) Corticosteroid, beta2-Adrenergic Agonist Start: 07-04-2023 End: 10-02-2023 take 2 puff(s) by inhalation in the morning budesonide-formoterol (Symbicort) 160-4.5 MCG/ACT inhaler Indications: Chronic obstructive pulmonary disease, unspecified (CMS/HCC) Inhale 2 puffs in the morning and 2 puffs before bedtime. 3 each 1 07/04/2023 10/02/2023 Active Start: 03-26-2022 take 2 puff(s) by mo uth twice daily SYMBICORT 160-4.5 mcg/actuation inhaler TAKE 2 PUFFS BY MOUTH TWICE A DAY RINSE MOUTH AFTER USE 03/26/2022 Active Start: 06-16-2019 End: 12-18-2023 take 2 puff(s) by mouth twice daily Budesonide-Formoterol (Symbicort) 160-4.5 mcg/actuation HFA aerosol inhaler Discontinued 2 PUFF INHALATION Twice daily June 16, 2019 12:00am December 18, 2023 10:27am TAKE 2 PUFFS BY MOUTH TWICE A DAY RINSE MOUTH AFTER USE Start: 06-16-2019 End: 12-18-2023 take 2 puff(s) by mouth twice daily Budesonide-Formoterol (Symbicort) 160-4.5 mcg/actuation HFA aerosol inhaler Discontinued 2 PUFF INHALATION Twice daily June 16, 2019 1:00am December 18, 2023 11:27am TAKE 2 PUFFS BY MOUTH TWICE A DAY RINSE MOUTH AFTER USE Start: 06-16-2019 take 2 puff(s) by mo uth twice daily Budesonide-Formoterol (Symbicort) 160-4.5 mcg/actuation HFA aerosol inhaler Active 2 PUFF INHALATION Twice daily June 16, 2019 1:00am TAKE 2 PUFFS BY MOUTH TWICE A DAY RINSE MOUTH AFTER USE Start: 06-16-2019 take 2 puff(s) by mo uth twice daily Budesonide-Formoterol (Symbicort) 160-4.5 mcg/actuation HFA aerosol inhaler Active 2 PUFF INHALATION Twice daily June 16, 2019 12:00am TAKE 2 PUFFS BY MOUTH TWICE A DAY RINSE MOUTH AFTER USE Start: 05-14-2018 SYMBICORT 160- 4.5 mcg/actuation inhaler TAKE 2 PUFFS BY MOUTH TWICE A DAY*RINSE MOUTH AFTER USE* 5 05/14/2018 Active Start: 04-30-2018 End: 06-16-2019 Budesonide-Formoterol 160-4. 5 mcg/actuation HFA aerosol inhaler Discontinued April 30, 2018 12:00am June 16, 2019 10:13pm Start: 10-24-2017 End: 06-16-2019 Budesonide-Formoterol 160-4. 5 mcg/actuation HFA aerosol inhaler Discontinued 2 INH INHALATION Twice daily October 23, 2017 11:00pm June 16, 2019 10:13pm Start: 02-15-2017 take 2 puff(s) by in halation twice daily Symbicort 160-4.5 MCG/ACT 2 puffs Inhalation Twice a day Feb, Active End: 03-14-2024 take 2 puff(s) by mouth twice daily budesonide-formoteroL (Symbicort) 160-4.5 mcg/actuation inhaler Inhale 2 puffs 2 times a day. RINSE MOUTH AFTER USE. 03/14/2024 Discontinued (Discontinued by another clinician) take 2 puff(s) by mo uth twice daily budesonide-formoteroL (Symbicort) 160-4.5 mcg/actuation inhaler Inhale 2 puffs 2 times a day. RINSE MOUTH AFTER USE. Active take 2 puff(s) by mo uth twice daily budesonide-formoteroL (Symbicort) 160-4.5 mcg/actuation inhaler Inhale 2 puffs 2 times a day. RINSE MOUTH AFTER USE. 0 Active take 2 puff(s) by mo uth twice daily Symbicort 160-4.5 MCG/ACT Inhalation Aerosol [...] 2021 12:00am take 1 tablet by andrea th every twelve hours buPROPion SR (WELLBUTRIN SR) 150 mg 12 h r tablet Take 1 tablet (150 mg total) by mouth. Active Comment on above: Take 150 mg by mouth once daily. carbidopa 25 mg / levodopa 100 mg oral tablet (20 sources) Aromatic Amino Acid Decarboxylation Inhibitor, Aromatic Amino Acid Start: 3 take 1 tablet by mouth in the morning, then take 1 tablet by mouth in the evening, then take 1 tablet by mouth at bedtime carbidopa-levodo pa (Sinemet) 25-100 MG tablet Take 1 tablet by mouth in the morning and 1 tablet in the evening and 1 tablet before bedtime. 7AM, 11AM, 4PM - [facility]. 04/19/2023 Active Start: 01-12-2022 take 1 tablet by mouth once ca rbidopa-levodopa (SINEMET) 25- 100 mg per tablet TAKE 1 TABLET BY MOUTH AT 7AM,11AM,AND 4PM FOR 90 DAYS 01/12/2022 Active Start: 01-12-2022 take 1 tablet by andrea th twice daily Carbidopa-Levodopa (Sinemet) 25-100 mg tablet Active 1 TAB PO Twice daily July 25, 2023 12:00am carvedilol 6.25 mg oral tablet (20 sources) alpha-Adrenergic Fadumo, beta-Adrenergic Fadumo Start: 07-25-2023 take 1 tablet by mouth twice daily at mealtime Carvedilol (Coreg) 6.25 mg tablet Active 6.25 MG PO Twice daily July 25, 2023 12:00am must administer with a meal/food Start: 09-23-2019 End: 06-24-2021 take 1 tablet by mouth twice daily at mealtime Carvedilol 6.25 mg Tablet Discontinued 6.25 MG PO Twice daily with meals 60 30 September 22, 2019 11:00pm June 24, 2021 3:10am clopidogrel 75 mg oral tablet (1 source) P2Y12 Platelet Inhibitor take 1 tablet by mouth once daily clopidogrel 75 MG tablet Take 75 mg by mouth daily. 0 Active erythromycin 0.005 mg/mg ophthalmic ointment (1 source) Macrolide, Macrolide Antimicrobial Start: apply 3.5 g into the eye(s) three times daily erythromycin 5 MG/GM Ointment ophthalmic ointment Indications: Ptosis of both upper eyelids , Dermatochalasis of both upper eyelids Use 3 times a day until postop appointment 3.5 g 1 11/11/2020 Active ferrous sulfate 325 mg oral tablet (14 sources) Start: End: take 1 tablet by mouth at mealtime ferrous sulfate 325 (65 Fe) MG tablet Indications: Iron deficiency anemia secondary to inadequate dietary iron intake Take 1 tablet (325 mg) by mouth in the morning. Take with meals. 90 tablet 1 01/05/2024 04/04/2024 Active Start: 07-25-2023 take 1 tablet by andrea th once daily Ferrous Sulfate 325 mg (65 mg iron) tablet,delayed release (DR/EC) Active 325 MG PO Daily July 25, 2023 12:00am Start: 06-06-2023 End: 09-04-2023 take 1 tablet by mouth at mealtime ferrous sulfate (FerrouSul) 325 (65 Fe) MG tablet Indications: Iron deficiency anemia secondary to inadequate dietary iron intake Take 1 tablet (325 mg) by mouth in the morning. Take with meals. 90 tablet 1 06/06/2023 09/04/2023 Active fluticasone propionate 0.05 mg/actuat metered dose nasal spray (2 sources) Corticosteroid take 1 spray(s) nasa l route once daily Fluticasone Propionate 50 MCG/ACT [...] supply of Symbicort at home. Jun, Active 14 actuat fluticasone furoate 0.1 mg/actuat / vilanterol 0.025 mg/actuat dry powder inhaler (20 sources) Corticosteroid, beta2-Adrenergic Agonist Start: 04-17-2024 End: 05-15-2024 Fluticasone Furoate-Vilanter ol (Breo Ellipta) 100-25 MCG/ACT aerosol powder Indications: COPD mixed type (CMS/HCC) Inhale 100 mg Daily for 28 days Rinse mouth after use 1 each 3 04/17/2024 Active Start: 12-18-2023 take 1 puff(s) by in halation once daily fluticasone furoate-vilanteroL (Breo Ellipta) 100-25 mcg/dose inhaler Inhale 1 puff once daily. 12/18/2023 Active Start: 12-18-2023 End: 04-16-2024 Fluticasone Furoate-Vilanter ol (Breo Ellipta) 100-25 mcg/dose blister with device Active 1 INH INHALATION Daily 60 April 16, 2024 4:41pm Start: 10-09-2023 End: 04-17-2024 Fluticasone Furoate-Vilanter ol (Breo Ellipta) 100-25 MCG/ACT aerosol powder Indications: COPD mixed type (CMS/HCC) Inhale 100 mg Daily for 28 days 1 each 3 10/09/2023 04/17/2024 Discontinued (Reorder) 12 hr guaiFENesin 1200 mg extended release oral tablet (20 sources) Start: 06-18-2019 guaiFENesin 1, 200 mg Ta12 Indications: Branch retinal vein occlusion of left eye with macular edema , Epiretinal membrane (ERM) of left eye , 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 06/18/2019 Active Start: 06-18-2019 take 1 tablet by andrea th every twelve hours Guaifenesin Active 1200 MG PO Q12H 0 June 18, 2019 11:20am TAKE 1 TABLET BY MOUTH EVERY 12 HOURS Start: 10-24-2017 End: 06-18-2019 take 1 tablet by mouth every twelve hours as needed Guaifenesin 1,200 mg tablet extended release 12hr Active 1200 MG PO Q12H as needed for Sinus Symptoms 0 June 18, 2019 11:20am TAKE 1 TABLET BY MOUTH EVERY 12 HOURS Start: 02-28-2017 take 1 tablet by andrea [...] 1 tablet (600 mg total) by mouth. Active take 1 tablet by andrea th twice daily, then take 1 tablet by mouth every twelve hours guaiFENesin (Mucinex) 600 MG Tab SR 12 HR tablet SR Take 600 mg by mouth 2 times daily. 0 Active Comment on above: 1,200 mg. hydroCHLOROthiazide 12.5 mg oral capsule (20 sources) Thiazide Diuretic Start: 2023 End: 2024 take 1 capsule by mouth once daily hydroCHLOROthiazide (Microzide) 12.5 MG capsule Take 12.5 mg by mouth Daily 01/01/2024 Active Start: 10-24-2017 End: 06-24-2021 take 1 tablet by mouth once daily Hydrochlorothiazide 25 mg tablet Discontinued 25 MG PO Daily October 23, 2017 11:00pm June 24, 2021 3:10am End: 07-05-2023 take 1 tablet by mouth once daily hydroCHLOROthiazide (HYDRODiuril) 12.5 mg tablet Take 1 tablet (12.5 mg) by mouth once daily. 0 07/05/2023 Discontinued (Duplicate order) 24 hr isosorbide mononitrate 60 mg extended release oral tablet (20 sources) Nitrate Vasodilator Start: 07-25-2023 take 1 tablet by mouth once daily, then take 2 tablets by mouth every twenty-four hours Isosorbide Mononitrate 60 mg Tablet Extended Release 24 Hr Active 30 MG PO Daily July 25, 2023 12:00am Start: 03-12-2022 End: 09-11-2024 take 1 tablet by mouth once daily, then take 1 tablet by mouth every twenty-four hours isosorbide mononitrate ER (Imdur) 30 MG 24 hr tablet Take 30 mg by mouth Daily 06/15/2023 Active Start: 06-25-2021 isosorbide mon onitrate ER (IMDUR) 60 mg 24 hr tablet 06/25/2021 Active Start: 06-25-2021 End: 07-25-2023 take 1 tablet by mouth once daily, then take 1 tablet by mouth every twenty-four hours Isosorbide Mononitrate 60 mg Tablet Extended Release 24 Hr Discontinued 60 MG PO Daily June 25, 2021 12:00am July 25, 2023 1:26pm Start: 06-23-2021 End: 06-25-2021 take 1 tablet by mouth once daily, then take 1 tablet by mouth every twenty-four hours Isosorbide Mononitrate 30 mg tablet extended release 24 hr Discontinued 30 MG PO Daily June 24, 2021 12:00am June 25, 2021 1:01pm loratadine 10 mg oral tablet (20 sources) Start: 07-13-2021 take 1 tablet by mouth in the morning loratadine (CLARITIN) 10 mg tablet Take 1 tablet (10 mg total) by mouth in the morning. 07/13/2021 Active Comment on above: Take 10 mg by mouth once daily. 24 hr loratadine 10 mg / pseudoephedrine sulfate 240 mg extended release oral tablet (20 sources) alpha-Adrenerg ic Agonist Start: 07-25-2023 take 1 tablet by mouth once daily in the morning as needed Loratadine-Pseudo ephedrine 10-240 mg tablet extended release 24 hr Active 1 TAB PO Every morning as needed for allergy symptoms July 25, 2023 12:00am take 10-240 mg by [facility] every twenty-four hours as needed Allergy Relief D 10-240 MG Oral Tablet Extended Release 24 Hour TAKE 1 TABLET DAILY NEEDED. Quantity: 0 Refills: 0 Ordered: 08-Mar-2021 DO Active take 10-240 mg by mo uth every twenty-four hours as needed Allergy Relief D 10-240 MG Oral Tablet Extended Release 24 Hour TAKE 1 TABLET DAILY NEEDED. Quantity: 0 Refills: 0 Ordered: 08-Mar-2021 DO Active Multiple Vitamin (multivitamin) capsule (1 source) take 1 capsule by mouth once daily Multiple Vitamin (multivitamin) capsule Take 1 capsule by mouth daily. 0 Active nystatin 577809 unt/ml oral suspension (2 sources) Polyene Antifungal Start: 12-18-19 take 1 mL by mouth four times daily Nystatin 100,000 unit/mL suspension Active 5 ML PO Four times daily 280 14 December 17, 2023 11:00pm swish and swallow polyethylene glycol 400 4 mg/ml / propylene glycol 3 mg/ml ophthalmic solution (1 source) Polyethyl Glycol-Propyl Glycol (Systane) 0.4-0.3 % Solution ophthalmic solution prednisoLONE acetate 10 mg/ml ophthalmic suspension (20 sources) Corticosteroid Start: 06-21-19 End: 06-21-19 prednisoLONE acetate (PRED FORTE) 1 % ophthalmic suspension Administer 1 drop to both eyes in the morning and 1 drop at noon and 1 drop in the evening and 1 drop before bedtime. 10 mL 3 06/21/2024 06/21/2025 Active Start: 08-18-2023 End: 02-22-2024 take 1 drop(s) into the eye(s) at bedtime prednisoLONE acetate (Pred-Forte) 1 % ophthalmic suspension INSTILL 1 DROP IN BOTH EYES IN MORNING,AT NOON,IN THE EVENING,AND BEFORE BEDTIME 08/18/2023 02/22/2024 Discontinued (Therapy completed) Start: 03-03-2023 End: 03-02-2024 prednisoLONE acetate (PRED F ORTE) 1 % ophthalmic suspension Indications: Hypertensive retinopathy of both eyes Administer 1 drop to both eyes in the morning and 1 drop at noon and 1 drop in the evening and 1 drop before bedtime. 15 mL 3 03/03/2023 03/02/2024 Active Start: 09-27-2019 End: 06-24-2021 take 1 drop(s) into the eye(s) four times daily Prednisolone Acetate 1 % drops,suspension Discontinued 1 DROPS EYE-LEFT Four times daily September 26, 2019 11:00pm June 24, 2021 3:13am Start: 09-27-2019 End: 06-24-2021 take 1 drop(s) into the eye(s) four times daily Prednisolone Acetate Discontinued 1 DROPS EYE-LEFT Four times daily September 27, 2019 12:00am June 24, 2021 4:13am take 1 drop(s) into the eye(s) four times daily prednisoLONE Acetate 1 % Ophthalmic Suspension INSTILL 1 DROP INTO AFFECTED EYE(S) 4 TIMES DAILY. Quantity: 0 Refills: 0 Ordered: 08-Mar-2021 DO Active prednisoLONE lilliam lim 0.12 % Suspension 1 drop 4 times daily. 0 Active predniSONE 10 mg oral tablet (1 source) Start: 05-08-2024 Prednisone 10 mg tablet Active 10 MG PO Daily May 08, 2024 12:00am 4 tablets daily x 3 days, 2 tablets daily x 3 days, 1 tablet daily x 7 days then stop PSEUDOEPH-BROMPHE N-COD PO (1 source) PSEUDOEPH-BROMPH E N-COD PO Take by mouth. 0 Active roflumilast 0.5 mg oral tablet (20 sources) Phosphodiesterase 4 Inhibitor Start: 06-16-2019 take 1 tablet by mouth once daily Roflumilast (Daliresp) 500 mcg tablet Active 500 MCG PO Daily June 16, 2019 1:00am TAKE 1 TABLET BY MOUTH EVERY DAY Start: 06-16-2019 take 1 tablet by andrea th once daily Roflumilast (Daliresp) 500 mcg tablet Active 500 MCG PO Daily June 16, 2019 12:00am TAKE 1 TABLET BY MOUTH EVERY DAY Start: 04-30-2018 End: 06-15-2024 take 1 tablet by mouth in the morning Roflumilast 500 MCG tablet Indications: COPD mixed type (CMS/HCC) Take 1 tablet by mouth in the morning. 90 tablet 1 03/17/2024 Active take 1 tablet by andrea th once daily Daliresp 500 MCG TAKE 1 TABLET BY MOUTH EVERY DAY Oral Active Comment on above: Take 500 mcg by mout h once daily. sodium chloride 9 mg/ml inhalation solution (11 sources) Start: 05-08-2024 sodium chloride 0.9 % nebulizer solution Take 3 mL by nebulization if needed for wheezing or shortness of breath 05/08/2024 Active Start: 05-08-2024 End: 05-08-2024 take 1 mL by inhalation every twelve hours Sodium Chloride 0.9 % solution for nebulization Active 3 ML INHALATION Every 12 hours 60 May 08, 2024 2:04pm Dx: J44.9 spironolactone 25 mg oral tablet (20 sources) Aldosterone Antagonist Start: 03-17-2023 take 1 tablet by mouth in the morning spironolactone (Aldactone) 25 MG tablet Take 1 tablet by mouth in the morning. 03/17/2023 Active Start: 05-25-2021 End: 06-25-2021 spironolactone (ALDACTONE) 2 5 mg tablet Take by mouth daily. 05/25/2021 Active Start: 05-25-2021 take 1 tablet by andrea th in the morning spironolactone (Aldactone) 25 MG tablet Take 1 tablet by mouth in the morning. 03/17/2023 Active Comment on above: Take by mouth q 24 H R. tiZANidine 4 mg oral tablet (19 sources) Central alpha-2 Adrenergic Agonist Start: 02-09-2023 tiZANidine (Zanaflex) 4 MG tablet Take 1 tablet by mouth as needed at bedtime 02/09/2023 Active torsemide 20 mg oral tablet (20 sources) Loop Diuretic Start: 06-21-2022 take 2 tablets by mouth two times weekly Torsemide 20 MG Oral Tablet Take 2 tablets twice weekly Quantity: 45 Refills: 3 Ordered: 17-Nov-2022 Jose Dutta DO Start : 21-Jun-2022 Active Start: 06-25-2021 End: 12-18-2023 take 2 tablets by mouth once daily Torsemide 20 mg Tablet Discontinued 40 MG PO DAILY@0800 June 25, 2021 12:00am December 18, 2023 10:26am Start: 06-25-2021 End: 12-18-2023 take 40 mg by mouth once daily Torsemide Discontinued 40 MG PO DAILY@0800 June 25, 2021 1:00am December 18, 2023 11:26am Start: 05-25-2021 End: 02-22-2024 torsemide (DEMADEX) 20 mg ta blet Take by mouth daily. 05/25/2021 Active Start: 05-25-2021 End: 01-22-2024 torsemide (DEMADEX) 20 mg ta blet Take by mouth q 24 HR. 05/25/2021 01/22/2024 Discontinued take 1 tablet by andrea th every [...] (20 sources) Angiotensin 2 Receptor Fadumo Start: End: take 1 tablet by mouth in the morning valsartan (Diovan) 160 MG tablet Indications: Primary hypertension (CMS/HCC) Take 1 tablet (160 mg) by mouth in the morning and 1 tablet (160 mg) before bedtime. 180 tablet 1 06/03/2024 09/01/2024 Active take 1 tablet by andrea th every twenty-four hours Valsartan 160 MG 1 tablet Orally Once a day Active Comment on above: Take 160 mg by mouth twice daily. Completed/Discontinued Medications Medication Drug Class(es) Dates Sig (Normalized) Sig (Original) acetaminophen 325 mg / oxyCODONE hydrochloride 5 mg oral tablet (20 sources) Opioid Agonist Start: 04-30-2018 End: 06-24-2021 take 1 tablet by mouth every four hours as needed for pain Oxycodone-Acetami nophen 5-325 mg Tablet Discontinued 5 MG PO Q4H as needed for Pain April 30, 2018 12:00am June 24, 2021 3:11am Comment on above: Acetaminophen / oxyC ODONE Oxycodone-Acetaminophen Active 5 MG Oral Q4H April 30, 2018 3:31pm 04-30-2018 [facility] ([id number]) amLODIPine 10 mg oral tablet (20 sources) Dihydropyridine Calcium Channel Fadumo Start: 10-24-2017 End: 06-24-2021 take 1 tablet by mouth once daily Amlodipine 10 mg tablet Discontinued 10 MG PO Daily October 23, 2017 11:00pm June 24, 2021 3:10am baclofen 10 mg oral tablet (12 sources) gamma-Aminobutyric Acid-ergic Agonist Start: 10-24-2017 End: 07-26-2022 take 1 tablet by mouth once daily at bedtime Baclofen 10 mg tablet Discontinued 10 MG PO Daily at bedtime October 23, 2017 11:00pm September 27, 2019 10:45am Comment on above: 10 mg. bromfenac 0.7 mg/ml ophthalmic solution (13 sources) Nonsteroidal Anti-inflammatory Drug Prolensa 0.07 % Ophthalmic Solution as directed Quantity: 0 Refills: 0 Ordered: 08-Mar-2021 DO Active cephalexin 500 mg oral tablet (7 sources) Cephalosporin Antibacterial Start: 05-25-2021 take 1 tablet by mouth every eight hours Cephalexin 500 MG Oral Tablet TAKE 1 TABLET EVERY 8 HOURS UNTIL ALL TAKEN. Quantity: 21 Refills: 0 Ordered: 25-May-2021 Vinicius Silverman Start : 25-May-2021 Active cetirizine hydrochloride 10 mg oral tablet (8 sources) Histamine-1 Receptor Antagonist Start: 10-24-2017 End: 10-24-2017 Cetirizine 10 mg tablet Discontinued TABLET October 23, 2017 11:00pm October 24, 2017 7:40pm Start: 10-24-2017 End: 10-24-2017 Cetirizine Discontinued TABL ET October 24, 2017 12:00am October 24, 2017 8:40pm furosemide 20 mg oral tablet (11 sources) Loop Diuretic Start: 06-24-2021 End: 06-25-2021 take 1 tablet by mouth once daily Furosemide (Lasix) 20 mg tablet Discontinued 20 MG PO Daily June 24, 2021 12:00am June 25, 2021 1:01pm Start: 04-22-2021 take 1 tablet by andrea th once daily Furosemide 20 MG Oral Tablet TAKE 1 TABLET DAILY DIRECTED. Quantity: 90 Refills: 3 Ordered: 22-Apr-2021 Jose Dutta DO Start : 22-Apr-2021 Active new start gabapentin 300 mg oral capsule (20 sources) Anti-epileptic Agent Start: 10-24-2017 End: 12-18-2023 take 1 capsule by mouth at bedtime Gabapentin (Neurontin) 300 mg capsule Discontinued 300 MG PO Bedtime October 23, 2017 11:00pm December 18, 2023 10:25am take 1 capsule by mo uth three times daily gabapentin (NEURONTIN) 300 mg capsule Take 1 capsule (300 mg total) by mouth 3 (three) times a day. Active End: 01-22-2024 GABAPENTIN ORAL Take by mout h. 01/22/2024 Discontinued GABAPENTIN ORAL Take by mouth. 0 Active Comment on above: Take by mouth. ipratropium bromide 0.2 mg/ml inhalation solution (8 sources) Anticholinergic Start: 10-24-2017 End: 10-24-2017 Ipratropium [place] 0.02 % solution Discontinued SOLUTION October 23, 2017 11:00pm October 24, 2017 7:40pm Start: 10-24-2017 End: 10-24-2017 Ipratropium [place] Disconti nued SOLUTION October 24, 2017 12:00am October 24, 2017 8:40pm levoFLOXacin 750 mg oral tablet (8 sources) Quinolone Antimicrobial Start: 10-25-2017 End: 11-01-2017 take 1 tablet by mouth once daily Levofloxacin 750 mg tablet Discontinued 750 MG PO Daily 7 October 24, 2017 11:00pm October 30, 2017 11:00pm October 31, 2017 11:01pm start tonight methylPREDNISolone 32 mg oral tablet (8 sources) Corticosteroid Start: 10-25-2017 End: 06-18-2019 take 1 tablet by mouth once daily Methylprednisolone (Medrol) 32 mg tablet Discontinued 32 MG PO Daily October 24, 2017 11:00pm June 18, 2019 11:21am montelukast 10 mg oral tablet (20 sources) Leukotriene Receptor Antagonist Start: 10-24-2017 End: 06-16-2019 take 1 tablet by mouth once daily Montelukast 10 mg tablet Discontinued 10 MG PO Daily October 23, 2017 11:00pm June 16, 2019 10:19pm 24 hr nitroglycerin 0.4 mg/hr transdermal system (20 sources) Nitrate Vasodilator Start: 09-23-2019 End: 03-31-2021 apply 0.4 mg transdermal route every hour, then apply 1 dose transdermal route every twenty-four hours Nitroglycerin (Nitro-Dur) 0.4 mg/hr patch 24 hour Discontinued 1 PATCH TRANSDERML Daily September 22, 2019 11:00pm March 31, 2021 8:46am allow nitrate-free interval of approx. 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 Active potassium chloride 10 meq extended release oral capsule (20 sources) Start: 04-22-2021 take 3 capsules by mouth once daily Potassium Chloride ER 10 MEQ Oral Capsule Extended Release TAKE THREE CAPSULES DAILY Quantity: 90 Refills: 3 Ordered: 22-Apr-2021 Jose Dutta DO Start : 22-Apr-2021 Active note correction this is the correct dosing. Start: 09-27-2019 End: 06-24-2021 Potassium Chloride (Klor-Con M20) 20 mEq tablet,ER particles/crystals Discontinued 20 MEQ PO Daily as needed for Hypokalemia September 27, 2019 10:45am June 24, 2021 3:11am Start: 06-18-2019 End: 09-23-2019 take 10 mEq by mouth once daily at mealtime Potassium Chloride 20 mEq tablet,ER particles/crystals Discontinued 10 MEQ PO Daily June 18, 2019 11:20am September 23, 2019 5:40pm give with food (meal/snack) Start: 06-18-2019 End: 09-23-2019 take 10 mEq by mouth once daily at mealtime Potassium Chloride Discontinued 10 MEQ PO Daily June 18, 2019 12:20pm September 23, 2019 6:40pm give with food (meal/snack) Start: 10-25-2017 End: 06-18-2019 take 1 tablet by mouth once daily at mealtime Potassium Chloride 20 mEq tablet,ER particles/crystals Discontinued 20 MEQ PO Daily October 24, 2017 11:00pm June 18, 2019 11:21am give with food (meal/snack) Potassium Chlori de 10 MEQ TBCR TAKE 3 TABLET Daily Quantity: 0 Refills: 0 Ordered: 08-Mar-2021 DO Active POTASSIUM CHLORI DE ER PO Take 30 mEq by mouth. 0 Active Potassium Chloride (Klor-Con M20) 20 mEq Tablet,Er Particles/Crystals (8 sources) Start: 09-23-2019 End: 09-27-2019 Potassium Chloride (Klor-Con M20) 20 mEq Tablet,Er Particles/Crystals Discontinued 40 MEQ PO Daily as needed for Hypokalemia 60 September 22, 2019 11:00pm September 27, 2019 10:45am Start: 09-23-2019 End: 09-27-2019 Potassium Chloride (Klor-Con M20) 20 mEq Tablet,Er Particles/Crystals Discontinued 40 MEQ PO Daily 60 September 23, 2019 12:00am September 27, 2019 11:45am Start: 09-23-2019 End: 09-27-2019 Potassium Chloride (Klor-Con M20) 20 mEq Tablet,Er Particles/Crystals Discontinued 40 MEQ PO Daily 60 September 22, 2019 11:00pm September 27, 2019 10:45am sildenafil 100 mg oral tablet (20 sources) Phosphodiesterase 5 Inhibitor Start: 09-27-2019 End: 03-31-2021 take 1 tablet by mouth once daily Sildenafil 100 mg Tablet Discontinued 100 MG PO Daily September 26, 2019 11:00pm September 27, 2019 10:56am Sildenafil Citra te 100 MG Oral Tablet TAKE DIRECTED. Quantity: 0 Refills: 0 Ordered: 08-Mar-2021 DO Active tamsulosin hydrochloride 0.4 mg oral capsule (8 sources) alpha-Adrenergic Fadumo Start: 10-24-2017 End: 06-16-2019 take 1 capsule by mouth every twelve hours Tamsulosin 0.4 mg capsule,extended release 24hr Discontinued 0.4 MG PO Q12H October 23, 2017 11:00pm June 16, 2019 10:18pm ticagrelor 90 mg oral tablet (8 sources) Start: 06-18-2019 End: 03-31-2021 take 1 tablet by mouth twice daily Ticagrelor (Brilinta) 90 mg Tablet Discontinued 90 MG PO Twice daily 180 90 June 18, 2019 12:00am March 31, 2021 8:45am Problems Active Problems Problem Classification Problem Date Documented Date Episodic/Chronic Abdominal pain (1 source) Unspecified abdominal pain; Translations: [UNSPECIFIED ABDOMINAL PAIN] Onset: 07-22-2022 Episodic Acute bronchitis (2 sources) Acute bronchitis; Translations: [Acute bronchitis, unspecified] Episodic Acute cerebrovascular disease (20 sources) Cerebrovascular accident; Translations: [Cerebral artery occlusion, unspecified with cerebral infarction] Onset: 07-22-2022 Chronic Acute myocardial infarction (20 sources) Myocardial infarction; Translations: [Non-ST elevation (NSTEMI) myocardial infarction] Onset: 02-22-2024 06-16-2019 Chronic Comment on above: Problem List clean-u p per request of Phys. EHR Cmte Asthma (20 sources) Asthma-chronic obstructive pulmonary disease overlap syndrome; Translations: [Asthma-chronic obstructive pulmonary disease overlap syndrome] Onset: 08-22-2023 12-15-2023 Chronic Blindness and vision defects (18 sources) Visual impairment; Translations: [Unqualified visual loss, left eye, normal vision right eye] Onset: 08-22-2023 08-22-2023 Chronic Cancer of prostate (20 sources) Malignant tumor of prostate; Translations: [Malignant neoplasm of prostate] Onset: 06-25-2018 07-30-2018 Chronic Cardiac dysrhythmias (20 sources) Atrial fibrillation; Translations: [Atrial fibrillation] Onset: 03-30-2023 Resolved: 03-14-2024 06-24-2021 Chronic Comment on above: Problem List clean-u p per request of Phys. EHR Cmte Cardiac dysrhythmias (10 sources) Bradycardia; Translations: [Other specified cardiac dysrhythmias] Episodic Cataract (18 sources) Bilateral pseudophakia; Translations: [Presence of intraocular lens] Onset: 08-22-2023 08-22-2023 Chronic Chronic kidney disease (20 sources) Chronic kidney disease, unspecified; Translations: [Chronic kidney disease stage 3] Onset: 12-13-2021 Chronic Chronic obstructive pulmonary disease and bronchiectasis (20 sources) Chronic obstructive lung disease; Translations: [Chronic airway obstruction, not elsewhere classified] Onset: 11-18-2021 Resolved: 05-23-2023 Chronic Comment on above: Problem List clean-u p per request of Phys. EHR Cmte Congestive heart failure; nonhypertensive (20 sources) Acute diastolic heart failure; Translations: [Acute diastolic heart failure] Onset: 02-22-2024 Resolved: 08-26-2021 06-24-2021 Chronic Comment on above: Problem List clean-u p per request of Phys. EHR Cmte Coronary atherosclerosis and other heart disease (20 sources) History of myocardial infarction; Translations: [Old myocardial infarction] Onset: 03-30-2023 06-24-2021 Chronic Comment on above: Problem List clean-u p per request of Phys. EHR Cmte Coronary atherosclerosis and other heart disease (10 sources) Past history of procedure; Translations: [Coronary angioplasty status] Onset: 03-30-2023 06-24-2021 Episodic Comment on above: Problem List clean-u p per request of Phys. EHR Cmte Disorders of lipid metabolism (20 sources) Hyperlipidemia; Translations: [Other and unspecified hyperlipidemia] Onset: 03-30-2023 07-05-2023 Chronic Essential hypertension (20 sources) Benign essential hypertension; Translations: [Benign essential hypertension] Onset: 03-30-2023 06-24-2021 Chronic Comment on above: Problem List clean-u p per request of Phys. EHR Cmte Genitourinary symptoms and ill-defined conditions (1 source) Urinary incontinence; Translations: [Unspecified urinary incontinence] 01-09-2023 Chronic Genitourinary symptoms and ill-defined conditions (8 sources) Decreased urine output; Translations: [Anuria and oliguria] 09-22-2019 Episodic Comment on above: Problem List clean-u p per request of Phys. EHR Cmte Immunizations and screening for infectious disease (10 sources) Needs influenza immunization; Translations: [Encounter for immunization] Onset: 06-03-2024 06-03-2024 Episodic Melanomas of skin (20 sources) Malignant melanoma; Translations: [Malignant melanoma of skin, unspecified] Onset: 08-22-2023 Resolved: 02-22-2024 12-12-2023 Chronic Comment on above: left arm Nonspecific chest pain (19 sources) Chest pain; Translations: [Chest pain, unspecified] Onset: 04-13-2024 06-30-2019 Episodic Comment on above: Problem List clean-u p per request of Phys. EHR Cmte Nutritional deficiencies (14 sources) Undernutrition; Translations: [Mild protein-calorie malnutrition] Onset: 07-27-2018 07-30-2018 Chronic Occlusion or stenosis of precerebral arteries (13 sources) Right carotid artery stenosis; Translations: [Occlusion and stenosis of carotid artery without mention of cerebral infarction] Chronic Other aftercare (20 sources) Drug therapy finding; Translations: [Long-term (current) use of anticoagulants] Episodic Other aftercare (6 sources) Taking high risk medication; Translations: [Other skilled nursing (current) drug therapy] Onset: 07-05-2023 07-05-2023 Episodic Other circulatory disease (20 sources) History of cerebrovascular accident; Translations: [Personal history of transient ischemic attack (TIA), and cerebral infarction without residual deficits] Onset: 03-14-2024 03-14-2024 Episodic Other circulatory disease (3 sources) Personal history of transient ischemic attack (TIA), and cerebral infarction without residual deficits; Translations: [Prsnl hx of TIA (TIA), and cereb infrc w/o resid deficits] Onset: 08-09-2022 Episodic Other eye disorders (2 sources) Ischemic optic neuropathy of right eye; Translations: [Ischemic optic neuropathy, right eye] 07-04-2023 Chronic Other eye disorders (18 sources) Bilateral posterior vitreous detachment; Translations: [Vitreous degeneration, bilateral] Onset: 08-22-2023 08-22-2023 Chronic Other injuries and conditions due to external causes (18 sources) Traumatic injury of right optic nerve; Translations: [Optic nerve injury] Episodic Other injuries and conditions due to external causes (1 source) Injury of optic nerve, right eye, initial encounter; Translations: [Injury of optic nerve, right eye, initial encounter] Onset: 08-09-2022 Episodic Other lower respiratory disease (8 sources) Solitary pulmonary nodule; Translations: [Solitary pulmonary nodule] Onset: 11-18-2021 Resolved: 11-18-2021 Episodic Other lower respiratory disease (8 sources) Dyspnea on exertion; Translations: [Other forms of dyspnea] 06-24-2021 Episodic Comment on above: Problem List clean-u p per request of Phys. EHR Cmte Other lower respiratory disease (11 sources) Nodule of lung; Translations: [Solitary pulmonary nodule] 06-16-2019 Episodic Comment on above: Problem List clean-u p per request of Phys. EHR Cmte Other lower respiratory disease (2 sources) Cough; Translations: [Cough] 04-14-2024 Episodic Other lower respiratory disease (1 source) Chronic cough; Translations: [Chronic cough] Onset: 04-13-2024 Episodic Other lower respiratory disease (1 source) Shortness of breath; Translations: [Shortness of breath] Onset: 04-13-2024 Episodic Other lower respiratory disease (3 sources) Cough; Translations: [Acute cough] Onset: 07-03-2024 07-03-2024 Episodic Other nutritional; endocrine; and metabolic disorders (20 sources) Obesity; Translations: [Obesity, unspecified] Chronic Other nutritional; endocrine; and metabolic disorders (7 sources) Severe obesity; Translations: [Morbid obesity] Chronic Other nutritional; endocrine; and metabolic disorders (1 source) Obese class I; Translations: [Obesity, unspecified] Onset: 11-17-2020 11-17-2020 Chronic Other nutritional; endocrine; and metabolic disorders (4 sources) Body mass index 30+ - obesity; Translations: [Body mass index (BMI) 33.0-33.9, adult] Onset: 09-13-2023 09-14-2023 Chronic Other nutritional; endocrine; and metabolic disorders (2 sources) Body mass index (BMI) 30.0-30.9, adult; Translations: [Body mass index (BMI) 30.0-30.9, adult] Onset: 03-14-2024 Chronic Other nutritional; endocrine; and metabolic disorders (20 sources) Obesity caused by energy imbalance; Translations: [Class 1 obesity due to excess calories with serious comorbidity in adult, unspecified BMI] Onset: 08-22-2023 03-11-2024 Chronic Other nutritional; endocrine; and metabolic disorders (4 sources) Overweight in adulthood with body mass index of 25 or more but less than 30; Translations: [Overweight] Episodic Other screening for suspected conditions (not mental disorders or infectious disease) (12 sources) Patient encounter status; Translations: [Encounter for screening for malignant neoplasm of colon] Onset: 06-03-2024 06-03-2024 Episodic Other upper respiratory disease (8 sources) Seasonal allergy; Translations: [Other seasonal allergic rhinitis] 12-15-2023 Chronic Other upper respiratory disease (6 sources) Other seasonal allergic rhinitis; Translations: [Allergic rhinitis, cause unspecified] Onset: 11-18-2021 Resolved: 11-18-2021 Chronic Other upper respiratory disease (18 sources) Chronic rhinitis; Translations: [Chronic rhinitis] Onset: 08-22-2023 08-22-2023 Chronic Other upper respiratory infections (2 sources) Chronic sinusitis; Translations: [Chronic sinusitis, unspecified] Chronic Pneumonia (except that caused by tuberculosis or sexually transmitted disease) (5 sources) Pneumonia; Translations: [Pneumonia, unspecified organism] 12-12-2023 Episodic Comment on above: 07/2018 postop after prostate surgery Residual codes; unclassified (5 sources) Sleep apnea; Translations: [Sleep apnea, unspecified] 12-12-2023 Chronic Residual codes; unclassified (4 sources) Obstructive sleep apnea (adult) (pediatric); Translations: [OBSTRUCTIVE SLEEP APNEA] Onset: 07-25-2022 Chronic Residual codes; unclassified (20 sources) Obstructive sleep apnea syndrome; Translations: [Obstructive sleep apnea (adult) (pediatric)] Onset: 05-23-2023 02-24-2023 Chronic Residual codes; unclassified (4 sources) Body mass index 20-24 - normal; Translations: [Body Mass Index between 19-24, adult] Episodic Retinal detachments; defects; vascular occlusion; and retinopathy (20 sources) Epiretinal membrane of left eye; Translations: [Puckering of macula, left eye] Onset: 08-22-2023 07-04-2023 Chronic Spondylosis; intervertebral disc disorders; other back problems (20 sources) Degeneration of lumbar intervertebral disc; Translations: [DDD (degenerative disc disease), lumbar] Onset: 08-22-2023 08-22-2023 Chronic Spondylosis; intervertebral disc disorders; other back problems (2 sources) Backache; Translations: [Dorsalgia, unspecified] 04-14-2024 Episodic Unclassified (3 sources) Other persistent atrial fibrillation; Translations: [Other persistent atrial fibrillation] Onset: 08-09-2022 Unclassified (1 source) Cough, unspecified; Translations: [Cough, unspecified] Onset: 04-13-2024 Past or Other Problems Problem Classification Problem Date Documented Date Episodic/Chronic Allergic reactions (18 sources) Environmental allergy; Translations: [Other allergy status, other than to drugs and biological substances] Onset: 08-22-2023 08-22-2023 Episodic Deficiency and other anemia (20 sources) Iron deficiency anemia secondary to inadequate dietary iron intake; Translations: [Other iron deficiency anemias] Onset: 05-10-2023 05-10-2023 Episodic Fluid and electrolyte disorders (20 sources) Hypokalemia; Translations: [Hypokalemia] Onset: 08-22-2023 06-24-2021 Episodic Comment on above: Problem List clean-u p per request of Phys. EHR Cmte Mood disorders (20 sources) Mood disorders Onset: 12-29-2022 Resolved: 06-03-2024 03-05-2023 Neoplasms of unspecified nature or uncertain behavior (14 sources) Neoplastic disease; Translations: [Neoplasm of unspecified behavior of unspecified site] Onset: 06-25-2018 07-30-2018 Episodic Other aftercare (1 source) Postoperative visit; Translations: [Encounter for other specified surgical aftercare] Episodic Other aftercare (20 sources) Long-term current use of anticoagulant; Translations: [parts counterman (current) use of anticoagulants] Onset: 09-13-2023 Resolved: 03-14-2024 09-13-2023 Episodic Other aftercare (2 sources) parts counterman (current) use of anticoagulants; Translations: [parts counterman (current) use of anticoagulants] Onset: 09-13-2023 Episodic Other aftercare (2 sources) Other skilled nursing (current) drug therapy; Translations: [Other terminal manager (current) drug therapy] Onset: 07-05-2023 Episodic Other and ill-defined heart disease (18 sources) Diastolic dysfunction; Translations: [Other ill-defined heart diseases] Onset: 08-22-2023 Resolved: 02-22-2024 02-22-2024 Chronic Other eye disorders (1 source) Bilateral ptosis of upper eyelids; Translations: [Unspecified ptosis of bilateral eyelids] Onset: 10-06-2020 10-06-2020 Episodic Other eye disorders (1 source) Excess skin of eyelid; Translations: [Dermatochalasis of right upper eyelid] Onset: 10-06-2020 10-06-2020 Episodic Other eye disorders (18 sources) Dermatochalasis of right upper eyelid; Translations: [Dermatochalasis] Onset: 10-06-2020 08-22-2023 Episodic Other lower respiratory disease (20 sources) Dyspnea; Translations: [Other respiratory abnormalities] Onset: 03-30-2023 03-30-2023 Episodic Other lower respiratory disease (20 sources) Solitary nodule of lung; Translations: [Solitary pulmonary nodule] Onset: 08-22-2023 08-22-2023 Episodic Other upper respiratory infections (16 sources) Acute upper respiratory infection; Translations: [Acute upper respiratory infection, unspecified] Onset: 03-11-2024 03-11-2024 Episodic Residual codes; unclassified (20 sources) Edema of lower extremity; Translations: [Edema] Onset: 03-30-2023 06-24-2021 Episodic Comment on above: Problem List clean-u p per request of Phys. EHR Cmte Residual codes; unclassified (20 sources) History of bradycardia; Translations: [Personal history of other diseases of circulatory system] Resolved: 08-26-2021 Episodic Residual codes; unclassified (20 sources) History of chest pain; Translations: [Personal history of other specified diseases] Resolved: 08-26-2021 Episodic Retinal detachments; defects; vascular occlusion; and retinopathy (20 sources) Retinal detachment of left eye due to retinal tear of left eye; Translations: [Unspecified retinal detachment with retinal break, left eye] Onset: 02-22-2024 06-16-2019 Episodic Screening and history of mental health and substance abuse codes (20 sources) Ex-smoker; Translations: [Personal history of tobacco use] Onset: 07-05-2023 07-05-2023 Episodic Comment on above: QUIT 1987 2PPD; Unclassified (2 sources) Onset: 09-13-2023 09-13-2023 Results Test Name Value Interpretation Reference Range Facility No Panel Informationon 06-21 [facility] Alanine aminotransferase [En zymatic activity/volume] in Serum or PlasmaOrdered By: Kary Dutta on 06-12-2024 ALT [Catalytic activity/Vol] Alanine aminotransferase [Enzymatic activity/volume] in Serum or Plasma [facility] Albumin [Mass/volume] in Ser um or Plasma by Bromocresol green (BCG) dye binding methoOrdered By: Kary Dutta on 06-12-2024 Albumin BCG dye [Mass/Vol] Albumin [Mass/volume] in Serum or Plasma by Bromocresol green (BCG) dye binding metho 3.5-5.7 [facility] Alkaline phosphatase [Enzyma tic activity/volume] in Serum or PlasmaOrdered By: Kary Dutta on 06-12-2024 ALP [Catalytic activity/Vol] Alkaline phosphatase [Enzymatic activity/volume] in Serum or Plasma 34-104 [facility] Appearance of UrineOrdered B y: Kailey Louise on 06-12-2024 Appearance (U) Urine appearance Clear [facility] Aspartate aminotransferase [ Enzymatic activity/volume] in Serum or PlasmaOrdered By: Kary Dutta on 06-12-2024 AST [Catalytic activity/Vol] Aspartate aminotransferase [Enzymatic activity/volume] in Serum or Plasma 13-39 [facility] Bacteria [Presence] in Urine by AutomatedOrdered By: Kailey Louise on 06-12-2024 Bacteria Auto Ql (U) Bacteria [Presence] in Urine by Automated None Seen [facility] Basophils Auto (Bld) [#/Vol] Ordered By: Kailey Louise on 06-12-2024 Basophils (Bld) [#/Vol] Automated basophil count 0.0-0.2 [facility] Basophils/100 WBC Auto (Bld) Ordered By: Kailey Louise on 06-12-2024 Basophils/100 WBC (Bld) Automated basophil % . [facility] Bilirubin Test strip Ql (U)O rdered By: Kailey Louise on 06-12-2024 Bilirubin Ql (U) Bilirubin.total [Pre sence] in Urine by Test strip Negative [facility] Bilirubin.total [Mass/volume ] in Serum or PlasmaOrdered By: Kary Dutta on 06-12-2024 Bilirubin [Mass/Vol] Bilirubin.total [Mass/volume] in Serum or Plasma 0.3-1.0 [facility] CBC W Auto Differential pane l (Bld)on 06-12-2024 Basophils (Bld) [#/Vol] 0 10*3/uL 0.0 - 0.2 10*3/uL [facility] Basophils/100 WBC Manual cnt (Syn fld) 0.3 % . [facility] Eosinophils (Bld) [#/Vol] 0.1 10*3/uL 0.0 - 0.45 10*3/uL [facility] Eosinophils/100 WBC Manual cnt (Syn fld) 1.6 % . [facility] Erythrocyte distribution width (RBC) [Ratio] 15.8 % High 12.0 - 14.8 % [facility] Hematocrit (Bld) [Volume fraction] 38 % Low 38.8 - 50.0 % [facility] Hemoglobin (Bld) [Mass/Vol] 12.8 g/dL Low 13.0 - 17.0 g/dL [facility] Interpretation and review of laboratory results Abnormal [facility] Lymphocytes (Bld) [#/Vol] 0.7 10*3/uL Low 1.00 - 4.8 10*3/uL [facility] Lymphocytes/100 WBC Manual cnt (Syn fld) 16.8 % . [facility] MCH (RBC) [Entitic mass] 30.1 pg 27.5 - 35.2 pg [facility] MCHC (RBC) [Mass/Vol] 33.8 g/dL 32.5 - 35.6 g/dL [facility] MCV (RBC) [Entitic vol] 89.1 fL 83.5 - 101 fL [facility] Monocytes (Bld) [#/Vol] 0.4 10*3/uL 0.0 - 0.8 10*3/uL [facility] Monocytes+Macrophages/ 100 WBC Manual cnt (Syn fld) 9.7 % . [facility] Neutrophils (Bld) [#/Vol] 2.9 10*3/uL 1.8 - 7.7 10*3/uL [facility] Neutrophils/100 WBC Manual cnt (Syn fld) 71.6 % . [facility] NRBC 0.1 /100{WBC} 0 - 0.5 /100{WBC} [facility] Platelet mean volume (Bld) [Entitic vol] 7.9 fL 6.6 - 10.1 fL [facility] Platelets (Bld) [#/Vol] 143 10*3/uL Low 150 - 450 10*3/uL [facility] RBC LM.HPF (Urine sed) [#/Area] 4.26 10*6/uL 3.90 - 5.60 10*6/uL [facility] WBC (Bld) [#/Vol] 4.1 10*3/uL 4.1 - 10.5 10*3/uL [facility] WBC LM.HPF (Urine sed) [#/Area] 4.1 10*3/uL 4.1 - 10.5 10*3/uL [facility] Calcium [Mass/volume] in Ser um or PlasmaOrdered By: Kary Dutta on 06-12-2024 Calcium [Mass/Vol] Calcium [Mass/volume ] in Serum or Plasma Low 8.6-10.3 [facility] Carbon dioxide, total [Moles /volume] in Serum or PlasmaOrdered By: Kary Dutta on 06-12-2024 CO2 [Moles/Vol] Carbon dioxide, tota l [Moles/volume] in Serum or Plasma 21.0-31.0 [facility] Chloride [Moles/volume] in S tomas or PlasmaOrdered By: Kary Dutta on 06-12-2024 Chloride [Moles/Vol] Chloride [Moles/vol ume] in Serum or Plasma High 98-107 [facility] Cholesterol [Mass/volume] in Serum or PlasmaOrdered By: Kailey Louise on 06-12-2024 Cholesterol [Mass/Vol] Cholesterol [Mass /volume] in Serum or Plasma Low 140-200 [facility] Comment on above: Chol less than 200 m g/dl low riskChol 201-239 mg/dl borderline riskChol 240 mg/dl and greater high risk Cholesterol in HDL [Mass/vol ume] in Serum or PlasmaOrdered By: Kailey Louise on 06-12-2024 Cholesterol in HDL [Mass/Vol] Serum or plasma high density lipoprotein (HDL) cholesterol measurement 23-92 [facility] Comment on above: HDL CHOL ATP-III CLA SSIFICATION Cardiovascular RiskHDL > or equal to 60 mg/dL LOWHDL < 40 mg/dL HIGH Cholesterol in LDL Calc [Mas s/Vol]Ordered By: Kailey Louise on 06-12-2024 Cholesterol in LDL [Mass/Vol] Cholesterol in LDL [Mass/volume] in Serum or Plasma by calculation 0-100 [facility] Comment on above: LDL ATP III CLASSIFI CATIONLDL less than 100 mg/dL OptimalLDL 100-129 mg/dL Near or above optimalLDL 130-159 mg/dL Borderline highLDL 160-189 mg/dL HighLDL greater than 189 mg/dL Very high Cholesterol in VLDL Calc [Ma ss/Vol]Ordered By: Kailey Louise on 06-12-2024 Cholesterol in VLDL [Mass/Vol] Cholesterol in VLDL [Mass/volume] in Serum or Plasma by calculation [facility] Color Auto (U)Ordered By: Marce Louise on 06-12-2024 Color (U) Color of Urine by Auto Yellow [facility] Complete Blood Count Auto Di ffon 06-12-2024 Basophils (Bld) [#/Vol] 0.0 10*3/uL Normal 0.0-0.2 The Counts Include [address] [facility] Comment on above: Result Comment: PERF ORMED BY: [facility] [address] [place] [address] PATHOLOGIST CATERING DRIVER KRISSY HARRIS M.D. Performed By: #### F E, LIPID, CBC, [id number] ####[address] Basophils/100 WBC (Bld) 0.3 % Normal . The Counts Include [facility] Comment on above: Performed By: #### F E, LIPID, CBC, [id number] ####[address] Eosinophils (Bld) [#/Vol] 0.1 10*3/uL Normal 0.0-0.45 The Counts Include [facility] Comment on above: Performed By: #### F E, LIPID, CBC, [id number] ####[address] Eosinophils/100 WBC (Bld) 1.6 % Normal . The Counts Include [facility] Comment on above: Performed By: #### F E, LIPID, CBC, [id number] ####[address] Erythrocyte distribution width (RBC) [Ratio] 15.8 % High 12.0-14.8 The Counts Include [facility] Comment on above: Performed By: #### F E, LIPID, CBC, [id number] ####[address] Hematocrit (Bld) [Volume fraction] 38.0 % Low 38.8-50.0 The Counts Include [address] [facility] Comment on above: Performed By: #### F E, LIPID, CBC, [id number] ####[address] Hemoglobin (Bld) [Mass/Vol] 12.8 g/dL Low 13.0-17.0 The Counts Include [facility] Comment on above: Performed By: #### F E, LIPID, CBC, [id number] ####[address] Lymphocytes (Bld) [#/Vol] 0.7 10*3/uL Low 1.00-4.8 The Counts Include [address] [facility] Comment on above: Performed By: #### F E, LIPID, CBC, [id number] ####[address] Lymphocytes/100 WBC (Bld) 16.8 % Normal . The Counts Include [facility] Comment on above: Performed By: #### F E, LIPID, CBC, [id number] ####[address] MCH (RBC) [Entitic mass] 30.1 pg Normal 27.5-35.2 The Counts Include [facility] Comment on above: Performed By: #### F E, LIPID, CBC, [id number] ####[address] MCV (RBC) [Entitic vol] 89.1 fL Normal 83.5-101 The Counts Include [facility] Comment on above: Performed By: #### F E, LIPID, CBC, [id number] ####[address] Mean Corpuscular HGB Conc 33.8 g/dL Normal 32.5-35.6 The Counts Include [facility] Comment on above: Performed By: #### F E, LIPID, CBC, [id number] ####[address] Monocytes (Bld) [#/Vol] 0.4 10*3/uL Normal 0.0-0.8 The Counts Include [facility] Comment on above: Performed By: #### F E, LIPID, CBC, [id number] ####[address] Monocytes/100 WBC (Bld) 9.7 % Normal . The Counts Include [facility] Comment on above: Performed By: #### F E, LIPID, CBC, [id number] ####[address] Neutrophils (Bld) [#/Vol] 2.9 10*3/uL Normal 1.8-7.7 The Counts Include [facility] Comment on above: Performed By: #### F E, LIPID, CBC, [id number] ####[address] Neutrophils/100 WBC (Bld) 71.6 % Normal . The Counts Include [facility] Comment on above: Performed By: #### F E, LIPID, CBC, [id number] ####[address] NRBC% 0.1 /100{WBC} Normal 0-0.5 The Counts Include [address] [facility] Comment on above: Performed By: #### F E, LIPID, CBC, [id number] ####[address] Platelet mean volume (Bld) [Entitic vol] 7.9 fL Normal 6.6-10.1 The Counts Include [facility] Comment on above: Performed By: #### F E, LIPID, CBC, [id number] ####[address] Platelets (Bld) [#/Vol] 143 10*3/uL Low 150-450 The Counts Include [facility] Comment on above: Performed By: #### F E, LIPID, CBC, [id number] ####[place] [address] [place] RBC (Bld) [#/Vol] 4.26 10*6/uL Normal 3.90-5.60 The Counts Include [facility] Comment on above: Performed By: #### F E, LIPID, CBC, [id number] ####[place] [id number] [address] WBC (Bld) [#/Vol] 4.1 10*3/uL Normal 4.1-10.5 The Counts Include [address] [facility] Comment on above: Performed By: #### F E, LIPID, CBC, [id number] ####[address] Comprehensive Metabolic Pane sabiha 06-12-2024 Albumin [Mass/Vol] 3.7 g/dL Normal 3.5-5.7 The Counts Include [address] [facility] Comment on above: Performed By: #### C MP #### [address] Albumin/Globulin [Mass ratio] 2.5 {ratio} Normal The Counts Include [address] [facility] Comment on above: Performed By: #### C MP #### [address] ALP [Catalytic activity/Vol] 65 U/L Normal 34-104 The Counts Include [facility] Comment on above: Result Comment: PERF ORMED BY: [place] [address] PATHOLOGIST CATERING DRIVER KRISSY HARRIS M.D. Performed By: #### C MP #### [address] ALT [Catalytic activity/Vol] 8 U/L Normal 7-52 The Counts Include [address] [facility] Comment on above: Performed By: #### C MP #### [address] Anion gap [Moles/Vol] 7.8 mmol/L Normal 6.0-15.0 The Counts Include [address] [facility] Comment on above: Performed By: #### C MP #### [address] AST [Catalytic activity/Vol] 27 U/L Normal 13-39 The Counts Include [facility] Comment on above: Performed By: #### C MP #### [address] Bilirubin [Mass/Vol] 0.8 mg/dL Normal 0.3-1.0 The Counts Include [facility] Comment on above: Performed By: #### C MP #### [address] Calcium [Mass/Vol] 8.5 mg/dL Low 8.6-10.3 The Counts Include [address] [facility] Comment on above: Performed By: #### C MP #### [place] [address] [place] Chloride [Moles/Vol] 111 mmol/L High 98-107 The Counts Include [facility] Comment on above: Performed By: #### C MP #### [address] CO2 [Moles/Vol] 27.8 mmol/L Normal 21.0-31.0 The Counts Include [address] [facility] Comment on above: Performed By: #### C MP #### [place] [address] [place] Creatinine [Mass/Vol] 1.77 mg/dL High 0.70-1.30 The Counts Include [facility] Comment on above: Performed By: #### C MP #### [address] Estimated GFR 39.805 mL/Min Normal The Counts Include [facility] Comment on above: Performed By: #### C MP #### [place] [address] [place] Globulin (S) [Mass/Vol] 1.5 g/dL Normal The Counts Include [facility] Comment on above: Performed By: #### C MP #### [address] Glucose [Mass/Vol] 97 mg/dL Normal 70-100 The Counts Include [facility] Comment on above: Result Comment: [place] Glucose Reference Range is dependent on time and content of last meal. Glucose of more than 200 mg/dL in a nonstressed, ambulatory subject supports the diagnosis of Diabetes Mellitus. ADA recommended reference range Performed By: #### C MP #### [facility] [address] Potassium [Moles/Vol] 3.6 mmol/L Normal 3.5-5.1 The Counts Include [facility] Comment on above: Performed By: #### C MP #### [facility] [address] Protein [Mass/Vol] 5.2 g/dL Low 6.4-8.9 The Counts Include [address] [facility] Comment on above: Performed By: #### C MP #### [facility] [address] [place] [address] [place] Sodium [Moles/Vol] 143 mmol/L Normal 136-145 The Counts Include [address] [facility] Comment on above: Performed By: #### C MP #### [facility] [address] Urea nitrogen [Mass/Vol] 24 mg/dL Normal 7-25 The Counts Include [address] [facility] Comment on above: Performed By: #### C MP #### [place] [address] [place] Creatinine [Mass/volume] in Serum or PlasmaOrdered By: Kary Dutta on 06-12-2024 Creatinine [Mass/Vol] Creatinine [Mass/v olume] in Serum or Plasma High 0.70-1.30 [facility] Creatinine [Mass/volume] in UrineOrdered By: Kailey Louise on 06-12-2024 Creatinine (U) [Mass/Vol] Creatinine [Mass/volume] in Urine [facility] Comment on above: No reference range e stablished Dipstick and Microscopicon 0 06-12-2024 Appearance (U) Clear Normal Clear The Counts Include [address] [facility] Comment on above: Order Comment: Name Collection Type:: Clean-Voided Midstream Performed By: #### U RMACRERAT, ADDONUAPLUS #### [place] [address] [place] Bacteria,Urine None Seen Normal None Seen The Counts Include [address] [facility] Comment on above: Order Comment: Name Collection Type:: Clean-Voided Midstream Performed By: #### U RMACRERAT, ADDONUAPLUS #### [place] [address] [place] Bilirubin,Urine Negative Normal Negative The Counts Include [address] [facility] Comment on above: Order Comment: Name Collection Type:: Clean-Voided Midstream Performed By: #### U RMACRERAT, ADDONUAPLUS #### [address] Color (U) Yellow Normal Yellow The Counts Include [address] [facility] Comment on above: Order Comment: Name Collection Type:: Clean-Voided Midstream Performed By: #### U RMACRERAT, ADDONUAPLUS #### [address] Glucose Ql (U) Normal Normal Normal The Counts Include [address] [facility] Comment on above: Order Comment: Name Collection Type:: Clean-Voided Midstream Performed By: #### U RMACRERAT, ADDONUAPLUS #### [place] [address] [place] Hyaline Casts,Urine 0 [LPF] Normal 0-8 The Counts Include [address] [facility] Comment on above: Order Comment: Name Collection Type:: Clean-Voided Midstream Performed By: #### U RMACRERAT, ADDONUAPLUS #### [address] Ketones Ql (U) Negative Normal Negative The Counts Include [address] [facility] Comment on above: Order Comment: Name Collection Type:: Clean-Voided Midstream Performed By: #### U RMACRERAT, ADDONUAPLUS #### [address] Leukocyte esterase Test strip Ql (U) Negative Normal Negative The Counts Include [address] [facility] Comment on above: Order Comment: Name Collection Type:: Clean-Voided Midstream Performed By: #### U RMACRERAT, ADDONUAPLUS #### [place] [address] [place] Mucus,Urine Rare Normal The Counts Include [address] [facility] Comment on above: Order Comment: Name Collection Type:: Clean-Voided Midstream Result Comment: PERF ORMED BY: [address] [place] [address] PATHOLOGIST CATERING DRIVER KRISSY HARRIS M.D. Performed By: #### U RMACRERAT, ADDONUAPLUS #### [address] Nitrite,Urine Negative Normal Negative The Counts Include [address] [facility] Comment on above: Order Comment: Name Collection Type:: Clean-Voided Midstream Performed By: #### U RMACRERAT, ADDONUAPLUS #### [address] Occult Blood,Urine Negative Normal Negative The Counts Include [address] [facility] Comment on above: Order Comment: Name Collection Type:: Clean-Voided Midstream Performed By: #### U RMACRERAT, ADDONUAPLUS #### [address] pH (U) 5.5 [pH] Normal 5.0-9.0 The Counts Include [address] [facility] Comment on above: Order Comment: Name Collection Type:: Clean-Voided Midstream Performed By: #### U RMACRERAT, ADDONUAPLUS #### [address] Protein,Urine Trace High Negative The Counts Include [address] [facility] Comment on above: Order Comment: Name Collection Type:: Clean-Voided Midstream Performed By: #### U RMACRERAT, ADDONUAPLUS #### [address] RBC,Urine 1 [HPF] Normal 0-4 The Counts Include [address] [facility] Comment on above: Order Comment: Name Collection Type:: Clean-Voided Midstream Performed By: #### U RMACRERAT, ADDONUAPLUS #### [address] Specificy [place],Urine 1.025 Normal 1.001-1.03 0 The Counts Include [address] [facility] Comment on above: Order Comment: Name Collection Type:: Clean-Voided Midstream Performed By: #### U RMACRERAT, ADDONUAPLUS #### [place] [address] [place] Urobilinogen,Urine Normal Normal Normal The Counts Include [address] [facility] Comment on above: Order Comment: Name Collection Type:: Clean-Voided Midstream Performed By: #### U RMACRERAT, ADDONUAPLUS #### [facility] [address] WBC,Urine 1 [HPF] Normal 0-4 The Counts Include [address] [facility] Comment on above: Order Comment: Name Collection Type:: Clean-Voided Midstream Performed By: #### U RMACRERAT, ADDONUAPLUS #### [facility] [address] Eosinophils Auto (Bld) [#/Vo l]Ordered By: Kailey Louise on 06-12-2024 Eosinophils (Bld) [#/Vol] Automated eosinophil count 0.0-0.45 [facility] Eosinophils/100 WBC Auto (Bl d)Ordered By: Kailey Louise on 06-12-2024 Eosinophils/100 WBC (Bld) Automated eosinophil % . [facility] Epithelial cells.squamous [# /area] in Urine sediment by Automated countOrdered By: Kailey Louise on 06-12-2024 Epithelial cells.squamous Auto (Urine sed) [#/Area] Epithelial cells.squamous [#/area] in Urine sediment by Automated count [facility] [facility] Erythrocyte distribution wid th Auto (RBC) [Ratio]Ordered By: Kailey Louise on 06-12-2024 Erythrocyte distribution width (RBC) [Ratio] Erythrocyte distribution width [Ratio] by Automated count High 12.0-14.8 [facility] Erythrocytes [#/area] in Uri ne sediment by Automated countOrdered By: Kailey Louise on 06-12-2024 RBC Auto (Urine sed) [#/Area] Erythrocytes [#/area] in Urine sediment by Automated count 0-4 [facility] Globulin Calc (S) [Mass/Vol] Ordered By: Kary Dutta on 06-12-2024 Globulin (S) [Mass/Vol] Serum globulin measurement by calculation (mass/volume) [facility] Glucose [Mass/volume] in Ser um or PlasmaOrdered By: Kary Dutta on 06-12-2024 Glucose [Mass/Vol] Glucose [Mass/volume ] in Serum or Plasma 70-100 [facility] Comment on above: ADA recommended refe rence rangeRandom Glucose Reference Range is dependent on time and content of last meal. Glucose of more than 200 mg/dL in a nonstressed, ambulatory subject supports the diagnosis of Diabetes Mellitus. Glucose [Mass/volume] in Uri ne by Test stripOrdered By: Kailey Louise on 06-12-2024 Glucose Test strip (U) [Mass/Vol] Glucose [Mass/volume] in Urine by Test strip Normal [facility] Hematocrit Auto (Bld) [Volum e fraction]Ordered By: Kailey Louise on 06-12-2024 Hematocrit (Bld) [Volume fraction] Hematocrit [Volume Fraction] of Blood by Automated count Low 38.8-50.0 [facility] Hemoglobin Test strip Ql (U) Ordered By: Kailey Louise on 06-12-2024 Hemoglobin Ql (U) Hemoglobin [Presence ] in Urine by Test strip Negative [facility] Hemoglobin [Mass/volume] in BloodOrdered By: Kailey Louise on 06-12-2024 Hemoglobin (Bld) [Mass/Vol] Hemoglobin [Mass/volume] in Blood Low 13.0-17.0 [facility] Hyaline casts [#/area] in Ur ine sediment by Automated countOrdered By: Kailey Louise on 06-12-2024 Hyaline casts Auto (Urine sed) [#/Area] Hyaline casts [#/area] in Urine sediment by Automated count 0-8 [facility] Ironon 06-12-2024 Iron [Mass/Vol] 42 ug/dL Low 50-212 The Counts Include [facility] Comment on above: Performed By: #### F E, LIPID, CBC, [id number] ####[facility] [address] [place] [address] [facility] Iron [Mass/volume] in Serum or PlasmaOrdered By: Kailey Louise on 06-12-2024 Iron [Mass/Vol] Iron [Mass/volume] i n Serum or Plasma Low 50-212 [facility] Ketones Test strip Ql (U)Ord ered By: Kailey Louise on 06-12-2024 Ketones Ql (U) Ketones [Presence] i n Urine by Test strip Negative [facility] Leukocyte esterase [Presence ] in Urine by Test stripOrdered By: Kaileynatasha Louise on 06-12-2024 Leukocyte esterase Test strip Ql (U) Leukocyte esterase [Presence] in Urine by Test strip Negative [facility] Leukocytes [#/area] in Urine sediment by Automated countOrdered By: Kailey Louise on 06-12-2024 WBC Auto (Urine sed) [#/Area] Leukocytes [#/area] in Urine sediment by Automated count 0-4 [facility] Leukocytes [#/volume] correc hilaria for nucleated erythrocytes in Blood by Automated counOrdered By: Kailey Louise on 06-12-2024 WBC corrected for nucl RBC Auto (Bld) [#/Vol] Leukocytes [#/volume] corrected for nucleated erythrocytes in Blood by Automated coun 4.1-10.5 [facility] Lipid Panelon 06-12-2024 Cholesterol [Mass/Vol] 78 mg/dL Low 140-200 Th e Counts Include [facility] Comment on above: Result Comment: Chol less than 200 mg/dl low risk Chol 201-239 mg/dl borderline risk Chol 240 mg/dl and greater high risk Performed By: #### F E, LIPID, CBC, [id number] ####[facility] [place] [id number] [facility] Cholesterol in HDL [Mass/Vol] 28 mg/dL Normal 23-92 The Counts Include [facility] Comment on above: Result Comment: HDL CHOL ATP-III CLASSIFICATION Cardiovascular Risk HDL > or equal to 60 mg/dL LOW HDL < 40 mg/dL HIGH Performed By: #### F E, LIPID, CBC, [id number] ####[facility] [place] [address] [facility] Cholesterol.total/Chol esterol in HDL [Mass ratio] 2.8 {ratio} Normal <5.0 The Counts Include [facility] Comment on above: Performed By: #### F E, LIPID, CBC, [id number] ####[place] [address] [place] [address] [facility] LDL Cholesterol,Calculated 26 mg/dL Normal 0-100 The Counts Include [facility] Comment on above: Result Comment: LDL ATP III CLASSIFICATION LDL less than 100 mg/dL Optimal LDL 100-129 mg/dL Near or above optimal LDL 130-159 mg/dL Borderline high LDL 160-189 mg/dL High LDL greater than 189 mg/dL Very high Performed By: #### F E, LIPID, CBC, [id number] ####[facility] [place] [id number] [facility] Triglyceride w/Reflex 118 mg/dL Normal 0-149 The Counts Include [facility] Comment on above: Result Comment: TRIG ATP III CLASSIFICATION TRIG less than 150 mg/dL Normal TRIG 150-199 mg/dL Borderline high TRIG 200-500 mg/dL High TRIG greater than 500 mg/dL Very high Standard traceable to the Center for Disease Conrtrol and Prevention (CDC) test method. Performed By: #### F E, LIPID, CBC, [id number] ####[place] [address] [place] [id number] [facility] VLDL CHOLESTEROL 23 mg/dL Normal The Counts Include [facility] Comment on above: Performed By: #### F E, LIPID, CBC, [id number] ####[facility] [address] [place] [address] [facility] Lymphocytes Auto (Bld) [#/Vo l]Ordered By: Kailey Louise on 06-12-2024 Lymphocytes (Bld) [#/Vol] Lymphocytes [#/volume] in Blood by Automated count Low 1.00-4.8 [facility] Lymphocytes/100 WBC Auto (Bl d)Ordered By: Kailey Louise on 06-12-2024 Lymphocytes/100 WBC (Bld) Lymphocytes/100 leukocytes in Blood by Automated count . [facility] MCH Auto (RBC) [Entitic mass ]Ordered By: Kailey Louise on 06-12-2024 MCH (RBC) [Entitic mass] MCH [Entitic mass] by Automated count 27.5-35.2 [facility] MCHC Auto (RBC) [Mass/Vol]Or dered By: Kailey Louise on 06-12-2024 MCHC (RBC) [Mass/Vol] MCHC [Mass/volume] by Automated count 32.5-35.6 [facility] MCV Auto (RBC) [Entitic vol] Ordered By: Kailey Louise on 06-12-2024 MCV (RBC) [Entitic vol] MCV [Entitic volume] by Automated count 83.5-101 [facility] MicroAlb Creat Ratio,Uon Albumin DL <= 20 mg/L (U) [Mass/Vol] 1.2 mg/dL Normal 0.0-1.8 The Counts Include [facility] Comment on above: Performed By: #### U ELIJAH COOKONUAPLUS #### [address] Creatinine, Urine (Random) 222.00 mg/dL Normal The Counts Include [facility] Comment on above: Result Comment: No r eference range established Performed By: #### U ELIJAH COOKONUAPLUS #### [address] Microalbumin/Creatinin e Ratio 5.4 mg/g Normal 0.0-30.0 The Counts Include [facility] Comment on above: Result Comment: 30-3 00 mg/g indicates an increased risk for diabetic nephropathy. Greater than 300 mg/g is consistent with clinical nephropathy. (Am. J. Kidney Disease 1995, 25:107) PERFORMED BY: [place] [address] PATHOLOGIST CATERING DRIVER KRISSY HARRIS M.D. Performed By: #### U ELIJAH COOKONUAPLUS #### [address] Microalbumin [Mass/volume] i n UrineOrdered By: Kailey Louise on 06-12-2024 Albumin DL <= 20 mg/L (U) [Mass/Vol] Microalbumin [Mass/volume] in Urine 0.0-1.8 [facility] Microalbumin/Creatinine rati o panel (U)on 06-12-2024 Albumin [Mass/Vol] 1.2 mg/dL 0.0 - 1.8 mg/dL [facility] Creatinine spec 2 (U) [Mass/Vol] 222 mg/dL [facility] Comment on above: No reference range e stablished MICROALBUMIN/CREATININ E RATIO 5.4 mg/g 0.0 - 30.0 mg/g [facility] Comment on above: 30-300 mg/g indicate s an increased risk for diabetic nephropathy. Greater than 300 mg/g is consistent with clinical nephropathy. (Am. J. Kidney Disease 1995, 25:107) [facility] Monocytes Auto (Bld) [#/Vol] Ordered By: Kailey Louise on 06-12-2024 Monocytes (Bld) [#/Vol] Automated blood monocyte count 0.0-0.8 [facility] Monocytes/100 WBC Auto (Bld) Ordered By: Kailey Louise on 06-12-2024 Monocytes/100 WBC (Bld) Automated monocyte % . [facility] Mucus [Presence] in Urine by AutomatedOrdered By: Kailey Louise on 06-12-2024 Mucus Auto Ql (U) Mucus [Presence] in Urine by Automated [facility] Neutrophils Auto (Bld) [#/Vo l]Ordered By: Kailey Loiuse on 06-12-2024 Neutrophils (Bld) [#/Vol] Neutrophils [#/volume] in Blood by Automated count 1.8-7.7 [facility] Neutrophils/100 WBC Auto (Bl d)Ordered By: Kailey Louise on 06-12-2024 Neutrophils/100 WBC (Bld) Automated neutrophil % . [facility] Nitrite Test strip Ql (U)Ord ered By: Kailey Louise on 06-12-2024 Nitrite Ql (U) Nitrite [Presence] i n Urine by Test strip Negative [facility] No Panel InformationOrdered By: Kary Dutta on 06-12-2024 Estimated GFR (CKD-EPI) 39.805 mL/Min [facility] Creatinine Clearance (Chem N/A [facility] Nucleated erythrocytes [Pres ence] in Blood by Automated countOrdered By: Kailey Louise on 06-12-2024 Nucleated RBC Auto Ql (Bld) Nucleated erythrocytes [Presence] in Blood by Automated count 0-0.5 [facility] Platelet mean volume Auto (B ld) [Entitic vol]Ordered By: Kailey Louise on 06-12-2024 Platelet mean volume (Bld) [Entitic vol] Platelet mean volume [Entitic volume] in Blood by Automated count 6.6-10.1 [facility] Platelets Auto (Bld) [#/Vol] Ordered By: Kailey Louise on 06-12-2024 Platelets (Bld) [#/Vol] Platelets [#/volume] in Blood by Automated count Low 150-450 [facility] Potassium [Moles/volume] in Serum or PlasmaOrdered By: Kary Dutta on 06-12-2024 Potassium [Moles/Vol] Potassium [Moles/v olume] in Serum or Plasma 3.5-5.1 [facility] Protein Test strip (U) [Mass /Vol]Ordered By: Kailey Louise on 06-12-2024 Protein (U) [Mass/Vol] Protein [Mass/vol ume] in Urine by Test strip High Negative [facility] Protein [Mass/volume] in Ser um or PlasmaOrdered By: Kary Dutta on 06-12-2024 Protein [Mass/Vol] Protein [Mass/volume ] in Serum or Plasma Low 6.4-8.9 [facility] RBC Auto (Bld) [#/Vol]Ordere d By: Kailey Louise on 06-12-2024 RBC (Bld) [#/Vol] Erythrocytes [#/volu me] in Blood by Automated count 3.90-5.60 [facility] Serum or plasma albumin/glob ulin mass ratioOrdered By: Kary Dutta on 06-12-2024 Albumin/Globulin [Mass ratio] Serum or plasma albumin/globulin mass ratio [facility] Serum or plasma anion gap de terminationOrdered By: Kary Dutta on 06-12-2024 Anion gap [Moles/Vol] Serum or plasma an ion gap determination 6.0-15.0 [facility] Serum or plasma total choles terol/high density lipoprotein (HDL) cholesterol mass ratOrdered By: Kailey Louise on 06-12-2024 Cholesterol.total/Chol esterol in HDL [Mass ratio] Serum or plasma total cholesterol/high density lipoprotein (HDL) cholesterol mass rat <5.0 [facility] Sodium [Moles/volume] in Ser um or PlasmaOrdered By: Kary Dutta on 06-12-2024 Sodium [Moles/Vol] Sodium [Moles/volume ] in Serum or Plasma 136-145 [facility] Specific gravity Test strip (U) [Rel density]Ordered By: Kailey Louise on 06-12-2024 Specific gravity (U) [Rel density] Specific gravity of Urine by Test strip 1.001-1.03 0 [facility] Thyroid Stimulating Hormoneo n 06-12-2024 TSH Qn 1.02 m[IU]/L Normal 0.45-5.33 The Counts Include [facility] Comment on above: Result Comment: PERF ORMED BY: [facility] [address] [place] [address] PATHOLOGIST CATERING DRIVER KRISSY HARRIS M.D. Performed By: #### T SH3 ####[facility] [place] [address] [facility] Thyrotropin [Units/volume] i n Serum or PlasmaOrdered By: Kary Dutta on 06-12-2024 TSH Qn Thyrotropin [Units/v olume] in Serum or Plasma 0.45-5.33 [facility] Triglyceride [Mass/volume] i n Serum or PlasmaOrdered By: Kailey Louise on 06-12-2024 Triglyceride [Mass/Vol] Triglyceride [Mass/volume] in Serum or Plasma 0-149 [facility] Comment on above: TRIG ATP III CLASSIF ICATIONTRIG less than 150 mg/dL NormalTRIG 150-199 mg/dL Borderline highTRIG 200-500 mg/dL High TRIG greater than 500 mg/dL Very highStandard traceable to the Center for Disease Conrtrol and Prevention (CDC) test method. Urea nitrogen [Mass/volume] in Serum or PlasmaOrdered By: Kary Dutta on 06-12-2024 Urea nitrogen [Mass/Vol] Urea nitrogen [Mass/volume] in Serum or Plasma 7-25 [facility] Urine microalbumin/creatinin e mass ratioOrdered By: Kailey Louise on 06-12-2024 Albumin/Creatinine DL <= 20 mg/L (U) [Mass ratio] Urine microalbumin/creatinine mass ratio 0.0-30.0 [facility] Comment on above: 30-300 mg/g indicate s an increased risk for diabetic nephropathy. Greater than 300 mg/g is consistent with clinical nephropathy. (Am. J. Kidney Disease 1995, 25:107) Urobilinogen Test strip (U) [Mass/Vol]Ordered By: Kailey Louise on 06-12-2024 Urobilinogen (U) [Mass/Vol] Urobilinogen [Mass/volume] in Urine by Test strip Normal [facility] Vitamin D 25 Hydroxy Totalon 06-12-2024 Vitamin D 25 Hydroxy Total 25.7 ng/mL Low 30-100 The Counts Include [address] [facility] Comment on above: Result Comment: LAURA MIN D STATUS 25(OH)VITAMIN D RANGE (ng/mL) Deficient <20 Insufficient 20 to <30 Sufficient 30 to 100 Reference: Rakel Robles, Chirag LAMA, et al. Evaluation,treatment, and prevention of vitamin D deficiency; an Endocrine Society clinical practice guideline. JCEM. 2010; 96(7):1911-30. PERFORMED BY: [facility] [address] [place] [address] PATHOLOGIST CATERING DRIVER KRISSY HARRIS M.D. Performed By: #### F E, LIPID, CBC, [id number] ####[facility] [address] [place] [address] [facility] Vitamin D+Metabolites [Mass/ volume] in Serum or PlasmaOrdered By: Kailey Louise on 06-12-2024 Vitamin D+Metabolites [Mass/Vol] Vitamin D+Metabolites [Mass/volume] in Serum or Plasma Low 30-100 [facility] Comment on above: VITAMIN D STATUS 25( [place])VITAMIN D RANGE (ng/mL) Deficient <20 Insufficient 20 to <30Sufficient 30 to 100Reference: Rakel Robles, Chirag LAMA, et al. Evaluation,treatment, and prevention of vitamin D deficiency; an Endocrine Society clinical practice guideline. JCEM. 2010; 96(7):1911-30. WBC Auto (Bld) [#/Vol]Ordere d By: Kailey Louise on 01-08-2025 WBC (Bld) [#/Vol] Leukocytes [#/volume ] in Blood by Automated count 4.1-10.5 [facility] X-ray reportOrdered By: Herman Irby on 06-12-2024 Study report [facility] Main [address] [address] XRay Report Signed Patient: Amee Juárez MR#: [id number] : 1950 Acct:[id number] Age/Sex: 73 / M ADM Date: 5 Loc: RT Room: Type: REG CLI Attending Dr: Kary Dutta DO Copies to: Kary Dutta DO~ Ordering Provider: Kary Dutta DO Date of Service: 06/12/24 XR/XR chest 2V*: HIGH RISK MEDS, I48.92 PA AND LATERAL CHEST: CLINICAL HISTORY: High risk medication usage, atrial fibrillation, cough is of atrial fibrillation and hypertension COMPARISON: 04/13/2024 FINDINGS: Stable enlarged cardiomediastinal silhouette. No focal airspace opacity, pleural effusion or pneumothorax. Degenerative changes involving the shoulders and thoracic spine. XR/XR chest 2V* IMPRESSION: NO ACUTE CARDIOPULMONARY ABNORMALITY. STABLE CARDIOMEGALY Impression dictated by: Devin Irby M.D.06/12/2024 10:16 AM Dictation Location: [place] [address] Transcribed By: [facility] 06/12/24 1016 Dictated By: Devin Irby MD 06/12/24 1015 Signed By: 06/12/24 1016 [facility] Work Phone: XR chest 2V*on 06-12-2024 XR chest 2V* [facility] Main [address] [address] XRay Report Signed Patient: Amee Juárez MR#: [id number] 03 : 1950 Acct:[id number] Age/Sex: 73 / M ADM Date: 06/12/24 Loc: RT Room: Type: REG CLI Attending Dr: Kary Dutta DO Copies to: Kary Dutta DO Ordering Provider: Kary Dutta DO Date of Service: 06/12/24 XR/XR chest 2V*: HIGH RISK MEDS, I48.92 PA AND LATERAL CHEST: CLINICAL HISTORY: High risk medication usage, atrial fibrillation, cough is of atrial fibrillation and hypertension COMPARISON: 04/13/2024 FINDINGS: Stable enlarged cardiomediastinal silhouette. No focal airspace opacity, pleural effusion or pneumothorax. Degenerative changes involving the shoulders and thoracic spine. XR/XR chest 2V* IMPRESSION: NO ACUTE CARDIOPULMONARY ABNORMALITY. STABLE CARDIOMEGALY Impression dictated by: Devin Irby M.D.06/12/2024 10:16 AM Dictation Location: [place] [address] Transcribed By: [facility] 06/12/24 1016 Dictated By: Devin Irby MD 06/12/24 1015 Signed By: 06/12/24 1016 Normal The Counts Include [address] [facility] pH Test strip (U)Ordered By: Kailey Louise on 06-12-2024 pH (U) pH of Urine by Test strip 5.0-9.[address] [facility] [address] angio chest PE protocolon 04-14-2024 CT angio chest PE protocol [facility] [place] [address] CT Scan Report Signed Patient: Amee Juárez MR#: [id number] 03 : 1950 Acct:[id number] Age/Sex: 73 / M ADM Date: 04/13/24 Loc: ER Room: Type: [facility] ER Attending Dr: Copies to: Amee Herrera Jr, MD Ordering Provider: Amee Herrera Jr, MD Date of Service: 04/14/24 CT/CT angio chest PE protocol: sob, intermittent severe L upper back pain CT angio chest PE protocol 04/14/2024 12:03 AM SIGN AND SYMPTOMS: Cough, congestion, shortness of breath CONTRAST: 90 mL of intravenous [id number] TECHNIQUE: Multidetector CT axial slices of the chest were obtained with IV contrast. Multiplanar and 3-D reformats were performed and viewed on a separate workstation and reviewed to further define anatomy and possible pathology. CT was performed with one or more of the following dose reduction techniques: Automated exposure control, adjustment of the mA and/or kV according to patient size, or use of iterative reconstruction technique. COMPARISON: 11/24/2021. FINDINGS: Lower neck: Thyroid gland within normal limits, no supraclavicle adenopathy. Vessels: Atherosclerotic changes are noted in the coronary arteries and thoracic aorta. There is no evidence of pulmonary embolism. Mediastinum and Brenda: Within normal limits. Heart: There is mild cardiomegaly. There is a small pericardial effusion.. Airways: Within normal limits Lungs: There is mild dependent scarring or atelectasis. There is a 6 mm noncalcified nodule in the right lower lobe laterally on series 7 image 75. This is unchanged. Pleura: Within normal limits. Chest Wall: Within normal limits. Upper Abdomen: There is evidence of prior cholecystectomy. Bones: Degenerative changes are noted in the thoracic spine. CT/CT angio chest PE protocol IMPRESSION: There is no pulmonary embolism. There is mild cardiomegaly with a small pericardial effusion. This is similar to the prior exam. There is a 6 mm noncalcified nodule in the right lower lobe laterally on series 7 image 75. This is unchanged when compared to the prior exam. Follow-up per Fleischner Society guidelines is r ecommended. Impression dictated by: Yazan Dos Santos M.D.04/14/2024 11:40 AM Dictation Location: [place] [address] Transcribed By: [facility] 04/14/24 1140 Dictated By: Yazan Dos Santos II, MD 04/14/24 1132 Signed By: 04/14/24 1140 Normal The Counts Include [address] [facility] X-ray reportOrdered By: Yazan Dos Santos on 04-14-2024 Study report [facility] Main [place] [id number] XRay Report Signed Patient: Amee Juárez MR#: [id number] : 1950 Acct:[id number] Age/Sex: 73 / M ADM Date: 4 Loc: ER Room: Type: [facility] ER Attending Dr: Copies to: Amee Herrera Jr, MD~ Ordering Provider: Amee Herrera Jr, MD Date of Service: 04/13/24 XR/XR chest 2V*: Chest Pain XR chest 2V* 04/13/2024 9:25 PM SIGNS AND SYMPTOMS: Chest pressure, shortness breath, congestion, left shoulder. PROTOCOL: Frontal and lateral radiograph of the chest COMPARISON: 06/13/2023 FINDINGS: The trachea is midline. The heart and mediastinal structures are within normal limits. The lung parenchyma is clear. The bony thorax is intact. Degenerativechanges are present in the thoracic spine and shoulders. XR/XR chest 2V* IMPRESSION: No acute cardiopulmonary pathology. Impression dictated by: Yazan Dos Santos M.D.04/14/2024 9:37 AM Dictation Location: [facility]17 Transcribed By: GARY 04/14/24936 Dictated By: Yazan Dos Santos II, MD 04/14/24935 Signed By: 04/14/24936 [facility] Work Phone: XR chest 2V*on 04-14-2024 XR chest 2V* [facility] [place] [address] XRay Report Signed Patient: Amee Juárez MR#: [id number] 03 : 1950 Acct:[id number] Age/Sex: 73 / M ADM Date: 04/13/24 Loc: ER Room: Type: [facility] ER Attending Dr: Copies to: Amee Herrera Jr, MD Ordering Provider: Amee Herrera Jr, MD Date of Service: 04/13/24 XR/XR chest 2V*: Chest Pain XR chest 2V* 04/13/2024 9:25 PM SIGNS AND SYMPTOMS: Chest pressure, shortness breath, congestion, left shoulder. PROTOCOL: Frontal and lateral radiograph of the chest COMPARISON: 06/13/2023 FINDINGS: The trachea is midline. The heart and mediastinal structures are within normal limits. The lung parenchyma is clear. The bony thorax is intact. Degenerative changes are present in the thoracic spine and shoulders. XR/XR chest 2V* IMPRESSION: No acute cardiopulmonary pathology. Impression dictated by: Yazan Dos Santos M.D.04/14/2024 9:37 AM Dictation Location: [facility]17 Transcribed By: GARY 04/14/24 0937 Dictated By: Yazan Dos Santos II, MD 04/14/24935 Signed By: 04/14/24936 Normal The Counts Include [address] [facility] B-Type Natriuretic Peptideon 04-13-2024 Natriuretic peptide B (Bld) [Mass/Vol] 71.0 pg/mL Normal 5-100 The Counts Include [address] [facility] Comment on above: Result Comment: PERF ORMED BY: [place] [address] PATHOLOGIST CATERING DRIVER PRAVIN WILKERSON M.D. Performed By: #### H S TROP, CBC, CK, PT, BMP, BNP ####[address] Basic Metabolic Panelon Anion gap [Moles/Vol] 9.2 mmol/L Normal 6.0-15.0 The Counts Include [address] [facility] Comment on above: Performed By: #### H S TROP, CBC, CK, PT, BMP, BNP #### [address] Calcium [Mass/Vol] 8.9 mg/dL Normal 8.6-10.3 The Counts Include [address] [facility] Comment on above: Performed By: #### H S TROP, CBC, CK, PT, BMP, BNP #### [address] Chloride [Moles/Vol] 111 mmol/L High 98-107 The Counts Include [address] [facility] Comment on above: Performed By: #### H S TROP, CBC, CK, PT, BMP, BNP #### [address] CO2 [Moles/Vol] 26.8 mmol/L Normal 21.0-31.0 The Counts Include [address] [facility] Comment on above: Performed By: #### H S TROP, CBC, CK, PT, BMP, BNP #### [address] Creatinine [Mass/Vol] 1.31 mg/dL High 0.70-1.30 The Counts Include [address] [facility] Comment on above: Performed By: #### H S TROP, CBC, CK, PT, BMP, BNP #### [address] Creatinine Clr Calc Pharmacy 60.74 Normal The Counts Include [address] [facility] Comment on above: Result Comment: PERF ORMED BY: [place] [address] PATHOLOGIST CATERING DRIVER PRAVIN WILKERSON M.D. Performed By: #### H S TROP, CBC, CK, PT, BMP, BNP #### [place] [address] [place] GFR/1.73 sq M.predicted MDRD (S/P/Bld) [Vol rate/Area] 57.119 mL/min/{1.73_m2} Normal The Counts Include [facility] Comment on above: Performed By: #### H S TROP, CBC, CK, PT, BMP, BNP #### [address] Glucose [Mass/Vol] 107 mg/dL High 70-100 The Counts Include [facility] Comment on above: Result Comment: [place] Glucose Reference Range is dependent on time and content of last meal. Glucose of more than 200 mg/dL in a nonstressed, ambulatory subject supports the diagnosis of Diabetes Mellitus. ADA recommended reference range Performed By: #### H S TROP, CBC, CK, PT, BMP, BNP #### [address] Potassium [Moles/Vol] 4.0 mmol/L Normal 3.5-5.1 The Counts Include [facility] Comment on above: Performed By: #### H S TROP, CBC, CK, PT, BMP, BNP #### [place] [address] [place] Sodium [Moles/Vol] 143 mmol/L Normal 136-145 The Counts Include [facility] Comment on above: Performed By: #### H S TROP, CBC, CK, PT, BMP, BNP #### [place] [address] [place] Urea nitrogen [Mass/Vol] 21 mg/dL Normal 7-25 The Counts Include [facility] Comment on above: Performed By: #### H S TROP, CBC, CK, PT, BMP, BNP #### [facility] [address] Basophils Auto (Bld) [#/Vol] Ordered By: Amee Herrera on 04-13-2024 Basophils (Bld) [#/Vol] Automated basophil count 0.0-0.2 [facility] Basophils/100 WBC Auto (Bld) Ordered By: Amee Herrera on 04-13-2024 Basophils/100 WBC (Bld) Automated basophil % . [facility] BioFire Not Detectedon 04-13 BioFire Not Detected Not detected Normal Not Detecte The Counts Include [facility] Comment on above: Result Comment: This is a duplicate RP2.1 COVID (PCR) result to be used for statistical tracking purpose only. PERFORMED BY: [facility] [address] [place] [address] PATHOLOGIST CATERING DRIVER PRAVIN WILKERSON M.D. Performed By: #### R BUZZ PANEL UPP., BIOFIRECOVNOTDE ####[facility] [id number] COVID-19 Detected/Not Detect edOrdered By: Amee Herrera on 04-13-2024 SARS-CoV-2 (COVID-19) RNA CORNELIO+non-probe Ql (Nph) Not detected Not Detecte [facility] Comment on above: This is a duplicate RP2.1 COVID (PCR) result to be used for statistical tracking purpose only. Calcium [Mass/volume] in Ser um or PlasmaOrdered By: Amee Herrera on 04-13-2024 Calcium [Mass/Vol] Calcium [Mass/volume ] in Serum or Plasma 8.6-10.3 [facility] Carbon dioxide, total [Moles /volume] in Serum or PlasmaOrdered By: Amee Herrera on 04-13-2024 CO2 [Moles/Vol] Carbon dioxide, tota l [Moles/volume] in Serum or Plasma 21.0-31.0 [facility] Chloride [Moles/volume] in S tomas or PlasmaOrdered By: Amee Herrera on 04-13-2024 Chloride [Moles/Vol] Chloride [Moles/vol ume] in Serum or Plasma High 98-107 [facility] Complete Blood Count Auto Di ffon 04-13-2024 Basophils (Bld) [#/Vol] 0.1 10*3/uL Normal 0.0-0.2 The Counts Include [facility] Comment on above: Result Comment: PERF ORMED BY: [place] [address] PATHOLOGIST CATERING DRIVER PRAVIN WILKERSON M.D. Performed By: #### H S TROP, CBC, CK, PT, BMP, BNP #### [address] Basophils/100 WBC (Bld) 0.9 % Normal . The Counts Include [facility] Comment on above: Performed By: #### H S TROP, CBC, CK, PT, BMP, BNP #### [address] Eosinophils (Bld) [#/Vol] 0.1 10*3/uL Normal 0.0-0.45 The Counts Include [facility] Comment on above: Performed By: #### H S TROP, CBC, CK, PT, BMP, BNP #### [address] Eosinophils/100 WBC (Bld) 2.2 % Normal . The Counts Include [facility] Comment on above: Performed By: #### H S TROP, CBC, CK, PT, BMP, BNP #### [address] Erythrocyte distribution width (RBC) [Ratio] 15.1 % High 12.0-14.8 The Counts Include [facility] Comment on above: Performed By: #### H S TROP, CBC, CK, PT, BMP, BNP #### [address] Hematocrit (Bld) [Volume fraction] 40.2 % Normal 38.8-50.0 The Counts Include [facility] Comment on above: Performed By: #### H S TROP, CBC, CK, PT, BMP, BNP #### [address] Hemoglobin (Bld) [Mass/Vol] 13.8 g/dL Normal 13.0-17.0 The Counts Include [facility] Comment on above: Performed By: #### H S TROP, CBC, CK, PT, BMP, BNP #### [address] Lymphocytes (Bld) [#/Vol] 1.2 10*3/uL Normal 1.00-4.8 The Counts Include [address] [facility] Comment on above: Performed By: #### H S TROP, CBC, CK, PT, BMP, BNP #### [address] Lymphocytes/100 WBC (Bld) 19.4 % Normal . The Counts Include [facility] Comment on above: Performed By: #### H S TROP, CBC, CK, PT, BMP, BNP #### [address] MCH (RBC) [Entitic mass] 30.5 pg Normal 27.5-35.2 The Counts Include [facility] Comment on above: Performed By: #### H S TROP, CBC, CK, PT, BMP, BNP #### [address] MCV (RBC) [Entitic vol] 88.9 fL Normal 83.5-101 The Counts Include [facility] Comment on above: Performed By: #### H S TROP, CBC, CK, PT, BMP, BNP #### [address] Mean Corpuscular HGB Conc 34.3 g/dL Normal 32.5-35.6 The Counts Include [facility] Comment on above: Performed By: #### H S TROP, CBC, CK, PT, BMP, BNP #### [address] Monocytes (Bld) [#/Vol] 0.7 10*3/uL Normal 0.0-0.8 The Counts Include [facility] Comment on above: Performed By: #### H S TROP, CBC, CK, PT, BMP, BNP #### [address] Monocytes/100 WBC (Bld) 18.54 % Normal 0.00-20.00 The Counts Include [facility] Comment on above: Performed By: #### H S TROP, CBC, CK, PT, BMP, BNP #### [address] Monocytes/100 WBC (Bld) 11.9 % Normal . The Counts Include [facility] Comment on above: Performed By: #### H S TROP, CBC, CK, PT, BMP, BNP #### [address] Neutrophils (Bld) [#/Vol] 4.1 10*3/uL Normal 1.8-7.7 The Counts Include [facility] Comment on above: Performed By: #### H S TROP, CBC, CK, PT, BMP, BNP #### [address] Neutrophils/100 WBC (Bld) 65.6 % Normal . The Counts Include [facility] Comment on above: Performed By: #### H S TROP, CBC, CK, PT, BMP, BNP #### [address] NRBC% 0.1 /100{WBC} Normal 0-0.5 The Counts Include [facility] Comment on above: Performed By: #### H S TROP, CBC, CK, PT, BMP, BNP #### [address] Platelet mean volume (Bld) [Entitic vol] 7.5 fL Normal 6.6-10.1 The Counts Include [facility] Comment on above: Performed By: #### H S TROP, CBC, CK, PT, BMP, BNP #### [address] Platelets (Bld) [#/Vol] 184 10*3/uL Normal 150-450 The Counts Include [facility] Comment on above: Performed By: #### H S TROP, CBC, CK, PT, BMP, BNP #### [address] RBC (Bld) [#/Vol] 4.52 10*6/uL Normal 3.90-5.60 The Counts Include [facility] Comment on above: Performed By: #### H S TROP, CBC, CK, PT, BMP, BNP #### [facility] [address] WBC (Bld) [#/Vol] 6.2 10*3/uL Normal 4.1-10.5 The Counts Include [facility] Comment on above: Performed By: #### H S TROP, CBC, CK, PT, BMP, BNP #### [facility] [address] Creatine Kinaseon 04-13-2024 CK [Catalytic activity/Vol] 64 U/L Normal 30-223 The Counts Include [address] [facility] Comment on above: Performed By: #### H S TROP, CBC, CK, PT, BMP, BNP ####[facility] [place] [address] Creatine kinase [Enzymatic a ctivity/volume] in Serum or PlasmaOrdered By: Amee Herrera on 04-13-2024 CK [Catalytic activity/Vol] Creatine kinase [Enzymatic activity/volume] in Serum or Plasma 30-223 [facility] Creatinine [Mass/volume] in Serum or PlasmaOrdered By: Amee Herrera on 04-13-2024 Creatinine [Mass/Vol] Creatinine [Mass/v olume] in Serum or Plasma High 0.70-1.30 [facility] ECG 12 lead ECGon 04-13-2024 ECG 12 lead ECG [facility] [place] [address] Electrocardiograph Report Signed Patient: Amee Juárez MR#: [id number] 03 : 1950 Acct:[id number] Age/Sex: 73 / M ADM Date: 04/13/24 Loc: ER Room: Type: [facility] ER Attending Dr: Ordering Provider: Amee Herrera Jr, MD Date of Service: 04/13/2402/26/2125 ECG/ECG 12 lead ECG: Chest Pain Copies to: Test Reason : Blood Pressure : 196/86 mmHG Vent. Rate : 54 BPM Atrial Rate : 52 BPM P-R Int : * ms QRS Dur : 94 ms QT Int : 452 ms P-R-T Axes : * -8 -1 degrees QTcB Int : 428 ms Undetermined rhythm Incomplete right bundle branch block Nonspecific ST abnormality Abnormal ECG When compared with ECG of 25-Jul-2023 14:05, Current undetermined rhythm precludes rhythm comparison, needs review Inverted T waves have replaced nonspecific T wave abnormality in Inferior leads Confirmed by KORI ROPER MD ([id number]) on 04/15/2024 7:20:55 PM Referred By: Electronically Signed By: KORI ROPER MD Transcribed By: MUS Signed By Kori Roper MD 1 06/15/231920 Normal The Counts Include [facility] Eosinophils Auto (Bld) [#/Vo l]Ordered By: Amee Herrera on 04-13-2024 Eosinophils (Bld) [#/Vol] Automated eosinophil count 0.0-0.45 [facility] Eosinophils/100 WBC Auto (Bl d)Ordered By: Amee Herrera on 04-13-2024 Eosinophils/100 WBC (Bld) Automated eosinophil % . [facility] Erythrocyte distribution wid th Auto (RBC) [Ratio]Ordered By: Amee Herrera on 04-13-2024 Erythrocyte distribution width (RBC) [Ratio] Erythrocyte distribution width [Ratio] by Automated count High 12.0-14.8 [facility] Glucose [Mass/volume] in Ser um or PlasmaOrdered By: Amee Herrera on 04-13-2024 Glucose [Mass/Vol] Glucose [Mass/volume ] in Serum or Plasma High 70-100 [facility] Comment on above: ADA recommended refe rence rangeRandom Glucose Reference Range is dependent on time and content of last meal. Glucose of more than 200 mg/dL in a nonstressed, ambulatory subject supports the diagnosis of Diabetes Mellitus. Hematocrit Auto (Bld) [Volum e fraction]Ordered By: Amee Herrera on 04-13-2024 Hematocrit (Bld) [Volume fraction] Hematocrit [Volume Fraction] of Blood by Automated count 38.8-50.0 [facility] Hemoglobin [Mass/volume] in BloodOrdered By: Amee Herrera on 04-13-2024 Hemoglobin (Bld) [Mass/Vol] Hemoglobin [Mass/volume] in Blood 13.0-17.0 [facility] INR in Platelet poor plasma by Coagulation assayOrdered By: Amee Herrera on 04-13-2024 INR Coag (PPP) [Relative time] INR in Platelet poor plasma by Coagulation assay [facility] Comment on above: INR Therapeutic Rang e A) Pre- and Peroperative OAT started two weeks before surgery. NOT HIP SURGERY: 1.5 - 2.5 HIP SURGERY: 2 - 3B) Primary and secondary prevention of venous THROMBOSIS: 2 - 3C) Active venous thrombosis, pulmonary embolismand prevention of recurrent venous thrombosis: 2 - 3D) Prevention of arterial thromboembolismincluding patients with mechanical heart valves: 3 - 4.5 Leukocytes [#/volume] correc hilaria for nucleated erythrocytes in Blood by Automated counOrdered By: Amee Herrera on 04-13-2024 WBC corrected for nucl RBC Auto (Bld) [#/Vol] Leukocytes [#/volume] corrected for nucleated erythrocytes in Blood by Automated coun 4.1-10.5 [facility] Lymphocytes Auto (Bld) [#/Vo l]Ordered By: Amee Herrera on 04-13-2024 Lymphocytes (Bld) [#/Vol] Lymphocytes [#/volume] in Blood by Automated count 1.00-4.8 [facility] Lymphocytes/100 WBC Auto (Bl d)Ordered By: Amee Herrera on 04-13-2024 Lymphocytes/100 WBC (Bld) Lymphocytes/100 leukocytes in Blood by Automated count . [facility] MCH Auto (RBC) [Entitic mass ]Ordered By: Amee Herrera on 04-13-2024 MCH (RBC) [Entitic mass] MCH [Entitic mass] by Automated count 27.5-35.2 [facility] MCHC Auto (RBC) [Mass/Vol]Or dered By: Amee Hererra on 04-13-2024 MCHC (RBC) [Mass/Vol] MCHC [Mass/volume] by Automated count 32.5-35.6 [facility] MCV Auto (RBC) [Entitic vol] Ordered By: Amee Herrera on 04-13-2024 MCV (RBC) [Entitic vol] MCV [Entitic volume] by Automated count 83.5-101 [facility] Monocyte distribution width [Entitic volume] in Blood by AutomatedOrdered By: Amee Herrera on 04-13-2024 Monocyte distribution width Auto (Bld) [Entitic vol] Monocyte distribution width [Entitic volume] in Blood by Automated 0.00-20.00 [facility] Monocytes Auto (Bld) [#/Vol] Ordered By: Amee Herrera on 04-13-2024 Monocytes (Bld) [#/Vol] Automated blood monocyte count 0.0-0.8 [facility] Monocytes/100 WBC Auto (Bld) Ordered By: Amee Herrera on 04-13-2024 Monocytes/100 WBC (Bld) Automated monocyte % . [facility] Natriuretic peptide B [Mass/ Vol]Ordered By: Amee Herrera on 04-13-2024 Natriuretic peptide B (Bld) [Mass/Vol] BNP ser/plas 5-100 [facility] Neutrophils Auto (Bld) [#/Vo l]Ordered By: Amee Herrera on 04-13-2024 Neutrophils (Bld) [#/Vol] Neutrophils [#/volume] in Blood by Automated count 1.8-7.7 [facility] Neutrophils/100 WBC Auto (Bl d)Ordered By: Amee Herrera on 04-13-2024 Neutrophils/100 WBC (Bld) Automated neutrophil % . [facility] No Panel InformationOrdered By: Amee Herrera on 04-13-2024 Estimated GFR (CKD-EPI) 57.119 mL/Min [facility] Creatinine Clearance (Chem 60.74 [facility] Nucleated erythrocytes [Pres ence] in Blood by Automated countOrdered By: Amee Herrera on 04-13-2024 Nucleated RBC Auto Ql (Bld) Nucleated erythrocytes [Presence] in Blood by Automated count 0-0.5 [facility] Platelet mean volume Auto (B ld) [Entitic vol]Ordered By: Amee Herrera on 04-13-2024 Platelet mean volume (Bld) [Entitic vol] Platelet mean volume [Entitic volume] in Blood by Automated count 6.6-10.1 [facility] Platelets Auto (Bld) [#/Vol] Ordered By: Amee Herrera on 04-13-2024 Platelets (Bld) [#/Vol] Platelets [#/volume] in Blood by Automated count 150-450 [facility] Potassium [Moles/volume] in Serum or PlasmaOrdered By: Amee Herrera on 04-13-2024 Potassium [Moles/Vol] Potassium [Moles/v olume] in Serum or Plasma 3.5-5.1 [facility] Prothrombin Time INRon 04-13 INR Coag (PPP) [Relative time] 1.2 {INR} Normal The Counts Include [facility] Comment on above: Result Comment: INR Therapeutic Range A) Pre- and Peroperative OAT started two weeks before surgery. NOT HIP SURGERY: 1.5 - 2.5 HIP SURGERY: 2 - 3 B) Primary and secondary prevention of venous THROMBOSIS: 2 - 3 C) Active venous thrombosis, pulmonary embolism and prevention of recurrent venous thrombosis: 2 - 3 D) Prevention of arterial thromboembolism including patients with mechanical heart valves: 3 - 4.5 PERFORMED BY: [facility] [address] [place] [id number] PATHOLOGIST CATERING DRIVER PRAVIN WILKERSON M.D. Performed By: #### H S TROP, CBC, CK, PT, BMP, BNP ####[place] [id number] [place] [id number] [facility] PT Coag (PPP) [Time] 14.1 s High 9.0-12.9 The Counts Include [address] [facility] Comment on above: Result Comment: A he matocrit value greater than 55% may lead to inaccurate results in coagulation testing. Patients having hematocrit values >55% require a special collection tube for coagulation studies. Please contact the laboratory at [phone] for redraw instructions. Performed By: #### H S TROP, CBC, CK, PT, BMP, BNP ####[place] [id number] [place] [id number] [facility] Prothrombin time (PT)Ordered By: Amee Herrera on 04-13-2024 PT Coag (PPP) [Time] Prothrombin time (PT) High 9.0- 12.9 [facility] Comment on above: A hematocrit value g reater than 55% may lead to inaccurate results in coagulation testing. Patients having hematocrit values >55% require a special collection tube for coagulation studies. Please contact the laboratory at [phone] for redraw instructions. RBC Auto (Bld) [#/Vol]Ordere d By: Amee Herrera on 04-13-2024 RBC (Bld) [#/Vol] Erythrocytes [#/volu me] in Blood by Automated count 3.90-5.60 [facility] Respiratory (Upper) Panel, P CRon 11-09-2024 Respiratory (Upper) Panel, PCR Adenovirus Not detected Bordetella parapertussis Not detected Chlamydia pneumoniae Not detected Coronavirus 229E Not detected Coronavirus HKU1 Not detected Coronavirus NL63 Not detected Coronavirus OC43 Not detected Influenza A Not detected Influenza B Not detected Human Metapneumovirus Not detected Mycoplasma pneumoniae Not detected Parainfluenza Virus 1 Not detected Parainfluenza Virus 2 Not detected Parainfluenza Virus 3 Not detected Parainfluenza Virus 4 Not detected Bordetella pertussis-ptxP Not detected Human Rhino/Enterovirus Not detected Resp. Syncytial Virus Not detected COVID-19 Detected/Not Detected Not detected Blank Space -- FLUA TEST INCLUDES Influenza A tests for the following clinically FLUA TEST INCLUDES significant subtypes: FLUA TEST INCLUDES - Influenza A FLUA TEST INCLUDES - Influenza A H1 FLUA TEST INCLUDES - Influenza A H1 2009 FLUA TEST INCLUDES - Influenza A H3 Blank Space -- PERFORMED BY: [facility] [address] [place] [address] PATHOLOGIST CATERING DRIVER PRAVIN WILKERSON M.D. Normal The Counts Include [address] [facility] Comment on above: Performed By: #### R BUZZ PANEL UPP., BIOFIRECOVNOTDE ####[facility] Respiratory pathogens DNA an d RNA panel - Nasopharynx by CORNELIO with non-probe detectionOrdered By: Amee Herrera on 04-13-2024 Respiratory pathogens DNA and RNA panel CORNELIO+non-probe (Nph) Respiratory pathogens DNA and RNA panel - Nasopharynx by CORNELIO with non-probe detection [facility] Serum or plasma anion gap de terminationOrdered By: Amee Herrera on 04-13-2024 Anion gap [Moles/Vol] Serum or plasma an ion gap determination 6.0-15.0 [facility] Sodium [Moles/volume] in Ser um or PlasmaOrdered By: Amee Herrera on 04-13-2024 Sodium [Moles/Vol] Sodium [Moles/volume ] in Serum or Plasma 136-145 [facility] Troponin I High Sensitivityo n 04-13-2024 Troponin I High Sensitivity 11.4 pg/mL Normal 0.0-20.0 The Counts Include [address] [facility] Comment on above: Result Comment: PERF ORMED BY: [facility] [address] [facility] [place] [address] PATHOLOGIST CATERING DRIVER PRAVIN WILKERSON M.D. Performed By: #### H S TROP, CBC, CK, PT, BMP, BNP ####[facility] [id number] Troponin I.cardiac [Mass/vol ume] in Serum or Plasma by Detection limit <= 0.01 ng/Ordered By: Amee Herrera on 04-13-2024 Troponin I.cardiac DL <= 0.01 ng/mL [Mass/Vol] Troponin I.cardiac [Mass/volume] in Serum or Plasma by Detection limit <= 0.01 ng/ 0.0-20.0 [facility] Urea nitrogen [Mass/volume] in Serum or PlasmaOrdered By: Amee Herrera on 04-13-2024 Urea nitrogen [Mass/Vol] Urea nitrogen [Mass/volume] in Serum or Plasma 7-25 [facility] WBC Auto (Bld) [#/Vol]Ordere d By: Amee Herrera on 04-13-2024 WBC (Bld) [#/Vol] Leukocytes [#/volume ] in Blood by Automated count 4.1-10.5 [facility] ECG 12 Leadon 03-14-2024 Normal sinus rhythm, left axis deviation, borderline ECG [facility] Work Phone: [facility] Work Phone: [phone] Jac Blake 01-23-2024 [facility] Telephone ([place]) -- AMEE JUÁREZ ([id number]) 1950 M Date Time Provider Department 01/23/24 ERIN VERMA During your visit today, we recorded the following information about you: Erin Verma LSW 01/23/2024 1:01 PM Signed Patient Declined Social Work Assessment Patient's name is on the PRO [place] report for a NCCN score of 8. SW called Patient and denied any psychosocial needs. Patient was appreciative of the call. SW will remain available and will follow up as appropriate. RABIA Donis-S Allergies As of Date: 01/23/2024 (No Known Allergies) Date Reviewed: 01/22/2024 Reviewed by: Mackenzie Juárez MA - Fully Assessed Prescriptions as of 01/23/2024 - amiodarone (PACERONE) 200 mg tablet Take [...] Oral Q4H April 30, 2018 3:31pm 04-30-2018 [facility] ([id number]) - albuterol (PROVENTIL) 2.5 mg /3 mL (0.083 %) nebulizer solution Use 2.5 mg via nebulizer every 4 hours as needed. - SYMBICORT 160-4.5 mcg/actuation inhaler TAKE 2 PUFFS BY MOUTH TWICE A DAY*RINSE MOUTH AFTER USE* - FLUZONE HIGH-DOSE , 180 mcg/0.5 mL injection TO BE ADMINISTERED BY PHARMACIST FOR IMMUNIZATION - PREVNAR 13, PF, 0.5 mL syrg TO BE ADMINISTERED BY PHARMACIST FOR IMMUNIZATION - DALIRESP 500 mcg tab Take 500 mcg by mouth once daily. - valsartan (DIOVAN) 160 mg tablet Take 160 mg by mouth twice daily. Problem List As Of Date 01/23/2024 Noted Resolved Prostate cancer (HCC) [C61] 06/25/2018 Neoplasm [D49.9] 06/25/2018 Malnutrition of mild degree (HCC) [E44.1] 07/27/2018 Encounter Status:Closed by ERIN VERMA on 01/23/24 [facility] CNOVon 01-22-2024 CNOV Office Visit (RADTSA ) -- AMEE JUÁREZ ([id number]) 1950 M Date Time Provider Department 01/22/24 1:00 PM GALILEO DELATORRE During your visit today, we recorded the following information about you: Temperature Pulse Respiration Blood pressure 98.2 degrees 54/minute 16/minute 170/80 Weight 105.4 kg Galileo Delatorre MD 02/12/2024 11:13 PM Signed Radiation Oncology - Follow Up Note PATIENT NAME: Amee Juárez PATIENT DIAGNOSIS/PATIENT IDENTIFICATION: Mr. Juárez is a 73-year old gentleman with history of intermediate risk [...] consultation with my colleague Dr. Vu at [facility] on 07/30/2020 for consideration of salvage. His DECIPHER genomic risk assessment returned high risk and he received a 6 month Lupron shot on 10/30/2020 for concomitant ADT and completed a course of salvage radiation therapy to the prostate bed and pelvic lymph nodes on 01/14/2021 (7020 cGy in 39 fractions). INTERVAL HISTORY: Mr. Juárez returns to clinic today for routine follow-up approximately three years after the completion of his radiation treatments and one year since his last visit on 01/10/2024. In the interim, he has been doing well and denies any burning/discomfort with urination and notes nocturia once. He does note some issues with incomplete emptying and having to push to start a stream as well as a weaker stream. He denies any hematuria and has noted occasional incontinence overnight when he is overly fatigued. He is doing his pelvic floor exercises and does use a pad at night. He reports regular bowel movements without diarrhea or blood or pain and notes occasional nausea. His PSA drawn earlier this month on 01/08/2024 continues to remain undetectable at <0.02 ng/mL. Date PSA (ng/mL) 11/16/2016 4.16 01/17/2017 Bx (GS 3+4) 05/05/2017 4.58 10/04/2017 3.9 05/18/2018 Bx (GS 4+5) 07/20/2018 RP (GS 4+4,T3a,-SM,-SVI,+EPE) 08/30/2018 0.04 12/26/2018 0.03 08/15/2019 0.05 07/13/2020 0.13 10/30/2020 0.22; testosterone 341 01/14/2021 Completed salvage XRT 04/08/2021 <0.03; testosterone <7 07/09/2021 <0.02; testosterone 11 01/10/2022 <0.02; testosterone 251 07/04/2022 <0.02; testosterone 315 01/09/2023 <0.02 01/08/2024 <0.02 ALLERGIES ALLERGIES No Known Allergies MEDICATIONS: Current Outpatient Medications: amiodarone (PACERONE) 200 mg tablet isosorbide mononitrate ER (IMDUR) 60 mg 24 hr tablet loratadine (CLARITIN) 10 mg tablet spironolactone (ALDACTONE) 25 mg tablet ELIQUIS 5 mg tab(s) aspirin-calcium [...] mcg tab valsartan (DIOVAN) 160 mg tablet PHYSICAL EXAM: GENERAL: elderly gentleman sitting in chair in no acute distress. VITALS: BP 170/80 Pulse 54 Temp (Src) 98.2 (Temporal) Resp 16 Wt 232 lb 5.8 oz (105.4kg) SpO2 98% KPS: 90 HEENT: NC/AT, anicteric sclera HEART: S1S2 LUNGS: non-labored breathing ABDOMEN: soft MUSCULOSKELETAL: no peripheral edema, moves all extremities. NEURO: no focal deficit; AANDO X3. ASSESSMENT AND PLAN: Mr. Juárez is a 73-year old gentleman with history of intermediate risk [...] consultation with my colleague Dr. Vu at [facility] on 07/30/2020 for consideration of salvage. His DECIPHER genomic risk assessment returned high risk and he received a 6 month Lupron shot on 10/30/2020 for concomitant ADT and completed a course of salvage radiation therapy to the prostate bed and pelvic lymph nodes on 01/14/2021 (7020 cGy in 39 fractions). Mr. Juárez is stable overall clinically approximately 3 years after completion of t his salvage radiation treatments to the prostate bed wit (more content not included)... [facility] (RADTSA) -- JUÁREZAMEE Debbie ([id number]) 1950 M Date Time Provider Department 01/08/24 GALILEO DELATORRE During your visit today, we recorded the following information about you: Riky Cope LPN 01/08/2024 9:44 AM Signed Please sign pended PSA order. Patient is here waiting to have lab drawn. Riky Cope RN Allergies As of Date: 01/08/2024 (No Known Allergies) Date Reviewed: 02/24/2023 Reviewed by: Francisco Claire MD - Fully Assessed Reason for Visit: Orders [681] Primary Visit Diagnosis:Prostate cancer (HCC) [C61] Order(s):PROSTATE-SPECIFIC ANTIGEN DIAGNOSTIC [SQPSA] Order #: [id number] FUTURE Prescriptions as of 01/08/2024 - amiodarone (PACERONE) 200 mg tablet Take [...] Oral Q4H April 30, 2018 3:31pm 04-30-2018 [facility] ([id number]) - albuterol (PROVENTIL) 2.5 mg /3 mL [...] by mouth. Problem List As Of Date 01/08/2024 Noted Resolved Prostate cancer (HCC) [C61] 06/25/2018 Neoplasm [D49.9] 06/25/2018 Malnutrition of mild degree (HCC) [E44.1] 07/27/2018 Encounter Status:Closed by RIKY COPE on 01/08/24 Normal [facility] PSA SerPl-ncon 01-08-2024 Prostate specific Ag [Mass/Vol] ng/mL Normal <2.60 [facility] Comment on above: Order Comment: Speci men Type: BLOOD SPECIMEN Ordering Facility: [facility] Address: [address] [place] [address] Result Comment: Aron love PSA test methodology used is the Electrochemiluminescence Immunoassay by [employer]. Total PSA values by differing methodologies cannot be interchanged. Performed By: #### 2 857-1 #### [facility] CLIA [id number] [address] [place], [place] [address] [address] [place] Carbon dioxide, total [Moles /volume] in Serum or PlasmaOrdered By: Kary Dutta on 07-25-2023 CO2 [Moles/Vol] 22.0 mmol/L Normal 21.0-31.0 [facility] Comment on above: Performed By: #### L RAVINDER #### [facility] [address] [address] [facility] Chloride [Moles/volume] in S tomas or PlasmaOrdered By: Kary Dutta on 07-25-2023 Chloride [Moles/Vol] 113 mmol/L High 98-107 [facility] Comment on above: Performed By: #### L RAVINDER #### [facility] [address] [place], [place] [id number] [facility] ECG 12 lead ECGon 07-25-2023 ECG 12 lead ECG [facility] [place] [place] [address] Electrocardiograph Report Signed Patient: Amee Juárez MR#: [id number] [birth year] : 1950 Acct:[id number] Age/Sex: 72 / M ADM Date: 07/25/23 Loc: Room: Type: [facility] Attending Dr: Kary Dutta DO Ordering Provider: Kary Dutta DO Date of Service: 07/25/23 ECG/ECG 12 lead ECG: Pre-cardioversion rhythm assessment Copies to: Test Reason : Blood Pressure : / mmHG Vent. Rate : 066 BPM Atrial Rate : 065 BPM P-R Int : 000 ms QRS Dur : 090 ms QT Int : 438 ms P-R-T Axes : 000 -25 045 degrees QTc Int : 459 ms Atrial flutter with 4 to 1 block Abnormal ECG When compared with ECG of 03-SEP-2021 09:31, Junctional rhythm has replaced Sinus rhythm Confirmed by PAULINA SULLIVAN [facility][id number][facility] on 07/25/2023 4:13:02 PM Referred By: Isaias Cavazos Electronically Signed By:RENATO SIMMONS MD [facility] Transcribed By: MUS Signed By Jose Simmons MD 07/25/23 1613 Normal The Counts Include 234 Beds At [facility] ECG post procedureon 024 ECG post procedure [facility] Main [place] [id number] Electrocardiograph Report Signed Patient: Amee Juárez MR#: [id number] [birth year] : 1950 Acct:[id number] Age/Sex: 72 / M ADM Date: 07/25/23 Loc: Room: Type: [facility] Attending Dr: Kary Dutta DO Ordering Provider: Kary Dutta DO Date of Service: 07/25/23/ ECG/ECG post procedure: Afib Copies to: Test Reason : Blood Pressure : 206/093 mmHG Vent. Rate : 054 BPM Atrial Rate : 054 BPM P-R Int : 296 ms QRS Dur : 096 ms QT Int : 480 ms P-R-T Axes : 047 -23 022 degrees QTc Int : 455 ms Sinus bradycardia with 1st degree AV block Otherwise normal ECG When compared with ECG of 25-JUL-2023 12:46, (Unconfirmed) Sinus rhythm has replaced Junctional rhythm Confirmed by PAULINA SULLIVAN [facility] ([id number]) on 07/25/2023 4:15:14 PM Referred By: Isaias Cavazos Electronically Signed By:RENATO SIMMONS MD [facility] Transcribed By: MUS Signed By Jose Simmons MD 07/25/23 1615 Normal The Counts Include 234 Beds At [facility] Potassium [Moles/volume] in Serum or PlasmaOrdered By: Kary Dutta on 07-25-2023 Potassium [Moles/Vol] 3.8 mmol/L Normal 3.5-5.1 [facility] Comment on above: Performed By: #### L YTES #### [facility] [address] [place] [address] Serum or plasma anion gap de terminationOrdered By: Kary Dutta on 07-25-2023 Anion gap [Moles/Vol] 9.8 mmol/L Normal 6.0-15.0 [facility] Comment on above: Result Comment: PERF ORMED BY: [place] [address] PATHOLOGIST CATERING DRIVER PRAVIN WILKERSON M.D. Performed By: #### L YTES #### [facility] [address] [place] [address] Sodium [Moles/volume] in Ser um or PlasmaOrdered By: Kary Dutta on 07-25-2023 Sodium [Moles/Vol] 141 mmol/L Normal 136-145 [facility] Comment on above: Performed By: #### L YTES #### [facility] [address] ECG 12 Leadon 07-05-2023 Atrial flutter with 3-1 to 4-1 ventricular conduction [facility] Work Phone: No Panel Informationon 07-04 [facility] Aspartate aminotransferase [ Enzymatic activity/volume] in Serum or PlasmaOrdered By: Kary Dutta on 06-13-2023 AST [Catalytic activity/Vol] 13 U/L 13-39 [facility] Calcium [Mass/volume] in Ser um or PlasmaOrdered By: Kary Dutta on 06-13-2023 Calcium [Mass/Vol] 8.9 mg/dL 8.6-10.3 [facility] Carbon dioxide, total [Moles /volume] in Serum or PlasmaOrdered By: Kary Dutta on 06-13-2023 CO2 [Moles/Vol] 25.9 mmol/L 21.0-31.0 [facility] Chloride [Moles/volume] in S tomas or PlasmaOrdered By: Kary Dutta on 06-13-2023 Chloride [Moles/Vol] 110 mmol/L 98-107 [facility] Creatinine [Mass/volume] in Serum or PlasmaOrdered By: Kary Dutta on 06-13-2023 Creatinine [Mass/Vol] 1.52 mg/dL 0.70-1.30 [facility] Glucose [Mass/volume] in Ser um or PlasmaOrdered By: Kary Dutta on 06-13-2023 Glucose [Mass/Vol] 102 mg/dL 70-100 [facility] Comment on above: ADA recommended refe rence rangeRandom Glucose Reference Range is dependent on time and content of last meal. Glucose of more than 200 mg/dL in a nonstressed, ambulatory subject supports the diagnosis of Diabetes Mellitus. No Panel InformationOrdered By: Kary Dutta on 06-13-2023 Estimated GFR (CKD-EPI) 48.084 mL/Min [facility] Creatinine Clearance (Chem N/A [facility] Potassium [Moles/volume] in Serum or PlasmaOrdered By: Kary Dutta on 06-13-2023 Potassium [Moles/Vol] 4.5 mmol/L 3.5-5.1 [facility] Serum or plasma anion gap de terminationOrdered By: Kary Dutta on 06-13-2023 Anion gap [Moles/Vol] 10.6 mmol/L 6.0-15.0 [facility] Sodium [Moles/volume] in Ser um or PlasmaOrdered By: Kary Dutta on 06-13-2023 Sodium [Moles/Vol] 142 mmol/L 136-145 [facility] Thyrotropin [Units/volume] i n Serum or PlasmaOrdered By: Kary Dutta on 06-13-2023 TSH Qn 1.02 m[IU]/L 0.45-5.33 [facility] Urea nitrogen [Mass/volume] in Serum or PlasmaOrdered By: Kary Dutta on 06-13-2023 Urea nitrogen [Mass/Vol] 17 mg/dL 7-25 [facility] CNOVon 02-24-2023 CNOV Office Visit (OTOLMN ) -- AMEE JUÁREZ ([id number]) 1950 M Date Time Provider Department 02/24/23 11:15 AM FRANCISCO CLAIRE OTOLMN During your visit today, we recorded the following information about you: Weight Height 111.3 kg 1.829 m Lisa Falcon 02/24/2023 11:25 AM Signed Tobacco Use: Types: [...] INSERT/CONSULT 07/27/2018 PROSTATE BIOPSY PROSTATECTOMY FIRST STAGE 2019 PRQ CARDIAC STENT W/ANGIO 1 VSL 06/2019 [...] Oral Q4H April 30, 2018 3:31pm 04-30-2018 [facility] ([id number]) albuterol (PROVENTIL) 2.5 mg /3 mL (0.083 %) nebulizer solution Use 2.5 mg via nebulizer every 4 hours as needed. SYMBICORT 160-4.5 mcg/actuation inhaler TAKE 2 PUFFS BY MOUTH TWICE A DAY*RINSE MOUTH AFTER USE* FLUZONE HIGH-DOSE , PF, 180 mcg/0.5 mL [...] Fernando Martinez (more content not included)... Normal [facility] Office Visit (Cardiology)on 01-30-2023 Follow-up visit Diagnoses/Problems Assessed Essential hypertension, benign (401.1) (I10) Class 1 obesity with body mass index (BMI) of 33.0 to 33.9 in adult (278.00,V85.33) (E66.9,Z68.33) Orders Class 1 obesity with body mass index (BMI) of 33.0 to 33.9 in adult Healthy Weight Tips; Status:Complete; Done: [id number] Lower extremity edema Renew: Torsemide 20 MG [...] contact the office if new symptoms arise. PASS WORKER one month BP check Chief Complaint Blood [...] AT BEDTIM (more content not included)... Normal [employer] Tobacco Screening.on 023 Adult depression screening assessment No [facility] [employer] 600 DO Work Phone: Fall risk assessment b) One or more fall s in the last year [facility] Work Phone: Tobacco use status [facility] b) No -[facility] ellie 600 DO Work Phone: Office Visit (Cardiology)on 12-29-2022 Follow-up visit Diagnoses/Problems [...] Weight Tips; Status:Complete - Retrospective Authorization; Done: [id number] Some eating tips that can help you lose weight.; Status:Complete - Retrospective Authorization; Done: [id number] Patient Instructions Please bring all medicines, vitamins, [...] of paroxysmal atrial fibrillation with cardioversion in 2022 and remains in sinus rhythm, as noted [...] no change (more content not included)... Normal [employer] Tobacco Screening.on 023 Adult depression screening assessment Yes [facility] [employer] DO Work Phone: Adult depression screening assessment Moderately Severe (15-19) M [facility] [employer] a 320 DO Work Phone: Fall risk assessment a) No falls within the last year [facility] [employer] a 320 DO Work Phone: Tobacco use status [facility] b) No [facility] [employer] a [employer] DO Work Phone: Tobacco Screening. 3-Nearly every day [facility] [employer] a 320 DO Work Phone: Tobacco Screening. 0-Not at all [facility] [employer] a 320 DO Work Phone: Tobacco Screening. Somewhat Difficult [facility] [employer] a 320 DO Work Phone: Aspartate aminotransferase [ Enzymatic activity/volume] in Serum or PlasmaOrdered By: Kary Dutta on 11-07-2022 AST [Catalytic activity/Vol] 14 U/L 13-39 [facility] Calcium [Mass/volume] in Ser um or PlasmaOrdered By: Kary Dutta on 11-07-2022 Calcium [Mass/Vol] 8.9 mg/dL 8.6-10.3 [facility] Carbon dioxide, total [Moles /volume] in Serum or PlasmaOrdered By: Kary Dutta on 11-07-2022 CO2 [Moles/Vol] 26.3 mmol/L 21.0-31.0 [facility] Chloride [Moles/volume] in S tomas or PlasmaOrdered By: Kary Dutta on 11-07-2022 Chloride [Moles/Vol] 109 mmol/L 98-107 [facility] Creatinine [Mass/volume] in Serum or PlasmaOrdered By: Kary Dutta on 11-07-2022 Creatinine [Mass/Vol] 1.43 mg/dL 0.70-1.30 [facility] Glucose [Mass/volume] in Ser um or PlasmaOrdered By: Kary Dutta on 11-07-2022 Glucose [Mass/Vol] 118 mg/dL 70-100 [facility] Comment on above: ADA recommended refe rence rangeRandom Glucose Reference Range is dependent on time and content of last meal. Glucose of more than 200 mg/dL in a nonstressed, ambulatory subject supports the diagnosis of Diabetes Mellitus. No Panel InformationOrdered By: Kary Dutta on 11-07-2022 Estimated GFR (CKD-EPI) 51.737 mL/Min [facility] Creatinine Clearance (Chem N/A [facility] No Panel Informationon 11-07 51.737\S\51.737 Normal [facility] [employer] 250 DO Work Phone: 11.6\S\11.6 Normal 6.0-15.0 [facility] [employer] 250 DO Work Phone: 8.9\S\8.9 Normal 8.6-10.3 [facility] [employer] 250 DO Work Phone: 26.3\S\26.3 Normal 21.0-31.0 [facility] [employer] 250 DO Work Phone: 109\S\109 above high threshold 98-107 [facility] Vinicius wren 250 DO Work Phone: 3.9\S\3.9 Normal 3.5-5.1 [facility] [employer] wren 250 DO Work Phone: 143\S\143 Normal 136-145 [facility] [employer] wren 250 DO Work Phone: 1.43\S\1.43 above high threshold 0.70-1.30 [facility] [employer] wren 250 DO Work Phone: 19\S\19 Normal 7-25 [facility] [employer] wren 250 DO Work Phone: 118\S\118 above high threshold 70-100 [facility] V[employer]ius wren 250 DO Work Phone: Comment on above: Random Glucose Refer ence Range is dependent on time and content of last meal. Glucose of more than 200 mg/dL in a nonstressed, ambulatory subject supports the diagnosis of Diabetes Mellitus. ADA recommended reference range 14\S\14 Normal 13-39 [facility] Vinicius Monroe DO Work Phone: 0.87\S\0.87 Normal 0.45-5.33 [facility] V[employer] wren 250 DO Work Phone: Comment on above: PERFORMED BY:[place] [address] [place], [place] [phone] MEDICAL DIRECTORPRAVIN WILKERSON M.D. Potassium [Moles/volume] in Serum or PlasmaOrdered By: Kary Dutta on 11-07-2022 Potassium [Moles/Vol] 3.9 mmol/L 3.5-5.1 [facility] Radiologyon 11-07-2022 XR Chest 2 Views Normal [facility] Vinicius Monroe DO Work Phone: Serum or plasma anion gap de terminationOrdered By: Kary Dutta on 11-07-2022 Anion gap [Moles/Vol] 11.6 mmol/L 6.0-15.0 [facility] Sodium [Moles/volume] in Ser um or PlasmaOrdered By: Kary Dutta on 11-07-2022 Sodium [Moles/Vol] 143 mmol/L 136-145 [facility] Thyrotropin [Units/volume] i n Serum or PlasmaOrdered By: Kary Dutta on 11-07-2022 TSH Qn 0.87 m[IU]/L 0.45-5.33 [facility] Urea nitrogen [Mass/volume] in Serum or PlasmaOrdered By: Kary Dutta on 11-07-2022 Urea nitrogen [Mass/Vol] 19 mg/dL 7-25 [facility] Cardiovasc Arrhythmia Result son 08-09-2022 Cardiovas Arrhythmia Results Reason For Visit Reason for Visit: Holter Monitor: AMEE is here for the application of a 48 hour Holter monitor. Ordering Physician: Dr. Jose Dutta DO Diagnosis: persistent atrial fibrillation Monitor number [id number] applied. Holter monitor returned and downloaded. Holter [...] Date/TimeProviderSpecialty Site 12/29/2022 10:[address] [facility] [address] 250 DO Signatures Electronically signed by : Aakash RicciP.NRod; Aug 09 2022 10:36AM EST (Author) Electronically signed by : Nikki Kincaid L.P.N.; Aug 12 2022 1:10PM EST (Author) Electronically signed by : Jose Dutta DO; Aug 19 2022 5:02PM EST Electronically signed by : Isaias Cavazos MD; Aug 20 2022 6:03PM EST (Author) Normal [employer] Echocardiogramon 08-09-[address], [address] [place] [address] TRANSTHORACIC ECHOCARDIOGRAM REPORT Patient Name: AMEE Rehman Physician: [id number] Isaias Cavazos MD, [facility] Study Date: 08/09/2022 Referring JOSE DUTTA Physician: MRN/PID: [id number] PCP: Kailey Louise Accession/Order#: [id number] [facility] Location: Date of : 1950 Fellow: Gender: M Nurse: Sarah Burnette RN Admit Date: Board Catcher: Lupe Vazquez RD, T Height: 182.88 cm CC Report to: [...] ETOH Use Procedure/CPT: Echo Complete w Full Doppler-[id number] Study Detail: The following Echo studies were [...] AoV Mean P.0 mmHg (1.7-11.5mmHg) LVOT Max Neymar: 1.11 m/s (<=1.1m/s) AoV VTI: 30.30 cm (18-25cm) LVOT VTI: 24.80 cm LVOT Diameter: 2.30 cm (1.8-2.4cm) AoV Area, VTI: 3.40 cm2 (2.5-5.5cm2) AoV Area,Vmax: 3.52 cm2 (2.5-4.5cm2) AoV Dimensionless Index: 0.82 AORTIC INSUFFICIENCY: AI Vmax: 2.20 m/s AI Half-time: 451 msec AI Decel Rate: 143.00 cm/s2 PULMONIC VALVE: Normal Ranges: PV Max Neymar: 0.8 m/s (0.6-0.9m/s) PV Max P.6 mmHg [id number] Isaias Cavazos MD, [facility] Electronically signed on 08/09/2022 at 6:33:14 PM Final Normal [facility] Carotid Artery Dupl ex Ultrasounon 08-09-2022 [facility] LAB Carotid Artery Duplex Ultrasoun [address], [address], [place] [address] Vascular Lab Report Carotid Artery Duplex Ultrasound Patient Name: AMEE Rehman Physician: [id number] Isaias Cavazos MD, [facility] Study Date: 08/09/2022 Referring JOSE DUTTA Physician: MRN/PID: [id number] PCP: Kailey Louise Accession/Order#: [id number] CC Report to: Date of : 1950 Technologist: Lupe Vazquez RDCS, RVT Gender: M Technologist 2: Admission Status: Outpatient Location Performed: [facility] Diagnosis/ICD: I63.9-Cerebral infarction, unspecified 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, Atrial Fibrillation-s/p Cardioversion 09/2019, HTN, Hyperlipidemia, Former Smoker, COPD, CAD, PTCA-2019, Obesity, Frequent ETOH Procedure/CPT: 05134 Cerebrovascular Carotid Duplex scan complete-47690 CONCLUSIONS: Right Carotid: Findings are consistent with [...] cm/s Right Left ICA/CCA Ratio 1.0 1.1 [id number] Isaias Cavazos MD, FACC Final Normal [facility] LAB Carotid Artery Dupl ex Ultrasoundon 08-09-2022 US.doppler Carotid arteries -[facility] Heart-Sand[employer] holger 250 DO Work Phone: MRI BRAIN [...] by: JASSI WITT Date: 2022-07-22 15:19 Normal [facility] US ABD AORTA SCREENINGon US ABD AORTA SCREENING EXAMINATION: US A BD [...] aneurysm observed Moderate atherosclerosis Electronically authenticated by: GREG POLLARD Date: 2022-07-18 16:13 Normal [facility] Office Visit (Cardiology)on 06-21-2022 Follow-up visit Diagnoses/Problems [...] TabletTAKE D (more content not included)... Normal [employer] Tobacco Screening.on 023 Adult depression screening assessment Yes [facility] [employer] DO Work Phone: Adult depression screening assessment Moderate (10-14) [facility] [employer] 250 DO Work Phone: Fall risk assessment a) No falls within the last year [facility] [employer] DO Work Phone: Tobacco use status [facility] b) No [facility] [employer] 250 DO Work Phone: Tobacco Screening. 3-Nearly every day [facility] [employer] DO Work Phone: Tobacco Screening. 0-Not at all [facility] Hubba 250 DO Work Phone: Tobacco Screening. 1-Several days [facility] Hub[employer] 250 DO Work Phone: Tobacco Screening. Very Difficult [facility] Hub[employer] 250 DO Work Phone: Creatinine and Glomerular fi ltration rate.predicted panel (S/P/Bld)Ordered By: Kary Dutta on 04-22-2022 Creatinine [Mass/Vol] 1.34 mg/dL 0.64-1.27 [facility] Estimated glomerular filtrat ion rate (GFR) non- AmericanOrdered By: Kary Dutta on 04-22-2022 GFR/1.73 sq M.predicted among non-blacks MDRD (S/P/Bld) [Vol rate/Area] 52 mL/Min [facility] No Panel InformationOrdered By: Kary Dutta on 04-22-2022 Estimated GFR () > 60 mL/Min [facility] Comment on above: GFR estimated refere nce range: According to KDOQI guidelines, <60 ml/min/1.73m2 is sufficient to diagnose a patient with chronic kidney disease. Pharmacy Creatinine Clearance (Chem N/A [facility] No Panel Informationon 04-22 11.3\S\11.3 Normal 6.0-15.0 -[facility] Le[employer] holger 250 DO Work Phone: 9.0\S\9.0 Normal 8.2-10.2 -[facility] 250 DO Work Phone: 27.6\S\27.6 Normal 22.0-30.0 [facility] [employer] 250 DO Work Phone: 109\S\109 Normal 95-114 [facility] [employer] 250 DO Work Phone: [phone] 3.9\S\3.9 Normal 3.5-5.1 -[facility] 250 DO Work Phone: [phone] 144\S\144 Normal 136-146 [facility] [employer] holger 250 DO Work Phone: [phone] > 60 Normal [facility] [employer] 250 DO Work Phone: Comment on above: GFR estimated refere nce range: According to KDOQI guidelines, <60 ml/min/1.73m2 is sufficient to diagnose a patient with chronic kidney disease. 52\S\52 Normal [facility] 250 DO Work Phone: 1.34\S\1.34 above high threshold 0.64-1.27 [facility] holger 250 DO Work Phone: 12\S\12 Normal 9-23 -[facility] [employer] 250 DO Work Phone: 97\S\97 Normal 70-100 [facility] holger 250 DO Work Phone: Comment on above: Random Glucose Refer ence Range is dependent on time and content of last meal. Glucose of more than 200 mg/dL in a nonstressed, ambulatory subject supports the diagnosis of Diabetes Mellitus. ADA recommended reference range 19\S\19 Normal 10-42 [facility] 250 DO Work Phone: 0.92\S\0.92 Normal 0.45-5.33 [facility] 250 DO Work Phone: Comment on above: PERFORMED BY:[place] [address] [place], [place] [phone] MEDICAL DIRECTORPRAVIN WILKERSON M.D. Radiologyon 04-22-2022 XR Chest [address] [facility] 250 DO Work Phone: Serum or plasma anion gap de terminationOrdered By: Kary Dutta on 04-22-2022 Anion gap [Moles/Vol] 11.3 mmol/L 6.0-15.0 [facility] Serum or plasma aspartate am inotransferase measurement (enzymatic activity/volume)Ordered By: Kary Dutta on 04-22-2022 AST [Catalytic activity/Vol] 19 U/L 10-42 [facility] Serum or plasma calcium levon urement (mass/volume)Ordered By: Kary Dutta on 04-22-2022 Calcium [Mass/Vol] 9.0 mg/dL 8.2-10.2 [facility] Serum or plasma chloride kathleen surement (moles/volume)Ordered By: Kary Dutta on 04-22-2022 Chloride [Moles/Vol] 109 mmol/L 95-114 [facility] Serum or plasma glucose levon urement (mass/volume)Ordered By: Kary Dutta on 04-22-2022 Glucose [Mass/Vol] 97 mg/dL 70-100 [facility] Comment on above: ADA recommended refe rence rangeRandom Glucose Reference Range is dependent on time and content of last meal. Glucose of more than 200 mg/dL in a nonstressed, ambulatory subject supports the diagnosis of Diabetes Mellitus. Serum or plasma potassium me asurement (moles/volume)Ordered By: Kary Dutta on 04-22-2022 Potassium [Moles/Vol] 3.9 mmol/L 3.5-5.1 [facility] Serum or plasma sodium measu rement (moles/volume)Ordered By: Kary Dutta on 04-22-2022 Sodium [Moles/Vol] 144 mmol/L 136-146 [facility] Serum or plasma total carbon dioxide measurement (moles/volume)Ordered By: Kary Dutta on 04-22-2022 CO2 [Moles/Vol] 27.6 mmol/L 22.0-30.0 [facility] Serum or plasma urea nitroge n measurement (mass/volume)Ordered By: Kary Dutta on 04-22-2022 Urea nitrogen [Mass/Vol] 12 mg/dL 9-23 [facility] TSH DL <= 0.005 mIU/L QnOrde red By: Kary Dutta on 04-22-2022 TSH Qn 0.92 m[IU]/L 0.45-5.[address] [facility] [address] CHEST WO CONon 12-17-2021 CT [...] mass, effusion, or pneumothorax. VASCULATURE: No abnormality. BRENDA: No mass or adenopathy. MEDIASTINUM: No mass [...] by: GREG POLLARD Date: 2021-12-17 07:58 Normal [facility] No Panel Informationon 12-16 9.4\S\9.4 Normal 8.2-10.2 [facility] 250 DO Work Phone: 26.1\S\26.1 Normal 22.0-30.0 [facility] 250 DO Work Phone: 108\S\108 Normal 95-114 [facility] [employer] holger 250 DO Work Phone: 3.8\S\3.8 Normal 3.5-5.1 [facility] 250 DO Work Phone: [phone] 143\S\143 Normal 136-146 [facility] 250 DO Work Phone: 55\S\55 Normal [facility] [employer] holger 250 DO Work Phone: Comment on above: GFR estimated refere nce range: According to KDOQI guidelines, <60 ml/min/1.73m2 is sufficient to diagnose a patient with chronic kidney disease. 46\S\46 Normal [facility]ger 250 DO Work Phone: 1.51\S\1.51 above high threshold 0.64-1.27 [facility] 250 DO Work Phone: 19\S\19 Normal 9-23 [facility] [employer] holger 250 DO Work Phone: 126\S\126 above high threshold 70-100 [facility] 250 DO Work Phone: Comment on above: Random Glucose Refer ence Range is dependent on time and content of last meal. Glucose of more than 200 mg/dL in a nonstressed, ambulatory subject supports the diagnosis of Diabetes Mellitus. ADA recommended reference range 21\S\21 Normal 10-42 [facility] 250 DO Work Phone: 1.04\S\1.04 Normal 0.45-5.33 [facility] 250 DO Work Phone: Comment on above: PERFORMED BY:[facility] [place], [place] [id number] MEDICAL DIRECTORPRAVIN WILKERSON M.D. Radiologyon 12-16-2021 XR Chest [address] [facility] 250 DO Work Phone: PTH INTACTon 12-14-2021 PTH, Intact 23 pg/mL Normal 15-65 [facility] Comment on above: Performed By: #### P THINT #### [facility] [address] [place] [address] Dr. Enedelia Uriostegui CBC AUTO DIFFon 12-13-2021 BASO # 0.0 103/ul Normal 0.0-0.1 [facility] Comment on above: Performed By: #### C BC #### [facility] [address] [place] [address] Dr. Enedelia Uriostegui Basophils/100 WBC (Bld) 0.2 % Normal 0.2-2.0 [facility] Comment on above: Performed By: #### C BC #### [facility] [address] [place] [address] Dr. Enedelia Uriostegui EO # 0.1 103/ul Normal 0.0-0.7 [facility] Comment on above: Performed By: #### C BC #### [facility] [address] [place] [address] Dr. Enedelia Uriostegui Eosinophils/100 WBC (Bld) 1.8 % Normal 0.9-7.0 [facility] Comment on above: Performed By: #### C BC #### [facility] [address] [place] [address] Dr. Enedelia Uriostegui Erythrocyte distribution width (RBC) [Ratio] 14.6 % Normal 11.0-15.0 [facility] Comment on above: Performed By: #### C BC #### [facility] [address] [place] [address] Dr. Enedelia Uriostegui Hematocrit (Bld) [Volume fraction] 34.9 % Critically low 42.0-54.0 [facility] Comment on above: Performed By: #### C BC #### [facility] [address] [place] [address] Dr. Enedelia Uriostegui Hemoglobin (Bld) [Mass/Vol] 13.1 g/dL Critically low 14.0-18.0 [facility] Comment on above: Performed By: #### C BC #### [facility] [address] [place] [address] Dr. Enedelia Uriostegui IG # 0.00 10e3/ul Normal 0.00-0.03 [facility] Comment on above: Performed By: #### C BC #### [facility] [address] [place] [address] Dr. Enedelia Uriostegui IG % 0.0 % Normal 0.0-0.5 [facility] Comment on above: Performed By: #### C BC #### [facility] [address] [place] [address] Dr. Enedelia Uriostegui LYMPH # 0.7 103/ul Critically low 1.2-3.8 [facility] Comment on above: Performed By: #### C BC #### [facility] [address] [place] [address] Dr. Enedelia Uriostegui Lymphocytes/100 WBC (Bld) 14.3 % Critically low 20.5-60.0 [facility] Comment on above: Performed By: #### C BC #### [facility] [address] [place] [address] Dr. Enedelia Uriostegui MANUAL DIFF REQ NO Normal [facility] Comment on above: Performed By: #### C BC #### [facility] [address] [place] [address] Dr. Enedelia Uriostegui MCH (RBC) [Entitic mass] 35.1 pg Critically high 25.9-34.0 [facility] Comment on above: Performed By: #### C BC #### [facility] [address] [address] [address] Enedelia Uriostegui MCHC (RBC) [Mass/Vol] 37.5 g/dL Critically high 29.9-35.2 [facility] Comment on above: Performed By: #### C BC #### [facility] [address] [address] [address] Enedelia Uriostegui MCV (RBC) [Entitic vol] 93.6 fL Normal 80.0-94.0 [facility] Comment on above: Performed By: #### C BC #### [facility] [address] [place] [address] Dr. Enedelia Uriostegui MONO # 0.4 103/ul Normal 0.3-0.8 [facility] Comment on above: Performed By: #### C BC #### [facility] [address] [place] [address] Dr. Enedelia Uriostegui Monocytes/100 WBC (Bld) 7.3 % Normal 1.7-12.0 [facility] Comment on above: Performed By: #### C BC #### [facility] [address] [place] [address] Dr. Enedelia Uriostegui NEUT # 3.8 103/ul Normal 1.4-6.5 [facility] Comment on above: Performed By: #### C BC #### [facility] [address] [place] [address] Dr. Enedelia Uriostegui Neutrophils/100 WBC (Bld) 76.4 % Critically high 43.0-75.0 [facility] Comment on above: Performed By: #### C BC #### [facility] [address] [place] [address] Dr. Enedelia Uriostegui Platelet mean volume (Bld) [Entitic vol] 10.1 fL Normal 9.5-13.5 [facility] Comment on above: Performed By: #### C BC #### [facility] [address] [place] [address] Dr. Enedelia Uriostegui PLT 154 103/ul Normal 150-450 [facility] Comment on above: Performed By: #### C BC #### [facility] [address] [place] [address] Dr. Enedelia Uriostegui RBC 3.73 106/ul Critically low 4.70-6.10 [facility] Comment on above: Performed By: #### C BC #### [facility] [address] [place] [address] Dr. Enedelia Uriostegui WBC 5.0 103/ul Normal 4.0-11.0 [facility] Comment on above: Performed By: #### C BC #### [facility] [address] [place] [address] Dr. Enedelia Uriostegui PHOSPHORUSon 12-13-2021 Phosphate [Mass/Vol] 3.3 mg/dL Normal 2.6-4.7 [facility] Comment on above: Performed By: #### B MP, PHOS #### [facility] [address] [place] [address] Dr. Enedelia Uriostegui PROF CHEM 8 (BAS METB)on Anion gap [Moles/Vol] 11.6 mmol/L Normal Th [facility] Comment on above: Performed By: #### B MP, PHOS #### [facility] [address] [place] [address] Dr. Enedelia Uriostegui Calcium [Mass/Vol] 8.6 mg/dL Normal 8.5-10.1 [facility] Comment on above: Performed By: #### B MP, PHOS #### [facility] [address] [place] [address] Dr. Enedelia Uriostegui Chloride [Moles/Vol] 109 mmol/L Critically high 98-107 [facility] Comment on above: Performed By: #### B MP, PHOS #### [facility] [address] [place] [address] Dr. Enedelia Uriostegui CO2 [Moles/Vol] 28.0 mmol/L Normal 21.0-32.0 [facility] Comment on above: Performed By: #### B MP, PHOS #### [facility] [address] [place] [address] Dr. Enedelia Uriostegui Creatinine [Mass/Vol] 1.60 mg/dL Critically high 0.70-1.30 [facility] Comment on above: Performed By: #### B CONSTANZA, PHOS #### [facility] [address] [place] [address] Dr. Enedelia Uriostegui EGFR-AF NICARAGUAN 52 mL/min/1.73m2 Critically low >=60 [facility] Comment on above: Performed By: #### B CONSTANZA, PHOS #### [facility] [address] [place] [address] Dr. Enedelia Uriostegui EGFR-NON AF NICARAGUAN 43 mL/min/1.73m2 Critically low >=60 [facility] Comment on above: Performed By: #### B CONSTANZA, PHOS #### [facility] [address] [place] [address] Dr. Enedelia Uriostegui Glucose [Mass/Vol] 130 mg/dL Critically high 74-106 T [facility] Comment on above: Performed By: #### B CONSTANZA, PHOS #### [facility] [address] [place] [address] Dr. Enedelia Uriostegui Potassium [Moles/Vol] 3.6 mmol/L Normal 3.5-5.1 [facility] Comment on above: Performed By: #### B CONSTANZA, PHOS #### [facility] [address] [place] [address] Dr. Enedelia Uriostegui Sodium [Moles/Vol] 145 mmol/L Normal 136-145 [facility] Comment on above: Performed By: #### B CONSTANZA, PHOS #### [facility] [address] [place] [address] Dr. Enedelia Uriostegui Urea nitrogen [Mass/Vol] 18.0 mg/dL Normal 7.0-18.0 [facility] Comment on above: Performed By: #### B CONSTANZA, PHOS #### [facility] [address] [place] [address] Dr. Enedelia Uriostegui Urea nitrogen/Creatinine [Mass ratio] 11.2 mg/mg Normal [facility] Comment on above: Performed By: #### B CONSTANZA, PHOS #### [facility] [address] [place] [address] Dr. Enedelia Uriostegui UA RANDOM W/MICROSCOPICon 07 -11-2022 BACTERIA NONE SEEN Normal NONE SEEN [facility] Comment on above: Performed By: #### U AMIC #### [facility] [address] [place] [address] Dr. Enedelia Uriostegui Bilirubin Ql (U) Negative Normal NEGATIVE [facility] Comment on above: Performed By: #### U AMIC #### [facility] [address] [place] [address] Dr. Enedelia Uriostegui CAST NONE SEEN Normal NONE SEEN [facility] Comment on above: Performed By: #### U AMIC #### [facility] [address] [place] [address] Dr. Enedelia Uriostegui Clarity (U) CLEAR Normal CLEAR [facility] Comment on above: Performed By: #### U AMIC #### [facility] [address] [place] [address] Dr. Enedelia Uriostegui Color (U) LT. YELLOW Normal YELLOW [facility] Comment on above: Performed By: #### U AMIC #### [facility] [address] [place] [address] Dr. Enedelia Uriostegui Crystals LM Nom (Urine sed) NONE SEEN Normal NONE SEEN [facility] Comment on above: Performed By: #### U AMIC #### [facility] [address] [place] [address] Dr. Enedelia Uriostegui Epithelial cells LM Ql (Urine sed) NONE SEEN Normal NONE SEEN /RARE [facility] Comment on above: Performed By: #### U AMIC #### [facility] [address] [place] [address] Dr. Enedelia Uriostegui Glucose Ql (U) Negative Normal NEGATIVE [facility] Comment on above: Performed By: #### U AMIC #### [facility] [address] [place] [address] Dr. Enedelia Uriostegui Hemoglobin Ql (U) Negative Normal NEGATIVE [facility] Comment on above: Performed By: #### U AMIC #### [facility] [address] [place] [address] Dr. Enedelia Uriostegui Ketones Ql (U) Negative Normal NEGATIVE [facility] Comment on above: Performed By: #### U AMIC #### [facility] [address] [address] [address] Enedelia Uriostegui LEUKOCYTES Negative Normal NEGATIVE [facility] Comment on above: Performed By: #### U AMIC #### [facility] [address] [place] [address] Dr. Enedelia Uriostegui MUCOUS NONE SEEN Normal NONE SEEN [facility] Comment on above: Performed By: #### U AMIC #### [facility] [address] [place] [address] Dr. Enedelia Uriostegui Nitrite Ql (U) Negative Normal NEGATIVE [facility] Comment on above: Performed By: #### U AMIC #### [facility] [address] [place] [address] Dr. Enedelia Uriostegui pH (U) 5.5 [pH] Normal 5-9 [facility] Comment on above: Performed By: #### U AMIC #### [facility] [address] [place] [address] Dr. Enedelia Uriostegui RBC 0-2 Normal 0-2 [facility] Comment on above: Performed By: #### U AMIC #### [facility] [address] [place] [address] Dr. Enedelia Uriostegui SPEC GRAVITY 1.010 Normal 1.005-<=1. 025 [facility] Comment on above: Performed By: #### U AMIC #### [facility] [address] [place] [address] Dr. Enedelia Uriostegui UA PROTEIN Negative Normal NEGATIVE/ TRACE [facility] Comment on above: Performed By: #### U AMIC #### [facility] [address] [place] [address] Dr. Enedelia Uriostegui Urobilinogen Qn (U) 0.2 {Albert'U}/dL Normal 0.2 - 1. 0 [facility] Comment on above: Performed By: #### U AMIC #### [facility] [address] [place] [address] Dr. Enedelia Uriostegui WBC NONE SEEN Normal NONE SEEN [facility] Comment on above: Performed By: #### U AMIC #### [facility] [address] [address] [address] Enedelia Uriostegui Tobacco Screening.on 022 Adult depression screening assessment No -[facility] holger 250 DO Work Phone: Fall risk assessment a) No falls within the last year -[facility]-Camille hajiy 250 DO Work Phone: [phone] Tobacco use status CPHS b) No -[facility] holger 250 DO Work Phone: [phone] Falls Risk Screeningon 09-20 Fall risk assessment a) No falls within the last year -[facility] hajiy 250 DO Work Phone: Tobacco use status CP b) No -[facility]-Catyu holger 250 DO Work Phone: No Panel Informationon 09-14 9.9\S\9.9 Normal 8.2-10.2 [facility] holger 250 DO Work Phone: 25.3\S\25.3 Normal 22.0-30.0 [facility] hajiy 250 DO Work Phone: 106\S\106 Normal 95-114 [facility] holger 250 DO Work Phone: 4.1\S\4.1 Normal 3.5-5.1 [facility] holger 250 DO Work Phone: 142\S\142 Normal 136-146 [facility] holger 250 DO Work Phone: [phone] 55\S\55 Normal -[facility] holger 250 DO Work Phone: Comment on above: GFR estimated refere nce range: According to KDOQI guidelines, <60 ml/min/1.73m2 is sufficient to diagnose a patient with chronic kidney disease. 45\S\45 Normal [facility] holger 250 DO Work Phone: 1.53\S\1.53 above high threshold 0.64-1.27 [facility] HeartRene wren 250 DO Work Phone: 20\S\20 Normal 9-23 [facility] HeartRene wren 250 DO Work Phone: 101\S\101 above high threshold 70-100 -[facility] Vinicius wren 250 DO Work Phone: Comment on above: Random Glucose Refer ence Range is dependent on time and content of last meal. Glucose of more than 200 mg/dL in a nonstressed, ambulatory subject supports the diagnosis of Diabetes Mellitus. ADA recommended reference range 35\S\35 Normal 10-42 [facility] Vinicius wren 250 DO Work Phone: 0.80\S\0.80 Normal 0.45-5.33 [facility] Vinicius wren 250 DO Work Phone: Comment on above: PERFORMED BY:[address] [place], [place] [phone] MEDICAL DIRECTORPRAVIN WILKERSON M.D. Radiologyon 09-14-2021 XR Chest 2 Views Normal [facility] Vinicius wren 250 DO Work Phone: No Panel Informationon 09-03 24.6\S\24.6 Normal 22.0-30.0 [facility] Vinicius wren 250 DO Work Phone: Comment on above: PERFORMED BY:[address] [place], [place] [id number] MEDICAL DIRECTORPRAVIN WILKERSON M.D. 108\S\108 Normal 95-114 [facility] Vinicius wren 250 DO Work Phone: 3.5\S\3.5 Normal 3.5-5.1 [facility] Vinicius wren 250 DO Work Phone: 142\S\142 Normal 136-146 [facility] Vinicius wren 250 DO Work Phone: Laboratory - Microbiology an d Antimicrobial susceptibilityon 09-01-2021 SARS-CoV-2 (COVID-19) RNA CORNELIO+probe Ql (Unsp spec) [facility] Vinicius wren 250 DO Work Phone: No Panel Informationon 09-01 Negative Normal Negative [facility] Work Phone: Comment on above: This is a duplicate Jessi SARS Antigen (LITTLE) result to be used for statistical tracking purpose only.PERFORMED BY:[facility] [place], [place] [id number] MEDICAL DIRECTORPRAVIN WILKERSON M.D. Tobacco Screening.on 022 Adult depression screening assessment Yes [facility] Vinicius Monroe DO Work Phone: Fall risk assessment a) No falls within the last year [facility] Work Phone: Tobacco use status CPHS b) No [facility] Vinicius Monroe DO Work Phone: Tobacco Screening. 3-Nearly every day [facility] Work Phone: [phone] Tobacco Screening. 2-More than half the days [facility] Vinicius Monroe DO Work Phone: [phone] Tobacco Screening. 0-Not at all [facility] Vinicius wren 250 DO Work Phone: Tobacco Screening. Somewhat Difficult [facility] Vinicius wren 250 DO Work Phone: No Panel Informationon 07-28 Normal [facility] DO Work Phone: [phone] Tobacco Screening.on 021 Fall risk assessment a) No falls within the last year [facility] Vinicius wren 250 DO Work Phone: Tobacco use status CPHS b) No [facility] Vinicius wren 250 DO Work Phone: No Panel Informationon 05-06 9.1\S\9.1 Normal 8.2-10.2 [facility] HeartRene wren 250 DO Work Phone: Comment on above: PERFORMED BY:[facility] [place], [place] [id number] MEDICAL DIRECTORPRAVIN WILKERSON M.D. 24.0\S\24.0 Normal 22.0-30.0 [facility] HeartRene wren 250 DO Work Phone: 111\S\111 Normal 95-114 [facility] Vinicius wren 250 DO Work Phone: 3.7\S\3.7 Normal 3.5-5.1 [facility] Vinicius wren 250 DO Work Phone: 145\S\145 Normal 136-146 [facility] Vinicius wren 250 DO Work Phone: > 60 Normal [facility] Vinicius wren 250 DO Work Phone: Comment on above: GFR estimated refere nce range: According to KDOQI guidelines, <60 ml/min/1.73m2 is sufficient to diagnose a patient with chronic kidney disease. 59\S\59 Normal [facility] Vinicius wren 250 DO Work Phone: 1.21\S\1.21 Normal 0.64-1.27 [facility] Vinicius wren 250 DO Work Phone: 13\S\13 Normal 9-23 [facility] Vinicius wren 250 DO Work Phone: 98\S\98 Normal 70-100 [facility] Vinicius wren 250 DO Work Phone: Comment on above: Random Glucose Refer ence Range is dependent on time and content of last meal. Glucose of more than 200 mg/dL in a nonstressed, ambulatory subject supports the diagnosis of Diabetes Mellitus. ADA recommended reference range Tobacco Screening.on 021 Fall risk assessment a) No falls within the last year -[facility] holger 250 DO Work Phone: Tobacco use status CP b) No -[facility]u holger 250 DO Work Phone: No Panel Informationon 03-31 24.4\S\24.4 Normal 22.0-30.0 [facility] holger 250A [place] Work Phone: Comment on above: PERFORMED BY:[facility] [place], [place] [id number] MEDICAL DIRECTORPRAVIN WILKERSON M.D. 108\S\108 Normal 95-114 [facility]Cam[facility] hajiy 250A [place] Work Phone: 3.3\S\3.3 below low threshold 3.5-5.1 [facility] hajiy 250A [place] Work Phone: 144\S\144 Normal 136-146 [facility] hajiy 250A [place] Work Phone: [facility] [employer]-Camille wren 250A [place] Work Phone: GOLDMANN - OUon 10-06-2020 GOLDMANN - OU STUDIES: Ptosis visu al sauceda demonstrated improvement of the superior visual field of the right eye from 12 degrees to 40 degrees with upper lid taping and improvement of the left eye from 19 to 39 degrees with upper lid taping. Normal [facility] Operative Reporton 9 Operative Report Date [...] then insertedthrough the temporal wound with an litigation associate engaging the islets of the ringwith the [...] the eyewithout difficulty with the Malyugin ring litigation associate. IA was reintroducedinto the anterior chamber and [...] to follow up the following day for postoperativecare.Dru Barros D.O.glsDictated: 05/22/2018 #[id number]: 05/23/2018 #[id number]: Dru Barros D.O. [facility] Comment on above: Result Comment: Elec tronically Signed By: Dru Barros DO\.br\Date and Time Signed: 06/08/18 11:28 EST Coding Summary.on 05-23-2018 Coding Summary. CODING DATE: 018 [facility] DSC STATUS: Home (Routine DC) PAYOR: [facility] [place] [facility] DESCRIPTION 5491 Level 1 Intraocular Procedures [...] PROC APC STAT DESCRIPTION DOCTOR NAME DATE 33814 5491 J1 Extracapsular cataract Dru Barros DO 05/22/2018 [...] Amanda Potts Date Saved: 05/23/2018 11:27 am [facility] History and Physicalon 05-22 History and [...] HISTORY:1. Melanoma on the right arm in 2014. Hiatal hernia and gallbladder removedat same time.2. [...] in the near future.Dru Barros D.O.lkrDictated: 05/21/2018 #[id number] 05/22/2018 #[id number]: Dru Barros D.O. [facility] Comment on above: Result Comment: Elec tronically Signed By: Dru Barros DO\.br\Date and Time Signed: 05/22/18 12:05 EST Inpatient Patient Summaryon 05-22-2018 In[facility] Dis[facility] InstructionsPERSON INFORMATION Name: AMEE JUÁREZ PHYSICIANS Admitting Physician: Dru Barros DOAttending Physician: Dru Barros DO PCP: KAILEY LOUISE CNP Diagnosis: Cataract; Floppy iris syndrome Comment: PATIENT EDUCATION INFORMATIONInstructions:Me dication Leaflets:Follow up:With: Address: When: Dru Barros [facility] [address] [facility], [address] [address] Business (1) Within 1 to 2 days MEDICATION LISTComment: [facility] Main OR Intraoperative Recor don 05-22-2018 Main OR Intraoperative Record IntraOp Document Type FT Summary Primary Physician: Dru Barros DO Finalized Date/Time: 05/22/18 15:01:11 Pt. Name: AMEE JUÁREZ KAREEM Rice/Sex: 1950 Male Med Rec #: [id number] Physician: Dru Barros DO Financial #: [id number] Pt. Type: A Room/Bed: [place] [address] Admit/Disch: 05/22/18 08:54:41 - Institution: Case Times FT Entry 1 Patient Times In Room 05/22/18 11:16:00 Out Room 05/22/18 11:36:00 Procedure Times Start 05/22/18 11:21:00 Stop 05/22/18 11:35:00 Anesthesia Times Last Modified By: Nikki Paniagua RN 05/22/18 11:36:31 Case Attendance FT Entry 1 Entry 2 Entry 3 Case Attendee Dru Barros DO RN, Pillo Paniagua RN, Nikki Lewis Role Performed Surgeon - Primary Body Artist - Primary Body Artist - Primary Time In 05/22/18 11:16:00 05/22/18 11:16:00 05/22/18 11:16:00 Time Out 05/22/18 11:36:00 05/22/18 11:36:00 05/22/18 11:36:00 Procedure CATARACT EXTRACTION W/ CATARACT EXTRACTION W/ CATARACT EXTRACTION W/ INTRAOCULAR LENS(Left) INTRAOCULAR LENS(Left) INTRAOCULAR LENS(Left) Comments Last Modified By: Siva MCKEON, Nikki Paniagua RN, Nikki Paniagua RN, Nikki Lewis 05/22/18 11:36:33 05/22/18 11:36:33 05/22/18 11:36:33 Entry 4 Entry 5 Case Attendee Ac PERSONNEL RECRUITER, Yary Colón PERSONNEL RECRUITER, Lyndsay Hernandez Role Performed Scrub - Primary Scrub - Other Time In 05/22/18 11:16:00 05/22/18 11:16:00 Time Out 05/22/18 11:36:00 05/22/18 11:36:00 Procedure CATARACT EXTRACTION W/ CATARACT EXTRACTION W/ INTRAOCULAR LENS(Left) INTRAOCULAR LENS(Left) Comments Last Modified By: Siva MCKEON, Nikki Paniagua RN, Nikki Lewis 05/22/18 11:36:33 [...] No Time Out Dru Barros DO, Given Jovani Dong RN, Siva Gan RN, Ac Gomez CST, Katarzyna Pringle CST, Lyndsay Hernandez Time Out Complete 05/22/18 11:18:00 [...] Instruments Instruments Status Correct Correct Time By Yary Shen CST, CST, Amber Outcomes Met? Yes Yes Last Modified By: [...] safely administered during the perioperative period For [place] please see scanned medication reconcilliation form for medications used at the field during the procedure. Implant Log FT Pre-Care Text: Records devices implanted during the operative or invasive procedure Entry 1 Implant/Explant Implant Implant Identification Description AMADO [id number] 12.50MM Serial Number [id number] 16.50 [[id number]] Lot Number [id number] Process Artist [employer] Catalog ?# [id number] [F] Size 16.5 Expiration Date 05/04/20 Usage Data Implant Site LEFT EYE Quantity 1 Outcomes Met? Yes Last Modified By: Nikki Paniagua RN 05/22/18 11:23:01 Post-Care Text: The patient is free from signs and symptoms of injury caused by extraneous objects Case Comments Finalized By: Madelin Delvalle CST Document Signatures Signed By: Nikki Paniagua RN 05/22/18 11:36 Madelin Delvalle CST 05/22/18 15:01 Normal [facility] Main OR PACU II Recordon Main OR PACU II Record PACU Phase II Doc ument Type FT Summary Primary Physician: Dru Barros DO Finalized Date/Time: 05/22/18 14:52:44 Pt. Name: AMEE JUÁREZ/Sex: 1950 Male Med Rec #: [id number] Physician: Dru Barros DO Financial #: [id number] Pt. Type: A Room/Bed: [facility]/ Admit/Disch: 05/22/18 08:54:41 - Institution: Case [...] By: Poornima Hdez RN 05/22/18 14:52 Normal [facility] Main OR Preoperative Recordo n 05-22-2018 Main OR Preoperative Record PreOp Document Type FT Summary Primary Physician: Dru Barros DO Finalized Date/Time: 05/22/18 11:24:14 Pt. Name: AMEE JUÁREZ/Sex: 1950 Male Med Rec #: [id number] Physician: Dru Barros DO Financial #: [id number] Pt. Type: A Room/Bed: Admit/Disch: 05/22/18 08:54:41 - Institution: Case Times [...] By: Nikki Paniagua RN 05/22/18 11:24 Normal [facility] Main OR Preoperative Record Holding Area Document Type FT Summary Primary Physician: Dru Barros DO Finalized Date/Time: 05/22/18 09:21:39 Pt. Name: JUÁREZAMEE/Sex: 1950 Male Med Rec #: [id number] Physician: Dru Barros DO Financial #: [id number] Pt. Type: A Room/Bed: 07/06 Admit/Disch: 05/22/18 08:54:41 - Institution: Case Times [...] Signed By: Poornima Hdez RN 05/22/18 09:21 [facility] Patient Education - Texton 1 07-23-2017 Patient Education - Text [facility] Progress Note-Physicianon Protein mass conc Patient: [...] Estimated Blood Loss: 0 ml. Complications: None. [facility] Comment on above: Result Comment: Elec tronically Signed By: Dru Barros DO\.br\Date and Time Signed: 05/22/18 11:36 EST Vital Signs Date Time Vital Sign Value Performing Clinician Facility 06-03-2024 11:01-0500 Heart rate 52 /min Kailey Louise PASS WORKER Work Phone: [facility] 06-03-2024 10:59-0500 Diastolic blood pressure 78 mm[Hg] Kailey Louise PASS WORKER Work Phone: [facility] 06-03-2024 10:59-0500 Systolic blood pressure 150 mm[Hg] Kailey Louise PASS WORKER Work Phone: [facility] 06-03-2024 10:12-0500 Body height 182.9 cm Kailey Louise PASS WORKER Work Phone: [facility] 06-03-2024 10:12-0500 Body mass index (BMI) [Ratio] 29.89 kg/m2 Kailey Louise PASS WORKER Work Phone: [facility] 06-03-2024 10:12-0500 Body temperature 98.49 [degF] Kailey Louise PASS WORKER Work Phone: [facility] 06-03-2024 10:12-0500 Body weight 99.97 kg Kailey Louise PASS WORKER Work Phone: [facility] 06-03-2024 10:12-0500 Respiratory rate 18 /min Kailey Aichholz PASS WORKER Work Phone: [facility] 06-03-2024 10:12-0500 SaO2% (BldA) [Mass fraction] 95 % Kailey Aichholz PASS WORKER Work Phone: [facility] 05-08-2024 09:27-0500 Body height 182.88 cm Kailey Aichholz Work Phone: [facility] 05-08-2024 09:27-0500 Body mass index (BMI) [Ratio] 30.7 kg/m2 Kailey Aichholz Work Phone: [facility] 05-08-2024 09:27-0500 Body temperature 98.1 [degF] Kailey Aichholz Work Phone: [facility] 05-08-2024 09:27-0500 Body weight 102.96 kg Kailey Aichholz Work Phone: [facility] 05-08-2024 09:27-0500 Diastolic blood pressure 84 mm[Hg] Kailey Aichholz Work Phone: [facility] 05-08-2024 09:27-0500 Heart rate 59 /min Kailey Aichholz Work Phone: [facility] 05-08-2024 09:27-0500 Respiratory rate 20 /min Kailey Aichholz Work Phone: [facility] 05-08-2024 09:27-0500 SaO2% (BldA) [Mass fraction] 96 % Kailey Aichholz Work Phone: [facility] 05-08-2024 09:27-0500 Systolic blood pressure 160 mm[Hg] Kailey Aichholz Work Phone: [facility] 04-14-2024 14:00-0500 Diastolic blood pressure 60 mm[Hg] Kailey Aichholz Work Phone: [facility] 04-14-2024 14:00-0500 Respiratory rate 18 /min Kaileynatasha Nolascoholz Work Phone: [facility] 04-14-2024 14:00-0500 SaO2% (BldA) [Mass fraction] 97 % Kailey Arpanhholz Work Phone: [facility] 04-14-2024 14:00-0500 Systolic blood pressure 140 mm[Hg] Kailey Aichholz Work Phone: [facility] 04-14-2024 02:30-0500 Heart rate 51 /min Kailey Arpanhholz Work Phone: [facility] 04-13-2024 21:25-0500 Body height 182.88 cm Kaileynatasha Antonyhholz Work Phone: [facility] 04-13-2024 21:25-0500 Body temperature 98.4 [degF] Kailey Gauravholsidney Work Phone: [facility] 04-13-2024 21:25-0500 Body weight 100.6 kg Kailey Nolascoholz Work Phone: [facility] 03-14-2024 10:07-0400 Diastolic blood pressure 72 mm[Hg] Jose Dutta DO Work Phone: [facility] 03-14-2024 10:07-0400 Systolic blood pressure 136 mm[Hg] Jose Dutta DO Work Phone: [facility] 03-14-2024 09:48-0400 Body height 182.9 cm Jose Dutta DO Work Phone: [facility] 03-14-2024 09:48-0400 Body mass index (BMI) [Ratio] 30.24 kg/m2 Jose Dutta DO Work Phone: [facility] 03-14-2024 09:48-0400 Body weight 101.15 kg Jose Dutta DO Work Phone: [facility] 03-14-2024 09:48-0400 Heart rate 63 /min Jose Dutta DO Work Phone: [facility] 03-11-2024 16:05-0400 Body height 182.9 cm Kailey Antonyjanetbrynz PASS WORKER Work Phone: [facility] 03-11-2024 16:05-0400 Body mass index (BMI) [Ratio] 30.35 kg/m2 Kailey Arpanjanetholz PASS WORKER Work Phone: [facility] 03-11-2024 16:05-0400 Body temperature 99 [degF] Kailey Declanz PASS WORKER Work Phone: [facility] 03-11-2024 16:05-0400 Body weight 101.52 kg Kaileynatasha Antonynoriz PASS WORKER Work Phone: [facility] 03-11-2024 16:05-0400 Diastolic blood pressure 70 mm[Hg] Kailey Gauravholz PASS WORKER Work Phone: [facility] 03-11-2024 16:05-0400 Heart rate 71 /min Kailey Aichholz PASS WORKER Work Phone: [facility] 03-11-2024 16:05-0400 Respiratory rate 20 /min Kailey Arpanhholz PASS WORKER Work Phone: [facility] 03-11-2024 16:05-0400 SaO2% (BldA) [Mass fraction] 97 % Kailey Gauravholz PASS WORKER Work Phone: [facility] 03-11-2024 16:05-0400 Systolic blood pressure 130 mm[Hg] Kailey Aichholz PASS WORKER Work Phone: [facility] 02-22-2024 09:00-0400 Body height 182.9 cm Kailey Gauravholz PASS WORKER Work Phone: [facility] 02-22-2024 09:00-0400 Body mass index (BMI) [Ratio] 30.81 kg/m2 Kailey Aicsujatha PASS WORKER Work Phone: [facility] 02-22-2024 09:00-0400 Body temperature 98.1 [degF] Kailey Antonysujatha PASS WORKER Work Phone: [facility] 02-22-2024 09:00-0400 Body weight 103.06 kg Kailey Nolascojeromy PASS WORKER Work Phone: [facility] 02-22-2024 09:00-0400 Diastolic blood pressure 80 mm[Hg] Kailey Nolascojeromy PASS WORKER Work Phone: [facility] 02-22-2024 09:00-0400 Heart rate 53 /min Kailey Noalscojeromy PASS WORKER Work Phone: [facility] 02-22-2024 09:00-0400 Respiratory rate 18 /min Kailey Nolascojeromy PASS WORKER Work Phone: [facility] 02-22-2024 09:00-0400 SaO2% (BldA) [Mass fraction] 97 % Kailey Nolacsojeromy PASS WORKER Work Phone: [facility] 02-22-2024 09:00-0400 Systolic blood pressure 110 mm[Hg] Kailey Nolascojeromy PASS WORKER Work Phone: [facility] 01-22-2024 13:02-0400 Body mass index (BMI) [Ratio] 31.51 kg/m2 Galileo Delatorre MD Work Phone: [facility] 01-22-2024 13:02-0400 Body temperature 98.2 [degF] Galileo Delatorre MD Work Phone: [facility] 01-22-2024 13:02-0400 Body weight 105.4 kg Galileo Delatorre MD Work Phone: [facility] 01-22-2024 13:02-0400 Diastolic blood pressure 80 mm[Hg] Galileo Delatorre MD Work Phone: [facility] 01-22-2024 13:02-0400 Heart rate 54 /min Galileo Delatorre MD Work Phone: [facility] 01-22-2024 13:02-0400 Respiratory rate 16 /min Galileo Delatorre MD Work Phone: [facility] 01-22-2024 13:02-0400 SaO2% (BldA) [Mass fraction] 98 % Galileo Delatorre MD Work Phone: [facility] 01-22-2024 13:02-0400 Systolic blood pressure 170 mm[Hg] Galileo Delatorre MD Work Phone: [facility] 12-18-2023 11:31-0400 Body height 182.88 cm [facility] 12-18-2023 11:31-0400 Body mass index (BMI) [Ratio] 31.3 kg/m2 [facility] 12-18-2023 11:31-0400 Body temperature 97.9 [degF] [facility] 12-18-2023 11:31-0400 Body weight 104.77 kg [facility] 12-18-2023 11:31-0400 Diastolic blood pressure 72 mm[Hg] [facility] 12-18-2023 11:31-0400 Heart rate 58 /min [facility] 12-18-2023 11:31-0400 Respiratory rate 20 /min [facility] 12-18-2023 11:31-0400 SaO2% (BldA) [Mass fraction] 96 % [facility] 12-18-2023 11:31-0400 Systolic blood pressure 119 mm[Hg] [facility] 09-13-2023 10:06-0400 Body height 182.9 cm Vinicius Juárez INSPECTOR AND [employer]PER[employer]SERVICE COUNTER CASHIER Work Phone: [facility] 09-13-2023 10:06-0400 Body mass index (BMI) [Ratio] 33.09 kg/m2 Vinicius Juárez INSPECTOR AND CLIPPER-SERVICE COUNTER CASHIER Work Phone: [facility] 09-13-2023 10:06-0400 Body weight 110.68 kg Vinicius Juárez INSPECTOR AND CLIPPER-SERVICE COUNTER CASHIER Work Phone: [facility] 09-13-2023 10:06-0400 Diastolic blood pressure 72 mm[Hg] Vinicius Juárez INSPECTOR AND CLIPPER-SERVICE COUNTER CASHIER Work Phone: [facility] 09-13-2023 10:06-0400 Heart rate 60 /min Vinicius Juárez INSPECTOR AND CLIPPER-SERVICE COUNTER CASHIER Work Phone: [facility] 09-13-2023 10:06-0400 Systolic blood pressure 138 mm[Hg] Vinicius Juárez INSPECTOR AND CLIPPER-SERVICE COUNTER CASHIER Work Phone: [facility] 07-25-2023 13:36-0500 Inhaled oxygen flow rate 3 L/min Kailey Nolascobrynsidney Work Phone: [facility] 07-25-2023 13:36-0500 SaO2% (BldA) [Mass fraction] 96 % Kailey Louise Work Phone: [facility] 07-25-2023 13:35-0500 Body height 182.88 cm Kailey Louise Work Phone: [facility] 07-25-2023 13:35-0500 Body weight 111 kg Kailey Louise Work Phone: [facility] 07-05-2023 10:39-0500 Diastolic blood pressure 84 mm[Hg] Jose Dutta DO Work Phone: [facility] 07-05-2023 10:39-0500 Heart rate 60 /min Jose Dutta DO Work Phone: [facility] 07-05-2023 10:39-0500 Systolic blood pressure 144 mm[Hg] Jose Dutta DO Work Phone: [facility] 07-05-2023 10:35-0500 Body height 182.9 cm Jose Dutta DO Work Phone: [facility] 07-05-2023 10:35-0500 Body mass index (BMI) [Ratio] 33.09 kg/m2 Jose Dutta DO Work Phone: [facility] 07-05-2023 10:35-0500 Body weight 110.68 kg Jose Dutta DO Work Phone: [facility] 06-19-2023 11:30-0500 Body height 185.42 cm Harriett Susana Other [facility] 06-19-2023 11:30-0500 Body mass index (BMI) [Ratio] 32.32 kg/m2 Harriett Susana Other [facility] [employer] Other 06-19-2023 11:30-0500 Body weight 111.13 kg Harriett Susana Other [facility] 06-19-2023 11:30-0500 Diastolic blood pressure 78 mm[Hg] Harriett Susana Other [facility] 06-19-2023 11:30-0500 Respiratory rate 20 /min Harriett Susana Other [facility] [employer] Other 06-19-2023 11:30-0500 SaO2% (BldA) [Mass fraction] 97 % Harriett Susana Other [facility] [employer] Other 06-19-2023 11:30-0500 Systolic blood pressure 146 mm[Hg] Harriett Susana Other [facility] 02-24-2023 10:35-0400 Body height 182.9 cm Francisco Claire MD Work Phone: [facility] 02-24-2023 10:35-0400 Body weight 111.27 kg Francisco Claire MD Work Phone: [facility] 01-30-2023 08:23-0400 Diastolic blood pressure 80 mm[Hg] Kailey Louise Work Phone: [facility] 600 DO Work Phone: 01-30-2023 08:23-0400 Systolic blood pressure 176 mm[Hg] Kailey Mcgowan Aichholz Work Phone: [facility] [employer] 600 DO Work Phone: 01-30-2023 08:18-0400 Body height 182.88 cm Kailey Mcgowan Aichholz Work Phone: [facility] 600 DO Work Phone: 01-30-2023 08:18-0400 Body mass index (BMI) [Ratio] 33.77 kg/m2 Kailey Mcgowan Aichholz Work Phone: [facility] [employer] 600 DO Work Phone: 01-30-2023 08:18-0400 Body surface area Derived from formula 2.34 m2 Kailey Mcgowan Aichholz Work Phone: [facility] [employer] 600 DO Work Phone: 01-30-2023 08:18-0400 Body weight 112.95 kg Kailey Mcgowan Aichholz Work Phone: [facility] [employer] 600 DO Work Phone: 01-30-2023 08:18-0400 Diastolic blood pressure 86 mm[Hg] Kailey Mcgowan Aichholz Work Phone: [facility] [employer] 600 DO Work Phone: 01-30-2023 08:18-0400 Heart rate 60 /min Kailey Mcgowan Aichholz Work Phone: [facility] 600 DO Work Phone: 01-30-2023 08:18-0400 Systolic blood pressure 182 mm[Hg] Kailey Mcgowan Aichholz Work Phone: [facility] [employer] 600 DO Work Phone: 01-09-2023 10:04-0400 Body temperature 97.5 [degF] Galileo Delatorre MD Work Phone: [facility] 01-09-2023 10:04-0400 Body weight 111.58 kg Galielo Delatorre MD Work Phone: [facility] 01-09-2023 10:04-0400 Diastolic blood pressure 76 mm[Hg] Galileo Delatorre MD Work Phone: [facility] 01-09-2023 10:04-0400 Heart rate 69 /min Galileo Delatorre MD Work Phone: [facility] 01-09-2023 10:04-0400 Respiratory rate 18 /min Galileo Delatorre MD Work Phone: [facility] 01-09-2023 10:04-0400 SaO2% (BldA) [Mass fraction] 97 % Galileo Delatorre MD Work Phone: [facility] 01-09-2023 10:04-0400 Systolic blood pressure 154 mm[Hg] Galileo Delatorre MD Work Phone: [facility] 12-29-2022 10:41-0400 Body height 195.58 cm Kailey Louise Work Phone: [facility] [employer] DO Work Phone: 12-29-2022 10:41-0400 Body mass index (BMI) [Ratio] 28.84 kg/m2 Kailey Louise Work Phone: [facility] [employer] [employer] DO Work Phone: 12-29-2022 10:41-0400 Body surface area Derived from formula 2.43 m2 Kailey Louise Work Phone: [facility] [employer] 320 DO Work Phone: 12-29-2022 10:41-0400 Diastolic blood pressure 80 mm[Hg] Kailey Louise Work Phone: [facility] [employer] [address] DO Work Phone: 12-29-2022 10:41-0400 Systolic blood pressure 146 mm[Hg] Kailey Antonyhholz Work Phone: [facility] 320 DO Work Phone: 12-29-2022 10:16-0400 Body height 226.06 cm Kailey Mcgowan Aichholz Work Phone: [facility] 320 DO Work Phone: 12-29-2022 10:16-0400 Body mass index (BMI) [Ratio] 21.59 kg/m2 Kailey Mcgowan Aichholz Work Phone: [facility] 320 DO Work Phone: 12-29-2022 10:16-0400 Body surface area Derived from formula 2.7 m2 Kailey Mcgowan Aichholz Work Phone: [facility] 320 DO Work Phone: 12-29-2022 10:16-0400 Body weight 110.32 kg Kailey Antonyhholz Work Phone: [facility] 320 DO Work Phone: 12-29-2022 10:16-0400 Diastolic blood pressure 94 mm[Hg] Kailey Mcgowan Aichholz Work Phone: [facility] 320 DO Work Phone: 12-29-2022 10:16-0400 Heart rate 65 /min Kailey Mcgowan Aichholz Work Phone: [facility] 320 DO Work Phone: 12-29-2022 10:16-0400 Systolic blood pressure 152 mm[Hg] Kailey Roslyn Aichholz Work Phone: [facility] 320 DO Work Phone: 12-29-2022 10:16-0400 18 1 Kailey Mcgowan Dani Work Phone: [facility] 320 DO Work Phone: Comment on above: PHQ-9 TS 12-01-2022 08:30-0400 Body height 185.42 cm Harriett Susana Other [employer] Other 12-01-2022 08:30-0400 Body mass index (BMI) [Ratio] 32.06 kg/m2 Harriett Susana Other [employer] Other 12-01-2022 08:30-0400 Body temperature 97.6 [degF] Harriett Susana Other [employer] Other 12-01-2022 08:30-0400 Body weight 110.22 kg Harriett Susana Other [employer] Other 12-01-2022 08:30-0400 Diastolic blood pressure 82 mm[Hg] Harriett Susana Other [employer] Other 12-01-2022 08:30-0400 Respiratory rate 20 /min Harriett Susana Other [employer] Other 12-01-2022 08:30-0400 SaO2% (BldA) [Mass fraction] 96 % Harriett Susana Other [employer] Other 12-01-2022 08:30-0400 Systolic blood pressure 160 mm[Hg] Harriett Susana Other [employer] Other 08-09-2022 07:45-0500 70 1 Kailey Mcgowan Dani Work Phone: [facility] [address] [place] Work Phone: Comment on above: [id number] 07-11-2022 09:52-0500 Body temperature 97.81 [degF] Galileo Delatorre MD Work Phone: [facility] 07-11-2022 09:52-0500 Body weight 112.04 kg Galileo Delatorre MD Work Phone: [facility] 07-11-2022 09:52-0500 Diastolic blood pressure 93 mm[Hg] Galileo Delatorre MD Work Phone: [facility] 07-11-2022 09:52-0500 Heart rate 71 /min Galileo Delatorre MD Work Phone: [facility] 07-11-2022 09:52-0500 Respiratory rate 18 /min Galileo Delatorre MD Work Phone: [facility] 07-11-2022 09:52-0500 SaO2% (BldA) [Mass fraction] 96 % Galileo Delatorre MD Work Phone: [facility] 07-11-2022 09:52-0500 Systolic blood pressure 174 mm[Hg] Galileo Delatorre MD Work Phone: [facility] 06-21-2022 11:29-0500 Body height 182.88 cm Kailey Louise Work Phone: [facility] 250 DO Work Phone: 06-21-2022 11:29-0500 Body mass index (BMI) [Ratio] 32.96 kg/m2 Kailey Louise Work Phone: [facility] [address] DO Work Phone: 06-21-2022 11:29-0500 Body surface area Derived from formula 2.31 m2 Kailey Louise Work Phone: [facility] 250 DO Work Phone: 06-21-2022 11:29-0500 Body weight 110.22 kg Kailey Nolascoholsidney Work Phone: [facility] 250 DO Work Phone: 06-21-2022 11:29-0500 Diastolic blood pressure 74 mm[Hg] Kailey Nolascoholz Work Phone: [facility] [address] DO Work Phone: 06-21-2022 11:29-0500 Heart rate 73 /min Kailey Nolascoholz Work Phone: [facility] 250 DO Work Phone: 06-21-2022 11:29-0500 Systolic blood pressure 132 mm[Hg] Kailey Nolascoholz Work Phone: [facility] [address] DO Work Phone: 06-21-2022 11:29-0500 13 1 Kailey Nolascoholsidney Work Phone: [facility] 250 DO Work Phone: Comment on above: PHQ-9 TS 05-19-2022 09:30-0500 Body height 185.42 cm Harriett Susana Other [employer] Other 05-19-2022 09:30-0500 Body mass index (BMI) [Ratio] 32.45 kg/m2 Harriett Susana Other [employer] Other 05-19-2022 09:30-0500 Body temperature 96.6 [degF] Harriett Susana Other [employer] Other 05-19-2022 09:30-0500 Body weight 111.59 kg Harriett Susana Other [employer] Other 05-19-2022 09:30-0500 Diastolic blood pressure 79 mm[Hg] Harriett Susana Other [employer] Other 05-19-2022 09:30-0500 Respiratory rate 20 /min Harriett Susana Other [employer] Other 05-19-2022 09:30-0500 SaO2% (BldA) [Mass fraction] 97 % Harriett Susana Other [employer] Other 05-19-2022 09:30-0500 Systolic blood pressure 145 mm[Hg] Harriett Susana Other [employer] Other 11-18-2021 09:30-0400 Body height 185.42 cm Harriett Susana Other [employer] Other 11-18-2021 09:30-0400 Body mass index (BMI) [Ratio] 31.92 kg/m2 Harriett Susana Other [employer] Other 11-18-2021 09:30-0400 Body temperature 96.4 [degF] Harriett Susana Other [employer] Other 11-18-2021 09:30-0400 Body weight 109.77 kg Harriett Susana Other [employer] Other 11-18-2021 09:30-0400 Diastolic blood pressure 79 mm[Hg] Harriett Susana Other [employer] Other 11-18-2021 09:30-0400 Respiratory rate 20 /min Harriett Susana Other [employer] Other 11-18-2021 09:30-0400 SaO2% (BldA) [Mass fraction] 97 % Harriett Devries Other [facility] [employer] Other 11-18-2021 09:30-0400 Systolic blood pressure 145 mm[Hg] Harriett Devries Other [email or web address] Other 11-11-2021 13:54-0400 Body height 182.88 cm Kailey Louise Work Phone: [facility] DO Work Phone: 11-11-2021 13:54-0400 Body mass index (BMI) [Ratio] 32.82 kg/m2 Kailey Nolascoholz Work Phone: [facility] 250 DO Work Phone: 11-11-2021 13:54-0400 Body surface area Derived from formula 2.31 m2 Kailey Nolascoholz Work Phone: [facility] 250 DO Work Phone: 11-11-2021 13:54-0400 Body weight 109.77 kg Kailey Nolascoholsidney Work Phone: [facility] 250 DO Work Phone: 11-11-2021 13:54-0400 Diastolic blood pressure 80 mm[Hg] Kailey Nolascoholsidney Work Phone: [facility] 250 DO Work Phone: 11-11-2021 13:54-0400 Heart rate 64 /min Kailey Nolascoholz Work Phone: [facility] 250 DO Work Phone: 11-11-2021 13:54-0400 Systolic blood pressure 150 mm[Hg] Kailey Nolascoholz Work Phone: [facility] 250 DO Work Phone: 09-20-2021 10:11-0400 Body height 182.88 cm Kailey Louise Work Phone: [facility] 250 DO Work Phone: 09-20-2021 10:11-0400 Body mass index (BMI) [Ratio] 32.82 kg/m2 Kailey Nolascoholz Work Phone: [facility] 250 DO Work Phone: 09-20-2021 10:11-0400 Body surface area Derived from formula 2.31 m2 Kailey Nolascoholsidney Work Phone: [facility] 250 DO Work Phone: 09-20-2021 10:11-0400 Body weight 109.77 kg Kailey Nolascoholz Work Phone: [facility] 250 DO Work Phone: 09-20-2021 10:11-0400 Diastolic blood pressure 80 mm[Hg] Kailey Nolascoholz Work Phone: [facility] 250 DO Work Phone: 09-20-2021 10:11-0400 Heart rate 68 /min Kailey Nolascoholz Work Phone: [facility] 250 DO Work Phone: 09-20-2021 10:11-0400 Systolic blood pressure 132 mm[Hg] Kailey Nolascoholz Work Phone: [facility] 250 DO Work Phone: 08-26-2021 11:00-0400 Body height 182.88 cm Kailey Nolascoholz Work Phone: [facility] 250 DO Work Phone: 08-26-2021 11:00-0400 Body mass index (BMI) [Ratio] 33.77 kg/m2 Kailey Nolascoholz Work Phone: [facility] 250 DO Work Phone: 08-26-2021 11:00-0400 Body surface area Derived from formula 2.34 m2 Kailey Nolascoholz Work Phone: [facility] 250 DO Work Phone: 08-26-2021 11:00-0400 Body weight 112.95 kg Kailey Nolascoholz Work Phone: [facility] 250 DO Work Phone: 08-26-2021 11:00-0400 Diastolic blood pressure 94 mm[Hg] Kailey Antonyhholz Work Phone: [facility] 250 DO Work Phone: 08-26-2021 11:00-0400 Heart rate 60 /min Kailey Nolascoholz Work Phone: [facility] 250 DO Work Phone: 08-26-2021 11:00-0400 Systolic blood pressure 152 mm[Hg] Kailey Nolascoholz Work Phone: [facility] 250 DO Work Phone: 08-26-2021 11:00-0400 14 1 Kailey Antonyhholz Work Phone: [facility] 250 DO Work Phone: Comment on above: [id number] 07-27-2021 12:30-0500 69 1 Kailey Antonyhholz Work Phone: [facility] 250 DO Work Phone: Comment on above: [id number] 06-15-2021 14:30-0500 65 1 Kailey Mcgowan Aichholz Work Phone: [facility] [address] [place] Work Phone: Comment on above: [id number] 05-25-2021 09:06-0500 Body height 182.88 cm Kailey Mcgowan Aichholz Work Phone: [facility] 250 DO Work Phone: 05-25-2021 09:06-0500 Body mass index (BMI) [Ratio] 35.53 kg/m2 Kailey Mcgwoan Aichholz Work Phone: [facility] 250 DO Work Phone: 05-25-2021 09:06-0500 Body surface area Derived from formula 2.39 m2 aKiley Mcgowan Aichholz Work Phone: [facility] 250 DO Work Phone: 05-25-2021 09:06-0500 Body weight 118.84 kg Kailey Mcgowan Aichholz Work Phone: [facility] 250 DO Work Phone: 05-25-2021 09:06-0500 Diastolic blood pressure 82 mm[Hg] Kailey Mcgowan Aichholz Work Phone: [facility] 250 DO Work Phone: 05-25-2021 09:06-0500 Heart rate 60 /min Kailey Mcgowan Aichholz Work Phone: [facility] 250 DO Work Phone: 05-25-2021 09:06-0500 Systolic blood pressure 160 mm[Hg] Kailey Mcgowan Aichholz Work Phone: [facility] 250 DO Work Phone: 04-22-2021 12:08-0500 Body height 182.88 cm Kailey Mcgowan Aichholz Work Phone: [facility] 250 DO Work Phone: 04-22-2021 12:08-0500 Body mass index (BMI) [Ratio] 33.91 kg/m2 Kailey Mcgowan Aichholz Work Phone: [facility] 250 DO Work Phone: 04-22-2021 12:08-0500 Body surface area Derived from formula 2.34 m2 Kailey Mcgowan Aichholz Work Phone: [facility] 250 DO Work Phone: 04-22-2021 12:08-0500 Body weight 113.4 kg Kailey Mcgowan Aichholz Work Phone: [facility] 250 DO Work Phone: 04-22-2021 12:08-0500 Diastolic blood pressure 70 mm[Hg] Kailey Mcgowan Aichholz Work Phone: [facility] 250 DO Work Phone: 04-22-2021 12:08-0500 Heart rate 56 /min Kailey Mcgowan Aichholz Work Phone: [facility] 250 DO Work Phone: 04-22-2021 12:08-0500 Systolic blood pressure 142 mm[Hg] Kailey Mcgowan Aichholz Work Phone: [facility] 250 DO Work Phone: Encounters Encounter Date Encounter Type Care Provider Facility Start: 07-03-2024 End: 07-03-2024 Refill Kailey Aichholz PASS WORKER Work Phone: [facility] Comment on above: Acute cough (Primary Dx) Start: 07-03-2024 End: 07-03-2024 Refill Kailey Louise PASS WORKER Work Phone: [facility] Comment on above: Atherosclerotic hear t disease of [place] coronary artery without angina pectoris (CMS/HCC); Coronary atherosclerosis (CMS/HCC) Start: 06-21-2024 End: 06-21-2024 ambulatory Ppww Oct [facility] Comment on above: 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 Start: 06-21-2024 End: 06-21-2024 Office outpatient visit 25 minutes Jeuss Ricci MD Work Phone: [facility] Comment on above: 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 (Primary Dx) Start: 06-12-2024 End: 06-12-2024 External Result Encounter Kailey Louise PASS WORKER Work Phone: [facility] Unsolicited Start: 06-12-2024 End: 06-12-2024 External Result Encounter Kailey Louise PASS WORKER Work Phone: [facility] Unsolicited Start: 06-12-2024 Non-patient / Non-visit Kailey thomas Work Phone: [facility] Pulmonary Work Phone: Start: 06-12-2024 End: 06-12-2024 Patient encounter procedure Kailey Louise Work Phone: [facility]-Res[facility] Therapy Work Phone: Start: 06-12-2024 End: 06-12-2024 ambulatory Kailey Louise Work Phone: [facility] Work Phone: Start: 06-03-2024 End: 06-03-2024 Bamboo flowsheet Kailey Louise PASS WORKER Work Phone: [facility] Start: 06-03-2024 End: 06-03-2024 Bamboo flowsheet Kailey Louise PASS WORKER Work Phone: [facility] Start: 06-03-2024 End: 06-03-2024 Patient encounter procedure Kailey Louise PASS WORKER Work Phone: [facility] Comment on above: Encounter for annual wellness visit (AWV) in Medicare patient (Primary Dx); SHUKRI (obstructive sleep apnea); Asthma with COPD (CMS/HCC); Coronary artery disease of [place] artery of [place] heart with stable angina pectoris (CMS/HCC); Chronic diastolic congestive heart failure (CMS/HCC); Persistent atrial fibrillation (HCC) (CMS/HCC); Primary hypertension (CMS/HCC); Stage 3a chronic kidney disease (HCC) (CMS/HCC); Prostate cancer (CMS/HCC); Class 1 obesity due to excess calories with serious comorbidity in adult, unspecified BMI; Mixed hyperlipidemia (CMS/HCC); Needs flu shot; Colon cancer screening Start: 06-03-2024 End: 06-03-2024 ambulatory KAILEY DANI Not Available Start: 06-02-2024 End: 06-03-2024 Refill Kailey Declanz PASS WORKER Work Phone: [facility] Comment on above: Primary hypertension (CMS/HCC) Start: 05-08-2024 End: 05-08-2024 Patient encounter procedure Kaileynatasha Louise Work Phone: [facility] Pul[facility] Work Phone: Start: 04-17-2024 End: 04-17-2024 Refill Kailey Declanz PASS WORKER Work Phone: [facility] Comment on above: COPD mixed type (CMS /HCC) Start: 04-13-2024 End: 04-14-2024 Emergency department patient visit Kailey Dani Work Phone: [facility]-Emergency Room Work Phone: Start: 03-17-2024 End: 03-17-2024 Refill Kailey Aichholz PASS WORKER Work Phone: [facility] Comment on above: COPD mixed type (CMS /HCC) Start: 03-14-2024 End: 03-14-2024 ambulatory [facility] Ambulatory Start: 03-14-2024 End: 03-14-2024 Office outpatient visit 25 minutes Jose Dutta DO Work Phone[facility] Comment on above: ASHD (arteriosclerot ic heart disease); Paroxysmal atrial flutter (Multi); High risk medication use; History of myocardial infarction; History of PTCA; Mixed hyperlipidemia; History of CVA (cerebrovascular accident); BMI 30.0-30.9,adult; Former smoker Start: 03-11-2024 End: 03-11-2024 Office outpatient visit 15 minutes Kailey Louise PASS WORKER Work Phone: [facility] Comment on above: Acute URI (Primary D x); Class 1 obesity due to excess calories with serious comorbidity in adult, unspecified BMI; Primary hypertension (CMS/HCC) Start: 03-11-2024 End: 03-11-2024 ambulatory KAILEY DANI Not Available Start: 03-11-2024 End: 03-11-2024 Bamboo flowsheet Kailey Declanz PASS WORKER Work Phone: [facility] Start: 03-11-2024 End: 03-11-2024 Bamboo flowsheet Kailey Arpanhholz PASS WORKER Work Phone: [facility] Start: 02-22-2024 End: 02-22-2024 Bamboo flowsheet Kailey Arpanhbrynz PASS WORKER Work Phone: [facility] Start: 02-22-2024 End: 02-22-2024 Bamboo flowsheet Kailey Aichholz PASS WORKER Work Phone: [facility] Start: 02-22-2024 End: 02-22-2024 Office outpatient visit 25 minutes Kailey Dnai PASS WORKER Work Phone: [facility] Comment on above: Primary hypertension (CMS/HCC) (Primary Dx); Chronic kidney disease, stage 3 unspecified (HCC) (CMS/HCC); Asthma with COPD (CMS/HCC); COPD mixed type (CMS/HCC); Coronary artery disease of [place] artery of [place] heart with stable angina pectoris (CMS/HCC); Chronic diastolic congestive heart failure (CMS/HCC); Lower extremity edema; Iron deficiency anemia secondary to inadequate dietary iron intake; DDD (degenerative disc disease), lumbar Start: 02-22-2024 End: 02-22-2024 ambulatory KAILEY LOUISE Not Available Start: 01-23-2024 End: 01-23-2024 Telephone encounter Erin ANTON Hematology/Oncology Start: 01-22-2024 End: 01-22-2024 ambulatory KAILEY LOUISE Facility:[facility] Start: 01-22-2024 End: 01-22-2024 Patient encounter procedure Galileo Delatorre MD Work Phone: Radiation Oncology Comment on above: Prostate cancer (HCC ) (Primary Dx) Start: 01-08-2024 Telephone encounter Galileo Delatorre MD Work Phone: Radiation Oncology Comment on above: Orders Start: 01-08-2024 End: 01-08-2024 ambulatory KAILEY ANTONYJanetJEROMY Facility:[facility] Start: 12-18-2023 End: 12-18-2023 ambulatory [facility] Work Phone: Start: 12-18-2023 End: 12-18-2023 Patient encounter procedure Counts Include [address] [facility] Work Phone: Start: 11-16-2023 End: 11-16-2023 ambulatory ANABELLE MORALES Not Available Start: 09-13-2023 End: 09-13-2023 Office outpatient visit 25 minutes Vinicius Juárez INSPECTOR AND CLIPPER-SERVICE COUNTER CASHIER Work Phone: [facility] Comment on above: Paroxysmal atrial fl utter (CMS/HCC) (Primary Dx); High risk medication use; assisted current use of anticoagulant therapy; ASHD (arteriosclerotic heart disease); Essential hypertension, benign; Mixed hyperlipidemia; BMI 33.0-33.9,adult Start: 09-13-2023 End: 09-13-2023 ambulatory VINICIUS Cahcon [facility] Ambulatory Start: 09-05-2023 Telephone encounter Chandni [facility] Start: 08-22-2023 End: 08-22-2023 ambulatory KAILEY LOUISE Not Available Start: 08-02-2023 End: 08-02-2023 ambulatory [facility] Ambulatory Start: 07-25-2023 End: 07-25-2023 Admission to same day surgery center Kailey Louise Work Phone: [facility]-Electrodiagnostics Work Phone: Start: 07-25-2023 End: 07-25-2023 ambulatory Kailey Louise Work Phone: [facility] Work Phone: Start: 07-14-2023 Refill Kailey Nolascojeromy PASS WORKER Work Phone: [facility] Comment on above: Atherosclerotic hear t disease of [place] coronary artery without angina pectoris (CMS/HCC); Coronary atherosclerosis (CMS/HCC) Start: 07-05-2023 End: 07-05-2023 Office outpatient visit 40 minutes Jose Dutta Work Phone: [facility] Comment on above: ASHD (arteriosclerot ic heart disease); History of PTCA; Persistent atrial fibrillation ([facility]/HCC); Essential hypertension, benign; History of myocardial infarction; Hyperlipidemia, unspecified hyperlipidemia type; Former smoker; High risk medication use Start: 07-05-2023 End: 07-05-2023 ambulatory [facility] Ambulatory Start: 07-04-2023 End: 07-04-2023 ambulatory Ppww Ophth Imaging [facility] Comment on above: 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; Epiretinal membrane (ERM) of left eye; Cystoid macular edema of both eyes Start: 07-04-2023 End: 07-04-2023 Office outpatient visit 25 minutes Jesus Ricci MD Work Phone: [facility] Comment on above: 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 (Primary Dx); Epiretinal membrane (ERM) of left eye; Cystoid macular edema of both eyes Start: 06-19-2023 End: 06-19-2023 ambulatory Harriett Devries Other [employer] Other Start: 06-19-2023 Office outpatient vi sit 25 minutes Harriett Susana [facility] Start: 06-19-2023 End: 06-19-2023 Patient encounter procedure Kailey Dani Work Phone: [facility] Work Phone: Start: 06-13-2023 End: 06-13-2023 ambulatory Kailey Debbie Louise Work Phone: [facility] Work Phone: Start: 06-13-2023 End: 06-13-2023 Patient encounter procedure Kailey Dani Work Phone: [facility]-Respiratory Therapy Work Phone: Start: 05-23-2023 Patient encounter procedure Kailey Louise PASS WORKER Work Phone: [facility] Start: 03-31-2023 End: 03-31-2023 ambulatory KAILEY MCGOWAN [facility] Ambulatory Start: 02-24-2023 End: 02-24-2023 ambulatory FRANCISCO CLAIRE Facility:[facility] Start: 02-24-2023 End: 02-24-2023 Patient encounter procedure Francisco Claire MD Work Phone: Otolaryngology Comment on above: SHUKRI (obstructive sle ep apnea) (Primary Dx) Start: 02-01-2023 End: 02-01-2023 ambulatory Kailey Louise Work Phone: [facility] Work Phone: Start: 02-01-2023 End: 02-01-2023 Discharged Recurring Kailey Louise Work Phone: [facility]-Physical Therapy [facility] Start: 01-30-2023 ambulatory Vinicius Juárez Facility:[id number] Start: 01-30-2023 Office outpatient vi sit 15 minutes Kailey Louise Work Phone: [facility]-[place] 250 DO Work Phone: Start: 01-30-2023 Patient encounter procedure Kailey Roslyn Antonyjanetbrynz Work Phone: [facility]-[place] 600 DO Work Phone: Start: 01-24-2023 Telephone encounter Erin Verma HEBREW TEACHER H ematology/Oncology Comment on above: Social Work Services Start: 01-10-2023 Social Work Erin REYNOLDSW Hematolo gy/Oncology Start: 01-09-2023 Telephone encounter Galileo Delatorre MD Work Phone: [facility] Comment on above: Appointment Confirma tion Start: 01-09-2023 End: 01-09-2023 Patient encounter procedure Galileo Delatorre MD Work Phone: Radiation Oncology Comment on above: Prostate cancer (HCC ) (Primary Dx); Urinary incontinence, unspecified type Start: 01-06-2023 Telephone encounter Chris Cagle MD Work Phone: Radiation Oncology Comment on above: Appointment Start: 12-29-2022 Office outpatient vi sit 25 minutes Kailey Louise Work Phone: [facility]-[place] 320 DO Work Phone: Start: 12-29-[address] Jose caban [place] Facility: Start: 12-14-2022 Rx Renewal Kailey Briggs lz Work Phone: [facility]-[place] 250 DO Work Phone: Start: 12-01-2022 End: 12-01-2022 ambulatory Harriett Susana Other [facility] [employer] Other Start: 12-01-2022 Office outpatient vi sit 25 minutes Harriett Susana [facility] Start: 11-17-2022 Chart Update Kailey Briggs lz Work Phone: [facility] 250 DO Work Phone: Start: 11-09-2022 Rx Renewal Kailey Antonyhho lz Work Phone: [facility] 250 DO Work Phone: Start: 11-07-2022 End: 11-07-2022 ambulatory Kailey Lewis Arpanjanetholsidney Work Phone: [facility] Work Phone: Start: 11-07-2022 End: 11-07-2022 Patient encounter procedure Kailey Nolascojeromy Work Phone: [facility]-Respiratory Therapy Work Phone: Start: 09-12-2022 Rx Renewal Kailey Antonyhho lz Work Phone: [facility] 250 DO Work Phone: Start: 09-09-2022 Rx Renewal Kailey Antonyhho lz Work Phone: [facility] 250 DO Work Phone: Start: 08-31-2022 Patient encounter procedure Kailey Mcgowan Arpanjanetholsidney Work Phone: [facility] 250 DO Work Phone: Start: 08-24-2022 End: 09-19-2022 ambulatory OSKAR LOUISE Facility: Start: 08-20-2022 ambulatory MD ISAIAS FRANK MMAD CAVAZOS Facility: Start: 08-16-2022 Chart Update Kailey Antonyhho lz Work Phone: [facility] 250 DO Work Phone: Start: 08-09-2022 Patient encounter procedure Kailey Mcgowan Arpanjanetholz Work Phone: [facility] 250 DO Work Phone: Start: 08-09-[address] Jose Dutta Facility: Start: 08-09-2022 Patient encounter procedure Kailey Antonyhholz Work Phone: [facility] [address] [place] Work Phone: Start: 08-09-2022 ambulatory JOSE DUTTA Facility:[id number] Start: 07-25-2022 End: 07-26-2022 ambulatory OSKAR KAILEY RAPANJanetJEROMY Facility:H1 Start: 07-22-2022 End: 07-23-2022 ambulatory OSKAR NAMA DANI Facility:H1 Start: 07-18-2022 End: 07-19-2022 ambulatory GALILEO DELATORRE Facility:H1 Start: 07-15-2022 Telephone encounter Erin Gonzales ematology/Oncology Comment on above: Social Work Services Start: 07-13-2022 Telephone encounter Erin Gonzales ematology/Oncology Comment on above: Social Work Services ([facility] [place] SW Report follow up.) Start: 07-11-2022 End: 07-11-2022 Patient encounter procedure Galileo Delatorre MD Work Phone: Radiation Oncology Comment on above: Prostate cancer (HCC ) (Primary Dx) Start: 07-06-2022 AUDIT Kaileynatasha Antonyhho lz Work Phone: [facility] 250 DO Work Phone: Start: 06-21-2022 Office outpatient vi sit 40 minutes Kailey Louise Work Phone: [facility] 250 DO Work Phone: Start: 06-21-[address] Jose Dutta Facility: Start: 06-13-2022 Rx Renewal Kailey Briggs lz Work Phone: [facility] 250 DO Work Phone: Start: 05-19-2022 End: 05-19-2022 ambulatory Harriett Susana Other [facility] [employer] Other Start: 05-19-2022 Office outpatient vi sit 25 minutes Harriett Susana [facility] Start: 04-25-2022 Chart Update Kailey Nolascoho lz Work Phone: [facility] 250 DO Work Phone: Start: 04-22-2022 End: 04-22-2022 ambulatory Kailey Louise Work Phone: [facility] Work Phone: Start: 04-22-2022 End: 04-22-2022 Patient encounter procedure Kailey Louise Work Phone: [facility]-Res[facility] Therapy Start: 03-08-2022 Rx Renewal Kailey Nolascoho durga Work Phone: [facility] 250 DO Work Phone: Start: 03-04-2022 Rx Renewal Kailey Nolascoho durga Work Phone: [facility] 250 DO Work Phone: Start: 12-16-2021 End: 12-17-2021 ambulatory HARRIETT SUSANA Facility:H1 Start: 12-16-2021 Chart Update Kailey calixto Work Phone: [facility] 250 DO Work Phone: Start: 12-13-2021 End: 12-14-2021 ambulatory SERVICE COUNTER CASHIER KAILEY NOLASCOJEROMY Facility:H1 Start: 11-24-2021 End: 11-24-2021 ambulatory Harriett Susana Other [employer] Other Start: 11-24-2021 Telephone encounter Harriett Susana [facility] Start: 11-19-2021 Patient encounter procedure Kailey Louise Work Phone: [facility] 250 DO Work Phone: Start: 11-18-2021 End: 11-18-2021 ambulatory Harriett Susana Other [facility] [employer] Other Start: 11-18-2021 Office outpatient vi sit 25 minutes Harriett Susana [facility] Start: 11-11-2021 Patient encounter procedure Kailey Nolascojeromy Work Phone: -[facility] 250 DO Work Phone: Start: 10-18-2021 Telephone encounter No Pcp (Historic al) Referring Physician Comment on above: External Referrals/r esources (CAD) Start: 09-30-2021 Rx Renewal Kailey Briggs durga Work Phone: [facility] 250 DO Work Phone: Start: 09-15-2021 Chart Update Kailye Mcgowan Arpandestiney durga Work Phone: [facility] 250 DO Work Phone: Start: 09-14-2021 Chart Update Kailey Briggs durga Work Phone: [facility] 250 DO Work Phone: Start: 09-08-2021 Chart Update Kailey Briggs durga Work Phone: [facility] 250 DO Work Phone: Start: [facility]: Jose Simmons, Status: Pen, Time: 9:00 AM Kailey Mcgowan Arpanjanetjeromy Work Phone: [facility] 250 DO Work Phone: Start: 09-01-2021 Chart Update Kailey Mcgowan Arpandestiney durga Work Phone: [facility] 250 DO Work Phone: Start: 08-26-2021 Office outpatient vi sit 25 minutes Kailey Roslyn Louise Work Phone: [facility] 250 DO Work Phone: Start: 07-28-2021 Telephone encounter Kailey Duong chholz Work Phone: [facility] 250 DO Work Phone: Start: 07-14-2021 Telephone encounter Kailey Duong chholz Work Phone: [facility] 250 DO Work Phone: Start: 06-24-2021 FUV, Provider: Jose Dutta, Status: Pen, Time: 10:10 AM Kailey Antonyhholz Work Phone: [facility] 250 DO Work Phone: Start: 06-23-2021 Telephone encounter Kailey Duong chholz Work Phone: [facility] 250 DO Work Phone: Start: 06-15-2021 Patient encounter procedure Kailey Mcgowan Arpanhholz Work Phone: [facility] [address] [place] Work Phone: Start: 05-31-2021 Patient encounter procedure Kailey Mcgowan Arpanhholz Work Phone: [facility] 250 DO Work Phone: Start: 05-25-2021 Office outpatient vi sit 25 minutes Kailey Roslyn Antonyhholz Work Phone: [facility] 250 DO Work Phone: Start: 05-07-2021 Chart Update Kailey Roslyn Antonyhho lz Work Phone: [facility] 250 DO Work Phone: Start: 04-28-2021 Rx Renewal Kailey Roslyn Antonyhho lz Work Phone: [facility] 250 DO Work Phone: Start: 04-22-2021 Office outpatient vi sit 40 minutes Kailey Antonyhholz Work Phone: [facility] 250 DO Work Phone: Start: 04-03-2021 Chart Update Kailey Mcgowan Aichho lz Work Phone: -[facility] 250A [place] Work Phone: Start: 04-01-2021 Chart Update Kailey Mcgowan Aichho lz Work Phone: -[facility] 250[address] [place] Work Phone: Start: 03-08-2021 Patient encounter procedure Kailey Mcgowan Aichholz Work Phone: [facility] 250 DO Work Phone: Start: 01-19-2021 ambulatory SELF SELF Facility:[facility] Start: 01-19-2021 End: 01-19-2021 Postop follow up visit related to original px Susan Espitia MD Work Phone: [facility] [place] Comment on above: Postoperative visit (Primary Dx) Start: 11-17-2020 ambulatory SELF SELF Facility:[facility] Start: 11-11-2020 End: 11-11-2020 ambulatory SELF SELF Facility:[facility] Start: 10-20-2020 ambulatory SUSAN ESPITIA Facilit y:[facility] Start: 10-06-2020 ambulatory MPO JUSTINA CASTROR Facilit y:[facility] Start: 08-28-2020 ambulatory SELF SELF Facility:[facility] Start: 10-04-2018 End: 10-05-2018 Patient encounter procedure DEFAULT PHYSICIAN Facility:[facility] Start: 09-13-2018 End: 09-14-2018 Patient encounter procedure DEFAULT PHYSICIAN Facility:[facility] Start: 05-22-2018 End: 05-22-2018 Patient encounter procedure Dru Barros Facility:[facility] Start: 01-11-2018 End: 01-12-2018 Patient encounter procedure DEFAULT PHYSICIAN Facility:[facility] Echocardiogram normal Kailey Roslyn richardsonz Work Phone: [facility] 250 DO Work Phone: Procedures Date Procedure Procedure Detail Performing Clinician Start: 06-21-2024 Computerized ophthal robin imaging retina Jesus Ricci MD Work Phone: Start: 06-12-2024 Plain chest X-ray Kailey Louise Work Phone: Start: 06-12-2024 Complete blood count with white cell differential, automated Kailey Nolascobrynsidney PASS WORKER Work Phone: Start: 06-12-2024 Urine albumin quantitative Kailey Louise PASS WORKER Work Phone: Start: 04-14-2024 CT angiography of thorax Kailey Nolascobrynsidney Work Phone: Start: 04-13-2024 Plain chest X-ray Kailey Louise Work Phone: Start: 04-13-2024 Respiratory Panel (PCR) Kailey Louise Work Phone: Start: 03-14-2024 Ecg routine ecg w/le ast 12 lds w/i&r Jose Dutta DO Work Phone: Start: 09-13-2023 ECG 12-LEAD KAILEY GEO OLZ Start: 09-13-2023 Ecg routine ecg w/le ast 12 lds w/i&r Vinicius Juárez INSPECTOR AND CLIPPER-SERVICE COUNTER CASHIER Work Phone: Start: 08-02-2023 Follow-up visit Follow-up JOSE DUTTA Start: 07-05-2023 ECG 12-LEAD KAILEY ARPANHH OLZ Start: 07-05-2023 Ecg routine ecg w/le ast 12 lds w/i&r Jose Dutta DO Work Phone: Start: 07-04-2023 Computerized ophthal robin imaging retina Jesus Ricci MD Work Phone: Start: 06-13-2023 Plain chest X-ray Kailey Arpanjanetjeromy Work Phone: Start: 03-30-2023 History of percutane ous transluminal coronary angioplasty History of PTCA Jose Dutta DO Work Phone: Start: 11-07-2022 Plain chest X-ray Kailey Antonyhholz Work Phone: Start: 08-09-2022 Echocardiography Kailey Lewis o Aichholz Work Phone: Start: 07-18-2022 PSA screening SERVICE COUNTER CASHIER KAILEY NOLASCOBRYNSidney Comment on above: Performed By: #### P SAD #### [facility] [address] [place] [address] Dr. Enedelia Uriostegui Start: 04-22-2022 Plain chest X-ray Kailey Nolascoholz Work Phone: Start: 06-15-2021 Echocardiography Kailey Lewis o Aichholz Work Phone: Start: 04-13-2021 Adult depression screening assessment No (Historical) Start: 06-05-1999 Total colonoscopy Kailey Roslyn Aichholz Work Phone: Cardiac catheterization Kailey Roslyn Aichholz Work Phone: Cataract surgery Kailey Roslyn Aic hholz Work Phone: Cholecystectomy Kailey Roslyn Aich jeromy Work Phone: Excision of lesion o f skin Kailey Roslyn Aichholz Work Phone: History of cholecystectomy History of cholecystectomy Kailey Aichholz Work Phone: History of percutane ous transluminal coronary angioplasty History of PTCA Kailey Roslyn Aichholz Work Phone: History of percutane ous transluminal coronary angioplasty History of PTCA Jose Dutta DO Work Phone: History of percutane ous transluminal coronary angioplasty History of PTCA Jose Dutta DO Work Phone: Procedure on prostate Kailey Debbie o Aichholz Work Phone: Repair of retina for retinal detachment Kailey Jo Aichholz Work Phone: Plan of Treatment Date Care Activity Detail Author Start: 06-13-2026 Diabetes Screening Diabetes Screening [facility] Start: 06-21-2025 Tobacco Screening Tobacco Screening [facility] Start: 06-03-2025 Medicare Annual Wellness (AWV) Medicare Annual Wellness (AWV) [facility] Start: 06-03-2025 Screening for malignant neoplasm of colon Colorectal Cancer Screening [facility] Comment on above: Postponed from 1949 (Patient Refus ed) Start: 06-03-2025 End: 06-03-2025 Patient encounter procedure 06/03/2025 10:00 AM EST [facility] [address] [place] [address] Kailey Louise NP [address] [place] [address] [facility] Start: 03-19-2025 End: 03-19-2025 Patient encounter procedure 03/19/2025 10:00 AM EDT [facility] [address] [place] [phone] Jose Dutta DO [address] [place] [address] [facility] Start: 01-21-2025 End: 04-22-2025 Prostate specific Ag [Mass/volume] in Serum or Plasma PROSTATE-SPECIFIC ANTIGEN DIAGNOSTIC Lab Routine Prostate cancer (HCC) Expected: 01/21/2025 (Approximate), Expires: 04/22/2025 [facility] Work Phone: Comment on above: Expected: 01/21/2025 (Approximate), Expi res: 04/22/2025 Start: 01-20-2025 End: 01-20-2025 Patient encounter procedure 01/20/2025 2:00 PM EDT Office Visit [facility] [address] [place] [address] [place] [address] Galileo Delatorre MD [address] [place] [address] [place] [address] 1 yr rv Radiation Oncology Comment on above: 1 yr rv Start: 01-13-2025 End: 01-13-2025 Patient encounter procedure 01/13/2025 1:00 PM EDT Office Visit [facility] [address] [place] [address] lab [facility] Comment on above: lab Start: 08-29-2024 End: 08-29-2024 Patient encounter procedure 08/29/2024 9:40 AM EDT Office Visit [facility] [address] [place] [address] Kailey Louise, PASS WORKER [address] [place] [address] [facility] Start: 07-29-2024 End: 07-29-2024 Patient encounter procedure 07/29/2024 9:30 AM EST Office Visit [facility] [address] [place] [phone] Jesus Ricci MD [address] [place], [place] [id number] [facility] Start: 07-04-2024 Tobacco Screening Tobacco Screening [facility] Start: 06-14-2024 End: 03-14-2025 Complete Pulmonary Function Test (Spirometry/DLCO/Lung Volumes) Complete Pulmonary Function Test (Spirometry/DLCO/Lung Volumes) PFT Routine Paroxysmal atrial flutter (Multi) High risk medication use Expected: 06/14/2024 (Approximate), Expires: 03/14/2025 [facility] Work Phone: Comment on above: Expected: 06/14/2024 (Approximate), Expi res: 03/14/2025 Start: 06-14-2024 End: 03-14-2025 XR Chest 2 Views XR chest 2 views Imaging Routine Paroxysmal atrial flutter (Multi) High risk medication use Expected: 06/14/2024, Expires: 03/14/2025 [facility] Work Phone: Comment on above: Expected: 06/14/2024, Expires: Start: 06-03-2024 End: 06-03-2024 Patient encounter procedure [facility] Comment on above: Encounter for annual wellness visit (AWV ) in Medicare patient (Primary Dx); SHUKRI (obstructive sleep apnea); Asthma with COPD (CMS/HCC); Coronary artery disease of [place] artery of [place] heart with stable angina pectoris (CMS/HCC); Chronic diastolic congestive heart failure (CMS/HCC); Persistent atrial fibrillation (HCC) (CMS/HCC); Primary hypertension (CMS/HCC); Stage 3a chronic kidney disease (HCC) (CMS/HCC); Prostate cancer (CMS/HCC); Class 1 obesity due to excess calories with serious comorbidity in adult, unspecified BMI; Mixed hyperlipidemia ([facility]/HCC) Start: 05-23-2024 Medicare Annual Wellness (AWV) Medicare Annual Wellness (AWV) [facility] Start: 05-10-2024 Screening for malignant neoplasm of colon Colorectal Cancer Screening [facility] Comment on above: Postponed from 1950 (Patient Refus ed) Start: 04-14-2024 CT angiography of thorax CT angio chest PE protocol [facility] Start: 04-14-2024 CT Chest [facility] Start: 04-13-2024 Plain chest X-ray XR chest 2V* [facility] Start: 04-13-2024 XR Chest 2 Views [facility] Start: 04-04-2024 Influenza vaccination Influenza Vaccine (#1) [facility] Comment on above: Postponed from 02/04/2024 (Patient Does Not Have Time) Start: 03-14-2024 End: 03-14-2025 Aspartate aminotransferase [Enzymatic activity/volume] in Serum or Plasma by With P-5'-P Aspartate Aminotransferase Lab Routine Paroxysmal atrial flutter (Multi) High risk medication use Expected: 03/14/2024 (Approximate), Expires: 03/14/2025 [facility] Service Area Work Phone: Comment on above: Expected: 03/14/2024 (Approximate), Expi res: 03/14/2025 Start: 03-14-2024 End: 03-14-2025 Basic metabolic 2000 panel - Serum or Plasma Basic Metabolic Panel Lab Routine Paroxysmal atrial flutter (Multi) High risk medication use Expected: 03/14/2024 (Approximate), Expires: 03/14/2025 [facility] Work Phone: Comment on above: Expected: 03/14/2024 (Approximate), Expi res: 03/14/2025 Start: 03-14-2024 End: 03-14-2025 Thyrotropin [Units/volume] in Serum or Plasma Thyroid Stimulating Hormone Lab Routine Paroxysmal atrial flutter (Multi) High risk medication use Expected: 03/14/2024 (Approximate), Expires: 03/14/2025 [facility] Work Phone: Comment on above: Expected: 03/14/2024 (Approximate), Expi res: 03/14/2025 Start: 03-14-2024 End: 03-14-2024 Patient encounter procedure 03/14/2024 9:30 AM EDT [facility] [address] [place] [address] Jose Dutta DO [address] [facility] [address] [place], [place] [id number] [facility] Start: 03-11-2024 End: 03-11-2024 Patient encounter procedure 03/11/2024 4:00 PM EDT Office Visit [facility] [address] [place] [address] Kailey Louise NP [address] [place] [address] Arrived [facility] Comment on above: Arrived Start: 03-03-2024 Tobacco Screening Tobacco Screening [facility] Start: 02-22-2024 End: 02-21-2025 25-hydroxyvitamin D3 [Mass/volume] in Serum or Plasma Vitamin D 25 hydroxy Lab Routine Chronic kidney disease, stage 3 unspecified (HCC) (CMS/HCC) Expected: 02/22/2024 (Approximate), Expires: 02/21/2025 [facility] Comment on above: Expected: 02/22/2024 (Approximate), Expi res: 02/21/2025 Start: 02-22-2024 End: 02-21-2025 CBC W Auto Differential panel - Blood CBC and differential Lab Routine Chronic kidney disease, stage 3 unspecified (HCC) (CMS/HCC) Asthma with COPD (CMS/HCC) 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) Iron deficiency anemia secondary to inadequate dietary iron intake Expected: 02/22/2024 (Approximate), Expires: 02/21/2025 [facility] Work Phone: Comment on above: Expected: 02/22/2024 (Approximate), Expi res: 02/21/2025 Start: 02-22-2024 End: 02-21-2025 Comprehensive metabolic 2000 panel - Serum or Plasma Comprehensive metabolic panel Lab Routine Chronic kidney disease, stage 3 unspecified (HCC) (CMS/HCC) Chronic diastolic congestive heart failure (CMS/HCC) Primary hypertension ([facility]/HCC) Lower extremity edema Expected: 02/22/2024 (Approximate), Expires: 02/21/2025 [facility] Comment on above: Expected: 02/22/2024 (Approximate), Expi res: 02/21/2025 Start: 02-22-2024 End: 02-21-2025 Iron and Iron binding capacity panel - Serum or Plasma Iron level Lab Routine Iron deficiency anemia secondary to inadequate dietary iron intake Expected: 02/22/2024 (Approximate), Expires: 02/21/2025 [facility] Comment on above: Expected: 02/22/2024 (Approximate), Expi res: 02/21/2025 Start: 02-22-2024 End: 02-21-2025 Lipid 1996 panel - Serum or Plasma Lipid panel Lab Routine Coronary artery disease of [place] artery of [place] heart with stable angina pectoris (CMS/HCC) Expected: 02/22/2024 (Approximate), Expires: 02/21/2025 [facility] Comment on above: Expected: 02/22/2024 (Approximate), Expi res: 02/21/2025 Start: 02-22-2024 End: 02-21-2025 Microalbumin/Creatinine panel in random Urine Microalbumin / creatinine, urine ratio Lab Routine Primary hypertension (CMS/HCC) Expected: 02/22/2024 (Approximate), Expires: 02/21/2025 [facility] Comment on above: Expected: 02/22/2024 (Approximate), Expi res: 02/21/2025 Start: 02-22-2024 End: 02-21-2025 Urinalysis complete panel - Urine Urinalysis with reflex microscopic (clean catch) Lab Routine Primary hypertension (CMS/HCC) Expected: 02/22/2024 (Approximate), Expires: 02/21/2025 [facility] Comment on above: Expected: 02/22/2024 (Approximate), Expi res: 02/21/2025 Start: 02-22-2024 End: 02-22-2024 Patient encounter procedure 02/22/2024 9:00 AM EDT [facility] [address] [place] [address] Kailey Louise NP [address] [place] [address] Asthma with COPD (CMS/HCC) (Primary Dx); Chronic kidney disease, stage 3 unspecified (HCC) (CMS/HCC); COPD mixed type (CMS/HCC); Coronary artery disease of [place] artery of [place] heart with stable angina pectoris (CMS/HCC); Chronic diastolic congestive heart failure (CMS/HCC); Primary hypertension (CMS/HCC); Lower extremity edema; Iron deficiency anemia secondary to inadequate dietary iron intake [facility] Comment on above: Asthma with COPD (CMS/HCC) (Primary Dx); Chronic kidney disease, stage 3 unspecified (HCC) (CMS/HCC); COPD mixed type (CMS/HCC); Coronary artery disease of [place] artery of [place] heart with stable angina pectoris (CMS/HCC); Chronic diastolic congestive heart failure (CMS/HCC); Primary hypertension (CMS/HCC); Lower extremity edema; Iron deficiency anemia secondary to inadequate dietary iron intake Start: 02-04-2024 Covid-19 Vaccine ( season) Covid-19 Vaccine ( season) [facility] Start: 02-04-2024 COVID-19 Vaccine ( season) COVID-19 Vaccine ( season) [facility] Start: 02-04-2024 Influenza vaccination [facility] Start: 01-22-2024 End: 01-22-2024 Patient encounter procedure 01/22/2024 1:00 PM EDT Office Visit [facility] [address] [place] [address] Galileo Delatorre MD [address] [address] 1 yr rv Radiation Oncology Comment on above: 1 yr rv Start: 01-08-2024 End: 04-08-2024 Prostate specific Ag [Mass/volume] in Serum or Plasma [facility] Work Phone: Comment on above: Expected: 01/08/2024, Expires: Start: 11-16-2023 End: 11-16-2023 Clinical Support 11/16/2023 9:00 AM EDT Clinical Support [facility] [address] [place] [phone] Anabelle Morales, [facility] [address] [facility] [place] [address] [facility] Start: 10-19-2023 End: 10-19-2023 Patient encounter procedure 10/19/2023 10:00 AM EDT Office Visit [facility] [address] [place] [address] Jesus Ricci MD [address] [place] [address] [facility] Start: 08-22-2023 End: 08-22-2023 Patient encounter procedure 08/22/2023 9:20 AM EDT Office Visit [facility] [address] [place] [address] Kailey Louise NP [address] [place] [address] [facility] Start: 08-10-2023 Echocardiography Echocardiogram [facility] Start: 07-25-2023 [facility] Start: 07-19-2023 End: 07-05-2025 Cardioversion External Cardioversion External Cardiac Services Routine Persistent atrial fibrillation (CMS/HCC) Expected: 07/19/2023 (Approximate), Expires: 07/05/2025 [facility] Service Area Work Phone: Comment on above: Expected: 07/19/2023 (Approximate), Expi res: 07/05/2025 Start: 07-12-2023 End: 09-11-2023 Prostate specific Ag [Mass/volume] in Serum or Plasma PSA/PROSTSPECAG DIAG Lab Routine Prostate cancer (HCC) Expected: 07/12/2023, Expires: 09/11/2023 [facility] Work Phone: Comment on above: Expected: 07/12/2023, Expires: Start: 07-05-2023 FUV, Provider: Jose Dutta, Status: Handy, Time: 10:10 AM FUV, Provider: Jose Dutta, Status: Handy, Time: 10:10 AM [facility] 320 DO Work Phone: Start: 06-05-2023 Advance Directive Discussion Advance Directive Discussion [facility] Start: 03-11-2023 Adult BMI Screening Adult BMI Screening [facility] Start: 03-01-2023 FUV, Provider: Vinicius Yeh, Status: Handy, Time: 8:30 AM FUV, Provider: Vinicius Yeh, Status: Handy, Time: 8:30 AM [facility] 600 DO Work Phone: Start: 02-03-2023 COVID-19 Vaccine (5 - 2023-24 season) COVID-19 Vaccine () [facility] Start: 02-03-2023 Influenza vaccination [facility] Start: 01-30-2023 FUV, Provider: Vinicius Yeh, Status: Pen, Time: 8:00 AM FUV, Provider: Vinicius Yeh, Status: Pen, Time: 8:00 AM -[facility] 320 DO Work Phone: Start: 01-08-2023 End: 03-10-2023 Prostate specific Ag [Mass/volume] in Serum or Plasma PSA/PROSTSPECAG DIAG Lab Routine Prostate cancer (HCC) Expected: 01/08/2023, Expires: 03/10/2023 [facility] Work Phone: Comment on above: Expected: 01/08/2023, Expires: Start: 12-29-2022 FUV, Provider: Jose Dutta, Status: Pen, Time: 10:00 AM FUV, Provider: Jose Dutta, Status: Pen, Time: 10:00 AM -[facility] 250 DO Work Phone: Start: 09-22-2022 COVID-19 VACCINE (5 - Pfizer series) COVID-19 VACCINE (5 - Pfizer series) [facility] Start: 08-09-2022 HOLTER 48, Provider: LEANNE PARK RN RECOVERY 1,[id number], Status: Pen, Time: 9:30 AM HOLTER 48, Provider: LEANNE PARK RN RECOVERY 1,[id number], Status: Pen, Time: 9:30 AM -[facility] 250 DO Work Phone: Start: 08-09-2022 CAROTID, Provider: HE[place] HHVI ULTRASOUND 01,[id number], Status: Pen, Time: 8:45 AM CAROTID, Provider: [place] HHVI ULTRASOUND 01,[id number], Status: Pen, Time: 8:45 AM -[facility] 250 DO Work Phone: Start: 08-09-2022 ECHO, Provider: [place] HHVI ULTRASOUND 01,[id number], Status: Pen, Time: 7:45 AM ECHO, Provider: HE[place] HHVI ULTRASOUND 01,[id number], Status: Pen, Time: 7:45 AM -[facility] 250 DO Work Phone: Start: 06-21-2022 FUV, Provider: Jose Dutta, Status: Pen, Time: 11:10 AM FUV, Provider: Jose Dutta, Status: Pen, Time: 11:10 AM -[facility] 250 DO Work Phone: Start: 06-05-2022 ADVANCE DIRECTIVE DISCUSSION ADVANCE DIRECTIVE DISCUSSION [facility] Start: 06-05-2022 DEPRESSION ASSESSMENT DEPRESSION ASSESSMENT [facility] Start: 04-13-2022 Adult depression screening assessment DEPRESSION SCREENING [facility] Start: 03-15-2022 FUV, Provider: Jose Dutta, Status: Pen, Time: 10:10 AM FUV, Provider: Jose Dutta, Status: Pen, Time: 10:10 AM -[facility] 250 DO Work Phone: Start: 02-03-2022 Influenza vaccination INFLUENZA (#1) [facility] Start: 09-20-2021 FUV, Provider: Vinicius Yeh, Status: Pen, Time: 10:00 AM FUV, Provider: Vinicius Yeh, Status: Pen, Time: 10:00 AM -[facility] 250 DO Work Phone: Start: 09-03-2021 SURGNONUH, Provider: Jose Simmons, Status: Pen, Time: 9:00 AM SURGNONUH, Provider: Jose Simmons, Status: Pen, Time: 9:00 AM -[facility] 250 DO Work Phone: Start: 08-26-2021 FUV, Provider: Jose Dutta, Status: Pen, Time: 10:20 AM FUV, Provider: Jose Dutta, Status: Pen, Time: 10:20 AM -[facility] 250 DO Work Phone: Start: 07-31-2021 COVID-19 VACCINE (4 - Booster for Pfizer series) COVID-19 VACCINE (4 - Booster for Pfizer series) [facility] Start: 07-30-2021 DIABETES SCREEN DIABETES SCREEN [facility] Start: 07-30-2021 Diabetes Screening Diabetes Screening [facility] Start: 07-27-2021 REST ONLY, Provider: [place] HHVI NUCLEAR 01,[id number], Status: Pen, Time: 12:30 PM REST ONLY, Provider: [place] [facility] NUCLEAR 01,[id number], Status: Pen, Time: 12:30 PM -[facility] 250 DO Work Phone: Start: 07-26-2021 STRESSNUC2, Provider: [place] HHVI NUCLEAR 01,[id number], Status: Pen, Time: 10:00 AM STRESSNUC2, Provider: [place] HHVI NUCLEAR 01,[id number], Status: Pen, Time: 10:00 AM [facility] 250 DO Work Phone: Start: 07-21-2021 FUV, Provider: Jose Dutta, Status: Pen, Time: 9:40 AM FUV, Provider: Jose Dutta, Status: Pen, Time: 9:40 AM [facility] 250 DO Work Phone: Start: 07-02-2021 FUV, Provider: Vinicius Yeh, Status: Pen, Time: 9:00 AM FUV, Provider: Vinicius Yeh, Status: Pen, Time: 9:00 AM [facility] Work Phone: Start: 06-15-2021 ECHO, Provider: [place] HHVI ULTRASOUND 01,[id number], Status: Pen, Time: 2:30 PM ECHO, Provider: [place] [facility]VI ULTRASOUND 01,[id number], Status: Pen, Time: 2:30 PM [facility] Work Phone: Start: 06-15-2021 FUV, Provider: Vinicius Yeh, Status: Pen, Time: 9:30 AM FUV, Provider: Vinicius Yeh, Status: Pen, Time: 9:30 AM -[facility] 250 DO Work Phone: Start: 06-10-2021 ECHO, Provider: HE[place] SBI ULTRASOUND 01,[id number], Status: Pen, Time: 9:45 AM ECHO, Provider: [place] HHVI ULTRASOUND 01,[id number], Status: Pen, Time: 9:45 AM -[facility] 250 DO Work Phone: Start: 06-05-2021 ADVANCE DIRECTIVE DISCUSSION ADVANCE DIRECTIVE DISCUSSION [facility] Start: 05-25-2021 FUV, Provider: Vinicius Yeh, Status: Pen, Time: 9:00 AM FUV, Provider: Vinicius Yeh, Status: Pen, Time: 9:00 AM -[facility] 250 DO Work Phone: Start: 05-13-2021 FUV, Provider: Jose Dutta, Status: Pen, Time: 10:00 AM FUV, Provider: Jose Dutta, Status: Pen, Time: 10:00 AM -[facility] 250 DO Work Phone: Start: 03-31-2021 SURGNONUH, Provider: Kori Roper, Status: Pen, Time: 10:00 AM SURGNONUH, Provider: Kori Roper, Status: Pen, Time: 10:00 AM -[facility] 250 DO Work Phone: Start: 02-03-2021 Influenza vaccination INFLUENZA VACCINE (#1) [facility] Start: 06-07-2020 Administration of varicella zoster vaccine Zoster (Shingles) Vaccine (2 of 2) [facility] Start: 06-07-2020 Shingrix Vaccine (2 of 2) Shingrix Vaccine (2 of 2) [facility] Start: 06-07-2020 Zoster Vaccines (2 of 2) Zoster Vaccines (2 of 2) [facility] Start: 03-19-2019 Pneumococcal Vaccine: 65+ (2 - PPSV23 or PCV20) Pneumococcal Vaccine: 65+ (2 - PPSV23 or PCV20) [facility] Start: 03-19-2019 PNEUMOCOCCAL: 65+ (2 - PPSV23 if available, else PCV20) PNEUMOCOCCAL: 65+ (2 - PPSV23 if available, else PCV20) [facility] Start: 03-19-2019 PNEUMOCOCCAL: 65+ (2 - PPSV23 or PCV20) PNEUMOCOCCAL: 65+ (2 - PPSV23 or PCV20) [facility] Start: 2014 Abdominal aortic aneurysm screening [facility] Start: 2014 Fall Risk Screening Fall Risk Screening [facility] Start: 2014 Pneumococcal vaccination PNEUMOCOCCAL VACCINE SERIES (1 of 2 - PCV13) [facility] Start: 2014 PNEUMOVAX AGE 65 AND OVER WITH 5YR LOOKBACK (#1) PNEUMOVAX AGE 65 AND OVER WITH 5YR LOOKBACK (#1) [facility] Start: 2009 RSV patients and/or patients aged 60+ years (1 - 1-dose 60+ series) RSV patients and/or patients aged 60+ years (1 - 1-dose 60+ series) [facility] Start: 2009 RSV Vaccine (1 - 1-dose 60+ series) RSV Vaccine (1 - 1-dose 60+ series) [facility] Start: 10-14-1999 Prostate specific antigen measurement PROSTATE CANCER SCREENING DISCUSSION [facility] Start: 10-14-1999 SHINGRIX VACCINE (1 of 2) SHINGRIX VACCINE (1 of 2) [facility] Start: 10-14-1999 Zoster vaccine hzv live for subcutaneous use ZOSTER (SHINGLES) VACCINE (1 of 2) [facility] Start: 1994 COLOGUARD (FIT-DNA) COLOGUARD (FIT-DNA) [facility] Start: 1994 Colonoscopy [facility] Start: 1994 COLORECTAL CANCER SCREENING COLORECTAL CANCER SCREENING [facility] Start: [address] COLONOGRAPHY [facility] Start: 1994 FECAL OCCULT BLOOD FECAL OCCULT BLOOD [facility] Start: 1994 Screening for malignant neoplasm of colon [facility] Start: 1994 SIGMOIDOSCOPY SIGMOIDOSCOPY [facility] Start: 1989 Fasting lipid profile LIPID SCREENING [facility] Start: 1984 Lipid 1996 panel - Serum or Plasma Lipid Screening [facility] Start: 1984 Lipid panel Lipid Screening [facility] Start: 1984 LIPID SCREEN LIPID SCREEN [facility] Start: 10-14-1971 DTaP/Tdap/Td Vaccines (1 - Tdap) DTaP/Tdap/Td Vaccines (1 - Tdap) [facility] Start: 1968 DTaP,Tdap and Td Vaccines (1 - Tdap) DTaP,Tdap and Td Vaccines (1 - Tdap) [facility] Start: 1968 Third diphtheria, tetanus and acellular pertussis (DTaP) vaccination TDAP (ADULT) [facility] Start: 1968 Urine microalbumin profile [facility] Start: 10-14-1967 Anxiety Screening Anxiety Screening [facility] Start: 10-14-1967 Depression Screening Depression Screening [facility] Start: 10-14-1967 Diabetes mellitus screening Diabetes Screening [facility] Start: 10-14-1967 HEPATITIS C SCREENING HEPATITIS C SCREENING [facility] Start: 10-14-1967 Hepatitis C screening Hepatitis C Screening [facility] Start: 10-14-1967 Tetanus vaccination TETANUS [facility] Start: 1961 Depression Screening Depression Screening [facility] Start: 1949 ABDOMINAL AORTIC ANEURYSM SCREENING ABDOMINAL AORTIC ANEURYSM SCREENING [facility] Start: 1949 Abdominal aortic aneurysm screening Abdominal Aortic Aneurysm Screening [facility] Start: 1949 Creatinine measurement Creatinine Level [facility] Start: 1949 Hepatitis C antibody, confirmatory test HEPATITIS C VIRUS SCREENING [facility] Start: 1949 Lipid panel Lipid Panel [facility] Start: 1949 Medicare Annual Wellness Visit [facility] Start: 1949 Potassium [Moles/volume] in Serum or Plasma POTASSIUM [facility] Start: 1949 Potassium measurement Potassium Level [facility] Start: 1949 Screening for malignant neoplasm of colon [facility] Start: 1949 Thyroid stimulating hormone measurement TSH Level [facility] ECG 12 Lead ECG 12 Lead ECG Routine Paroxysmal atrial flutter (CMS/HCC) 09/13/2023 10:00 AM EDT [facility] Service Area Work Phone: [employer] bindin g capacity panel - Serum or Plasma Iron Lab Routine 06/12/2024 9:14 AM [facility] Work Phone: Lipid 1996 panel - S tomas or Plasma Lipid panel Lab Routine 06/12/2024 9:14 AM [facility] Patient Education Cough, Adult E D Upper Back Pain ED [facility] Work Phone: Patient referral [facility] Work Phone: Urinalysis complete panel - Urine Urinalysis with microscopic Lab Routine 06/12/2024 9:14 AM [facility] Work Phone: [facility] Immunizations Immunization Date Immunization Notes Care Provider [facility] 06-03-2024 Seasonal trivalent influenza vaccine, adjuvanted, preservative free Kailey Louise PASS WORKER Work Phone: [facility] 05-24-2022 Pfizer COVID-19 Vac Bivalent 30 MCG/0.3ML Intramuscular Suspension Kailey Louise Work Phone: [facility] 250 DO Work Phone: 03-30-2021 Flu Vaccine - Adult Kailye curry Work Phone: [facility] 03-30-2021 Fluad Quadrivalent 0 .5 ML Intramuscular Prefilled Syringe Kailey Louise Work Phone: [facility] 250 DO Work Phone: 03-30-2021 influenza, seasonal, injectable Kailey Louise Work Phone: [facility] 03-30-2021 Pfizer-BioNTech COVI D-19 Vacc 30 MCG/0.3ML Intramuscular Suspension Kailey Louise Work Phone: [facility] 03-30-2021 influenza virus vacc ine, unspecified formulation Francisco Claire MD Work Phone: [facility] 07-31-2020 SARS-COV-2 (COVID-19 ), Mrna, Lnp-s, Pf, 30 Mcg/0.3 Ml Dose MAXIMO Espitia MD Work Phone: [facility] 07-10-2020 SARS-COV-2 (COVID-19 ), Mrna, Lnp-s, Pf, 30 Mcg/0.3 Ml Dose MAXIMO Espitia MD Work Phone: [facility] 04-12-2020 zoster vaccine recombinant Kailey Roslyn Antonybrynz Work Phone: [facility] 250 DO Work Phone: 04-12-2020 zoster vaccine, unspecified formulation Jesus Ricci MD Work Phone: [facility] 03-05-2020 influenza, seasonal, injectable Kailey Roslyn Arpanholz Work Phone: [facility] 250 DO Work Phone: 03-26-2019 influenza, high dose seasonal, preservative-free Kailey Roslyn Aichholz Work Phone: [facility] 250 DO Work Phone: 03-26-2019 pneumococcal polysaccharide vaccine, 23 valent Kailey Roslyn Aicholz Work Phone: [facility] 250 DO Work Phone: 03-05-2019 pneumococcal conjuga te vaccine, 13 valent Kailey Roslyn Aichholz Work Phone: [facility] 250 DO Work Phone: 03-19-2018 influenza, high dose seasonal, preservative-free Kailey Roslyn Aichholz Work Phone: [facility] 03-19-2018 pneumococcal conjuga te vaccine, 13 valent Kailey Roslyn Aichholz Work Phone: [facility] 03-19-2018 pneumococcal vaccine , unspecified formulation No (Historical) [facility] Comment on above: TO BE ADMINISTERED B Y PHARMACIST FOR IMMUNIZATION 03-19-2018 FLUZONE HIGH-DOSE 2018-19, PF, 180 mcg/0.5 mL injection No (Historical) [facility] Comment on above: TO BE ADMINISTERED B Y PHARMACIST FOR IMMUNIZATION 10-25-2017 pneumococcal conjuga te vaccine, 13 valent Kailey Louise Work Phone: [facility] Payers Date Payer Category Payer Self-pay [id number] 2019 Commercial Managed C are - POS [employer] [id number] 2019 Private Health Insurance [id number]. [id number] 2019 Unknown [id number] [id number]. [id number] 2018 Medicare [id number] 2018 Unknown [id number] 2014 Medicare [id number]. [id number] 2014 Medicare [id number]. 1.13.159.2. [id number] 1959 Medicare [id number] 1959 Private Health Insurance CLI [id number] 1949 Unknown [id number] 2.16.840.1.511566.3.579.2. 727 1949 Unknown [id number] 2.16.840.1.257581.3.579.2. 647 1949 Unknown [id number] 2.16.840.1.931857.3.579.2. 647 1949 Unknown [id number] 2.16.840.1.994823.3.579.2. 647 1949 Unknown [id number] 2.16.840.1.862866.3.579.2. 594 1949 Unknown [id number] 2.16.840.1.555607.3.579.2. 594 1949 Unknown [id number] 2.16.840.1.192215.3.579.2. 594 1949 Unknown [id number] 2.16.840.1.217021.3.579.2. 594 1949 Unknown [id number] 2.16.840.1.507963.3.579.2. 594 1949 Unknown [id number] 2.16.840.1.964703.3.579.2. 594 1949 Unknown [id number] 2.16.840.1.496216.3.579.2. 1068 1949 Unknown [id number] 2.16.840.1.165817.3.579.2. 593 1949 Unknown [id number] 2.16.840.1.160173.3.579.2. 593 1949 Unknown [id number] 2.16.840.1.347349.3.579.2. 593 1949 Unknown [id number] 2.16.840.1.613335.3.579.2. 593 1949 Unknown [id number] 2.16.840.1.142407.3.579.2. 593 1949 Unknown [id number] 2.16.840.1.782674.3.579.2. 593 1949 Unknown [id number] 2.16.840.1.620283.3.579.2. 593 1949 Unknown [id number] 2.16.840.1.494729.3.579.2. 356 1949 Unknown [id number] 2.16.840.1.624562.3.579.2. 356 1949 Unknown [id number] 2.16.840.1.388388.3.579.2. 356 1949 Unknown [id number] 2.16.840.1.781834.3.579.2. 356 1949 Unknown [id number] 2.16.840.1.573929.3.579.2. 356 1949 Unknown [id number] 2.16.840.1.312441.3.579.2. 1244 1949 Unknown [id number] 2.16.840.1.691119.3.579.2. 4 1949 Unknown [id number] 2.16.840.1.497860.3.579.2. 1244 1949 Unknown [id number] 2.16.840.1.249318.3.579.2. 1244 1949 Unknown [id number] 2.16.840.1.245449.3.579.2. 1244 1949 Unknown [id number] 2.16.840.1.230468.3.579.2. 1259 1949 Unknown [id number] 2.16.840.1.400488.3.579.2. 1259 1949 Unknown [id number] 2.16.840.1.806753.3.579.2. 1259 1949 Unknown [id number] 2.16.840.1.178551.3.579.2. 1259 1949 Unknown [id number] 2.16.840.1.390173.3.579.2. 1259 Unknown Unknown [id number] 2.16.840.1.392246.3.579.2. 531 Unknown [id number] 2.16.840.1.020835.3.579.2. 531 Unknown [id number] 2..840.1.515609.3.579.2. 531 Social History Date Type Detail Facility Start: 01-09-2023 End: 05-23-2023 Consumes alcohol Consumes alcohol [facility] Comment on above: 2-3 DRINKS FIVE TIME S WEEKLY MAYBE MORE ON MONDAY; QUIT 1986 2PPD; Start: 07-17-2020 End: 05-23-2023 Tobacco smoking status INIS Former smoker [facility] Start: 06-05-1974 End: 06-05-1992 History of tobacco use Current smoker [facility] Start: 07-17-2020 End: 05-23-2023 Tobacco use and exposure Never used [facility] Start: 01-19-2021 End: 06-03-2024 Alcohol intake Current drinker of alcohol (finding) [facility] Start: 07-17-2020 Alcohol Comment 2-10 beers weekly [facility] Start: 1950 Sex Assigned At Not on file [facility] Start: 06-25-2023 End: 03-14-2024 Exposure to SARS-CoV-2 (event) Not sure [facility] End: 06-05-1992 History of tobacco use Cigarette Smoker [facility] Start: 06-19-2018 End: 01-09-2023 Tobacco Comment stopped 30 years ago [facility] Start: 1950 Sex Assigned At Male [facility] Start: 01-09-2023 End: 05-23-2023 Sex Assigned At [facility] Start: 06-24-2021 End: 06-24-2021 Tobacco smoking status INIS Current some day smoker [facility] Adult Depression Screening Assessment 6 [facility] Start: 10-18-2020 Gender identity Identifies as male gender (finding) [facility] Start: 10-18-2020 Sexual orientation Heterosexual (fin neal) [facility] Start: 03-21-2022 End: 04-13-2024 Tobacco smoking status NHIS Never smoked tobacco [facility] Within the last year , have you been afraid of your partner or ex-partner? No [facility] Do you belong to any clubs or organizations such as faith groups, unions, fraDEXMA or athletic groups, or school groups? Yes [facility] Are you now , , , , never or living with a partner? [facility] How hard is it for y ou to pay for the very basics like food, housing, medical care, and heating Somewhat hard [facility] Do you feel stress - tense, restless, nervous, or anxious, or unable to sleep at night because your mind is troubled all the time - these days [OSQ] Very much [facility] (I/We) worried wheth er (my/our) food would run out before (I/we) got money to buy more. Never true [facility] Start: 05-23-2023 Alcohol Comment caffeine 3-4 c ups per day [facility] Start: 03-11-2022 End: 04-14-2024 Sex Male (finding) [facility] Medical Equipment Procedure Code Equipment Code Equipment Original Text Equipment Identifier Dates [id number] FDA Start: 06-17-2019 Drug-eluting cor onary artery stent, zrm-rvnplqfmyigjj-bohyk er-coated ()[id number] FDA Start: 06-17-2019 Drug-eluting cor onary artery stent, lvk-yljjhytdeghnx-yqxxd er-coated ()[id number] FDA Start: 06-17-2019 Drug-eluting cor onary artery stent, [id number]-mjclxenpqcpdf-[id number] er-coated ()[id number] FDA Start: 09-27-2019 Drug-eluting cor onary artery stent, [id number]-nvnkzgtrciwin-ctczy er-coated ()[id number] FDA Start: 09-27-2019 [id number] FDA Start: 06-17-2019 [id number] FDA Start: 06-17-2019 [id number] FDA Start: 06-17-2019 [id number] FDA Start: 06-17-2019 [id number] FDA Start: 06-17-2019 [id number] FDA Start: 06-17-2019 [id number] FDA Start: 06-17-2019 Functional Status Date Assessment Result Facility 08-26-2021 PHQ-9 [id number] Moderate (10-14) -[facility] 250 DO Work Phone: Clinical Notes 07-17-2020 to 06-21-2024 Jesus Ricci MD - 06/21/2024 10:10 AM ESTLisa Aichholz, PASS WORKER - 06/03/2024 10:57 AM ESTHUMBJULIA DOMINGUEZ - 06/03/2024 10:00 AM ESTLisa Aichholz, PASS WORKER - 06/03/2024 10:00 AM ESTPatient Instructions Note Date & Type Note Facility 06-21-2024 Note Right Eye Quality was good. Scan locations included subfoveal. Progression has been stable. Findings include abnormal foveal contour, cystoid macular edema, epiretinal membrane, intraretinal fluid, macular pucker, perifoveal thickening. Did not discuss intraocular antivegf. Discussed intraocular steroid implant. Follow up actions include continue present management. Left Eye Quality was good. Scan locations included subfoveal. Progression has been stable. Findings include abnormal foveal contour, cystoid macular edema, epiretinal membrane, intraretinal fluid, perifoveal thinning. Did not discuss intraocular antivegf. Discussed intraocular steroid implant. Follow up actions include continue present management. MANUALLY TRANSCRIBED RESULTS 06-21-2024 Note Right Eye Quality was good. Scan locations included subfoveal. Progression has been stable. Findings include abnormal foveal contour, cystoid macular edema, epiretinal membrane, intraretinal fluid, macular pucker, perifoveal thickening. Did not discuss intraocular antivegf. Discussed intraocular steroid implant. Follow up actions include continue present management. Left Eye Quality was good. Scan locations included subfoveal. Progression has been stable. Findings include abnormal foveal contour, cystoid macular edema, epiretinal membrane, intraretinal fluid, perifoveal thinning. Did not discuss intraocular antivegf. Discussed intraocular steroid implant. Follow up actions include continue present management. MANUALLY TRANSCRIBED RESULTS 06-21-2024 History of Present illness Narrative Chronic Cystoid [...] edema - continue treatment with topical drops 06/21/24 - poorly compliant with topical drops - complaints of ache and worsening vision - recommend restarting topical PF - PF OU QID - poorly compliant [...] Left Eye - s/p PPV/EL/AFx/C3F8 (04/02/2019) at [facility] for Macula Off Retinal Detachment - s/p PPV/MP (04/21/2019) at [facility] - Remote History of Branch Retinal Vein Occlusion - (08/07/2019-appointment at [facility] with Dr Tere Samuels MD) OCT shows attached retina, but chronic changes, EZ disruption and IRF; Notes has been receiving STK injections; discussed guarded prognosis and reasonable to continue STK injections for persistent edema - Had been receiving STK injections at [facility] (last treatment was 2 years ago) - [...] s/p Ptosis repair with Dr. Carreon Follow-up 1 month DFE/OCT OU PF OU 4x/day MDM - Complex vision threatening issues that can cause irreversible and permanent vision loss Emergent Surgery requiring emergent surgery Letter to Dr. Marina 11/22/22 Scribe Statement: Scribed for and in the presence of Jesus Ricci MD by BOBBI Stoddard I, Jesus Ricci MD, personally performed the services described in the documentation, as scribed by BOBBI Stoddard in my presence, and it is both accurate and complete. 06/21/24 documented in this encounter [facility] 06-12-2024 Procedure note [facility] enter 06-03-2024 History of Present illness Narrative Associated Problem(s): Needs flu shot VIS given Pt was in the er a few weeks ago for pneumonia/heartattack feeling however he stated he checked out fine I asked him if he has had another episode since the er visit he said one other time. Asked pt if he was having any sob or tightless/pain in his chest currently with checking vitals he stated he had a stressful morning Pt had complaints when answering the medicare annual wellness questions. Images from the original note were not included. Amee Juárez is a 73 y.o. 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 The current episode started more than 1 year ago. The problem is unchanged. The problem is uncontrolled. Associated symptoms include anxiety, blurred vision, chest pain, malaise/fatigue and shortness of breath. Pertinent negatives include no headaches, palpitations, peripheral edema or PND. There are no associated agents to hypertension. Risk factors for coronary artery disease include dyslipidemia and male gender. Past treatments include angiotensin blockers and diuretics. The current treatment provides moderate improvement. There are no compliance problems. Hypertensive end-organ damage includes CAD/PA and heart failure. SUBJECTIVE: MEDICATIONS: Current Outpatient Medications Medication Instructions albuterol (2.5 MG/3ML) 0.083% nebulizer solution 3 mL, Nebulization, Every 6 hours PRN amiodarone (PACERONE) 200 mg, Daily aspirin 81 MG EC tablet 1 tablet, Daily RT atorvastatin (LIPITOR) 80 mg, Oral, Nightly carbidopa-levodopa (Sinemet) 25-100 MG tablet 1 tablet, 3 times daily Eliquis 5 MG tablet 1 tablet, 2 times daily Fluticasone Furoate-Vilanterol (Breo Ellipta) 100-25 MCG/ACT aerosol powder 100 mg, Inhalation, Daily, Rinse mouth after use hydroCHLOROthiazide (MICROZIDE) 12.5 mg, Daily ipratropium-albuterol (Combivent Respimat) 20-100 MCG/ACT inhaler 1 puff, 4 times daily RT ipratropium-albuterol (Duo-Neb) 0.5-2.5 mg/3 mL nebulizer solution 3 mL, 4 times daily RT isosorbide mononitrate ER (IMDUR) 30 mg, Daily loratadine (Claritin) 10 MG tablet 1 tablet, Daily montelukast (Singulair) 10 MG tablet 1 tablet, Daily nitroglycerin (NITROSTAT) 0.3 mg, Daily PRN Roflumilast 500 MCG tablet 1 tablet, Oral, Every morning sodium chloride 0.9 % nebulizer solution 3 mL, As needed spironolactone (Aldactone) 25 MG tablet 1 tablet, Daily tiZANidine (Zanaflex) 4 MG tablet 1 tablet, Nightly PRN valsartan (DIOVAN) 160 mg, Oral, 2 times daily ALLERGIES: Allergies Allergen Reactions Amlodipine Other edema REVIEW OF SYMPTOMS: Review of Systems Constitutional: Positive for fatigue and malaise/fatigue. Negative for activity change, appetite change, chills, fever and unexpected weight change. HENT: Negative for congestion, ear pain, nosebleeds, rhinorrhea, sinus pressure, sneezing, sore throat, trouble swallowing and voice change. Eyes: Positive for blurred vision. Negative for pain, discharge and visual disturbance. Respiratory: Positive for cough, shortness of breath and wheezing. Negative for apnea and chest tightness. Cardiovascular: Positive for chest pain. Negative for palpitations, leg swelling and PND. Gastrointestinal: Negative for abdominal distention, abdominal pain, blood in stool, constipation, diarrhea, nausea and vomiting. Genitourinary: Negative for decreased urine volume, difficulty urinating, dysuria, flank pain and hematuria. Musculoskeletal: Positive for back pain. Negative for arthralgias, joint swelling and myalgias. Skin: Negative for color change, rash and wound. Neurological: Negative for dizziness, tremors, seizures, weakness, numbness and headaches. Psychiatric/Behavioral: Negative for agitation, decreased concentration, hallucinations, self-injury, sleep disturbance and suicidal ideas. The patient is not nervous/anxious. Depression Hematological: Negative for adenopathy. Does not bruise/bleed easily. Endocrine: Negative for cold intolerance, heat intolerance, polydipsia, polyphagia and polyuria. Allergic/Immunologic: Negative for environmental allergies and food allergies. PAST MEDICAL HISTORY Past Medical History: Diagnosis Date Arrhythmia 05/23/2023 Asthma ([facility]) 08/22/2023 CKD (chronic kidney disease), stage III ([facility]) ([facility]) 08/22/2023 COPD mixed type ([facility]) 05/23/2023 Coronary artery disease of [place] artery of [place] heart with stable angina pectoris ([facility]) 05/23/2023 DDD (degenerative disc disease), lumbar 08/22/2023 Decreased vision of left eye 08/22/2023 Diastolic dysfunction 08/22/2023 Encounter for annual wellness visit (AWV) in Medicare patient 05/23/2023 Environmental allergies 08/22/2023 Hypokalemia 08/22/2023 Iron deficiency anemia secondary to inadequate dietary iron intake 05/10/2023 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) 08/22/2023 OS Lung nodule, solitary 08/22/2023 Melanoma ([facility]) 08/22/2023 left arm SHUKRI (obstructive sleep apnea) home sleep study: AHI 13, SpO2 84%, done 07/25/22 Posterior vitreous detachment of both eyes 08/22/2023 Primary hypertension ([facility]) 05/23/2023 Prostate cancer ([facility]) 05/23/2023 Pseudophakia of both eyes 08/22/2023 Simple chronic bronchitis ([facility]) 05/23/2023 Past Surgical History: Procedure Laterality Date CHOLECYSTECTOMY EYE SURGERY Left 03/21/2019 HERNIA REPAIR OTHER SURGICAL HISTORY 01/04/2017 Fatty Lipoma left thoracic PROSTATE SURGERY 2018 SKIN CANCER EXCISION melanoma resection family history includes Asthma in his mother; Cancer in his mother and sibling; Diabetes in his maternal grandmother; Heart disease in his father; other in his sister. OBJECTIVE: Visit Vitals BP 150/78 (BP Location: Left arm, Patient Position: Sitting, BP Cuff Size: Large adult) Pulse 52 Temp 98.5 F (Temporal) Resp 18 Ht 6' Wt 220 lb 6.4 oz SpO2 95% BMI 29.89 kg/m Smoking Status Former BSA 2.25 m Physical Exam Vitals and nursing note reviewed. Constitutional: Appearance: Normal appearance. HENT: Head: Normocephalic. Right Ear: External ear normal. Left Ear: External ear normal. Nose: Nose normal. Mouth/Throat: Mouth: Mucous membranes are moist. Pharynx: Oropharynx is clear. Eyes: Extraocular Movements: Extraocular movements intact. Conjunctiva/sclera: Conjunctivae normal. Neck: Vascular: No carotid bruit. Cardiovascular: Rate and Rhythm: Normal rate and regular rhythm. Pulses: Normal pulses. Heart sounds: Normal heart sounds. Pulmonary: Effort: Pulmonary effort is normal. Breath sounds: Normal breath sounds. Abdominal: General: Bowel sounds are normal. Palpations: Abdomen is soft. Musculoskeletal: Cervical back: Neck supple. Right lower leg: Edema present. Left lower leg: Edema present. Comments: Trace pedal bilat Lymphadenopathy: Cervical: No cervical adenopathy. Skin: General: Skin is warm and dry. Capillary Refill: Capillary refill takes 2 to 3 seconds. Neurological: General: No focal deficit present. Mental Status: He is alert. Psychiatric: Mood and Affect: Mood normal. Behavior: Behavior normal. Thought Content: Thought content normal. Judgment: Judgment normal. ASSESSMENT AND PLAN: Follow up in about 3 months (around 09/01/2024) for Recheck. Problem List Items Addressed This Visit SHUKRI (obstructive sleep apnea) You have a diagnosis of obstructive sleep apnea. It is recommended that you wear your PAP device any time while in bed sleeping. Not using the PAP device can increase your risk of elevated/uncontrolled high blood pressure, atrial fibrillation, heart attack, stroke, or sudden . Is not compliant with use of PAP Coronary artery disease of [place] artery of [place] heart with stable angina pectoris (CMS/HCC) Continues with cardiology Current meds: ASA,statin, prn nitroglycerin, also arb, IMDUR Primary hypertension (CMS/HCC) Please check blood pressure daily and record DASH diet Limit caffeine Take medication as directed Contact office if chest pain, pressure, dizziness, shortness of breath, swelling legs Recommend slow position changes Current meds: hydrochlorothiazide, valsartan Prostate cancer (CMS/HCC) Follows yearly with radiation oncology Encounter for annual wellness visit (AWV) in Medicare patient - Primary I have reviewed Ht/Wt/BMI, I have reviewed recommended vaccines for patient's age, as well as all recommended screenings I have reviewed available care everywhere notes as well. I have recommended eating a balanced diet, as well as activity as chronic conditions allow It is recommended that the patient have a yearly eye exam, as well as twice a year dental exams Fu in this office for wellness on a yearly basis Chronic kidney disease, stage 3 unspecified (HCC) (CMS/HCC) Continue to monitor labs prn Control risk factors Hyperlipidemia (CMS/HCC) On statin therapy Check labs yearly and prn dose changes Persistent atrial fibrillation (HCC) (CMS/HCC) Continue with cardiology [facility] Current meds: eliquis, and amiodarone Class 1 obesity due to excess calories with serious comorbidity in adult Discussed with patient their BMI (actual, verses recommended). We have also discussed lifestyle modifications: attempts to perform physical activity as chronic conditions allow, also to monitor dietary intake: increasing protein/fruits/veggies and lowering carb intake (unless contraindicated). Limit sodas, juices, and sugary drinks. Chronic health conditions do make exercise difficult Diastolic congestive heart failure (CMS/HCC) Continue with NOH Current meds: valsartan, aldactone, hydrochlorothiazide, Asthma with COPD (CMS/HCC) Continue w pulmonary and current inhalers Colon cancer screening Colon cancer screening options were discussed with patient, as well as why colon cancer screening is indicated. Options are Colonoscopy: direct visualization, every 10 years (unless indicated more frequently), risks and benefits were discussed Cologuard: every 3 years, risks and benefits were discussed , contraindications were discussed (family hx of colon cancer, colon polyps) Patient has elected to: declines Needs flu shot VIS given Relevant Orders Flu vaccine, trivalent, adjuvanted, PF ([id number]) (Fluad trivalent single dose syringe) Associated Problem(s): Colon cancer screening Colon cancer screening options were discussed with patient, as well as why colon cancer screening is indicated. Options are Colonoscopy: direct visualization, every 10 years (unless indicated more frequently), risks and benefits were discussed Cologuard: every 3 years, risks and benefits were discussed , contraindications were discussed (family hx of colon cancer, colon polyps) Patient has elected to: declines Associated Problem(s): Hyperlipidemia (CMS/HCC) On statin therapy Check labs yearly and prn dose changes Associated Problem(s): Encounter for annual wellness visit (AWV) in Medicare patient I have reviewed Ht/Wt/BMI, I have reviewed recommended vaccines for patient's age, as well as all recommended screenings I have reviewed available care everywhere notes as well. I have recommended eating a balanced diet, as well as activity as chronic conditions allow It is recommended that the patient have a yearly eye exam, as well as twice a year dental exams Fu in this office for wellness on a yearly basis Associated Problem(s): Class 1 obesity due to excess calories with serious comorbidity in adult Discussed with patient their BMI (actual, verses recommended). We have also discussed lifestyle modifications: attempts to perform physical activity as chronic conditions allow, also to monitor dietary intake: increasing protein/fruits/veggies and lowering carb intake (unless contraindicated). Limit sodas, juices, and sugary drinks. Chronic health conditions do make exercise difficult Associated Problem(s): Prostate cancer (CMS/HCC) Follows yearly with radiation oncology Associated Problem(s): Chronic kidney disease, stage 3 unspecified (HCC) (CMS/HCC) Continue to monitor labs prn Control risk factors Associated Problem(s): Primary hypertension (CMS/HCC) Please check blood pressure daily and record DASH diet Limit caffeine Take medication as directed Contact office if chest pain, pressure, dizziness, shortness of breath, swelling legs Recommend slow position changes Current meds: hydrochlorothiazide, valsartan Associated Problem(s): Persistent atrial fibrillation (HCC) (CMS/HCC) Continue with cardiology [facility] Current meds: eliquis, and amiodarone Associated Problem(s): Diastolic congestive heart failure (CMS/HCC) Continue with [facility] Current meds: valsartan, aldactone, hydrochlorothiazide, Associated Problem(s): Coronary artery disease of [place] artery of [place] heart with stable angina pectoris ([facility]/HCC) Continues with cardiology Current meds: ASA,statin, prn nitroglycerin, also arb, IMDUR Associated Problem(s): Asthma with COPD ([facility]/HCC) Continue w pulmonary and current inhalers Associated Problem(s): SHUKRI (obstructive sleep apnea) You have a diagnosis of obstructive sleep apnea. It is recommended that you wear your PAP device any time while in bed sleeping. Not using the PAP device can increase your risk of elevated/uncontrolled high blood pressure, atrial fibrillation, heart attack, stroke, or sudden . Is not compliant with use of PAP documented in this encounter [facility] 06-03-2024 Instructions Kailey Louise NP - 06/03/2024 10:00 AM EST Recommend RSV shot Recommend colon cancer screening No med dose changes documented in this encounter [facility] 05-08-2024 Evaluation note Diagnosis Onset Date Resolution Asthma with COPD acute May 08, 2024 9:24am COPD (chronic obstructive pulmonary disease) acute May 08 9:24am Lung nodule acute May 08, 2024 9:24am Seasonal allergies acute Decemb er 2023 9:24am [facility] Work Phone: 1(385) 279-497711-10-2024 Radiology Diagnostic study [facility] [place] [address] CT Scan Report Signed Patient: Amee Juárez MR#: [id number] : 1950 Acct:[id number] Age/Sex: 73 / M ADM Date: 4 Loc: ER Room: Type: [facility] ER Attending Dr: Copies to: Amee Herrera Jr, MD~ Ordering Provider: Amee Herrera Jr, MD Date of Service: 04/14/24 CT/CT angio chest PE protocol: sob, intermittent severe L upper back pain CT angio chest PE protocol 04/14/2024 12:03 AM SIGN AND SYMPTOMS: Cough, congestion, shortness of breath CONTRAST: 90 mL of intravenous Isovue-370 TECHNIQUE: Multidetector CT axial slices of the chest were obtained with IV contrast. Multiplanar and 3-D reformats were performed and viewed on a separate workstation and reviewed to further define anatomy and possible pathology. CT was performed with one or more of the following dose reduction techniques: Automated exposure control, adjustment of the mA and/or kV according to patient size, or use of iterative reconstruction technique. COMPARISON: 11/24/2021. FINDINGS: Lower neck: Thyroid gland within normal limits, no supraclavicle adenopathy. Vessels: Atherosclerotic changes are noted in the coronary arteries and thoracicaorta. There is no evidence of pulmonary embolism. Mediastinum and Brenda: Within normal limits. Heart: There is mild cardiomegaly. There is a small pericardial effusion.. Airways: Within normal limits Lungs: There is mild dependent scarring or atelectasis. There is a 6 mm noncalcified nodule in the right lower lobe laterally on series 7 image 75. This is unchanged. Pleura: Within normal limits. Chest Wall: Within normal limits. Upper Abdomen: There is evidence of prior cholecystectomy. Bones: Degenerative changes are noted in the thoracic spine. CT/CT angio chest PE protocol IMPRESSION: There is no pulmonary embolism. There is mild cardiomegaly with a small pericardial effusion. This is similar to the prior exam. There is a 6 mm noncalcified nodule in the right lower lobe laterally on series 7 image 75. This isunchanged when compared to the prior exam. Follow-up per Fleischner Society guidelines is recommended. Impression dictated by: Yazan Dos Santos M.D.04/14/2024 11:40 AM Dictation Location: [facility]-17 Transcribed By: GARY 04/14/24 1140 Dictated By: Yazan Dos Santos II, MD 04/14/24 1132 Signed By: 04/14/24 1140 [facility] Work Phone: 1(874) 510-526110-10-2024 History of Present illness Narrative* Jose Dutta, - 03/14/2024 9:30 AM EDT Subjective Amee Juárez is a 73 y.o. male Chief Complaint Follow-up 73-year-old gentleman returns for follow-up he is doing well he has no cardiovascular events over the past year. He denies any angina, shortness of breath, recurrent TIAs or stroke, hospitalizations or nitrate usage. He has a history of stroke in June 2022 with optic nerve involvement now resolved; interestingly, the this occurred while on Eliquis therapy. He has a history of paroxysmal atrial fibs/flutter, last cardioversion was 2021; remains on amiodarone 200 daily; he is due for amiodarone surveillance He has had remote PCI's of the LAD and RCA in 2019 with normal left ventricular function; he has noangina; he is performing all activities and household activities and golf etc. without any disability or chest discomfort or shortness of breath. He remains on appropriate therapies as noted including Eliquis and aspirin and amiodarone, valsartan, spironolactone, isosorbide, hydrochlorothiazide andhigh intensity atorvastatin Today's ECG is sinus rhythm QT corrected interval of 466 ms and otherwise normal Recommendations: Continue current therapies, obtain amiodarone surveillance and lipid panel, follow-up in 1 year Review of Systems Neurological: Positive for dizziness. All other systems reviewed and are negative. Vitals: 03/14/24 0948 03/14/24 1007 BP: 146/78 136/72 BP Location: Right arm Left arm Patient Position: Sitting Sitting Pulse: 63 Weight: 101 kg (223 lb) Height: 1.829 m (6') EKG done in office today Objective Physical Exam Constitutional: Appearance: Normal appearance. HENT: Nose: Nose normal. Neck: Vascular: No carotid bruit. Cardiovascular: Rate and Rhythm: Normal rate. Pulses: Normal pulses. Heart sounds: Normal heart sounds. Pulmonary: Effort: Pulmonary effort is normal. Abdominal: General: Bowel sounds are normal. Palpations: Abdomen is soft. Musculoskeletal: General: Normal range of motion. Cervical back: Normal range of motion. Right lower leg: No edema. Left lower leg: No edema. Skin: General: Skin is warm and dry. Neurological: General: No focal deficit present. Mental Status: He is alert. Psychiatric: Mood and Affect: Mood normal. Behavior: Behavior normal. Thought Content: Thought content normal. Judgment: Judgment normal. Allergies Norvasc [amlodipine] Current Medications Current Outpatient Medications: albuterol 2.5 mg /3 mL (0.083 %) nebulizer solution, 3 mL 4 times a day as needed., Disp: , Rfl: amiodarone (Pacerone) 200 mg tablet, Take 1 tablet (200 mg) by mouth once daily., Disp: 30 tablet, Rfl: 5 apixaban (Eliquis) 5 mg tablet, Take 1 tablet (5 mg) by mouth 2 times a day., Disp: , Rfl: aspirin 81 mg EC tablet, Take 1 tablet (81 mg) by mouth once daily., Disp: , Rfl: atorvastatin (Lipitor) 80 mg tablet, Take 1 tablet (80 mg) by mouth once daily at bedtime., Disp: ,Rfl: buPROPion SR (Wellbutrin SR) 150 mg 12 hr tablet, Take 1 tablet (150 mg) by mouth if needed., Disp:, Rfl: carbidopa-levodopa (Sinemet) 25-100 mg tablet, Take 1 tablet by mouth 2 times a day., Disp: , Rfl: carvedilol (Coreg) 6.25 mg tablet, Take 1 tablet (6.25 mg) by mouth 2 times a day., Disp: , Rfl: fluticasone furoate-vilanteroL (Breo Ellipta) 100-25 mcg/dose inhaler, Inhale 1 puff once daily., Disp: , Rfl: hydroCHLOROthiazide (Microzide) 12.5 mg capsule, Take 1 capsule (12.5 mg) by mouth once daily., Disp: 90 capsule, Rfl: 3 HYDROcodone-acetaminophen ([place]) 5-325 mg tablet, Take 1 tablet by mouth every 6 hours if needed (pain)., Disp: , Rfl: isosorbide mononitrate ER (Imdur) 30 mg 24 hr tablet, Take 1 tablet (30 mg) by mouth once daily., Disp: 90 tablet, Rfl: 3 loratadine-pseudoephedrine (Claritin-D 24-hour) 10-240 mg 24 hr tablet, Take 1 tablet by mouth oncedaily as needed., Disp: , Rfl: nitroglycerin (Nitrostat) 0.4 mg SL tablet, Place 1 tablet (0.4 mg) under the tongue every 5 minutes if needed for chest pain. PLACE 1 TABLET UNDER TONGUE EVRY 5 MINS X3 DOSES NEEDED FOR CHEST PAIN *CALL 911 IF PAIN PERSISTS, Disp: , Rfl: roflumilast (Daliresp) 500 mcg tablet, Take 1 tablet (500 mcg) by mouth once daily., Disp: , Rfl: valsartan (Diovan) 160 mg tablet, Take 1 tablet (160 mg) by mouth twice a day. FOR BLOOD PRESSURE.,Disp: , Rfl: spironolactone (Aldactone) 25 mg tablet, TAKE 1 TABLET BY MOUTH EVERY DAY, Disp: 90 tablet, Rfl: 3 Assessment/Plan 1. ASHD (arteriosclerotic heart disease) Follow Up In Cardiology 2. Paroxysmal atrial flutter (Multi) 3. High risk medication use 4. History of myocardial infarction 5. History of PTCA 6. Mixed hyperlipidemia 7. BMI 30.0-30.9,adult 8. Former smoker 9. History of CVA (cerebrovascular accident) Scribe Attestation By signing my name below, I, Adi Mcclelland LPN attest that this documentation has been prepared under the direction and in the presence of Asaf Dutta DO. Provider Attestation - Scribe documentation All medical record entries made by the Scribe were at my direction and personally dictated by me. Ihave reviewed the chart and agree that the record accurately reflects my personal performance of the history, physical exam, discussion and plan. [facility] Work Phone: 1(564) 840-419210-10-2024 Instructions* Patient Instructions* Shama Riojas LPN - 03/14/2024 9:30 AM EDT Please bring all medicines, vitamins, and herbal supplements with you when you come to the office. Prescriptions will not be filled unless you are compliant with your follow up appointments or have a follow up appointment scheduled as per instruction of your physician. Refills should be requested at the time of your visit. Amiodarone follow up per routine BMI was above normal measurement. Current weight: 101 kg (223 lb) Weight change since last visit (-) denotes wt loss -21 lbs Weight loss needed to achieve BMI 25: 39.1 Lbs Weight loss needed to achieve BMI 30: 2.3 Lbs Provided instructions on dietary changes Provided instructions on exercise. * Attachments The following attachments cannot be sent through Care Everywhere. * DASH Diet (Chinese) [facility] Work Phone: [phone]) 229-440510-07-2024 History of Present illness Narrative* Kailey Aichholz, [employer] WORKER - 03/11/2024 4:44 PM EDTAssociated Problem(s): Primary hypertension (CMS/HCC) stable * Kailey Louise NP - 03/11/2024 4:27 PM EDTAssociated Problem(s): Acute URI In office flu A/B and COVID test completed: negative test Will treat with atb, hold on steroids, would like some cough meds as well * JULIA SWIFT - 03/11/2024 4:00 PM EDT Pt has cough, coughing up yellowish-green mucus, sinus headache, sinus pressure, drainage, cold chills, sore throat-started Monday evening. * Kailey Louise NP - 03/11/2024 4:00 PM EDT Images from the original note were not included. Amee Juárez is a 73 y.o. male presents with chief complaint of No chief complaint on file. HPI: URI This is a new problem. The current episode started in the past 7 days. The problem has been gradually worsening. The maximum temperature recorded prior to his arrival was 100.4 - 100.9 F. Associated symptoms include congestion, coughing, rhinorrhea and sinus pain. Pertinent negatives include no abdominal pain, chest pain, diarrhea, dysuria, ear pain, headaches, joint pain, joint swelling, nausea,neck pain, plugged ear sensation, rash, sneezing, sore throat, swollen glands, vomiting or wheezing. He has tried nothing for the symptoms. SUBJECTIVE: MEDICATIONS: Current Outpatient Medications Medication Instructions albuterol (2.5 MG/3ML) 0.083% nebulizer solution 3 mL, Nebulization, 4 times daily PRN amiodarone (PACERONE) 200 mg, Oral, Daily amoxicillin-clavulanate (Augmentin) 875-125 MG tablet 875 mg, Oral, 2 times daily aspirin 81 MG EC tablet 1 tablet, Oral, Daily RT atorvastatin (LIPITOR) 80 mg, Oral, Nightly benzonatate (TESSALON) 200 mg, Oral, Every 8 hours PRN, Take with full glass of water. Do not crushor chew. carbidopa-levodopa (Sinemet) 25-100 MG tablet 1 tablet, Oral, 3 times daily, 7AM, 11AM, 4PM - [facility] Eliquis 5 MG tablet 1 tablet, Oral, 2 times daily ferrous sulfate 325 mg, Oral, Daily with breakfast Fluticasone Furoate-Vilanterol (Breo Ellipta) 100-25 MCG/ACT aerosol powder 100 mg, Inhalation, Daily hydroCHLOROthiazide (MICROZIDE) 12.5 mg, Oral, Daily ipratropium-albuterol (Combivent Respimat) 20-100 MCG/ACT inhaler 1 puff, Inhalation, 4 times dailyRT ipratropium-albuterol (Duo-Neb) 0.5-2.5 mg/3 mL nebulizer solution 3 mL, Nebulization, 4 times daily RT isosorbide mononitrate ER (IMDUR) 30 mg, Oral, Daily loratadine (Claritin) 10 MG tablet 1 tablet, Oral, Daily montelukast (Singulair) 10 MG tablet 1 tablet, Oral, Daily nitroglycerin (NITROSTAT) 0.3 mg, Sublingual, Daily PRN Roflumilast 500 MCG tablet 1 tablet, Oral, Every morning spironolactone (Aldactone) 25 MG tablet 1 tablet, Oral, Daily tiZANidine (Zanaflex) 4 MG tablet 1 tablet, Oral, Nightly PRN valsartan (DIOVAN) 160 mg, Oral, 2 times daily ALLERGIES: Allergies Allergen Reactions Amlodipine Other edema REVIEW OF SYMPTOMS: Review of Systems Constitutional: Negative for activity change, appetite change and unexpected weight change. HENT: Positive for congestion, rhinorrhea and sinus pain. Negative for ear pain, nosebleeds, sneezing, sore throat, trouble swallowing and voice change. Eyes: Negative for pain, discharge and visual disturbance. Respiratory: Positive for cough. Negative for apnea, chest tightness and wheezing. Cardiovascular: Negative for chest pain and leg swelling. Gastrointestinal: Negative for abdominal distention, abdominal pain, blood in stool, constipation, diarrhea, nausea and vomiting. Genitourinary: Negative for decreased urine volume, difficulty urinating, dysuria and hematuria. Musculoskeletal: Negative for joint pain and neck pain. Skin: Negative for color change and rash. Neurological: Negative for dizziness, tremors, seizures and headaches. Psychiatric/Behavioral: Negative for agitation, decreased concentration, hallucinations, self-injury and suicidal ideas. The patient is not nervous/anxious. Hematological: Negative for adenopathy. Does not bruise/bleed easily. Endocrine: Negative for cold intolerance, heat intolerance, polydipsia and polyuria. Allergic/Immunologic: Negative for environmental allergies and food allergies. PAST MEDICAL HISTORY Past Medical History: Diagnosis Date Arrhythmia 05/23/2023 Asthma ([facility]) 08/22/2023 CKD (chronic kidney disease), stage III ([facility]) ([facility]) 08/22/2023 COPD mixed type ([facility]) 05/23/2023 Coronary artery disease of [place] artery of [place] heart with stable angina pectoris ([facility]) 05/23/2023 DDD (degenerative disc disease), lumbar 08/22/2023 Decreased vision of left eye 08/22/2023 Diastolic dysfunction 08/22/2023 Encounter for annual wellness visit (AWV) in Medicare patient 05/23/2023 Environmental allergies 08/22/2023 Hypokalemia 08/22/2023 Iron deficiency anemia secondary to inadequate dietary iron intake 05/10/2023 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) 08/22/2023 OS Lung nodule, solitary 08/22/2023 Melanoma ([facility]) 08/22/2023 left arm SHUKRI (obstructive sleep apnea) home sleep study: AHI 13, SpO2 84%, done 07/25/22 Posterior vitreous detachment of both eyes 08/22/2023 Primary hypertension ([facility]) 05/23/2023 Prostate cancer ([facility]) 05/23/2023 Pseudophakia of both eyes 08/22/2023 Simple chronic bronchitis ([facility]) 05/23/2023 Past Surgical History: Procedure Laterality Date CHOLECYSTECTOMY EYE SURGERY Left 03/21/2019 HERNIA REPAIR OTHER SURGICAL HISTORY 01/04/2017 Fatty Lipoma left thoracic PROSTATE SURGERY 2018 SKIN CANCER EXCISION melanoma resection family history includes Asthma in his mother; Cancer in his mother and sibling; Diabetes in his maternal grandmother; Heart disease in his father; other in his sister. OBJECTIVE: Visit Vitals BP 130/70 (BP Location: Left arm, Patient Position: Sitting, BP Cuff Size: Adult long) Pulse 71 Temp 99 F (Temporal) Resp 20 Ht 6' Wt 223 lb 12.8 oz SpO2 97% BMI 30.35 kg/m Smoking Status Former BSA 2.28 m Physical Exam Vitals and nursing note reviewed. Constitutional: Appearance: Normal appearance. He is ill-appearing (mild). HENT: Head: Normocephalic. Right Ear: Tympanic membrane, ear canal and external ear normal. There is impacted cerumen (removedwith ear currette, large, soft brown). Left Ear: Tympanic membrane, ear canal and external ear normal. Nose: Congestion present. No rhinorrhea. Mouth/Throat: Mouth: Mucous membranes are moist. Pharynx: Oropharynx is clear. No oropharyngeal exudate or posterior oropharyngeal erythema. Eyes: Extraocular Movements: Extraocular movements intact. Conjunctiva/sclera: Conjunctivae normal. Cardiovascular: Rate and Rhythm: Normal rate and regular rhythm. Pulses: Normal pulses. Heart sounds: Normal heart sounds. Pulmonary: Effort: Pulmonary effort is normal. No respiratory distress. Breath sounds: Normal breath sounds. No stridor. No wheezing, rhonchi or rales. Chest: Chest wall: No tenderness. Abdominal: General: Bowel sounds are normal. Palpations: Abdomen is soft. Musculoskeletal: Cervical back: Neck supple. Lymphadenopathy: Cervical: Cervical adenopathy present. Skin: General: Skin is warm and dry. Capillary Refill: Capillary refill takes 2 to 3 seconds. Neurological: General: No focal deficit present. Mental Status: He is alert. Psychiatric: Mood and Affect: Mood normal. Behavior: Behavior normal. Thought Content: Thought content normal. Judgment: Judgment normal. ASSESSMENT AND PLAN: No follow-ups on file. Problem List Items Addressed This Visit Primary hypertension (CMS/HCC) stable Class 1 obesity due to excess calories with serious comorbidity in adult Acute URI - Primary In office flu A/B and COVID test completed: negative test Will treat with atb, hold on steroids, would like some cough meds as well Relevant Medications amoxicillin-clavulanate (Augmentin) 875-125 MG tablet benzonatate (Tessalon) 200 MG capsule documented in this encounterHermann Area District [id number] History of Present illness Narrative* Kailey Louise NP - 02/22/2024 9:38 AM EDTAssociated Problem(s): DDD (degenerative disc disease), lumbar Does not want to do any further PT or pain mgmt, etc Would like a handicap placard as well * JULIA SWIFT - 02/22/2024 9:00 AM EDT Pt is still having sciatica- still doing stretches and did have therapy, he is asking if he can have a renewal on a handicap order * Kailey Louise NP - 02/22/2024 9:00 AM EDT Images from the original note were not included. Amee Juárez is a 73 y.o. male presents with chief complaint of No chief complaint on file. HPI: COPD: stable, stopped mucinex, is doing fine, occ mucus no blood, follows with pulmonary Prostate: follows with cancer doctor Lumbar back pain with sciatica: no cauda, lumbar pain with radiation down leg, tylenol helps, has HEP as well does not wish to have fu further with this Vision: blurry vision and decreased in right eye>left Hypertension This is a chronic problem. The current episode started more than 1 year ago. The problem is unchanged. The problem is controlled. Associated symptoms include blurred vision, peripheral edema and shortness of breath. Pertinent negatives include no chest pain or palpitations. There are no associated agents to hypertension. Risk factors for coronary artery disease include dyslipidemia, male gender and obesity. Past treatments include diuretics and angiotensin blockers. The current treatment provides significant improvement. There are no compliance problems. Hypertensive end-organ damage includeskidney disease, CAD/PA and heart failure. SUBJECTIVE: MEDICATIONS: Current Outpatient Medications Medication Instructions albuterol (2.5 MG/3ML) 0.083% nebulizer solution 3 mL, Nebulization, 4 times daily PRN amiodarone (PACERONE) 200 mg, Oral, Daily aspirin 81 MG EC tablet 1 tablet, Oral, Daily RT atorvastatin (LIPITOR) 80 mg, Oral, Nightly carbidopa-levodopa (Sinemet) 25-100 MG tablet 1 tablet, Oral, 3 times daily, 7AM, 11AM, 4PM - [facility] Eliquis 5 MG tablet 1 tablet, Oral, 2 times daily ferrous sulfate 325 mg, Oral, Daily with breakfast Fluticasone Furoate-Vilanterol (Breo Ellipta) 100-25 MCG/ACT aerosol powder 100 mg, Inhalation, Daily hydroCHLOROthiazide (MICROZIDE) 12.5 mg, Oral, Daily ipratropium-albuterol (Combivent Respimat) 20-100 MCG/ACT inhaler 1 puff, Inhalation, 4 times dailyRT ipratropium-albuterol (Duo-Neb) 0.5-2.5 mg/3 mL nebulizer solution 3 mL, Nebulization, 4 times daily RT isosorbide mononitrate ER (IMDUR) 30 mg, Oral, Daily loratadine (Claritin) 10 MG tablet 1 tablet, Oral, Daily montelukast (Singulair) 10 MG tablet 1 tablet, Oral, Daily nitroglycerin (NITROSTAT) 0.3 mg, Sublingual, Daily PRN Roflumilast 500 MCG tablet 1 tablet, Oral, Every morning spironolactone (Aldactone) 25 MG tablet 1 tablet, Oral, Daily tiZANidine (Zanaflex) 4 MG tablet 1 tablet, Oral, Nightly PRN valsartan (DIOVAN) 160 mg, Oral, 2 times daily ALLERGIES: Allergies Allergen Reactions Amlodipine Other edema REVIEW OF SYMPTOMS: Review of Systems Constitutional: Negative for activity change, appetite change and unexpected weight change. HENT: Negative for ear pain, nosebleeds, sneezing, trouble swallowing and voice change. Eyes: Positive for blurred vision and visual disturbance. Negative for pain and discharge. Respiratory: Positive for shortness of breath. Negative for apnea, chest tightness and wheezing. Cardiovascular: Positive for leg swelling. Negative for chest pain and palpitations. Gastrointestinal: Negative for abdominal distention, blood in stool, constipation and diarrhea. Genitourinary: Negative for decreased urine volume, difficulty urinating, dysuria and hematuria. Musculoskeletal: Positive for arthralgias. Skin: Negative for color change. Neurological: Positive for dizziness. Negative for tremors and seizures. Psychiatric/Behavioral: Negative for agitation, decreased concentration, hallucinations, self-injury and suicidal ideas. The patient is not nervous/anxious. Hematological: Negative for adenopathy. Does not bruise/bleed easily. Endocrine: Negative for cold intolerance, heat intolerance, polydipsia and polyuria. Allergic/Immunologic: Negative for environmental allergies and food allergies. PAST MEDICAL HISTORY Past Medical History: Diagnosis Date Arrhythmia 05/23/2023 Asthma ([facility]) 08/22/2023 CKD (chronic kidney disease), stage III ([facility]) ([facility]) 08/22/2023 COPD mixed type ([facility]) 05/23/2023 Coronary artery disease of [place] artery of [place] heart with stable angina pectoris ([facility]) 05/23/2023 DDD (degenerative disc disease), lumbar 08/22/2023 Decreased vision of left eye 08/22/2023 Diastolic dysfunction 08/22/2023 Encounter for annual wellness visit (AWV) in Medicare patient 05/23/2023 Environmental allergies 08/22/2023 Hypokalemia 08/22/2023 Iron deficiency anemia secondary to inadequate dietary iron intake 05/10/2023 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) 08/22/2023 OS Lung nodule, solitary 08/22/2023 Melanoma ([facility]) 08/22/2023 left arm SHUKRI (obstructive sleep apnea) home sleep study: AHI 13, SpO2 84%, done 07/25/22 Posterior vitreous detachment of both eyes 08/22/2023 Primary hypertension ([facility]) 05/23/2023 Prostate cancer ([facility]) 05/23/2023 Pseudophakia of both eyes 08/22/2023 Simple chronic bronchitis ([facility]) 05/23/2023 Past Surgical History: Procedure Laterality Date CHOLECYSTECTOMY EYE SURGERY Left 03/21/2019 HERNIA REPAIR OTHER SURGICAL HISTORY 01/04/2017 Fatty Lipoma left thoracic PROSTATE SURGERY 2018 SKIN CANCER EXCISION melanoma resection family history includes Asthma in his mother; Cancer in his mother and sibling; Diabetes in his maternal grandmother; Heart disease in his father; other in his sister. OBJECTIVE: Visit Vitals BP 110/80 (BP Location: Left arm, Patient Position: Sitting, BP Cuff Size: Adult long) Pulse 53 Temp 98.1 F (Temporal) Resp 18 Ht 6' Wt 227 lb 3.2 oz SpO2 97% BMI 30.81 kg/m Smoking Status Former BSA 2.29 m Physical Exam Vitals and nursing note reviewed. Constitutional: Appearance: Normal appearance. HENT: Head: Normocephalic. Right Ear: External ear normal. Left Ear: External ear normal. Nose: Nose normal. Mouth/Throat: Mouth: Mucous membranes are moist. Pharynx: Oropharynx is clear. Eyes: Extraocular Movements: Extraocular movements intact. Conjunctiva/sclera: Conjunctivae normal. Neck: Vascular: No carotid bruit. Cardiovascular: Rate and Rhythm: Regular rhythm. Bradycardia present. Pulses: Normal pulses. Heart sounds: Normal heart sounds. Pulmonary: Effort: Pulmonary effort is normal. Breath sounds: Normal breath sounds. No wheezing or rales. Abdominal: General: Bowel sounds are normal. Palpations: Abdomen is soft. Tenderness: There is no abdominal tenderness. There is no guarding. Musculoskeletal: Cervical back: Neck supple. Right lower leg: Edema present. Left lower leg: Edema present. Comments: Trace-1+ bilat pedal Lymphadenopathy: Cervical: No cervical adenopathy. Skin: General: Skin is warm and dry. Capillary Refill: Capillary refill takes 2 to 3 seconds. Findings: No lesion or rash. Neurological: General: No focal deficit present. Mental Status: He is alert. Psychiatric: Mood and Affect: Mood normal. Behavior: Behavior normal. Thought Content: Thought content normal. Judgment: Judgment normal. ASSESSMENT AND PLAN: No follow-ups on file. Problem List Items Addressed This Visit Iron deficiency anemia secondary to inadequate dietary iron intake On ferrous sulfate, check labs Relevant Orders CBC and differential Iron level COPD mixed type (CMS/HCC) Continue with pulmonary and inhalers Relevant Orders CBC and differential Coronary artery disease of [place] artery of [place] heart with stable angina pectoris (CMS/HCC) Cont with cardiology, statin and meds Relevant Orders CBC and differential Lipid panel Primary hypertension (CMS/HCC) Relevant Orders Comprehensive metabolic panel Urinalysis with reflex microscopic (clean catch) Microalbumin / creatinine, urine ratio Chronic kidney disease, stage 3 unspecified (HCC) (CMS/HCC) Check labs Cont mgmt of risk factors Relevant Orders CBC and differential Comprehensive metabolic panel Vitamin D 25 hydroxy DDD (degenerative disc disease), lumbar Does not want to do any further PT or pain mgmt, etc Would like a handicap placard as well Lower extremity edema Relevant Orders Comprehensive metabolic panel Diastolic congestive heart failure (CMS/HCC) Per cardiology and cont current meds Relevant Orders Comprehensive metabolic panel Asthma with COPD ([facility]) - Primary Continue w pulmonary and current inhalers Relevant Orders CBC and differential * Kailey Louise NP - 02/22/2024 6:58 AM EDTAssociated Problem(s): Iron deficiency anemia secondary to inadequate dietary iron intake On ferrous sulfate, check labs * Kailey Louise NP - 02/22/2024 6:58 AM EDTAssociated Problem(s): Chronic kidney disease, stage 3 unspecified (HCC) (CMS/HCC) Check labs Cont mgmt of risk factors * Kailey Louise NP - 02/22/2024 6:58 AM EDTAssociated Problem(s): Diastolic congestive heart failure (CMS/HCC) Per cardiology and cont current meds * Kailey Louise NP - 02/22/2024 6:57 AM EDTAssociated Problem(s): Coronary artery disease of [place] artery of [place] heart with stable angina pectoris ([facility]) Cont with cardiology, statin and meds * Kailey Louise NP - 02/22/2024 6:57 AM EDTAssociated Problem(s): COPD mixed type (CMS/HCC) Continue with pulmonary and inhalers * Kailey Louise NP - 02/22/2024 6:57 AM EDTAssociated Problem(s): Asthma with COPD (CMS/HCC) Continue w pulmonary and current inhalers documented in this encounterHermann Area District [id number] Telephone encounter Note* Telephone Encounter - Erin Verma LSW - 01/23/2024 12:59 PM EDT Patient Declined Social Work Assessment Patient's name is on the [place] report for a NCCN score of 8. SW called Patient and denied anypsychosocial needs. Patient was appreciative of the call. SW will remain available and will follow up as appropriate. VANESSA Donis [facility]08-20-2024 Miscellaneous Notes* Telephone Encounter - Erin Verma LSW - 01/23/2024 12:59 PM EDT Patient Declined Social Work Assessment Patient's name is on the [employer] [place] report for a NCCN score of 8. SW called Patient and denied anypsychosocial needs. Patient was appreciative of the call. SW will remain available and will follow up as appropriate. VANESSA Donis documented in this encounterAdena [facility] Medical Center08-19-2024 NoteHNO ID: [id number] Author: GALILEO DELATORRE MD Service: ? Author Type: Physician Type: Progress Notes Filed: 02/12/2024 23:13 Note Text: Radiation Oncology - Follow Up Note PATIENT NAME: Amee Juárez PATIENT DIAGNOSIS/PATIENT IDENTIFICATION: Mr. 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 He is s/p prostatectomy on 07/20/2018, with final pathology revealing [place] 4 + 4 = 8 (grade group 4), pathologic stage T3a N0 Mx III, margins negative, EPE present , SVI absent, 0 LNs positive out of 10 LNs removed, post-op PSA initially detectable (PSA 0.03) and currently detectable (PSA 0.13). He has met in consultation with my colleague Dr. Vu at [facility] on 07/30/2020 for consideration of salvage. His DECIPHER genomic risk assessment returned high risk and he received a 6 month Lupron shot on 10/30/2020 for concomitant ADT and completed a course of salvage radiation therapy to the prostate bed and pelvic lymph nodes on 01/14/2021 (7020 cGy in 39 fractions). INTERVAL HISTORY: Mr. Juárez returns to clinic today for routine follow-up approximately three years after the completion of his radiation treatments and one year since his last visit on 01/10/2024. In the interim, he has been doing well and denies any burning/discomfort with urination and notes nocturia once. He does note some issues with incomplete emptying and having to push to start a stream as well as a weaker stream. He denies any hematuria and has noted occasional incontinence overnight when he is overly fatigued. He is doing his pelvic floor exercises and does use a pad at night. He reports regular bowel movements without diarrhea or blood or pain and notes occasional nausea. His PSA drawn earlier this month on 01/08/2024 continues to remain undetectable at <0.02 ng/mL. Date PSA (ng/mL) 11/16/2016 4.16 01/17/2017 Bx (GS 3+4) 05/05/2017 4.58 10/04/2017 3.9 05/18/2018 Bx (GS 4+5) 07/20/2018 RP (GS 4+4,T3a,-SM,-SVI,+EPE) 08/30/2018 0.04 12/26/2018 0.03 08/15/2019 0.05 07/13/2020 0.13 10/30/2020 0.22; testosterone 341 01/14/2021 Completed salvage XRT 04/08/2021 <0.03; testosterone <7 07/09/2021 <0.02; testosterone 11 01/10/2022 <0.02; testosterone 251 07/04/2022 <0.02; testosterone 315 01/09/2023 <0.02 01/08/2024 <0.02 ALLERGIES ALLERGIES No Known Allergies MEDICATIONS: Current Outpatient Medications: amiodarone (PACERONE) 200 mg tablet isosorbide mononitrate ER (IMDUR) 60 mg 24 hr tablet loratadine (CLARITIN) 10 mg tablet spironolactone (ALDACTONE) 25 mg tablet ELIQUIS 5 mg tab(s) aspirin-calcium [...] mcg tab valsartan (DIOVAN) 160 mg tablet PHYSICAL EXAM: GENERAL: elderly gentleman sitting in chair in no acute distress. VITALS: BP 170/80 Pulse 54 Temp (Src) 98.2 (Temporal) Resp 16 Wt 232 lb 5.8 oz (105.4kg) SpO2 98% KPS: 90 HEENT: NC/AT, anicteric sclera HEART: S1S2 LUNGS: non-labored breathing ABDOMEN: soft MUSCULOSKELETAL: no peripheral edema, moves all extremities. NEURO: no focal deficit; AANDO X3. ASSESSMENT AND PLAN: Mr. Juárez is a 73-year old gentleman with history of intermediate risk [...] consultation with my colleague Dr. Vu at [facility] on 07/30/2020 for consideration of salvage. His DECIPHER genomic risk assessment returned high risk and he received a 6 month Lupron shot on 10/30/2020 for concomitant ADT and completed a course of salvage radiation therapy to the prostate bed and pelvic lymph nodes on 01/14/2021 (7020 cGy in 39 fractions). Mr. Juárez is stable overall clinically approximately 3 years after completion of t his salvage radiation treatments to the prostate bed with some worsening of his obstructive symptoms which we will continue to monitor. He continues show excellent biochemical response as his most recent PSA drawn earlier this month on 01/08/2024 continues to remain undetectable at <0.02 ng/mL. I will plan to see him back in approximately 1 year (more content not included)...[facility]08-19-2024 History of Present illness Narrative* Galileo Delatorre MD - 01/22/2024 1:10 PM EDT Radiation Oncology - Follow Up Note PATIENT NAME: Amee Juárez PATIENT DIAGNOSIS/PATIENT IDENTIFICATION: Mr. Juárez is a 73-year old gentleman with history of intermediaterisk prostate adenocarcinoma in 2017 on with subsequent biopsy revealing GG5, +12/ cores, 90% on repeat bx in 2018. He is s/p prostatectomy on 07/20/2018, with final pathology revealing [place] 4 + 4 = 8 (grade group 4), pathologic stage T3a N0 Mx III, margins negative, EPE present , SVI absent, 0 LNs positive out of 10 LNs removed, post-op PSA initially detectable (PSA 0.03) and currently detectable (PSA 0.13). He has met in consultation with my colleague Dr. Vu at [facility] on 07/30/2020 for consideration of salvage. His DECIPHER genomic risk assessment returned high risk and he received a 6 month Lupron shot on 10/30/2020 for concomitant ADT and completed a course of salvageradiation therapy to the prostate bed and pelvic lymph nodes on 01/14/2021 (7020 cGy in 39 fractions). INTERVAL HISTORY: Mr. Juárez returns to clinic today for routine follow-up approximately three yearsafter the completion of his radiation treatments and one year since his last visit on 01/10/2024. In the interim, he has been doing well and denies any burning/discomfort with urination and notes nocturia once. He does note some issues with incomplete emptying and having to push to start a stream as well as a weaker stream. He denies any hematuria and has noted occasional incontinence overnight when he is overly fatigued. He is doing his pelvic floor exercises and does use a pad at night. He reports regular bowel movements without diarrhea or blood or pain and notes occasional nausea. His PSA drawn earlier this month on 01/08/2024 continues to remain undetectable at <0.02 ng/mL. Date PSA (ng/mL) 11/16/2016 4.16 01/17/2017 Bx (GS 3+4) 05/05/2017 4.58 10/04/2017 3.9 05/18/2018 Bx (GS 4+5) 07/20/2018 RP (GS 4+4,T3a,-SM,-SVI,+EPE) 08/30/2018 0.04 12/26/2018 0.03 08/15/2019 0.05 07/13/2020 0.13 10/30/2020 0.22; testosterone 341 01/14/2021 Completed salvage XRT 04/08/2021 <0.03; testosterone <7 07/09/2021 <0.02; testosterone 11 01/10/2022 <0.02; testosterone 251 07/04/2022 <0.02; testosterone 315 01/09/2023 <0.02 01/08/2024 <0.02 ALLERGIES ALLERGIES No Known Allergies MEDICATIONS: Current Outpatient Medications: amiodarone (PACERONE) 200 mg tablet isosorbide mononitrate ER (IMDUR) 60 mg 24 hr tablet loratadine (CLARITIN) 10 mg tablet spironolactone (ALDACTONE) 25 mg tablet ELIQUIS 5 mg tab(s) aspirin-calcium [...] mcg tab valsartan (DIOVAN) 160 mg tablet PHYSICAL EXAM: GENERAL: elderly gentleman sitting in chair in no acute distress. VITALS: BP 170/80 Pulse 54 Temp (Src) 98.2 (Temporal) Resp 16 Wt 232 lb 5.8 oz (105.4kg) SpO2 98% KPS: 90 HEENT: NC/AT, anicteric sclera HEART: S1S2 LUNGS: non-labored breathing ABDOMEN: soft MUSCULOSKELETAL: no peripheral edema, moves all extremities. NEURO: no focal deficit; A&O X3. ASSESSMENT AND PLAN: Mr. 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 He is s/p prostatectomy on 07/20/2018, with final pathology revealing [place] 4 + 4 = 8 (grade group 4), pathologic stage T3a N0 Mx III, margins negative, EPE present , SVI absent, 0 LNs positive out of 10 LNs removed, post-op PSA initially detectable (PSA 0.03) and currently detectable (PSA 0.13). He has met in consultation with my colleague Dr. Vu at [facility] on 07/30/2020 for consideration of salvage. His DECIPHER genomic risk assessment returned high risk and he received a 6 month Lupron shot on 10/30/2020 for concomitant ADT and completed a course of salvage radiation therapy to the prostate bed and pelvic lymph nodes on 01/14/2021 (7020 cGy in 39 fractions). Mr. Juárez is stable overall clinically approximately 3 years after completion of t his salvage radiation treatments to the prostate bed with some worsening of his obstructive symptoms which we will continue to monitor. He continues show excellent biochemical response as his most recent PSA drawn earlier this month on 01/08/2024 continues to remain undetectable at <0.02 ng/mL. I will plan to see him back in approximately 1 year with repeat PSA. The patient is aware to contact the clinic in the interim should any questions or concerns arise. Thank you for allowing us to participate in the careof this patient. Signed by: Galileo Delatorre MD I spent a total of 20 minutes on the date of the service which included preparing to see the patient, [id number] patient care, and counseling and educating the patient/family/caregiver. This document has been created with the use of voice recognition technology. It may contain inaccuracies, misspellings, inaccurate syntax or inappropriate word context that are a result of the inadequacies/shortcomings of said technology/software. documented in this encounterAdena [facility] Center08-05-2024 Telephone encounter Note * Telephone Encounter - Riky Cope LPN - 01/08/2024 9:43 AM EDT Please sign pended PSA order. Patient is here waiting to have lab drawn. Riky Cope RN [facility]08-05-2024 Miscellaneous Notes* Telephone Encounter - Riky Cope LPN - 01/08/2024 9:43 AM EDT Please sign pended PSA order. Patient is here waiting to have lab drawn. Riky Cope RN documented in this encounterAdena Regional Medical Center04-11-2024 Evaluation + Plan note* Assessment & Plan Note - TEJ Anguiano - 09/14/2023 11:59 AM EDT Associated Problem(s): Cardiac and Vasculature August 2022 TTE LVEF 65 to 70% LVH mild Left atrium mildly dilated [facility] Work Phone: 1([phone]) 598-999004-11-2024 Miscellaneous Notes* Assessment & Plan Note - TEJ Anguiano - 09/14/2023 11:59 AM EDTAssociated Problem(s): Cardiac and Vasculature August 2022 TTE LVEF 65 to 70% LVH mild Left atrium mildly dilated * Assessment & Plan Note - TEJ Anguiano - 09/14/2023 11:58 AM EDT Associated Problem(s): BMI 33.0-33.9,adult Reviewed the merits of healthy lifestyle choices on overall cardiovascular health. * Assessment & Plan Note - TEJ Anguiano - 09/14/2023 11:58 AM EDT Associated Problem(s): assisted current use of anticoagulant therapy CHADS VASc 5 anticoagulated full dose Eliquis age 72, weight 244 Denies bleeding diatheses * Assessment & Plan Note - TEJ Anguiano - 09/14/2023 11:57 AM EDT Associated Problem(s): Paroxysmal atrial flutter (CMS/HCC) Identified June 2023 office visit and amiodarone increased 400 mg daily. July 25, 2023 uneventful cardioversion with adventism of normal sinus rhythm. EKG in office today maintaining sinus rhythm * Assessment & Plan Note - TEJ Anguiano - 09/14/2023 11:57 AM EDT Associated Problem(s): Hyperlipidemia High intensity statin Reports annual lab * Assessment & Plan Note - TEJ Anguiano - 09/14/2023 11:57 AM EDT Associated Problem(s): Essential hypertension, benign Optimal in office * Assessment & Plan Note - TEJ Anguiano - 09/14/2023 11:56 AM EDT Associated Problem(s): ASHD (arteriosclerotic heart disease) 2020 PCI July 2021 perfusion study no ischemia Had 1 episode of nonexertional chest pain approximately 3 weeks ago requiring 2 nitroglycerin. Was then seen in local emergency department and diagnosed with bronchitis . Current daily activity greater than 4 METS without concerning symptoms. * Assessment & Plan Note - TEJ Anguiano - 09/14/2023 11:56 AM EDT Associated Problem(s): High risk medication use Amiodarone QTc in office 462 Surveillance testing completed June 2023 documented in this encounterLouis [facility] Work Phone: [phone]) 783-262504-11-2024 Evaluation + Plan note* Assessment & Plan Note - TEJ Anguiano - 09/14/2023 11:58 AM EDTAssociated Problem(s): BMI 33.0-33.9,adult Reviewed the merits of healthy lifestyle choices on overall cardiovascular health. [facility] Work Phone: 1(687) 200-207104-11-2024 Evaluation + Plan note* Assessment & Plan Note - TEJ Anguiano - 09/14/2023 11:58 AM EDTAssociated Problem(s): assisted current use of anticoagulant therapy CHADS VASc 5 anticoagulated full dose Eliqulesly age 72, weight 244 Denies bleeding diatheses [facility] Work Phone: 1([phone]) 656-403804-11-2024 Evaluation + Plan note* Assessment & Plan Note - TEJ Anguiano - 09/14/2023 11:57 AM EDTAssociated Problem(s): Paroxysmal atrial flutter (CMS/HCC) Identified June 2023 office visit and amiodarone increased 400 mg daily. July 25, 2023 uneventful cardioversion with adventism of normal sinus rhythm. EKG in office today maintaining sinus rhythm [facility] Work Phone: 1(859) 898-556604-11-2024 Evaluation + Plan note* Assessment & Plan Note - TEJ Anguiano - 09/14/2023 11:57 AM EDTAssociated Problem(s): Hyperlipidemia High intensity statin Reports annual lab [facility] Work Phone: 1(690) 450-930404-11-2024 Evaluation + Plan note* Assessment & Plan Note - TEJ Anguiano - 09/14/2023 11:57 AM EDTAssociated Problem(s): Essential hypertension, benign Optimal in office [facility] Work Phone: [phone]) 817-243704-11-2024 Evaluation + Plan note* Assessment & Plan Note - TEJ Anguiano - 09/14/2023 11:56 AM EDTAssociated Problem(s): ASHD (arteriosclerotic heart disease) 2020 PCI July 2021 perfusion study no ischemia Had 1 episode of nonexertional chest pain approximately 3 weeks ago requiring 2 nitroglycerin. Was then seen in local emergency department and diagnosed with bronchitis . Current daily activity greater than 4 METS without concerning symptoms. [facility] Work Phone: 1(523) 690-681104-11-2024 Evaluation + Plan note* Assessment & Plan Note - TEJ Anguiano - 09/14/2023 11:56 AM EDTAssociated Problem(s): High risk medication use Amiodarone QTc in office 462 Surveillance testing completed June 2023 [facility] Work Phone: [phone]) 456-267304-10-2024 History of Present illness Narrative* TEJ Anguiano - 09/13/2023 10:00 AM EDT Chief Complaint Seem to be okay Reason for Visit Patient presents to the office today for outpatient follow-up for cardiovascular procedure follow-up. Last evaluated in clinic by Dr. Dutta June 2023. At that time noted to have recurrent atrial flutter, amiodarone intensified. July 25, 2023 uneventful cardioversion with adventism normal sinus rhythm. Presents today ambulatory with steady gait. Accompanied by patient Patient denies any hospitalizations or significant changes to interval medical history since last office follow-up. History of Present Illness Patient very pleasant 72 old gentleman who presents to the office today without voiced cardiovascular concerns. He reports that with A-fib flutter he can always feel like something is not right anddenies any type of recurrence following cardioversion. He reports 3 weeks ago he had nonexertional chest pain into his left arm. I believe he took 2 nitroglycerin, eventually evaluated in the emergency department told he had bronchitis. From an activity standpoint he walks his dogs. Push mows his lawn with a self-propelled mower, has no stairs at home. He denies any exertional chest pain. Ambulated in from the parking lot without concerns. Patient reports that overall has no complaint(s) of chest pain, chest pressure/discomfort, claudication, dyspnea, exertional chest pressure/discomfort, fatigue, irregular heart beat, lower extremity edema, and near-syncope Daily activity: Walks dog, ADLs, push mows lawn with self-propelled mower. Denies any change in exercise capacity or functional tolerance since last office visit. The importance of secondary prevention reviewed: HTN: Optimal HLD: Treated DM: Denies Smoker: Denies BMI: Reviewed the merits of healthy lifestyle choices on overall cardiovascular health. Overall patient is pleased with current state of cardiovascular health. At this time there are no indications for additional cardiovascular testing and dose of amiodarone will be reduced to maintenance dosing of 200 mg daily. Discussed the dynamic nature of coronary artery disease and the importance of seeking medical attention if new symptoms arise. Review of Systems Cardiovascular: Negative for chest pain, dyspnea on exertion, irregular heartbeat, leg swelling, near-syncope, orthopnea, palpitations, paroxysmal nocturnal dyspnea and syncope. Visit Vitals BP 138/72 (BP Location: Left arm, Patient Position: Sitting) Pulse 60 Ht 1.829 m (6') Wt 111 kg (244 lb) BMI 33.09 kg/m Smoking Status Former BSA 2.37 m Physical Exam Vitals and nursing note reviewed. Constitutional: Appearance: Normal appearance. Cardiovascular: Rate and Rhythm: Normal rate and regular rhythm. Heart sounds: Normal heart sounds. Pulmonary: Effort: Pulmonary effort is normal. Breath sounds: Normal breath sounds. Musculoskeletal: Cervical back: Full passive range of motion without pain. Right lower leg: No edema. Left lower leg: No edema. Skin: General: Skin is cool. Neurological: Mental Status: He is alert and oriented to person, place, and time. Psychiatric: Attention and Perception: Attention normal. Mood and Affect: Mood normal. Behavior: Behavior is cooperative. Allergies Allergen Reactions Norvasc [Amlodipine] Other edema Current Outpatient Medications Medication Instructions albuterol 2.5 mg /3 mL (0.083 %) nebulizer solution 3 mL, 4 times daily PRN amiodarone (PACERONE) 200 mg, oral, Daily apixaban (Eliquis) 5 mg tablet 1 tablet, oral, 2 times daily aspirin 81 mg EC tablet 1 tablet, oral, Daily atorvastatin (Lipitor) 80 mg tablet 1 tablet, oral, Nightly budesonide-formoteroL (Symbicort) 160-4.5 mcg/actuation inhaler 2 puffs, inhalation, 2 times daily,RINSE MOUTH AFTER USE.
buPROPion SR (WELLBUTRIN SR) 150 mg, oral, As needed carbidopa-levodopa (Sinemet) 25-100 mg tablet 1 tablet, oral, 2 times daily carvedilol (COREG) 6.25 mg, oral, 2 times daily hydroCHLOROthiazide (MICROZIDE) 12.5 mg, oral, Daily HYDROcodone-acetaminophen (O[place]) 5-325 mg tablet 1 tablet, oral, Every 6 hours PRN isosorbide mononitrate ER (IMDUR) 30 mg, oral, Daily loratadine-pseudoephedrine (Claritin-D 24-hour) 10-240 mg 24 hr tablet 1 tablet, oral, Daily PRN nitroglycerin (NITROSTAT) 0.4 mg, sublingual, Every 5 min PRN,
PLACE 1 TABLET UNDER TONGUE EVRY 5 MINS X3 DOSES NEEDED FOR CHEST PAIN *CALL 911 IF PAIN PERSISTS
roflumilast (Daliresp) 500 mcg tablet 1 tablet, oral, Daily spironolactone (ALDACTONE) 25 mg, oral, Daily valsartan (DIOVAN) 160 mg, oral, 2 times daily, FOR BLOOD PRESSURE.
Assessment: High risk medication use Amiodarone QTc in office 462 Surveillance testing completed June 2023 ASHD (arteriosclerotic heart disease) 2020 PCI July 2021 perfusion study no ischemia Had 1 episode of nonexertional chest pain approximately 3 weeks ago requiring 2 nitroglycerin. Was then seen in local emergency department and diagnosed with bronchitis . Current daily activity greater than 4 METS without concerning symptoms. Essential hypertension, benign Optimal in office Hyperlipidemia High intensity statin Reports annual lab Paroxysmal atrial flutter (CMS/HCC) Identified June 2023 office visit and amiodarone increased 400 mg daily. July 25, 2023 uneventful cardioversion with adventism of normal sinus rhythm. 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 Cardiac and Vasculature August 2022 TTE LVEF 65 to 70% LVH mild Left atrium mildly dilated Plan: Through informed decision making process incorporating patients unique circumstances, the followingtreatment plan will be initiated: 1. Prescription drug management of cardiovascular medication for efficacy, adherence to treatment, side effect assessment and polypharmacy. Current treatment clinically warranted and to continue withfollowing modifications: - Reduce amiodarone 200mg once daily 2. Discussed the dynamic nature of coronary artery disease and the importance of seeking medical attention if new symptoms arise. 3. Return for follow-up; in the interim, contact the office if new symptoms arise. Dr. Dutta 6 months Vinicius Juárez MSN, INSPECTOR AND CLIPPER-SERVICE COUNTER CASHIER, PMHNP-[facility] Please excuse any errors in grammar or translation related to this dictation. Voice recognition software was utilized to prepare this document. documented in this encounterLouis [facility] Work Phone: 1([phone]) 373-978104-10-2024 Instructions* Patient Instructions* TEJ Anguiano - 09/13/2023 10:00 AM EDT Please bring all medicines, vitamins, and herbal supplements with you when you come to the office. Prescriptions will not be filled unless you are compliant with your follow up appointments or have a follow up appointment scheduled as per instruction of your physician. Refills should be requested at the time of your visit. EKG done in office today PLAN: Through informed decision making process incorporating patients unique circumstances, the followingtreatment plan will be initiated: 1. Prescription drug management of cardiovascular medication for efficacy, adherence to treatment, side effect assessment and polypharmacy. Current treatment clinically warranted and to continue withfollowing modifications: - Reduce amiodarone 200mg once daily 2. Discussed the dynamic nature of coronary artery disease and the importance of seeking medical attention if new symptoms arise. 3. Return for follow-up; in the interim, contact the office if new symptoms arise. Dr. Dutta 6 months documented in this encounterLouis [facility] Work Phone: 1([phone]) 429-433304-02-2024 Miscellaneous Notes* Telephone Encounter - Chandni Prado - 09/05/2023 9:39 AM EDT Pt called to find out if he could use the last exam note at the [facility] for the eye exam? Please advise. Chandni Adrian * Telephone Encounter - Jesus Ricci MD - 09/05/2023 9:39 AM EDT We can document his vision in the exam for BMV purposes. He will likely need Visual Field testing that will need to be performed prior to filling out the form. Please call and let him know. Thanks! * Telephone Encounter - Chandni Prado - 09/05/2023 9:39 AM EDT Spoke to pt and gave him NSS's message. Pt would like to know if he can schedule with NSS for the visula field? Please advise. Chandni Adrian * Telephone Encounter - Jesus Ricci MD - 09/05/2023 9:39 AM EDT Unfortunately he will need to schedule to VF with his lithographic printing machinist. Please call and let him know. Thanks * Telephone Encounter - Chandni Prado - 09/05/2023 9:39 AM EDT LDVM to schedule with OD [facility] Telephone encounter Note* Telephone Encounter - Chandni Prado - 09/05/2023 9:39 AM EDT Pt called to find out if he could use the last exam note at the [facility] for the eye exam? Please advise. Chandni Adrian [facility]04-02-2024 Telephone encounter Note* Telephone Encounter - Jesus Ricci MD - 09/05/2023 9:39 AM EDT We can document his vision in the exam for BMV purposes. He will likely need Visual Field testing that will need to be performed prior to filling out the form. Please call and let him know. Thanks! [facility] Crispy Gamer [id number] Telephone encounter Note* Telephone Encounter - Chandni Prado - 09/05/2023 9:39 AM EDT Spoke to pt and gave him NSS's message. Pt would like to know if he can schedule with NSS for the visula field? Please advise. Chandni Adrian [facility]04-02-2024 Telephone encounter Note* Telephone Encounter - Jesus Ricci MD - 09/05/2023 9:39 AM EDT Unfortunately he will need to schedule to VF with his lithographic printing machinist. Please call and let him know. Thanks [facility]04-02-2024 Telephone encounter Note* Telephone Encounter - Chandni Prado - 09/05/2023 9:39 AM EDT [facility] to schedule with OD [facility]02[facility]20[facility] History of Present illness Narrative* Jose Dutta, - 07/05/2023 10:10 AM EST Subjective Amee Juárez is a 72 y.o. [...] daily, proceed with cardioversion in the next 2weeks and follow-up thereafterwards if in fact cardioversion does not work or fails to work in the future with recurrent A- fib/flutter then we will consider referral for ablation. [...] by mouth once daily at bedtime., Disp: ,Rfl: budesonide-formoteroL (Symbicort) 160-4.5 mcg/actuation inhaler, Inhale 2 puffs 2 times a day. RINSE MOUTH AFTER USE., Disp: , Rfl: buPROPion SR (Wellbutrin SR) 150 mg 12 hr tablet, Take 1 tablet (150 mg) by mouth if needed., Disp:, Rfl: carbidopa-levodopa (Sinemet) 25-100 mg tablet, Take [...] DAY, Disp: 90 capsule, Rfl: 1 HYDROcodone-acetaminophen ([place]) 5-325 mg tablet, Take 1 tablet by mouth every 6 hours if needed (pain)., Disp: , Rfl: isosorbide mononitrate ER (Imdur) 30 mg 24 hr tablet, Take 1 tablet (30 mg) by mouth once daily., Disp: , Rfl: loratadine-pseudoephedrine (Claritin-D 24-hour) 10-240 mg 24 hr tablet, Take 1 tablet by mouth oncedaily as needed., Disp: , Rfl: nitroglycerin (Nitrostat) [...] by mouth twice a day. FOR BLOOD PRESSURE.,Disp: , Rfl: Assessment/Plan 1. ASHD (arteriosclerotic heart disease) 2. History of PTCA 3. Persistent atrial fibrillation (CMS/HCC) 4. Essential hypertension, benign 5. History of myocardial infarction 6. Hyperlipidemia, unspecified hyperlipidemia type 7. Former smoker 8. High risk medication use Scribe Attestation By signing my name below, IConchis LPN , Scribjeremiah attest that this documentation has been prepared under the direction and in the presence of Asaf Dutta DO. b documented in this encounterLouis Stokes [facility] Work Phone: 1(138) 961-344001-31-2024 Instructions* Patient Instructions* Conchis Sanders LPN - 07/05/2023 10:10 AM [...] follow up per routine documented in this encounterLouis Stokes [facility] Work Phone: 1(143) 134-973601-30-2024 NoteRight Eye Quality was good. Scan locations included [...] implant. Follow up actions include continue present management.MANUALLY TRANSCRIBED RESULTS 07-04-2023 NoteRight Eye Quality was good. Scan locations included [...] implant. Follow up actions include continue present management.MANUALLY TRANSCRIBED RESULTS 07-04-2023 History of Present illness Narrative* Jesus Ricci MD - 07/04/2023 10:00 AM EST Chronic Cystoid Macular Edema BOTH EYES - [...] Left Eye - s/p PPV/EL/AFx/C3F8 (04/02/2019) at [facility] for Macula Off Retinal Detachment - s/p PPV/MP (04/21/2019) at [facility] - Remote History of Branch Retinal Vein Occlusion - (08/07/2019-appointment at [facility] with Dr Tere Samuels MD) OCT shows attached retina, but chronic changes, EZ disruption and IRF; Notes has been receiving STK injections; discussed guarded prognosis and reasonable to continue STK injections for persistent edema - Had been receiving STK injections at [facility] (last treatment was 2 years ago) - [...] Four times a day. Also has Posterior CapsularOpacity Left Eye and could consider Yag Left [...] for and in the presence of Jesus Ricci MD by Kailey Hawthorne 07/04/23 I, Jesus Ricci MD, personally performed the services described in the documentation, as scribed by BOBBI Carter in my presence, and it is both accurate and complete. 07/04/23 documented in this encounterUC Medical Centerfarmaciamarket [facility] [id number] Evaluation note* Encounter Date Diagnosis Assessment Notes Treatment Notes Treatment Clinical Notes Jun, Asthma with COPD (ICD-10 - J44.9) Call office when you are on your last symbicort...Will send script in for Advair at that time. Jun, Seasonal allergies (ICD-10 - J30.2) [facility] Other 09-22-2023 NoteHNO ID: [id number] Author: Francisco Claire MD Service: ? Author [...] Oral Q4H April 30, 2018 3:31pm 04-30-2018 [facility] ([id number]) albuterol (PROVENTIL) 2.5 mg /3 mL (0.083 %) nebulizer solution Use 2.5 mg via nebulizer every 4 hours as needed. SYMBICORT 160-4.5 mcg/actuation inhaler TAKE 2 PUFFS BY MOUTH TWICE A DAY*RINSE MOUTH AFTER USE* FLUZONE HIGH-DOSE 2018-, PF, 180 mcg/0.5 mL [...] or thyroid masses or enlargement. Francisco Claire [facility]09-22-2023 History of Present illness Narrative* Francisco Claire [...] Oral Q4H April 30, 2018 3:31pm 04-30-2018 [facility] ([id number]) albuterol (PROVENTIL) 2.5 mg /3 mL (0.083 %) nebulizer solution Use 2.5 mg via nebulizer every 4 hours as needed. SYMBICORT 160-4.5 mcg/actuation inhaler TAKE 2 PUFFS BY MOUTH TWICE A DAY*RINSE MOUTH AFTER USE* FLUZONE HIGH-DOSE 2017-19, PF, 180 mcg/0.5 mL [...] Patient is a non-smoker documented in this encounterAdena [facility]09-22-2023 Instructions* Patient Instructions* Francisco Claire MD - 02/24/2023 11:15 AM EDT Images from the original note were not included. documented in this encounterAdena Regional Medical Center09-22-2023 NoteHNO ID: [id number] Author: Lisa Falcon Service: ? Author Type: ? Type: Progress Notes Filed: 02/24/2023 11:25 AM Note Text: Tobacco Use: Types: Cigarettes Was smoking cessation packet given? N/A - Patient is a non-smoker or quit >1 year ago. Was a referral initiated?N/A [facility] Miscellaneous Notes* Telephone Encounter - Erin Verma LSW - 01/24/2023 10:18 AM EDT SOCIAL WORK FOLLOW UP NOTE: [facility] Date of service:01/24/23 TOPICS ADDRESSED: community resources PLAN: Continue follow up as needed Assigned SW listed in Care Team tab: Yes SW received a call from Kailey at [facility] stating that the Patient's insurance is not accepted at their location ([place] locations: [place] & [place]). SWasked if the Patient can go to the [facility] for services and was told no . Patient must receive services within the [facility] that he resides. Kailey suggested that this SW refer the Patient to [facility]. SW called [facility] and left a VM that a referralwas being sent over for this Patient for counseling and Psychiatry. SW will remain available and will follow up as appropriate. VANESSA Donis documented in this encounterAdena Regional Medical Center08-09-2023 History of Present illness Narrative* Erin Verma LSW - 01/11/2023 9:02 AM EDT SOCIAL WORK FOLLOW UP NOTE: [facility] Date of service:01/10/23 TOPICS ADDRESSED: mental health needs, community resources, and referral to [facility] Services for Psychiatry and Behavioral Health needs. PLAN: Continue follow up as needed Assigned SW listed in Care Team tab: Yes SW faxed over a referral to [facility] for Psychiatry and Behavioral Health services. Counts Include [address] [facility] will reach out to this Patient to discuss services and to set up an appointment. VANESSA Donis documented in this encounterAdena Regional Medical Center08-07-2023 History of Present illness Narrative* Erin Verma LSW - 01/09/2023 1:34 PM EDT Assessment Completed SOCIAL WORK DISTRESS ASSESSMENT Referral made due to:High distress and Suicidal Ideation Contact was made: [id number] Problems Addressed: Practical: Transportation and Treatment decisions/concerns [...] Resources and Referrals: Internal: NA External: Other Barney, RN pended orders psychiatry and behavorial health. [...] available and will ffollow up as appropriate. Erin Bayron, EXTENSION AGENT-S documented in this encounterAdena Regional Medical Center08-07-2023 Miscellaneous Notes* Telephone Encounter - Estella Mcmullen - 01/09/2023 11:11 AM EDT [facility] to call patient to schedule PT. documented in this encounterAdena Regional Medical Center08-07-2023 History of Present illness Narrative* Galileo Delatorre [...] consultation with my colleague Dr. Vu at [facility] on 07/30/2020 for consideration of salvage. [...] of depression/worthlessness and spoke to our social sciences instructor/counselor today about exploring further options to help [...] prostatectomy on 07/20/2018, with final pathology revealing Standish 4 + 4 = 8 (grade group 4), pathologic stage T3a N0 Mx III, margins negative, EPE present , SVI absent, 0 LNs positive out of 10 LNs removed, post-op PSA initially detectable (PSA 0.03) and currently detectable (PSA 0.13). He has met in consultation with my colleague Dr. Vu at [facility] on 07/30/2020 for consideration of salvage. [...] He spoke in detail with our social sciences instructor/counselor Erin and indicated interest in following up with additional resources to help address these issues. Signed by: Galileo Delatorre MD I spent a total of 20 minutes on the date of the service which included preparing to see the patient, [id number] patient care, and counseling and educating the patient/family/caregiver. This document has been created with the use of voice recognition technology. It may contain inaccuracies, misspellings, inaccurate syntax or inappropriate word context that are a result of the inadequacies/shortcomings of said technology/software. documented in this encounterAdena Regional Medical Center08-04-2023 Miscellaneous Notes* Telephone Encounter - Riky Cope LPN - 01/06/2023 11:35 AM EDT I left a message reminding Lenard that he needs to have a PSA drawn prior to his office visit on 01/09/23. Riky Cope LPN documented in this encounterAdena Regional Medical Center06-29-2023 Evaluation note* Encounter Date Diagnosis Assessment Notes Treatment Notes Treatment Clinical Notes Nov, Asthma with COPD (ICD-10 - J44.9) Nov, Seasonal allergies (ICD-10 - J30.2) Nov, Lung nodule < 6cm on CT (ICD-10 - R91.1) [facility] Other 02-10-2023 Miscellaneous Notes* Telephone Encounter - SLOANE Donis - 07/15/2022 4:00 PM EST Unable To Reach Patient Second attempt to reach Patient to follow up on the [facility] [facility] SW Report. SW will remain availableand will follow up as appropriate. VANESSA Donis documented in this encounterAdena Regional Medical Center02-08-2023 Miscellaneous Notes* Telephone Encounter - SLOANE Donis - 07/13/2022 3:24 PM EST Unable To Reach Patient SOCIAL WORK FOLLOW UP NOTE[facility] Date of service:07/13/22 PLAN: Continue follow up as needed Assigned SW listed in Care Team tab: No Patient appears on the [employer] SW report for a NCCN score of [...] severe depression VANESSA Donis documented in this encounterAdena Regional Medical Center02-06-2023 History of Present illness Narrative* Galileo Delatorre MD - 07/11/2022 11:24 PM EST Radiation Oncology - Follow Up Note PATIENT NAME: Amee Juárez PATIENT Signed by: Galileo Delatorre MD I spent a total of 20 minutes on the date of the service which included preparing to see the patient, [id number] patient care, and counseling and educating the patient/family/caregiver. This document has been created with the use of voice recognition technology. It may contain inaccuracies, misspellings, inaccurate syntax or inappropriate word context that are a result of the inadequacies/shortcomings of said technology/software. documented in this encounterAdena Regional Medical Center12-15-2022 Evaluation note* Encounter Date Diagnosis Assessment Notes Treatment Notes Treatment Clinical Notes May, Asthma with COPD (ICD-10 - J44.9) May, Seasonal allergies (ICD-10 - J30.2) May, Lung nodule < 6cm on CT (ICD-10 - R91.1) RLL nodule has been stable since 2017. No further chest CT needed at this time. [facility] Other 06-16-2022 Evaluation note* Encounter Date Diagnosis Assessment Notes Treatment Notes Treatment Clinical Notes Nov, Asthma with COPD (ICD-10 - J44.9) Nov, Seasonal allergies (ICD-10 - J30.2) Nov, Lung nodule < 6cm on CT (ICD-10 - R91.1) [employer] Other 05-16-2022 Miscellaneous Notes* Telephone Encounter - Debby Rosario Pss - 10/18/2021 11:03 AM EDT Patient: Amee Juárez Date of : 1950 Patient phone number: [phone] Referring Provider for the encounter: Kailey Louise CNP Requesting Provider: anyone Reason for requesting visit (RFV/signs and symptoms/diagnosis): CAD Person calling: self Return call to: self Medical Records/Insurance Card scanned into [employer]: No Comments: [facility] ECG Post Procedure-[facility] [address] [place] Work Phone: [phone]:[facility] ECG Post Procedure [facility] [address] [place] Work Phone: 1(219) 749-332910-27-2021 [id number] ECG Post Procedure -[facility]-[place] [address] [place] Work Phone: [phone]) 401-363110-25-2021 [facility] COVID-19 FRMCNegative (Normal) Range:Negative Comments:Testing for SARS-CoV-2 by RT-PCR This test was developed and its performance characteristics determined by [employer] (BD) and validated at the [facility]. This test has not been FDA [...] the authorization is terminated or revoked sooner.PERFORMED BY:[facility] [place], [place] [phone] MEDICAL DIRECTORPRAVIN WILKERSON M.D. [facility] [address] [place] [address] Work Phone: Comment on above:Testing for SARS-CoV-2 by RT-PCR This test was developed and its performance characteristics determined by [employer] (BD) and validated at the [facility]. This test has not been FDA [...] the authorization is terminated or revoked sooner.PERFORMED BY:[place] [address] [place], [place] [phone] MEDICAL DIRECTORPRAVIN WILKERSON M.D. 03-29-2021 NoteFR COVID-19 FRMCNegative (Normal)Range:Negative Comments:Testing for SARS-CoV-2 by RT-PCR This test was developed and its performance characteristics determined by [employer] ([employer]) and validated at the [facility]. This test has not been FDA [...] the authorization is terminated or revoked sooner.PERFORMED BY:[place] [address] [place], [place] [phone] MEDICAL DIRECTORPRAVIN WILKERSON M.D. [place] [address] [place] Work Phone: Comment on above:Testing for SARS-CoV-2 by RT-PCR This test was developed and its performance characteristics determined by [employer] (BD) and validated at the [facility]. This test has not been FDA [...] the authorization is terminated or revoked sooner.PERFORMED BY:[place] [address] [place], [place] [phone] MEDICAL DIRECTORPRAVIN WILKERSON M.D. 03-29-2021 NoteFR COVID-19 FRMCNegative (Normal)Range:Negative Comments:Testing for SARS-CoV-2 by RT-PCR This test was developed and its performance characteristics determined by [employer] (99inn[employer]cc) and validated at the [facility]. This test has not been FDA [...] the authorization is terminated or revoked sooner.PERFORMED BY:[place] [id number] [place], [place] [phone] MEDICAL DIRECTORPRAVIN WILKERSON M.D. [facility] DO Work Phone: Comment on above:Testing for SARS-CoV-2 by RT-PCR This test was developed and its performance characteristics determined by [email or web address] (99inn.cc) and validated at the [facility]. This test has not been FDA [...] the authorization is terminated or revoked sooner.PERFORMED BY:[place] [id number] [place] [place], [place] [phone] MEDICAL DIRECTORPRAVIN WILKERSON M.D. 01-19-2021 History of [...] time was spent with patient performing the medical records technician work of this visit. Referring Physician: [...] an as needed basis. Susan Espitia MD Seasoning Sprayer of Oculoplastic Surgery [facility] [place] . documented [facility] NoteProcedure date: 08/28/2020. Right Eye Quality was good. Findings include normal foveal contour. Interval change is same. Recommendation for management is to observe. Left Eye Quality was good. Findings include cystoid macular edema, epiretinal membrane, inner retinal layer disruption, outer retinal layer disruption. Interval change is same. Recommendation for management is to observe.[facility]03-26-2021 NoteProcedure date: 08/28/2020. Right Eye Garrison ring. Disc findings include normal observations. Vessel findings include normal. Macula findings include RPE mottling. Retinal Tear. Interval change is baseline. Recommendation for management is to schedule surgery. Left Eye Hazy. Disc findings include pallor. Vessel findings include sclerotic. Macula findings include atrophy. Laser. Interval change is baseline. Recommendation for management is to observe.[facility]02-13-2021 NoteProcedure date: 07/17/2020. Right Eye Garrison ring. Disc findings include normal observations. Vessel findings include normal. Macula findings include RPE mottling. Normal. Interval change is baseline. Recommendation for management is to schedule surgery. Left Eye Hazy. Disc findings include pallor. Vessel findings include normal. Macula findings include atrophy. Laser. Interval change is baseline. Recommendation for management is to observe.[facility]02-13-2021 NoteProcedure date: 07/17/2020. Right Eye Quality was good. Findings include normal observations. Interval change is baseline. Recommendation for management is to observe. Left Eye Quality was good. Findings include cystoid macular edema, epiretinal membrane, inner retinal layer disruption, outer retinal layer disruption. Interval change is baseline. Recommendation for management is to observe.[facility]02-12-2021 NoteRetinopexy Laser Right Eye (OD)- OPHTHALMOLOGY PROCEDURE NOTE PROCEDURE PERFORMED BY: Justina Marie MD/ Justina Alcazar MD TRAINING FACILITATOR(S): None ATTENDING: Justina Marie MD PROCEDURE DATE: [...] THIS PROCEDURE REQUIRE A UNIVERSAL PROTOCOL? Yes. [place] Protocol is required Preprocedure verification is complete [...] well, there were no complications. Justina Marie MDGreen Cross HospitalEvaluation note* Diagnosis Postoperative visit- Primary documented [facility] encounter [facility] noteNo [email or web address] Other Evaluation noteNo assessment information [facility] Work Phone: Evaluation note* Diagnosis Prostate cancer (HCC)- Primary Malignant neoplasm of prostate [facility] Diagnosis Prostate cancer (HCC)- Primary Malignant neoplasm of prostate Urinary incontinence, unspecified type [facility]* Diagnosis SHUKRI (obstructive sleep apnea)- Primary Obstructive sleep apnea (adult) (pediatric) documented [facility] this [facility]* Diagnosis 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 Epiretinal membrane (ERM) of left eye 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 Epiretinal membrane (ERM) of left eye 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 [facility]* Diagnosis ASHD (arteriosclerotic heart disease) Coronary atherosclerosis of unspecified type of vessel, [place] or graft History of PTCA Postsurgical percutaneous transluminal coronary angioplasty status Persistent atrial fibrillation (CMS/HCC) Atrial fibrillation Essential hypertension, benign History of myocardial infarction Hyperlipidemia, unspecified hyperlipidemia type Former smoker Personal history of tobacco use, presenting hazards to health High risk medication use documented in this encounter [facility] Work Phone: Evaluation note* Diagnosis 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 Epiretinal membrane (ERM) of left eye 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 documented [facility] encounter [facility]* Diagnosis Atherosclerotic heart disease of [place] coronary artery without angina pectoris (CMS/HCC) [facility] Diagnosis Paroxysmal atrial flutter (CMS/HCC)- Primary 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 ASHD (arteriosclerotic heart disease) Coronary atherosclerosis of unspecified type of vessel, [place] or graft Essential hypertension, benign Mixed hyperlipidemia BMI 33.0-33.9,adult documented in this encounter [facility] Work Phone: Evaluation note* Diagnosis Onset Date Resolution Status Asthma with COPD acute COPD (chronic obstructive pulmonary disease) acute Seasonal allergies acute [facility] Work Phone: Evaluation note* Diagnosis Prostate cancer (HCC)- Primary Malignant neoplasm of prostate [facility] Diagnosis Prostate cancer (HCC)- Primary Malignant neoplasm of prostate [facility]* Diagnosis Acute URI- Primary Acute upper respiratory infections of unspecified site Class 1 obesity due to excess calories with serious comorbidity in adult, unspecified BMI Primary hypertension (CMS/HCC) Unspecified essential hypertension [facility]* Diagnosis Paroxysmal atrial flutter (Multi)- Primary 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 ASHD (arteriosclerotic heart disease) Coronary atherosclerosis of unspecified type of vessel, [place] or graft Essential hypertension, benign Mixed hyperlipidemia BMI 33.0-33.9,adult ASHD (arteriosclerotic heart disease) Coronary atherosclerosis of unspecified type of vessel, [place] or graft Paroxysmal atrial flutter (Multi) High risk medication use History of myocardial infarction History of PTCA Postsurgical percutaneous transluminal coronary angioplasty status Mixed hyperlipidemia History of CVA (cerebrovascular accident) Transient ischemic attack (TIA), and cerebral infarction without residual deficits BMI 30.0-30.9,adult Former smoker Personal history of tobacco use, presenting hazards to health documented in this encounter [facility] Work Phone: Evaluation note* Diagnosis Encounter for annual wellness visit (AWV) in Medicare patient- Primary SHUKRI (obstructive sleep apnea) Obstructive sleep apnea (adult) (pediatric) Chronic atrial fibrillation (HCC) (CMS/HCC) Atrial fibrillation COPD mixed type (CMS/HCC) Iron deficiency anemia secondary to inadequate dietary iron intake Primary hypertension (CMS/HCC) Unspecified essential hypertension Coronary artery disease of [place] artery of [place] heart with stable angina pectoris (CMS/HCC) Prostate cancer (CMS/HCC) Malignant neoplasm of prostate COPD mixed type (CMS/HCC)- Primary Paroxysmal atrial flutter (CMS/HCC) Primary hypertension (CMS/HCC) Unspecified essential hypertension Lower extremity edema Edema Class 1 obesity due to excess calories with serious comorbidity in adult, unspecified BMI Prostate cancer (CMS/HCC) Malignant neoplasm of prostate Primary hypertension (CMS/HCC)- Primary Unspecified essential hypertension Chronic kidney disease, stage 3 unspecified (HCC) (CMS/HCC) Asthma with COPD (CMS/HCC) 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) Chronic diastolic congestive heart failure (CMS/HCC) Lower extremity edema Edema Iron deficiency anemia secondary to inadequate dietary iron intake DDD (degenerative disc disease), lumbar Degeneration of lumbar or lumbosacral intervertebral disc Acute URI- Primary Acute upper respiratory infections of unspecified site Class 1 obesity due to excess calories with serious comorbidity in adult, unspecified BMI Primary hypertension (CMS/HCC) Unspecified essential hypertension COPD mixed type (CMS/HCC) [facility] Diagnosis Encounter for annual wellness visit (AWV) in Medicare patient- Primary SHUKRI (obstructive sleep apnea) Obstructive sleep apnea (adult) (pediatric) Chronic atrial fibrillation (HCC) (CMS/HCC) Atrial fibrillation COPD mixed type (CMS/HCC) Iron deficiency anemia secondary to inadequate dietary iron intake Primary hypertension (CMS/HCC) Unspecified essential hypertension Coronary artery disease of [place] artery of [place] heart with stable angina pectoris (CMS/HCC) Prostate cancer (CMS/HCC) Malignant neoplasm of prostate COPD mixed type (CMS/HCC)- Primary Paroxysmal atrial flutter (CMS/HCC) Primary hypertension (CMS/HCC) Unspecified essential hypertension Lower extremity edema Edema Class 1 obesity due to excess calories with serious comorbidity in adult, unspecified BMI Prostate cancer (CMS/HCC) Malignant neoplasm of prostate Primary hypertension (CMS/HCC)- Primary Unspecified essential hypertension Chronic kidney disease, stage 3 unspecified (HCC) (CMS/HCC) Asthma with COPD (CMS/HCC) 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) Chronic diastolic congestive heart failure (CMS/HCC) Lower extremity edema Edema Iron deficiency anemia secondary to inadequate dietary iron intake DDD (degenerative disc disease), lumbar Degeneration of lumbar or lumbosacral intervertebral disc Acute URI- Primary Acute upper respiratory infections of unspecified site Class 1 obesity due to excess calories with serious comorbidity in adult, unspecified BMI Primary hypertension (CMS/HCC) Unspecified essential hypertension COPD mixed type (CMS/HCC) documented in this encounter [facility]* Diagnosis Primary hypertension (CMS/HCC)- Primary Unspecified essential hypertension Chronic kidney disease, stage 3 unspecified (HCC) (CMS/HCC) Asthma with COPD (CMS/HCC) 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) Chronic diastolic congestive heart failure (CMS/HCC) Lower extremity edema Edema Iron deficiency anemia secondary to inadequate dietary iron intake DDD (degenerative disc disease), lumbar Degeneration of lumbar or lumbosacral intervertebral disc documented in this encounter [facility]* Diagnosis Encounter for annual wellness visit (AWV) in Medicare patient- Primary SHUKRI (obstructive sleep apnea) Obstructive sleep apnea (adult) (pediatric) Chronic atrial fibrillation (HCC) (CMS/HCC) Atrial fibrillation COPD mixed type (CMS/HCC) Iron deficiency anemia secondary to inadequate dietary iron intake Primary hypertension (CMS/HCC) Unspecified essential hypertension Coronary artery disease of [place] artery of [place] heart with stable angina pectoris (CMS/HCC) Prostate cancer (CMS/HCC) Malignant neoplasm of prostate COPD mixed type (CMS/HCC)- Primary Paroxysmal atrial flutter (CMS/HCC) Primary hypertension (CMS/HCC) Unspecified essential hypertension Lower extremity edema Edema Class 1 obesity due to excess calories with serious comorbidity in adult, unspecified BMI Prostate cancer (CMS/HCC) Malignant neoplasm of prostate Primary hypertension (CMS/HCC)- Primary Unspecified essential hypertension Chronic kidney disease, stage 3 unspecified (HCC) (CMS/HCC) Asthma with COPD (CMS/HCC) 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) Chronic diastolic congestive heart failure (CMS/HCC) Lower extremity edema Edema Iron deficiency anemia secondary to inadequate dietary iron intake DDD (degenerative disc disease), lumbar Degeneration of lumbar or lumbosacral intervertebral disc Acute URI- Primary Acute upper respiratory infections of unspecified site Class 1 obesity due to excess calories with serious comorbidity in adult, unspecified BMI Primary hypertension (CMS/HCC) Unspecified essential hypertension Primary hypertension (CMS/HCC) Unspecified essential hypertension Encounter for annual wellness visit (AWV) in Medicare patient- Primary SHUKRI (obstructive sleep apnea) Obstructive sleep apnea (adult) (pediatric) Asthma with COPD (CMS/HCC) Coronary artery disease of [place] artery of [place] heart with stable angina pectoris (CMS/HCC) Chronic diastolic congestive heart failure (CMS/HCC) Persistent atrial fibrillation (HCC) (CMS/HCC) Atrial fibrillation Primary hypertension (CMS/HCC) Unspecified essential hypertension Stage 3a chronic kidney disease (HCC) (CMS/HCC) Prostate cancer (CMS/HCC) Malignant neoplasm of prostate Class 1 obesity due to excess calories with serious comorbidity in adult, unspecified BMI Mixed hyperlipidemia (CMS/HCC) Mixed hyperlipidemia documented in this encounter [facility]* Diagnosis Encounter for annual wellness visit (AWV) in Medicare patient- Primary SHUKRI (obstructive sleep apnea) Obstructive sleep apnea (adult) (pediatric) Chronic atrial fibrillation (HCC) (CMS/HCC) Atrial fibrillation COPD mixed type (CMS/HCC) Iron deficiency anemia secondary to inadequate dietary iron intake Primary hypertension (CMS/HCC) Unspecified essential hypertension Coronary artery disease of [place] artery of [place] heart with stable angina pectoris (CMS/HCC) Prostate cancer (CMS/HCC) Malignant neoplasm of prostate COPD mixed type (CMS/HCC)- Primary Paroxysmal atrial flutter (CMS/HCC) Primary hypertension (CMS/HCC) Unspecified essential hypertension Lower extremity edema Edema Class 1 obesity due to excess calories with serious comorbidity in adult, unspecified BMI Prostate cancer (CMS/HCC) Malignant neoplasm of prostate Primary hypertension (CMS/HCC)- Primary Unspecified essential hypertension Chronic kidney disease, stage 3 unspecified (HCC) (CMS/HCC) Asthma with COPD (CMS/HCC) 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) Chronic diastolic congestive heart failure (CMS/HCC) Lower extremity edema Edema Iron deficiency anemia secondary to inadequate dietary iron intake DDD (degenerative disc disease), lumbar Degeneration of lumbar or lumbosacral intervertebral disc Acute URI- Primary Acute upper respiratory infections of unspecified site Class 1 obesity due to excess calories with serious comorbidity in adult, unspecified BMI Primary hypertension (CMS/HCC) Unspecified essential hypertension Encounter for annual wellness visit (AWV) in Medicare patient- Primary SHUKRI (obstructive sleep apnea) Obstructive sleep apnea (adult) (pediatric) Asthma with COPD (CMS/HCC) Coronary artery disease of [place] artery of [place] heart with stable angina pectoris (CMS/HCC) Chronic diastolic congestive heart failure (CMS/HCC) Persistent atrial fibrillation (HCC) (CMS/HCC) Atrial fibrillation Primary hypertension (CMS/HCC) Unspecified essential hypertension Stage 3a chronic kidney disease (HCC) (CMS/HCC) Prostate cancer (CMS/HCC) Malignant neoplasm of prostate Class 1 obesity due to excess calories with serious comorbidity in adult, unspecified BMI Mixed hyperlipidemia (CMS/HCC) Mixed hyperlipidemia Needs flu shot Need for prophylactic vaccination and inoculation against influenza Colon cancer screening Special screening for malignant neoplasms, colon documented in this encounter [facility] HealthcareEvaluation note* Diagnosis 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 [facility] Diagnosis 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 [facility]* Diagnosis Encounter for annual wellness visit (AWV) in Medicare patient- Primary SHUKRI (obstructive sleep apnea) Obstructive sleep apnea (adult) (pediatric) Chronic atrial fibrillation (HCC) (CMS/HCC) Atrial fibrillation COPD mixed type (CMS/HCC) Iron deficiency anemia secondary to inadequate dietary iron intake Primary hypertension (CMS/HCC) Unspecified essential hypertension Coronary artery disease of [place] artery of [place] heart with stable angina pectoris (CMS/HCC) Prostate cancer (CMS/HCC) Malignant neoplasm of prostate COPD mixed type (CMS/HCC)- Primary Paroxysmal atrial flutter (CMS/HCC) Primary hypertension (CMS/HCC) Unspecified essential hypertension Lower extremity edema Edema Class 1 obesity due to excess calories with serious comorbidity in adult, unspecified BMI Prostate cancer (CMS/HCC) Malignant neoplasm of prostate Primary hypertension (CMS/HCC)- Primary Unspecified essential hypertension Chronic kidney disease, stage 3 unspecified (HCC) (CMS/HCC) Asthma with COPD (CMS/HCC) 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) Chronic diastolic congestive heart failure (CMS/HCC) Lower extremity edema Edema Iron deficiency anemia secondary to inadequate dietary iron intake DDD (degenerative disc disease), lumbar Degeneration of lumbar or lumbosacral intervertebral disc Acute URI- Primary Acute upper respiratory infections of unspecified site Class 1 obesity due to excess calories with serious comorbidity in adult, unspecified BMI Primary hypertension (CMS/HCC) Unspecified essential hypertension Encounter for annual wellness visit (AWV) in Medicare patient- Primary SHUKRI (obstructive sleep apnea) Obstructive sleep apnea (adult) (pediatric) Asthma with COPD (CMS/HCC) Coronary artery disease of [place] artery of [place] heart with stable angina pectoris (CMS/HCC) Chronic diastolic congestive heart failure (CMS/HCC) Persistent atrial fibrillation (HCC) (CMS/HCC) Atrial fibrillation Primary hypertension (CMS/HCC) Unspecified essential hypertension Stage 3a chronic kidney disease (HCC) (CMS/HCC) Prostate cancer (CMS/HCC) Malignant neoplasm of prostate Class 1 obesity due to excess calories with serious comorbidity in adult, unspecified BMI Mixed hyperlipidemia (CMS/HCC) Mixed hyperlipidemia Needs flu shot Need for prophylactic vaccination and inoculation against influenza Colon cancer screening Special screening for malignant neoplasms, colon Acute cough- Primary documented in this encounter [facility]* Diagnosis Encounter for annual wellness visit (AWV) in Medicare patient- Primary SHUKRI (obstructive sleep apnea) Obstructive sleep apnea (adult) (pediatric) Chronic atrial fibrillation (HCC) (CMS/HCC) Atrial fibrillation COPD mixed type (CMS/HCC) Iron deficiency anemia secondary to inadequate dietary iron intake Primary hypertension (CMS/HCC) Unspecified essential hypertension Coronary artery disease of [place] artery of [place] heart with stable angina pectoris (CMS/HCC) Prostate cancer (CMS/HCC) Malignant neoplasm of prostate COPD mixed type (CMS/HCC)- Primary Paroxysmal atrial flutter (CMS/HCC) Primary hypertension (CMS/HCC) Unspecified essential hypertension Lower extremity edema Edema Class 1 obesity due to excess calories with serious comorbidity in adult, unspecified BMI Prostate cancer (CMS/HCC) Malignant neoplasm of prostate Primary hypertension (CMS/HCC)- Primary Unspecified essential hypertension Chronic kidney disease, stage 3 unspecified (HCC) (CMS/HCC) Asthma with COPD (CMS/HCC) 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) Chronic diastolic congestive heart failure (CMS/HCC) Lower extremity edema Edema Iron deficiency anemia secondary to inadequate dietary iron intake DDD (degenerative disc disease), lumbar Degeneration of lumbar or lumbosacral intervertebral disc Acute URI- Primary Acute upper respiratory infections of unspecified site Class 1 obesity due to excess calories with serious comorbidity in adult, unspecified BMI Primary hypertension (CMS/HCC) Unspecified essential hypertension Encounter for annual wellness visit (AWV) in Medicare patient- Primary SHUKRI (obstructive sleep apnea) Obstructive sleep apnea (adult) (pediatric) Asthma with COPD (CMS/HCC) Coronary artery disease of [place] artery of [place] heart with stable angina pectoris (CMS/HCC) Chronic diastolic congestive heart failure (CMS/HCC) Persistent atrial fibrillation (HCC) (CMS/HCC) Atrial fibrillation Primary hypertension (CMS/HCC) Unspecified essential hypertension Stage 3a chronic kidney disease (HCC) (CMS/HCC) Prostate cancer (CMS/HCC) Malignant neoplasm of prostate Class 1 obesity due to excess calories with serious comorbidity in adult, unspecified BMI Mixed hyperlipidemia (CMS/HCC) Mixed hyperlipidemia Needs flu shot Need for prophylactic vaccination and inoculation against influenza Colon cancer screening Special screening for malignant neoplasms, colon Atherosclerotic heart disease of [place] coronary artery without angina pectoris (CMS/HCC) documented in this encounter [facility] Narrative - Reported* Type Description Date Medical History malignant melanoma (left arm) Medical History hypertension Medical History Asthma Medical History COPD Medical History Lung nodule Medical History Prostate cancer Medical History post op pneumonia 07/2018 post pr ostatectomy Medical History PA 06/2019 Medical History PA 09/2019 Medical History seasonal allergies Surgical History melanoma resection Surgical History cholecystectomy Surgical History inguinal hernia repair Surgical History prostatectomy at [facility] 07/20/2018 Surgical History Heart stents 06/2019 Surgical History heart conversions Hospitalization History see above Hospitalization History pneumonia [facility] 2018 Hospitalization History see above 2019 Hospitalization History PA [facility] 06/2019 Hospitalization History PA [facility] 09/2019 Hospitalization History AFIB couple times Apiary Other History general Narrative - Reported* Type Description Date Medical History malignant melanoma (left arm) Medical History hypertension Medical History Asthma Medical History COPD Medical History Lung nodule - RLL stable since 2 017 Medical History Prostate cancer Medical History post op pneumonia 07/2018 post pr ostatectomy Medical History PA 06/2019 Medical History PA 09/2019 Medical History seasonal allergies Medical History Detached retina rt eye Medical History Atrial fibrillation - Dr. Jt prajapati Surgical History melanoma resection Surgical History cholecystectomy Surgical History inguinal hernia repair Surgical History prostatectomy at [facility] 07/20/2018 Surgical History Heart stents 06/2019 Surgical History heart conversions Surgical History rt detached retina Hospitalization History see above Hospitalization History pneumonia [facility] 2018 Hospitalization History see above 2019 Hospitalization History PA [facility] 06/2019 Hospitalization History PA [facility] 09/2019 Hospitalization History AFIB couple times Apiary Other History of Present illness Narrative* The patient states he has been generally doing poorly since the last visit. Comorbid Illnesses: hypertension and hyperlipidemia. * Symptoms: denies chest pain at rest, denies exertional chest pain, worsened dyspnea, worsened fatigue, worsened exercise intolerance, denies palpitations, worsened edema, worsened orthopnea, denies claudication, denies dizziness and denies orthostatic dizziness. * Disease Monitoring: [facility] [email or web address] 250 DO Work Phone: History of Present illness Narrative* The patient states he has been generally doing poorly since the last visit. Comorbid Illnesses: hypertension and hyperlipidemia. * Symptoms: denies chest pain at rest, denies exertional chest pain, worsened dyspnea, worsened fatigue, worsened exercise intolerance, denies palpitations, worsened edema, worsened orthopnea, denies claudication, denies dizziness and denies orthostatic dizziness. * Disease Monitoring: [facility] Work Phone: History of Present illness Narrative* [...] regimen. He denies medication side effects. [facility] 600 DO Work Phone: Hisbxye of Present illness Narrative* The patient presents [...] medication regimen. He denies medication side effects. [facility] [email or web address] Work Phone: Hospital Discharge instructions Additional Instructions All of your tests looked okay here. There was no sign of any heart issue. The CAT scan did not show any obvious cause for your left upper back pain. Your lungs look okay with no evidence of pneumonia, blood clot, or other obvious cause for pain. We talked about trying a little Lasix because of the shortness of breath you have had lying flat at night. This can sometimes indicate mild heart failure. You wanted to talk to Dr. Dutta first. I think that is reasonable but if you do have any worsening or otherwise worrisome issues, I would like you to come back. Do follow-up with your doctor as well.[facility] Work Phone: Instructions* Attachments The following attachments cannot be sent through Care Everywhere. * How to Care for Your Eyes (Chinese) documented in this encounterPro[facility] SystemInstructionsNot on file documented in this encounterProDiley Ridge [facility] Center SystemInstructionsNot on file documented in this encounterProDiley Ridge Medical Center SystemInstructions* Attachments The following attachments cannot be sent through Care Everywhere. * How to Care for Your Eyes (Chinese) documented in this encounterProDiley [facility] SystemInstructionsNot on file documented in this encounterTrumbull [facility] SystemReason for referral (narrative)* Consultation (Routine) - Authorized Specialty Diagnoses / Procedures Referred By Albina borjas Referred To Contact Cardiology Diagnoses ASHD (arteriosclerotic heart disease) Procedures Follow Up In Cardiology Vinciius Juárez APRN-CNP [address] [facility] [address], [address] [address] Jose Dutta DO [address] [facility] [address], [address] [address] Referral ID Status Reason Start Date Expiration Date V isits Requested Visits Authorized [id number] Authorized 09/13/2023 09/12/2024 1 1 * Cardiovascular (Routine) - Authorized Specialty Diagnoses / Procedures Referred By Albina borjas Referred To Contact Diagnoses Paroxysmal atrial flutter (CMS/HCC) Procedures ECG 12 Lead Vinicius Juárez APRN-CNP [address] [facility] [address], [address] [address] Referral ID Status Reason Start Date Expiration Date V isits Requested Visits Authorized [id number] Authorized 09/13/2023 09/12/2024 1 1 T [facility] Work Phone: Summary Purpose Family History Unknown Family Member Name Dates Details Family [...] Mesothelioma Unknown Not Specified Malignant melanoma Unknown father Unknown Tuberculosis Unknown grandparent Unknown Not Specified Malignant neoplasm Unknown Unknown Malignant neoplasm Unknown Relationship Condition Age at Onset Recorded Date/T izabela sister Mesothelioma Unknown mother Malignant melanoma Unknown father Unknown Tuberculosis Unknown grandparent Unknown mother Malignant neoplasm Unknown Unknown Malignant neoplasm Unknown Advance Directives Documents on File Type Date Recorded Patient Recruitment And Outreach Assistant Expl anation Advance Directive(s) 07/22/2018 8:38 PM Advance Directive(s) 07/09/2018 12:35 PM Advance Directive Response Recorded Date/ Time Advance Directives No October 24 8 9:12pm Advance Directive Response Recorded Date/ Time Advance Directives No October 24 8 10:12pm Chief Complaint * AMEE JUÁREZ is [...] a history of 2 separate non-ST elevation PA events inJ and September 2019 involving the LAD and [...] LA moderate, mild MR Order sent to [facility] for testing due in May - * I am doing lousy * AMEE [...] that he feels out of rhythm. Per Vinicius Naranjo NP bring pt in for an [...] Jose Dutta DO for review * To Vinicius Naranjo NP for signature. Amiodarone Order sent to [facility] for testing due in December* AMEE JUÁREZ [...] is stable, with remote two-vessel PCI's in 2020 Involving the LAD and RCA with normal [...] in 6 months Amiodarone Order sent to [facility] for testing due in October* AMEE JUÁREZ [...] z79.899 i48.19 Chief Complaint pelvic floor therapy Chief Complaint z79.899 i48.19 H Mo F/U Asthma W Copd, Seasonal All Afib Chief Complaint 6 mo f/u f/u Asthma w COPD, Seasonal Allergies Reason for Visit Asthma with COPD COPD (chronic obstructive pulmonary disease) Seasonal allergies Chief Complaint Admit Date sob, chest pressure April 13, 2024 9 :15pm Chief Complaint Admit Date sob, chest pressure April 13, 2024 9 :15pm H mo f/u COPD May 08, 2024 9 :24am high risk meds I48.92 June 12, 2024 8:55am high risk meds I48.92 June 12, 2024 12:19pm Reason for Visit Admit Date Asthma with COPD May 08, 2024 9 :24am COPD (chronic obstructive pulmonary dise ase) May 08, 2024 9:24am Lung nodule May 08, 2024 9 :24am Seasonal allergies May 08, 2024 9 :24am Reason for Referral Specialty Diagnoses / Procedures Referred By Contac t Referred To Contact Diagnoses Paroxysmal atrial flutter (Multi) Procedures ECG 12 Lead Jose Dutta, DO [address] [place] [address] 2, [place] [phone] Referral ID Status Reason Start Date Expiration Date V isits Requested Visits Authorized [id number] Authorized 03/14/2024 03/14/2025 1 1 Specialty Diagnoses / Procedures Referred By Contac t Referred To Contact Cardiology Diagnoses ASHD (arteriosclerotic heart disease) Procedures Follow Up In Cardiology Jose Dutta, DO [address] [place] [address] 2, [address] [address] Jose Dutta, DO [address] [place] [address] 2, [place] [phone] Referral ID Status Reason Start Date Expiration Date V isits Requested Visits Authorized [id number] Authorized 03/14/2024 03/14/2025 1 1 Specialty Diagnoses / Procedures Referred By Contac t Referred To Contact Diagnoses Paroxysmal atrial flutter (Multi) High risk medication use Procedures Complete Pulmonary Function Test (Spirometry/DLCO/Lung Volumes) Jose Dutta, DO [address] [place] [address] 2, [address] [address] Referral ID Status Reason Start Date Expiration Date V isits Requested Visits Authorized [id number] Authorized 03/14/2024 03/14/2025 1 1 Specialty Diagnoses / Procedures Referred By Contac t Referred To Contact Radiology Diagnoses Paroxysmal atrial flutter (Multi) High risk medication use Procedures XR chest 2 views Jose Dutta, DO [address] [place] [address] Referral ID Status Reason Start Date Expiration Date Visits Requested Visits Authorized [id number] Authorized Perform Procedure 03/14/2025 1 1 Specialty Diagnoses / Procedures Referred By Contac t Referred To Contact Cardiology Diagnoses Persistent atrial fibrillation (CMS/HCC) Procedures Cardioversion External Jose Dutta, DO [address] [place] [address] Referral ID Status Reason Start Date Expiration Date V isits Requested Visits Authorized [id number] Pending Review 07/05/2023 07/04/2024 1 1 Specialty Diagnoses / Procedures Referred By Contac t Referred To Contact Diagnoses Persistent atrial fibrillation (CMS/HCC) Procedures ECG 12 Lead Jose Dutta, DO [address] [place] [address] Referral ID Status Reason Start Date Expiration Date V isits Requested Visits Authorized [id number] Authorized 07/05/2023 07/04/2024 1 1 Specialty Diagnoses / Procedures Referred By Contac t Referred To Contact Cardiology Diagnoses ASHD (arteriosclerotic heart disease) Procedures Follow Up In Cardiology Tra, Jose Douglas, DO [address] [place] [address] Jose Dutta, DO [address] [place] [address] Referral ID Status Reason Start Date Expiration Date V isits Requested Visits Authorized [id number] Authorized 07/05/2023 07/04/2024 1 1 Specialty Diagnoses / Procedures Referred By Contac t Referred To Contact [facility] Diagnoses Urinary incontinence, unspecified type Procedures CONSULT TO PHYSICAL THERAPY PHYSICAL THERAPY EVALUATION HIGH COMPLEX 45 MINS aGlileo Delatorre MD [address] [place] [address] [place] [address] [facility] [place] [address] [place] [address] Referral ID Status Reason Start Date Expiration Date Visits Requested Visits Authorized [id number] Authorized PCP Requested Referral Auto-Generate d Referral 01/10/2023 01/09/2024 99 99 Specialty Diagnoses / Procedures Referred By Contac t Referred To Contact Diagnoses Prostate cancer (HCC) Procedures CON[facility]ULT [facility] Galileo Delatorre MD [address] [place] [address] [place] [address] Referral ID Status Reason Start Date Expiration Date Visits Requested Visits Authorized [id number] Ref Not Required PCP Requested Referral 01/10/2023 04/09/2023 1 1 Specialty Diagnoses / Procedures Referred By Contac t Referred To Contact Diagnoses Prostate cancer (HCC) Procedures CONSULT TO PSYCHIATRY OFFICE/OUTPATIENT [facility] MDM 60-74 MINUTES Galileo Delatorre MD [address] [place] [address] [place] [address] Referral ID Status Reason Start Date Expiration Date Visits Requested Visits Authorized [id number] Pending Review PCP Requested Referral 01/10/2023 01/09/2024 1 1 Additional Source Comments (unrecognized sect ion and content) No Status Records FoundNo Status Records FoundNo Status Records FoundNo Status Records FoundNo Status Records FoundNo Status Records FoundNo Status Records FoundNo Status Records FoundNo Status Records FoundNo Status Records FoundNo Status Records Found INFORMATION SOURCE (unrecogn ized section and content) DATE CREATED AUTHOR 06/09/2018 [facility] DATE CREATED AUTHOR AUTHOR'S ORGANIZ ATION 10/12/2018 [facility] DATE CREATED AUTHOR AUTHOR'S ORGANIZ ATION 07/04/2021 [facility] DATE CREATED AUTHOR AUTHOR'S ORGANIZ ATION 08/11/2022 [facility] DATE CREATED AUTHOR AUTHOR'S ORGANIZ ATION 10/03/2022 [facility] DATE CREATED AUTHOR AUTHOR'S ORGANIZ ATION 02/01/2023 [facility] DATE CREATED AUTHOR AUTHOR'S ORGANIZ ATION 02/24/2023 [facility] DATE CREATED AUTHOR AUTHOR'S ORGANIZ ATION 02/14/2024 [facility] DATE CREATED AUTHOR AUTHOR'S ORGANIZ ATION 03/16/2024 [facility] DATE CREATED AUTHOR AUTHOR'S ORGANIZ ATION 06/04/2024 [facility] EPIC DATE CREATED AUTHOR AUTHOR'S ORGANIZ ATION 06/22/2024 [facility] Reason for Visit (unrecogniz ed section and [...] (CMS/HCC) Procedures ECG 12 Lead Jose Dutta, DO [address] [facility] [address], [address] [place] [address] Referral ID Status Reason Start Date Expiration Date V isits Requested Visits Authorized [id number] Authorized 07/05/2023 07/04/2024 1 1 Reason Comments Med Refill Reason Comments Follow-up S/P [facility] 07/25 Specialty Diagnoses / Procedures Referred By Contac t Referred To Contact Diagnoses Paroxysmal atrial flutter (CMS/HCC) Procedures ECG 12 Lead Vinicius Juárez, INSPECTOR AND CLIPPER-SERVICE COUNTER CASHIER [address] [facility] [address], [address] [place] [address] Referral ID Status Reason Start Date Expiration Date V isits Requested Visits Authorized [id number] Authorized 09/13/2023 09/12/2024 1 1 Reason Comments Orders Reason Comments Prostate Cancer Follow up Reason Comments Follow-up 6m Specialty Diagnoses / Procedures Referred By Contac t Referred To Contact Cardiology Diagnoses ASHD (arteriosclerotic heart disease) Procedures Follow Up In Cardiology Elias Juáerzmicha Chacon, INSPECTOR AND CLIPPER-SERVICE COUNTER CASHIER [address] [facility] [address], [address] [place] [address] Jose Dutta, DO [address] [facility] [address] [place] [address] Referral ID Status Reason Start Date Expiration Date V isits Requested Visits Authorized [id number] Authorized 09/13/2023 09/12/2024 1 1 Reason Comments Medicare Annual Wellness Visit Initial Reason Comments Chronic Cystoid Macular Edema Source Comments (unrecognize d section and content) In the event this informatio n is protected by the Federal Confidentiality of Alcohol and Drug Abuse Patient Records regulations: The Federal rules restrict any use of the information to criminally investigate or prosecute any alcohol or drug abuse patient.[facility] the event this information is protected by the Federal Confidentiality of Alcohol and Drug Abuse Patient Records regulations: The Federal rules restrict any use of the information to criminally investigate or prosecute any alcohol or drug abuse patient.[facility] Center[facility] the event this information is protected by the Federal Confidentiality of Alcohol and Drug Abuse Patient Records regulations: The Federal rules restrict any use of the information to criminally investigate or prosecute any alcohol or drug abuse patient.[facility] Center[facility] the event this information is protected by the Federal Confidentiality of Alcohol and Drug Abuse Patient Records regulations: The Federal rules restrict any use of the information to criminally investigate or prosecute any alcohol or drug abuse patient.[facility] Center[facility] the event this information is protected by the Federal Confidentiality of Alcohol and Drug Abuse Patient Records regulations: The Federal rules restrict any use of the information to criminally investigate or prosecute any alcohol or drug abuse patient.[facility] Center[facility] the event this information is protected by the Federal Confidentiality of Alcohol and Drug Abuse Patient Records regulations: The Federal rules restrict any use of the information to criminally investigate or prosecute any alcohol or drug abuse patient.[facility] Center[facility] the event this information is protected by the Federal Confidentiality of Alcohol and Drug Abuse Patient Records regulations: The Federal rules restrict any use of the information to criminally investigate or prosecute any alcohol or drug abuse patient.[facility] Center[facility] the event this information is protected by the Federal Confidentiality of Alcohol and Drug Abuse Patient Records regulations: The Federal rules restrict any use of the information to criminally investigate or prosecute any alcohol or drug abuse patient.[facility] Center[facility] the event this information is protected by the Federal Confidentiality of Alcohol and Drug Abuse Patient Records regulations: The Federal rules restrict any use of the information to criminally investigate or prosecute any alcohol or drug abuse patient.[facility] Center[facility] the event this information is protected by the Federal Confidentiality of Alcohol and Drug Abuse Patient Records regulations: The Federal rules restrict any use of the information to criminally investigate or prosecute any alcohol or drug abuse patient.[facility] Center[facility] the event this information is protected by the Federal Confidentiality of Alcohol and Drug Abuse Patient Records regulations: The Federal rules restrict any use of the information to criminally investigate or prosecute any alcohol or drug abuse patient.[facility] Center[facility] the event this information is protected by the Federal Confidentiality of Alcohol and Drug Abuse Patient Records regulations: The Federal rules restrict any use of the information to criminally investigate or prosecute any alcohol or drug abuse patient.[facility] CenterIn the event this information is protected by the Federal Confidentiality of Alcohol and Drug Abuse Patient Records regulations: The Federal rules restrict any use of the information to criminally investigate or prosecute any alcohol or drug abuse patient.[facility] CenterIn the event this information is protected by the Federal Confidentiality of Alcohol and Drug Abuse Patient Records regulations: The Federal rules restrict any use of the information to criminally investigate or prosecute any alcohol or drug abuse patient.[facility] Care Teams (unrecognized sec tion and content) Team Status: Active Member Role Status Bradford Louise Primary Care Provider Active Team Status: Inactive Member Role Status Dates Kailey Louise Primary Care Provider Active W Bayron Dutta DO Attending Provider Active Drop Machine Operator Relationship Specialty Start Date End Date Kailey Louise SERVICE COUNTER CASHIER [address] [place] [address] PCP - General Family Practice 06/26/18 Drop Machine Operator Relationship Specialty Start Date End Date Kailey Louise SERVICE COUNTER CASHIER [address] [place] [address] PCP - General Family Medicine 06/26/18 Drop Machine Operator Relationship Specialty Start Date End Date Kailey Louise CNP [address] [place] [address] PCP - General Family Medicine 06/26/18 Drop Machine Operator Relationship Specialty Start Date End Date Kailey Louise SERVICE COUNTER CASHIER [address] [place] [address] PCP - General Family Medicine 06/26/18 Erin Verma LSW Child Care Education Coordinator 01/09/23 Drop Machine Operator Relationship Specialty Start Date End Date Kailey Louise CNP [address] [place] [address] PCP - General Family Medicine 06/26/18 Erin Verma LSW Child Care Education Coordinator 01/09/23 Drop Machine Operator Relationship Specialty Start Date End Date Kailey Louise CNP [address] [place] [address] PCP - General Family Medicine 06/26/18 Erin Verma LSW Child Care Education Coordinator 01/09/23 Drop Machine Operator Relationship Specialty Start Date End Date Kailey Louise CNP [address] [place] [address] PCP - General Family Medicine 06/26/18 Erin Verma LSW Child Care Education Coordinator 01/09/23 Team Status: Inactive Member Role Status Dates Kailey Louise Primary Care Provider Active Galileo Delatorre MD Attending Provider Active Drop Machine Operator Relationship Specialty Start Date End Date No Pcp, [place] [address] PCP - General Family Medicine 08/18/22 Drop Machine Operator Relationship Specialty Start Date End Date Kailey Louise INSPECTOR AND CLIPPER-SERVICE COUNTER CASHIER [address] [place] [id number] PCP - General 09/25/19 Drop Machine Operator Relationship Specialty Start Date End Date No Pcp, [place] [address] PCP - General Family Medicine 08/18/22 Drop Machine Operator Relationship Specialty Start Date End Date Lior Georges MD PCP - General Cardiology 11/01/22 Team Status: Inactive Member Role Status Dates Kailey Louise Primary Care Provider Active Sta rt: June 13, 2023 End: June 13, 2023 Kary Dutta DO Attending Provider Active S tart: June 13, 2023 End: June 13, 2023 Team Status: Inactive Member Role Status Dates Harriett Devries APRN [facility] Attending Provider Active Start: June 19, 2023 End: June 19, 2023 Team Status: Inactive Member Role Status Dates Kailey Louise Primary Care Provider Active Sta rt: July 25, 2023 End: July 25, 2023 Kary Dutta DO Attending Provider Active S tart: July 25, 2023 End: July 25, 2023 Isaias Cavazos MD Referring Provider Active St art: July 25, 2023 End: July 25, 2023 Drop Machine Operator Relationship Specialty Start Date End Date No Pcp, [place] [address] PCP - General Family Medicine 08/18/22 Drop Machine Operator Relationship Specialty Start Date End Date Kailey Louise APRN-SERVICE COUNTER CASHIER [address] [place] [phone] PCP - General 09/25/19 Team Status: Inactive Member Role Status Dates aKiley Louise Primary Care Provider Active Sta rt: December 18, 2023 End: December 18, [address] [facility]- Attending Provider Active Start: December 18, 2023 End: December 18, 2023 Drop Machine Operator Relationship Specialty Start Date End Date Kailey Louise SERVICE COUNTER CASHIER [address] [place] [address] PCP - General Family Medicine 06/26/18 Eirn Verma LSW Child Care Education Coordinator 01/09/23 Drop Machine Operator Relationship Specialty Start Date End Date Kailey Louise CNP [address] [place] [address] PCP - General Family Medicine 06/26/18 Erin Verma LSW Child Care Education Coordinator 01/09/23 Drop Machine Operator Relationship Specialty Start Date End Date Kailey Louise CNP [address] [place] [address] PCP - General Family Medicine 06/26/18 Erin Verma LSW Child Care Education Coordinator 01/09/23 Drop Machine Operator Relationship Specialty Start Date End Date Lior Georges MD [address] [place] [phone] PCP - General Family Medicine 08/22/23 Kailey Louise NP [address] [place] [address] Nurse Practitioner Family Medicine 08/22/23 Brandt Mckenzie DO [address] [place] [address] Otolaryngology 11/16/23 Anabelle Morales CCC-A [address] [place] [address] Audiology 11/16/23 Drop Machine Operator Relationship Specialty Start Date End Date Lior Georges MD [address] [place] [phone] PCP - General Family Medicine 08/22/23 Kailey Louise NP [address] [place] [address] Nurse Practitioner Family Medicine 08/22/23 Brandt Mckenzie DO [address] [place] [address] Otolaryngology 11/16/23 Anabelle Morales CCC-A [address] [place] [address] Audiology 11/16/23 Drop Machine Operator Relationship Specialty Start Date End Date Kailey Louise APRN-SERVICE COUNTER CASHIER [address] [place] [phone] PCP - General 09/25/19 Drop Machine Operator Relationship Specialty Start Date End Date Lior Georges MD [address] [place] [phone] PCP - General Family Medicine 08/22/23 Kailey Louise NP [address] [place] [phone] Nurse Practitioner Family Medicine 08/22/23 Brandt Mckenzie DO [address] [place] [address] Otolaryngology 11/16/23 Anabelle Morales CCC-Natasha [address] [place] [address] Audiology 11/16/23 Team Status: Inactive Member Role Status Dates Kailey Louise Primary Care Provider Active Sta rt: April 13, 2024 End: April 14, 2024 Max York , RES Active Sta rt: April 13, 2024 End: April 14, 2024 Amee Herrera Jr, MD Emergency Provider Active Start: April 13, 2024 End: April 14, 2024 Drop Machine Operator Relationship Specialty Start Date End Date Lior Georges MD [address] [place] [phone] PCP - General Family Medicine 08/22/23 Kailey Louise NP [address] [place] [phone] Nurse Practitioner Family Medicine 08/22/23 Brandt Mckenzie DO [address] [place] [address] Otolaryngology 11/16/23 Anabelle Morales [facility] [address] [place] [address] Audiology 11/16/23 Drop Machine Operator Relationship Specialty Start Date End Date Lior Georges MD [address] [place] [phone] PCP - General Family Medicine 08/22/23 Kailey Louise NP [address] [place] [phone] Nurse Practitioner Family Medicine 08/22/23 Brandt Mckenzie DO [address] [place] [address] Otolaryngology 11/16/23 Anabelle Morales [facility] [address] [place] [place] [address] Audiology 11/16/23 Drop Machine Operator Relationship Specialty Start Date End Date Lior Georges MD [address] [place] [phone] PCP - General Family Medicine 08/22/23 Kailey Louise NP [address] [place] [address] Nurse Practitioner Family Medicine 08/22/23 Brandt Mckenzie DO [address] [place] [place] [address] Otolaryngology 11/16/23 Anabelle Morales [facility] [address] [place] [address] Audiology 11/16/23 Drop Machine Operator Relationship Specialty Start Date End Date Lior Georges MD [address] [place] [phone] PCP - General Family Medicine 08/22/23 Kailey Louise NP [address] [place] [phone] Nurse Practitioner Family Medicine 08/22/23 Brandt Mckenzie DO [address] [place] [address] Otolaryngology 11/16/23 Anabelle Morales [facility] [address] [place] [address] Audiology 11/16/23 Drop Machine Operator Relationship Specialty Start Date End Date Lior Georges MD [address] [place] [phone] PCP - General Family Medicine 08/22/23 Kailey Louise NP [address] [place] [address] Nurse Practitioner Family Medicine 08/22/23 Brandt Mckenzie DO [address] [place] [address] Otolaryngology 11/16/23 Anabelle Morales [facility] [address] [place] [address] Audiology 11/16/23 Drop Machine Operator Relationship Specialty Start Date End Date Lior Georges MD [address] [place] [phone] PCP - General Family Medicine 08/22/23 Kailey Louise NP [address] [place] [phone] Nurse Practitioner Family Medicine 08/22/23 Brandt Mckenzie DO [address] [place] [address] Otolaryngology 11/16/23 Anabelle Morales [facility] [address] [place] [address] Audiology 11/16/23 Drop Machine Operator Relationship Specialty Start Date End Date Lior Georges MD [address] [place] [phone] PCP - General Family Medicine 08/22/23 Kailey Louise NP [address] [place] [phone] Nurse Practitioner Family Medicine 08/22/23 Brandt Mckenzie DO [address] [place] [address] Otolaryngology 11/16/23 Anabelle Morales CCC-A [address] [place] [address] Audiology 11/16/23 Drop Machine Operator Relationship Specialty Start Date End Date Lior Georges MD [address] [place] [phone] PCP - General Family Medicine 08/22/23 Kailey Louise, JD [address] [place] [phone] Nurse Practitioner Family Medicine 08/22/23 Brandt Mckenzie DO [address] [place] [address] Otolaryngology 11/16/23 Anabelle Morales [facility] [address] [place] [address] Audiology 11/16/23 Drop Machine Operator Relationship Specialty Start Date End Date Lior Georges MD [address] [place] [phone] PCP - General Family Medicine 08/22/23 Kailey Louise NP [address] [place] [address] Nurse Practitioner Family Medicine 08/22/23 Brandt Mckenzie DO [address] [place] [address] Otolaryngology 11/16/23 Anabelle Morales CCC-Natasha [address] [place] [address] Audiology 11/16/23 Team Status: Inactive Member Role Status Dates Kailey Louise Primary Care Provider Active Sta rt: May 08, 2024 End: May 08, 2024 Harriett Devries APRN [facility] Attending Provider Active Start: May 08, 2024 End: May 08, 2024 Team Status: Inactive Member Role Status Dates Kailey Louise Primary Care Provide r, Other Provider Active Start: June 12, 2024 End: June 12, 2024 Kary Dutta DO Attending Provider Active S tart: June 12, 2024 End: June 12, 2024 Team Status: Active Member Role Status Dates Kailey Louise Primary Care Provide r, Other Provider Active Start: June 12, 2024 Kary Dutta DO Other Provider Active Start : June 12, 2024 Chato Mustafa MD Attending Provider Active Start: June 12, 2024 Drop Machine Operator Relationship Specialty Start Date End Date No Pcp, [place] [address] PCP - General Family Medicine 08/18/22 Drop Machine Operator Relationship Specialty Start Date End Date Lior Georges MD [address] [place] [phone] PCP - General Family Medicine 08/22/23 Kailey Louise NP [address] [place] [address] Nurse Practitioner Family Medicine 08/22/23 Brandt Mckenzie DO [address] [place] [address] Otolaryngology 11/16/23 Anabelle Morales [facility] [address] [place] [address] Audiology 11/16/23 Drop Machine Operator Relationship Specialty Start Date End Date Lior Georges MD [address] [place] [phone] PCP - General Family Medicine 08/22/23 Kailey Louise NP [address] [place] [phone] Nurse Practitioner Family Medicine 08/22/23 Brandt Mckenzie DO [address] [place] [address] Otolaryngology 11/16/23 Anabelle Morales [facility] [address] [place] [address] Audiology 11/16/23 Goals (unrecognized section and content) Goals may [...] BE BASED ON THE PRIMARY CLINICAL RECORDS. [facility]. provides no warranty or guarantee of the accuracy or completeness of information in this document.
[2024-07-04 21:17] VITALS: O2SAT 96
--- NOTE | 2024-07-04 21:19 | ED_ITS ---
HPI HPI - General Adult General Chief complaint: Shortness of Breath/Dyspnea Stated complaint: possible pneumonia Time Seen by Provider: 07/04/24 21:11 Source: patient Mode of arrival: walk-in History of Present Illness HPI narrative: 73-year-old male presents for cough and some shortness of breath. He has had symptoms for a week. Initially he was coughing up some yellow phlegm but now it is a nonproductive cough. He has not checked his temperature at home and has had no hemoptysis. He is worried about pneumonia. He has also been fatigued. Related Data Home Medications ?Medication ?Instructions ?Recorded ?Confirmed apixaban 5 mg tablet (Eliquis) 5 mg PO BID 07/31/23 07/04/24 atorvastatin 80 mg tablet 80 mg PO DAILY 07/31/23 07/04/24 carbidopa 25 mg-levodopa 100 mg 1 tab PO BID 07/31/23 07/04/24 tablet hydrochlorothiazide 12.5 mg capsule 12.5 mg PO DAILY 07/31/23 07/04/24 isosorbide mononitrate 30 mg 30 mg PO DAILY 07/31/23 07/04/24 tablet,extended release 24 hr roflumilast 500 mcg tablet 500 mcg PO DAILY 07/31/23 07/04/24 spironolactone 25 mg tablet 25 mg PO DAILY 07/31/23 07/04/24 temazepam 15 mg capsule 15 mg PO PRN 07/31/23 07/04/24 valsartan 160 mg tablet 160 mg PO BID 07/31/23 07/04/24 amiodarone 200 mg tablet 200 mg PO DAILY 07/04/24 07/04/24 fluticasone furoate 100 1 inh inhalation DAILY 07/04/24 07/04/24 mcg-vilanterol 25 mcg/dose inhalation powder (Breo Ellipta) prednisolone acetate 1 % eye 1 drp ophthalmic (eye) TID 07/04/24 07/04/24 drops,suspension Previous Rx's ?Medication ?Instructions ?Recorded doxycycline hyclate 100 mg capsule 100 mg PO BID 10 days #20 caps 07/04/24 Allergies Allergy/AdvReac Type Severity Reaction Status Date / Time No Known Drug Allergies Allergy Verified 07/09/23 12:49 Opioid HPI Opioid Management Most Recent Opioid Data: Last Pain Scale 6 07/31/23 13:41 07/31/23 Review of Systems ROS Narrative A ten point review of systems is negative except as noted above. PFSH PFSH Social History Smoking status: Former smoker Exam Narrative Exam Narrative: Nurses note and vital signs reviewed and patient is not hypoxic. General: The patient appears well and in no apparent distress. Patient is resting comfortably on cart. Skin: Warm, dry, no pallor noted. There is no rash noted. Head: Normocephalic, atraumatic Eye: Normal conjunctiva, no drainage Ears, Nose, Mouth, and Throat: oral mucosa is moist. Nares patent. Cardiovascular: Regular Rate and Rhythm Respiratory: Patient is in no distress, no accessory muscle use, lungs show bilateral rhonchi throughout Back: non-tender GI: Soft and nontender Musculoskeletal: The patient has no evidence of calf tenderness, no pitting edema, symmetrical pulses noted bilaterally Neurological: A&O, normal speech Psychiatric: Cooperative Constitutional Vital Signs, click to edit/add: Last Vital Signs Temp 98.2 F 07/04/24 21:12 Pulse 66 07/04/24 21:43 Resp 20 07/04/24 21:43 BP 126/74 07/04/24 21:12 Pulse Ox 92 L 07/04/24 21:43 O2 Del Method Room Air 07/04/24 21:43 Course Vital Signs Vital signs: Vital Signs Temperature 98.2 F 07/04/24 21:12 Pulse Rate 68 07/04/24 21:12 Respiratory Rate 18 07/04/24 21:12 Blood Pressure 126/74 07/04/24 21:12 Pulse Oximetry 95 07/04/24 21:12 Oxygen Delivery Method Room Air 07/04/24 21:12 Temperature 98.2 F 07/04/24 21:12 Pulse Rate 66 07/04/24 21:43 Respiratory Rate 20 07/04/24 21:43 Blood Pressure 126/74 07/04/24 21:12 Pulse Oximetry 92 L 07/04/24 21:43 Oxygen Delivery Method Room Air 07/04/24 21:43 Medical Decision Making MDM Narrative Medical decision making narrative: Chest x-ray does not show pneumonia. There is a suggestion of edema on the chest x-ray per radiologist but that does not fit the clinical picture. Influenza test was negative. He was offered a COVID test but does not feel that he needs it. He will be placed on doxycycline and follow-up with his doctor. Treatment diagnosis and follow-up were discussed with the patient. Differential Diagnosis Differential Diagnosis: Pneumonia, COVID, influenza, URI Lab Data Lab results reviewed: Yes I reviewed the patient's lab results Labs: Lab Results 07/04/24 07/04/24 Range/Units 21:30 21:35 WBC 5.2 (4.0-11.0) 10^3/uL RBC 4.60 L (4.70-6.10) 10^6/uL Hgb 13.5 L (14.0-18.0) g/dL Hct 41.6 L (42.0-54.0) % MCV 90.4 (80.0-94.0) fL MCH 29.3 (25.9-34.0) pg MCHC 32.5 (29.9-35.2) g/dL RDW 15.1 H (11.0-15.0) % Plt Count 160 (150-450) 10^3/uL MPV 9.9 (9.5-13.5) fL Seg Neuts % (Manual) 79.0 H (43.0-75.0) Lymphocytes % (Manual) 8.0 L (20.5-60.0) % Monocytes % (Manual) 13.0 H (1.7-12.0) % Eosinophils % (Manual) 0.0 L (0.9-7.0) % Basophils % (Manual) 0.0 L (0.2-2.0) % Neutrophils # (Manual) 4.10 (1.4-6.5) 10^3/uL Lymphocytes # (Manual) 0.41 L (1.20-3.80) 10^3/uL Monocytes # (Manual) 0.67 (0.30-0.80) 10^3/uL Eosinophils # (Manual) 0.00 (0.00-0.70) 10^3/uL Basophils # (Manual) 0.00 (0.00-0.10) 10^3/uL Sodium 142 (136-145) mmol/L Potassium 4.2 (3.5-5.1) mmol/L Chloride 105 (98-107) mmol/L Carbon Dioxide 29.7 (21.0-32.0) mmol/L Anion Gap 11.5 BUN 24.0 H (7.0-18.0) mg/dL Creatinine 1.67 H (0.70-1.30) mg/dL Est GFR ( Amer) 49 L (>=60 mL/min/1.73m^2) Est GFR (Non-Af Amer) 40 L (>=60 mL/min/1.73m^2) BUN/Creatinine Ratio 14.4 Glucose 118 H (74-106) mg/dL Calcium 8.6 (8.5-10.1) mg/dL Troponin I High Sens 24.0 (4.0-76.1) pg/mL Influenza Type A Ag Negative Influenza Type B Ag Negative Imaging Data Chest x-ray: Radiologist's impression: ITS Impressions Chest X-Ray 07/04/24 21:19 IMPRESSION: Mild bilateral interstitial prominence may represent edema. Pulmonary venous hypertension. Remainder of the chest is unremarkable. Electronically authenticated by: BLAIRE GALICIA Date: 07/04/2024 22:19 ECG Data Attestation: I personally reviewed and interpreted this ECG as follows: (EKG on my interpretation shows sinus rhythm with a rate of 66 and a first-degree block) Discharge Plan Discharge Chief Complaint: Shortness of Breath/Dyspnea Clinical Impression: Upper respiratory infection Patient Disposition: Home, Self-Care Time of Disposition Decision: 22:26 Condition: Good Mode of Transportation: Private Vehicle Prescriptions / Home Meds: New doxycycline hyclate 100 mg capsule 100 mg PO BID 10 Days Qty: 20 0RF No Action Eliquis 5 mg tablet 5 mg PO BID atorvastatin 80 mg tablet 80 mg PO DAILY carbidopa-levodopa 25-100 mg tablet 1 tab PO BID hydrochlorothiazide 12.5 mg capsule 12.5 mg PO DAILY isosorbide mononitrate 30 mg tablet extended release 24 hr 30 mg PO DAILY roflumilast 500 mcg tablet 500 mcg PO DAILY temazepam 15 mg capsule 15 mg PO PRN spironolactone 25 mg tablet 25 mg PO DAILY valsartan 160 mg tablet 160 mg PO BID amiodarone 200 mg tablet 200 mg PO DAILY fluticasone furoate-vilanterol [Breo Ellipta] 100-25 mcg/dose blister with device 1 inh INHALATION DAILY prednisolone acetate 1 % drops,suspension 1 drp OPHTHALMIC (EYE) TID Print Language: Macedonian Instructions: Upper Respiratory Infection (ED) Referrals: Kailey Louise TOLL COLLECTOR SUPERVISOR [Primary Care Provider] - 1 week
--- NOTE | 2024-07-04 21:19 | XR_ITS ---
The [address] [address] Patient Name: AMEE LANCE MRN: [id number] date: 1950 Sex: M Assigned Patient Location: ED.MAIN Current Patient Location: ER Accession/Order Number: [id number] Exam Date: 07/04/2024 21:50 Report Date: 07/04/2024 22:19 At the request of: MARYANN RG Procedure: XR chest 1V Exam: Radiographs: XR chest 1V Reason for exam: cough, dyspnea Comparison: Chest x-ray dated 07/31/2023 XR/XR chest 1V IMPRESSION: Mild bilateral interstitial prominence may represent edema. Pulmonary venous hypertension. Remainder of the chest is unremarkable. Electronically authenticated by: BLAIRE GALICIA Date: 07/04/2024 22:19
--- NOTE | 2024-07-04 21:19 | ECG_ITS ---
The 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
[2024-07-04 21:39] LABS: Hematocrit 41.6 % (42.0-54.0); Hemoglobin 13.5 g/dL (14.0-18.0); Mean Corpuscular HGB Conc 32.5 g/dL (29.9-35.2); Mean Corpuscular Hemoglobin 29.3 pg (25.9-34.0); Mean Corpuscular Volume 90.4 fL (80.0-94.0); Mean Platelet Volume 9.9 fL (9.5-13.5); Platelet Count 160 10^3/uL (150-450); Red Cell Distribution Width 15.1 % (11.0-15.0); White Blood Count 5.2 10^3/uL (4.0-11.0)
[2024-07-04 21:43] VITALS: PULSE 66; O2SAT 92
[2024-07-04] MEDS: ALBUTEROL SULFATE 2.5 MG/3 ML VIAL NEB IH (21:43)
[2024-07-04 21:58] LABS: Anion Gap 11.5; BUN Creatinine Ratio 14.4; Calcium 8.6 mg/dL (8.5-10.1); Carbon Dioxide 29.7 mmol/L (21.0-32.0); Chloride 105 mmol/L (98-107); Estimated GFR (African America 49 (>=60 mL/min/1.73m^2); Estimated GFR (Non-African Ame 40 (>=60 mL/min/1.73m^2); Glucose 118 mg/dL (74-106); Potassium 4.2 mmol/L (3.5-5.1); Sodium 142 mmol/L (136-145)
[2024-07-04 22:04] LABS: Lymphocytes Absolute Manual 0.41 10^3/uL (1.20-3.80); Monocytes Absolute Manual 0.67 10^3/uL (0.30-0.80)
[2024-07-04 22:10] LABS: Influenza Virus A Antigen Negative; Influenza Virus B Antigen Negative; Internal Control Within Normal Limits
[2024-07-04] MEDS: DOXYCYCLINE MONOHYDRATE 100 MG CAPSULE PO (22:31)
[2024-07-04 22:40] VITALS: BP 131/69; PULSE 68; O2SAT 92
== END 2024-07-04 22:42 | disposition home or self-care (01) ==
PROVIDERS: Emergency Provider Emergency Medicine; PCP Nurse Practitioner
DX: J06.9 Acute upper respiratory infection, unspecified (principal); R06.02 Shortness of breath; Z87.891 Personal history of nicotine dependence
CPT/HCPCS: 36415; 71045; 80048; 84484; 85007; 85027; 87804; 93005; 94640; 99285